=== PATIENT | female | born 1940 ===

== ENCOUNTER 2018-10-03 15:43 | Inpatient (IN) | payer MEDICARE, OTHER ==
[2018-10-03 15:43] VITALS: BMI 22.6
[2018-10-03] MEDS ORDERED: Albuterol 0.083% Inhal Sol (2.5 mg/3 mL) UD INH STA ×2 (16:27→17:16)
[2018-10-03 16:33] LABS: BASO # 0.1 K/uL (0.0-0.2); BASO % 0.7 % (0.0-2.0); EOS % 0.3 % (0.0-4.0); HEMOGLOBIN 11.6 g/dL (11.0-16.0); LYMPH # 0.9 K/uL (1.0-4.3); LYMPH % 8.5 % (20.0-40.0); MEAN CELL VOLUME 95.2 fL (81.0-99.0); MEAN CORPUSCULAR HEMOGLOBIN 31.9 pg (27.0-31.0); MEAN CORPUSCULAR HGB CONC 33.5 g/dL (33.0-37.0); MEAN PLATELET VOLUME 9.7 fL (7.2-11.7); MONO % 8.9 % (0.0-10.0); NEUT # 8.8 K/uL (1.8-7.0); NEUT % 81.6 % (50.0-75.0); PLATELET COUNT 231 K/uL (130-400); RBC 3.64 Mil/uL (3.80-5.20); RED CELL DISTRIBUTION WIDTH 14.8 % (11.5-14.5); WHITE BLOOD COUNT 10.8 K/uL (4.8-10.8)
[2018-10-03] MEDS ORDERED: Albuterol 0.083% Inhal Sol (2.5 mg/3 mL) UD ONE ×2 (16:34→17:29)
--- NOTE | 2018-10-03 16:34 | C.PDOC ---
History Of Present Illness 78 y/o female brought in by ambulance from home complaining of SOB since yesterday afternoon after dialysis, associated with nonproductive cough. Patient states she takes all her medications and took them today. Patient denies chest pain, fever, chills, palpitations, abdominal pain, nausea, vomiting, blood in stool, or dysuria. Patient is on dialysis on Monday, , and Monday. Patient is a poor historian. Time Seen by Provider: 10/03/18 15:52 Chief Complaint (Nursing): Shortness Of Breath History Per: Patient History/Exam Limitations: language barrier Onset/Duration Of Symptoms: Days Current Symptoms Are (Timing): Still Present Past Medical History Reviewed: Historical Data, Nursing Documentation, Vital Signs Vital Signs: Last Vital Signs Temp 98.7 F 10/03/18 16:06 Pulse 82 10/03/18 16:06 Resp 18 10/03/18 16:06 BP 132/55 L 10/03/18 16:06 Pulse Ox 95 10/03/18 16:06 - Medical History PMH: Anemia, Arthritis, Atrial Fibrillation, CAD, CHF, Diabetes, Gall Bladder Disease, HTN, Hypercholesterolemia, Hyperthyroidism, Hypothyroidism, Kidney Stones, Pneumonia, End Stage Renal Disease (TTF), Chronic Kidney Disease Denies: HIV Surgical History: CABG, Cholecystectomy, Coronary Stent, Pacemaker - [facility] Procedures CAUTERY TO STOP EPISTAX (11/29/13) CONTRAST PHLEBOGRAM NEC (02/14/15) DETACHMENT AT LEFT 1ST TOE, HIGH, OPEN APPROACH (11/22/16) DETACHMENT AT LEFT FOOT, PARTIAL 1ST RAY, OPEN APPROACH (12/22/16) DETACHMENT AT LEFT FOOT, PARTIAL 2ND RAY, OPEN APPROACH (12/22/16) DETACHMENT AT LEFT FOOT, PARTIAL 3RD RAY, OPEN APPROACH (12/22/16) DETACHMENT AT LEFT FOOT, PARTIAL 4TH RAY, OPEN APPROACH (12/22/16) DETACHMENT AT LEFT FOOT, PARTIAL 5TH RAY, OPEN APPROACH (12/22/16) ENDOSC POLYPECTOMY OF LG INTEST (05/08/13) EXCISION OF CHEST SKIN, EXTERNAL APPROACH, DIAGNOSTIC (03/11/17) EXCISION OF L FOOT SUBCU/FASCIA, OPEN APPROACH (03/11/17) FLUOROSCOPY OF LEFT SUBCLAVIAN VEIN, GUIDANCE (06/24/17) FLUOROSCOPY OF SUPERIOR VENA CAVA, GUIDANCE (03/11/17) HEMODIALYSIS (03/05/15) INSERTION OF INFUSION DEV INTO L SUBCLAV VEIN, PERC APPROACH (06/24/17) INSERTION OF INFUSION DEV INTO R SUBCLAV VEIN, PERC APPROACH (03/11/17) INSERTION OF INFUSION DEV INTO SUP VENA CAVA, PERC APPROACH (03/11/17) INTRODUCE OTH ANTI-INFECT IN CENTRAL VEIN, PERC (03/11/17) INTRODUCTION OF SERUM/TOX/VACCINE INTO MUSCLE, PERC APPROACH (06/24/17) NEBULIZER THERAPY (03/31/13) NON-INVASIVE MECHANICAL VENTILATION (05/08/13) OTHER ENDOSCOPY OF SM INTEST (05/08/13) PACEMAKER RATE CHECK (09/03/13) PERFORMANCE OF URINARY FILTRATION, MULTIPLE (03/11/17) REMOV THERAPEUT DEV NEC (02/14/15) [facility] (03/05/15) SERUM TRANSFUSION NEC (05/08/13) ULTRASONOGRAPHY OF LEFT SUBCLAVIAN VEIN, GUIDANCE (06/24/17) VENOUS CATHETERIZATION FOR RENAL DIALYSIS (02/14/15) Family History: States: No Known Family Hx - Social History Hx Tobacco Use: No Hx Alcohol Use: No Hx Substance Use: No - Immunization History Hx Tetanus Toxoid Vaccination: Yes Hx Influenza Vaccination: Yes Hx Pneumococcal Vaccination: Yes Review Of Systems Except As Marked, All Systems Reviewed And Found Negative. Respiratory: Positive for: Cough, Shortness of Breath Physical Exam - Physical Exam Appears: Non-toxic, No Acute Distress, Other (laying on stretcher with nasal cannula; obese) Skin: Warm, Dry Head: Atraumatic, Normacephalic Eye(s): bilateral: Normal Inspection Oral Mucosa: Moist Neck: Supple Chest: Other (small dressing to mid upper chest) Cardiovascular: Rhythm Regular, No Murmur Respiratory: Wheezing (throughout), Other (inspiratory crackles at bases) Gastrointestinal/Abdominal: Soft, No Tenderness Extremity: Other (3+ pitting edema to lower extremity; AV fistula thrill to right arm) Extremity: Left: Other (amputation of left metatarsal), Bilateral: Normal Color And Temperature, Normal ROM Pulses: Left Dorsalis Pedis: Normal, Right Dorsalis Pedis: Normal Neurological/Psych: Oriented x3 ED Course And Treatment - Laboratory Results Result Diagrams: 10/03/18 16:30 10/03/18 16:30 ECG: Interpreted By Me, Viewed By Me ECG Rhythm: Sinus Rhythm (Normal) Interpretation Of ECG: Poor R wave progression. Q wave limited in lead 2, 3, avF. Normal axis. Normal intervals. Nonspecific T wave changes. Rate From EC O2 Sat by Pulse Oximetry: 95 (RA) Pulse Ox Interpretation: Normal - Other Rad CXR X-Ray: Read By Radiologist Interpretation: FINDINGS: LUNGS: Bibasilar infiltrates. Right hilar prominence. PLEURA: No significant pleural effusion identified. No definite pneumothorax . CARDIOVASCULAR: Dual lead left-sided pacemaker. Borderline cardiomegaly. Atherosclerotic calcifications of the aorta. OSSEOUS STRUCTURES: Osseous demineralization. Degenerative changes. VISUALIZED UPPER ABDOMEN: Unremarkable. OTHER FINDINGS: Right-sided subclavian vascular stent. IMPRESSION: Bibasilar infiltrates. Right hilar prominence. Left-sided pacemaker. Borderline cardiomegaly. Right-sided subclavian vascular stent. Medical Decision Making Medical Decision Making: Impression: SOB Plan: --EKG --Labs --Chest XR --Albuterol Disposition Discussed With Dr.: Octavio Ferris Doctor Will See Patient In The: Hospital Counseled Patient/Family Regarding: Studies Performed, Diagnosis - Disposition Disposition: HOSPITALIZED Disposition Time: 17:30 Condition: FAIR - Clinical Impression Clinical Impression: NSTEMI (non-ST elevated myocardial infarction) - Scribe Statement The provider has reviewed the documentation as recorded by the Brii Cortez Provider Attestation: All medical record entries made by the Brii were at my direction and personally dictated by me. I have reviewed the chart and agree that the record accurately reflects my personal performance of the history, physical exam, medical decision making, and the department course for this patient. I have also personally directed, reviewed, and agree with the discharge instructions and disposition.
[2018-10-03 16:43] LABS: INR 1.5; PROTHROMBIN TIME 16.2 SECONDS (9.7-12.2)
[2018-10-03 16:48] LABS: CALCIUM 8.8 mg/dl (8.6-10.4)
[2018-10-03 16:54] LABS: ALB/GLOB RATIO 1.1 (1.0-2.1); ALBUMIN 4.3 g/dL (3.5-5.0)
[2018-10-03 17:03] LABS: EOSINOPHIL 1 % (0-4); LYMPHOCYTE 4 % (20-40); MONOCYTE 8 % (0-10); NEUTROPHIL 87 % (50-75); PLATELET ESTIMATE NORMAL (NORMAL); TOTAL CELLS COUNTED 100
[2018-10-03 17:18] LABS: TROPONIN I 0.953 ng/mL (0.00-0.120)
[2018-10-03] MEDS ORDERED: Aspirin 325 mg EC Tablets PO STA (17:19)
--- NOTE | 2018-10-03 18:23 | RAD ---
HISTORY: chest pain COMPARISON: Chest x-ray performed 03/25/16 TECHNIQUE: Chest, one view. FINDINGS: LUNGS: Bibasilar infiltrates. Right hilar prominence. PLEURA: No significant pleural effusion identified. No definite pneumothorax . CARDIOVASCULAR: Dual lead left-sided pacemaker. Borderline cardiomegaly. Atherosclerotic calcifications of the aorta. OSSEOUS STRUCTURES: Osseous demineralization. Degenerative changes. VISUALIZED UPPER ABDOMEN: Unremarkable. OTHER FINDINGS: Right-sided subclavian vascular stent. IMPRESSION: Bibasilar infiltrates. Right hilar prominence. Left-sided pacemaker. Borderline cardiomegaly. Right-sided subclavian vascular stent.
--- NOTE | 2018-10-03 19:37 | CP.PCM.HP ---
<Brooke Ayoub - Last Filed: 10/04/18 05:01> History of Present Illness - History of Present Illness History of Present Illness: CC: chest pain and SOB with cough for 1 day Patient is a 78 year old female with pmhx of ESRD, HTN, DM2, hypothyroidism, CAD who presented to ED with complaints of SOB w/ non-productive cough, and chest pain x1 day. Patient reports chest pain is intermittent and pressure-like. Patient reports this occurred while sitting in her home following HD earlier in the day. Patient reports she is compliant with HD as instructed with TTS schedule. Denies recent illness, fever like symptoms, headache, nausea, vomiting. Full ROS limited 2/2 to patient's mental status pmhx: CAD, ESRD, HTN, HLD, DM2, hypothyroidism pshx: CABG, coronary stents, pacemaker, left toe amputations meds: crestor, ASA, isosorbide mononitrate, renvela, eliquis, metoprolol, lasix, levothyroxine, lyrica, protonix, amlodipine, levemir allergies: Denies SocHx: denies Present on Admission - Present on Admission Any Indicators Present on Admission: No Review of Systems - Constitutional Constitutional: Fatigue - EENT Eyes: Change in Vision (chronic) - Cardiovascular Cardiovascular: Chest Pain, Dyspnea. absent: Leg Edema - Respiratory Respiratory: Cough, Dyspnea - Gastrointestinal Gastrointestinal: absent: Abdominal Pain, Diarrhea, Nausea - Genitourinary Genitourinary: absent: Dysuria - Neurological Neurological: absent: Dizziness, Headaches Past Patient History - Infectious Disease Hx of Infectious Diseases: None - Past Medical History & Family History Past Medical History?: Yes - Past Social History Smoking Status: Never Smoked - CARDIAC Hx Atrial Fibrillation: Yes Hx Congestive Heart Failure: Yes Hx Hypercholesterolemia: Yes Hx Hypertension: Yes Hx Pacemaker: Yes - PULMONARY Hx Pneumonia: Yes - NEUROLOGICAL Hx Neurological Disorder: Yes - HEENT Hx HEENT Problems: No - RENAL Hx Chronic Kidney Disease: Yes Hx Kidney Stones: Yes - ENDOCRINE/METABOLIC Hx Hyperthyroidism: Yes Hx Hypothyroidism: Yes - HEMATOLOGICAL/ONCOLOGICAL Hx Anemia: Yes Hx Human Immunodeficiency Virus (HIV): No - INTEGUMENTARY Hx Dermatological Problems: No - MUSCULOSKELETAL/RHEUMATOLOGICAL Hx Arthritis: Yes - GASTROINTESTINAL Hx Gall Bladder Disease: Yes - GENITOURINARY/GYNECOLOGICAL Hx Genitourinary Disorders: No - PSYCHIATRIC Hx Substance Use: No - SURGICAL HISTORY Hx Cholecystectomy: Yes Hx Coronary Artery Bypass Graft: Yes Hx Coronary Stent: Yes - ANESTHESIA Hx Anesthesia: Yes Hx Anesthesia Reactions: No Hx Malignant Hyperthermia: No Meds Allergies/Adverse Reactions: Allergies Allergy/AdvReac Type Severity Reaction Status Date / Time No Known Allergies Allergy Verified 10/03/18 16:11 Physical Exam - Constitutional Appears: Non-toxic, No Acute Distress - Head Exam Head Exam: ATRAUMATIC, NORMAL INSPECTION, NORMOCEPHALIC - Eye Exam Eye Exam: EOMI Additional comments: opacification of the lens - ENT Exam ENT Exam: Mucous Membranes Dry - Neck Exam Neck exam: Positive for: Normal Inspection Additional comments: sternal bandage, clean/dry/intact - Respiratory Exam Respiratory Exam: Rhonchi, Wheezes, NORMAL BREATHING PATTERN. absent: Accessory Muscle Use Additional comments: Patient actively coughing during exam, unable to clear phlegm - Cardiovascular Exam Cardiovascular Exam: Systolic Murmur. absent: Tachycardia Additional comments: pacemaker - GI/Abdominal Exam GI & Abdominal Exam: Distended, Normal Bowel Sounds, Soft. absent: Tenderness - Extremities Exam Extremities exam: Positive for: pedal pulses present. Negative for: calf tenderness, normal inspection (left foot digit amputated), pedal edema - Neurological Exam Neurological exam: Alert - Psychiatric Exam Psychiatric exam: Flat Affect - Skin Skin Exam: Dry, Intact, Normal Color, Warm Results - Vital Signs Recent Vital Signs: Last Vital Signs Temp 98.7 F 10/03/18 16:06 Pulse 74 10/03/18 17:30 Resp 20 10/03/18 17:30 BP 136/58 L 10/03/18 17:30 Pulse Ox 95 10/03/18 18:47 - Labs Result Diagrams: 10/03/18 16:30 10/03/18 16:30 Labs: Laboratory Results - last 24 hr 10/03/18 10/03/18 10/03/18 16:30 16:30 16:30 WBC 10.8 RBC 3.64 L Hgb 11.6 Hct 34.7 MCV 95.2 MCH 31.9 H MCHC 33.5 RDW 14.8 H Plt Count 231 MPV 9.7 Neut % (Auto) 81.6 H Lymph % (Auto) 8.5 L [place] % (Auto) 8.9 Eos % (Auto) 0.3 Baso % (Auto) 0.7 Neut # (Auto) 8.8 H Lymph # (Auto) 0.9 L [place] # (Auto) 1.0 H Eos # (Auto) 0.0 Baso # (Auto) 0.1 Neutrophils % (Manual) 87 H Lymphocytes % (Manual) 4 L Monocytes % (Manual) 8 Eosinophils % (Manual) 1 Platelet Estimate Normal RBC Morphology Normal PT 16.2 H INR 1.5 APTT 50 H Sodium 133 Potassium 5.5 H Chloride 90 L Carbon Dioxide 31 H Anion Gap 18 BUN 46 H Creatinine 4.1 H Est GFR ( Amer) 13 Est GFR (Non-Af Amer) 10 Random Glucose 188 H Calcium 8.8 Magnesium 2.1 Total Bilirubin 1.1 AST 38 H D ALT 16 Alkaline Phosphatase 83 Troponin I 0.9530 H* NT-Pro-B Natriuret Pep 37137 H Total Protein 8.3 Albumin 4.3 Globulin 4.0 H Albumin/Globulin Ratio 1.1 Assessment & Plan - Assessment and Plan (Free Text) Assessment: 78 year old female with pmhx of ESRD, HTN, DM2, hypothyroidism, CAD admitted for evaluation of elevated cardiac enzymes Plan: Elevated cardiac enzymes R/O CAD -patient presenting with chest pain -troponin on admission .953, trending down to .836, f/u with third -EKG shows inferior infarct, age undetermined, possible anterolateral infarct, age undetermined. No ST changes -f/u echo -f/u lipid panel, hgb a1c -continue home meds -cardiology consult, Sukhjinder Mccartney R/O fluid overload 2/2 CHF/ESRD -CXR: bibasilar infiltrates, right hilar prominence. Borderline cardiomegaly. Pacemaker -pBNP: 29016 -echo(06/11): LVEF-50%, moderate LVH, borderline left ventricle systolic function, mild/mod mitral regurg, mild/mod pulm HTN -HD TTS -lasix 40mg ivp -continue home meds -Nephro consult Dr. Duarte -cardio, Dr. Valdez DM2 -accuchecks achs -f/u a1c -ISS HTN -continue home meds Ppx -renal, HHD -GI ppx, protonix -ISS achs -hypoglycemia protocol cased discussed with Dr. Geiger -Brooke Ayoub, PGY-1 <David Geiger - Last Filed: 10/04/18 06:33> Results - Vital Signs Recent Vital Signs: Last Vital Signs Temp 98.2 F 10/04/18 06:07 Pulse 72 10/04/18 06:07 Resp 14 10/04/18 06:07 BP 146/61 10/04/18 06:07 Pulse Ox 96 10/04/18 06:07 - Labs Result Diagrams: 10/04/18 05:43 10/03/18 16:30 Labs: Laboratory Results - last 24 hr 10/03/18 10/03/18 10/03/18 16:30 16:30 16:30 WBC 10.8 RBC 3.64 L Hgb 11.6 Hct 34.7 MCV 95.2 MCH 31.9 H MCHC 33.5 RDW 14.8 H Plt Count 231 MPV 9.7 Neut % (Auto) 81.6 H Lymph % (Auto) 8.5 L [place] % (Auto) 8.9 Eos % (Auto) 0.3 Baso % (Auto) 0.7 Neut # (Auto) 8.8 H Lymph # (Auto) 0.9 L [place] # (Auto) 1.0 H Eos # (Auto) 0.0 Baso # (Auto) 0.1 Neutrophils % (Manual) 87 H Lymphocytes % (Manual) 4 L Monocytes % (Manual) 8 Eosinophils % (Manual) 1 Platelet Estimate Normal RBC Morphology Normal PT 16.2 H INR 1.5 APTT 50 H Sodium 133 Potassium 5.5 H Chloride 90 L Carbon Dioxide 31 H Anion Gap 18 BUN 46 H Creatinine 4.1 H Est GFR ( Amer) 13 Est GFR (Non-Af Amer) 10 Random Glucose 188 H Calcium 8.8 Magnesium 2.1 Total Bilirubin 1.1 AST 38 H D ALT 16 Alkaline Phosphatase 83 Total Creatine Kinase CK-MB (Mass) Troponin I 0.9530 H* NT-Pro-B Natriuret Pep 94538 H Total Protein 8.3 Albumin 4.3 Globulin 4.0 H Albumin/Globulin Ratio 1.1 10/04/18 10/04/18 10/04/18 00:10 05:43 06:02 WBC 11.3 H RBC 3.46 L Hgb 11.1 Hct 33.3 L MCV 96.1 MCH 31.9 H MCHC 33.2 RDW 14.6 H Plt Count 202 MPV 9.4 Neut % (Auto) 82.5 H Lymph % (Auto) 8.6 L [place] % (Auto) 8.0 Eos % (Auto) 0.3 Baso % (Auto) 0.6 Neut # (Auto) 9.3 H Lymph # (Auto) 1.0 [place] # (Auto) 0.9 H Eos # (Auto) 0.0 Baso # (Auto) 0.1 Neutrophils % (Manual) Lymphocytes % (Manual) Monocytes % (Manual) Eosinophils % (Manual) Platelet Estimate RBC Morphology PT INR APTT Sodium Potassium Chloride Carbon Dioxide Anion Gap BUN Creatinine Est GFR ( Amer) Est GFR (Non-Af Amer) Random Glucose Calcium Magnesium Total Bilirubin AST ALT Alkaline Phosphatase Total Creatine Kinase 74 121 CK-MB (Mass) 1.13 Troponin I 0.8360 H* NT-Pro-B Natriuret Pep Total Protein Albumin Globulin Albumin/Globulin Ratio Attending/Attestation - Attestation I have personally seen and examined this patient.: Yes I have fully participated in the care of the patient.: Yes I have reviewed all pertinent clinical information: Yes Notes (Text): 10/04/18 06:27 I saw, examined and discussed this patient with Dr Ayoub. I agree with the asse ssment and plan outlined. This is a 78 years olf female with hx of CAD s/p CABG, ESRD oh Hemodialysis,comes with SOB and chest pain. Chest X Ray showed Pulmonay congestion, Pro BNP elevated and Troponin Elevated. EKG is the same as 06/24/17. We will treat for Acute CHF and the patient will receive dialysis on 10/04/18. The elevated troponin could be due to the CHF and renal failure. We would r/o ne w ACS with serial troponin and ECHO for wall motion and LVEF. Treat Diabetes Mellitus and Hypothyroidism. David Geiger MD
[2018-10-03] MEDS ORDERED: Aritificial Tears (15ml) OU PRN (22:09)
[2018-10-03] MEDS ORDERED: Albuterol 0.083% Inhal Sol (2.5 mg/3 mL) UD INH PRN (22:16)
[2018-10-03] MEDS ORDERED: Glucagon Recombinant 1 mg Inj IM PRN (22:25)
[2018-10-03] MEDS ORDERED: Dextrose 50% SYRINGE Inj (50 ml) IV PRN (22:25)
[2018-10-04 00:59] LABS: CK-MB 1.13 ng/mL (0.0-3.38); TROPONIN I 0.836 ng/mL (0.00-0.120)
[2018-10-04 05:46] LABS: BASO # 0.1 K/uL (0.0-0.2); BASO % 0.6 % (0.0-2.0); EOS % 0.3 % (0.0-4.0); HEMOGLOBIN 11.1 g/dL (11.0-16.0); LYMPH % 8.6 % (20.0-40.0); MEAN CELL VOLUME 96.1 fL (81.0-99.0); MEAN CORPUSCULAR HEMOGLOBIN 31.9 pg (27.0-31.0); MEAN CORPUSCULAR HGB CONC 33.2 g/dL (33.0-37.0); MEAN PLATELET VOLUME 9.4 fL (7.2-11.7); MONO # 0.9 K/uL (0.0-0.8); NEUT # 9.3 K/uL (1.8-7.0); NEUT % 82.5 % (50.0-75.0); PLATELET COUNT 202 K/uL (130-400); RBC 3.46 Mil/uL (3.80-5.20); RED CELL DISTRIBUTION WIDTH 14.6 % (11.5-14.5); WHITE BLOOD COUNT 11.3 K/uL (4.8-10.8)
[2018-10-04 06:37] LABS: ALB/GLOB RATIO 1.2 (1.0-2.1); ALBUMIN 4.1 g/dL (3.5-5.0); CALCIUM 8.9 mg/dl (8.6-10.4)
[2018-10-04 06:46] LABS: CK-MB 0.89 ng/mL (0.0-3.38); TROPONIN I 1.33 ng/mL (0.00-0.120)
[2018-10-04] MEDS ORDERED: Heparin25000 units/250ml 1/2NS 25,000 UNITS/250 ML BAG IV PRN (07:30)
--- NOTE | 2018-10-04 07:36 | CP.PCM.PN ---
Subjective - Date & Time of Evaluation Date of Evaluation: 10/04/18 Time of Evaluation: 07:35 - Subjective Subjective: PGY-1 Medicine Progress Note for Dr. Andrew Patient seen and examined using pediatric immunologist ([id number]). No acute overnight events reported. Patient endorsed R sided chest pain after last HD session on Monday; however, chest pain is resolved at this time. She does have some difficulty breathing on exam but is in no acute distress. Does have an active cough, unable to clear out phlegm. She denies any palpitations, acute shortness of breath, cough, abdominal pain, n/v/d/c. Spoke with patient's cash register balancer Dr. Sukhjinder Valdez. Per recs, patient is high risk for cardiac cath procedure, recommends conservative management with home eliquis restarted. Objective - Vital Signs/Intake and Output Vital Signs (last 24 hours): Temp Pulse Resp BP Pulse Ox 98.2 F 72 14 146/61 96 10/04/18 06:07 10/04/18 06:07 10/04/18 06:07 10/04/18 06:07 10/04/18 06:07 - Medications Medications: Current Medications Albuterol Sulfate (Albuterol 0.083% Inhal Rosaura (2.5 Mg/3 Ml) Ud) 2.5 mg INH RQ6 PRN PRN Reason: Shortness of Breath Amlodipine Besylate (Norvasc) 5 mg PO DAILY HERNAN Apixaban (Eliquis) 2.5 mg PO BID [facility] Artificial Tears (Artificial Tears) 0 ml OU Q4 PRN PRN Reason: Dry eyes Aspirin (Ecotrin) 81 mg PO DAILY HERNAN Dextrose (Dextrose 50% Inj) 0 ml IV STAT PRN; Protocol PRN Reason: Hypoglycemia Protocol Dextrose (Glutose 15) 0 gm PO ONCE PRN; Protocol PRN Reason: Hypoglycemia Protocol Furosemide (Lasix) 20 mg PO DAILY HERNAN Furosemide (Lasix) 40 mg IVP DAILY HERNAN Last Admin: 10/04/18 00:48 Dose: 40 mg Glucagon (Glucagen Diagnostic Kit) 0 mg IM STAT PRN; Protocol PRN Reason: Hypoglycemia Protocol Home Med (Sevelamer [Renagel]) 800 mg PO MWF HER[facility] Dextrose (Dextrose 5% In Water 1000 Ml) 1,000 mls @ 0 mls/hr IV .Q0M PRN; Protocol PRN Reason: Hypoglycemia Protocol Heparin Sodium/Sodium Chloride (Heparin 72534 Units/250ml 1/2 Normal Saline) 25,000 units in 250 mls @ 8.165 mls/hr IV .Q24H PRN; Protocol PRN Reason: ADJUST RATE PER PROTOCOL Insulin Human Regular (Novolin R) 0 unit SC ACHS HERNAN; Protocol Isosorbide Mononitrate (Imdur Er) 30 mg PO DAILY [facility] Levothyroxine Sodium (Synthroid) 75 mcg PO DAILY [facility] Metoprolol Succinate (Toprol Xl) 50 mg PO DAILY [facility] Pantoprazole Sodium (Protonix Ec Tab) 40 mg PO DAILY [facility] Rosuvastatin Calcium (Crestor) 40 mg PO HS [facility] Last Admin: 10/03/18 22:44 Dose: 40 mg Sevelamer Carbonate (Renvela) 800 mg PO TID [facility] Tobramycin/Dexamethasone (Tobradex 0.3%-0.1% Opht Oint) 1 appl OU TID [facility] Vitamin B Complex/Vit C/Folic Acid (Nephro-Etelvina) 1 tab PO DAILY [facility] - Labs Labs: 10/04/18 05:43 10/04/18 05:43 PT 16.2 SECONDS (9.7-12.2) H 10/03/18 16:30 INR 1.5 10/03/18 16:30 APTT 50 SECONDS (21-34) H 10/03/18 16:30 - Constitutional Appears: No Acute Distress - Head Exam Head Exam: ATRAUMATIC, NORMAL INSPECTION, NORMOCEPHALIC - Eye Exam Eye Exam: EOMI, Normal appearance - ENT Exam ENT Exam: Mucous Membranes Moist, Normal Exam - Neck Exam Neck Exam: Full ROM, Normal Inspection. absent: Tenderness Additional comments: sternal bandage, clean/dry/intact - Respiratory Exam Respiratory Exam: Rales, Wheezes, NORMAL BREATHING PATTERN. absent: Accessory Muscle Use, Respiratory Distress - Cardiovascular Exam Cardiovascular Exam: +S1, +S2 Additional comments: pacemaker - GI/Abdominal Exam GI & Abdominal Exam: Distended, Soft. absent: Firm, Guarding, Rigid, Tenderness, Normal Bowel Sounds, Organomegaly, Rebound - Extremities Exam Extremities Exam: Normal Capillary Refill, Normal Inspection, Pedal Edema. absent: Calf Tenderness - Back Exam Back Exam: NORMAL INSPECTION - Neurological Exam Neurological Exam: Alert, Awake, Oriented x3 - Skin Skin Exam: Dry, Intact, Normal Color, Warm Assessment and Plan - Assessment and Plan (Free Text) Assessment: 78 year old female with pmhx of ESRD on HD TTS, HTN, DM2, hypothyroidism, CAD presenting with worsening shortness of breath, elevated trops/BNP 2/2 acute systolic CHF exacerbation vs NSTEMI. Plan: Acute Dyspnea 2/2 Systolic CHF exacerbation vs NSTEMI -elevated trop series: 0.9530, 0.8360, 1.33 -f/u repeat JOSEY panel -trop #1: 1.07 -proBNP 14250 on admission -A1C 7.7 -lipid panel -EKG: NSR @ 75 bpm -CXR: Bibasilar infiltrates. R hilar prominence. L sided pacemaker, borderline cardiomegaly. R sided subclavian vascular stent. -f/u ECHO -Spoke with patient's cash register balancer (Dr. Sukhjinder Valdez) -per recs, patient high risk for cath procedure -conservative mgmt recommended -d/c heparin drip, resume home eliquis 2.5 mg PO BID -ASA 81 mg PO daily -Eliquis 2.5 mg PO BID -Metoprolol 50 mg PO daily -Imdur 30 mg PO daily -Crestor 20 mg PO HS ESRD on HD TTS -pBNP: 95782 -CXR: bibasilar infiltrates, right hilar prominence. Borderline cardiomegaly. Pacemaker -ECHO (06/11): LVEF-50%, moderate LVH, borderline left ventricle systolic function, mild/mod mitral regurg, mild/mod pulm HTN -f/u repeat ECHO -Nephrology recs (Dr. Warren) appreciated -Will plan for HD today as ordered. Continue with Nephrovite 1 tab/day. -PRBC as needed for anemia. on MISA with dialysis as last Hb 11.1 -Continue with phos binders, last phos level 4.4 -Pt not on RAAS katie, will add Losartan 25 mg PO QPM -Glycemic control, Dialysis consistent diet DM -ISS -accuchecks ACHS -hypoglycemic protocol HTN -Norvasc 5 mg PO daily -Losartain 25 mg PO QPM -Metoprolol 50 mg PO daily Hypothyroidism -resume home synthroid 75 mcg PO daily PPx, Diet, Disposition -DVT ppx: eliquis -Diet: HHD, renal dialysis Case discussed with Dr. Kamran Child DO, PGY-1
[2018-10-04 08:31] LABS: ANISOCYTOSIS SLIGHT; BASOPHIL 1 % (0-2); HYPOCHROMIC SLIGHT; LYMPHOCYTE 10 % (20-40); MONOCYTE 7 % (0-10); NEUTROPHIL 81 % (50-75); PLATELET ESTIMATE NORMAL (NORMAL); POIKILOCYTOSIS SLIGHT; REACTIVE LYMPHOCYTES 1 % (0-0); TOTAL CELLS COUNTED 100
[2018-10-04 08:32] LABS: GIANT PLATELETS PRESENT; LARGE PLATELETS PRESENT; TARGET CELLS SLIGHT
[2018-10-04] MEDS: (Novolin R) Insulin Human Regular 100 units/ml vial SC SCH ×4 (10:50→22:07)
[2018-10-04] MEDS: Multivitamin Vitamin B Complex (Nephro-Vite) Tab PO SCH (13:37)
[2018-10-04] MEDS: Levothyroxine 75 MCG TAB PO SCH (13:37)
[2018-10-04] MEDS: Metoprolol Succinate 50 mg XL Tab PO SCH (13:37)
[2018-10-04] MEDS: Tobramycin/Dexamethasone OPHT OINT OU SCH ×3 (13:37→21:49)
[2018-10-04] MEDS: Pantoprazole 40 mg EC Tab PO SCH (13:37)
[2018-10-04 14:24] LABS: CK-MB 0.58 ng/mL (0.0-3.38); TROPONIN I 1.07 ng/mL (0.00-0.120)
--- NOTE | 2018-10-04 15:04 | CP.PCM.CON ---
History of Present Illness - History of Present Illness History of Present Illness: Nephrology Consultation Note: Assessment: Stable NSTEMI, hyponatremia hyperkalemia HTN urgency and pulm vasc congestion Diabetic chronic Kidney Disease (E11.22) Hypertensive Chronic Kidney Disease (I12.0) End stage renal disease (N18.6) dependence on hemodialysis (Z99.2) (TTS) via AVF Anemia (D64.9), Hyperphosphatemia (E83.39), Secondary Hyperparathyroidism (E21.1), HTN (I12.0) hx of CVA Plan: Will plan for HD today as ordered. Continue with Nephrovite 1 tab/day. PRBC as needed for anemia. on MISA with dialysis as last Hb 11.1 Continue with phos binders, last phos level 4.4 BP control with meds as ordered. Patient not on RAAS katie hence will add Glycemic control, Dialysis consistent diet Further work up/management as per primary team Dose meds/antibiotics (if needed) for ESRD status. Avoid fleets enema/magnesium based laxatives. Thanks for allowing me to participate in care of your patient. Will follow patient with you. Please call if any Qs. had d/w team Dr Franki Warren Office: [phone] Chief Complaint;chest pain HPI: Pt is a 78 F with hx of ESRD on hemodialysis (TTS) via AVF , last dialysis tue, chronic anemia, hyperphosphatemia, secondary hyperparathyroidism, Diabetes Mellitus, hypertension, hx of CVA presented with complaints of chest pain which is being managed for NSTEMI. also with HTN urgency and pulm vasc congestion Renal consult requested for ESRD management. pt not able to communicate much due to her hx of CVA. she is bed bound ROS: Cardiovascular: No chest pain. Pulmonary: No shortness of breath pt not able to communicate much due to her hx of CVA Physical Examination: General Appearance: Comfortable, in no acute respiratory distress, co-operative . Vitals reviewed and noted as below Head; Atraumatic, normocephalic ENT: no ulcers no thrush. Tongue is midline. Oropharynx: no rash or ulcers. EYES: Pupils are equal, round and reactive to light accommodation. Eye muscles and extraocular movement intact. Sclera is anicteric. Neck; supple no lymphadenopathy, no thyromegaly or bruit Lungs: Normal respiratory rate/effort. Breath sounds bilateral reduced at bases with few crackle Heart: Normal rate. s1s2 normal. No rub or gallop. Extremities: no edema. No varicose veins Neurological: Patient is alert, awake and has chronic residual weakness due to stroke in past. has some aphasia as well Skin: Warm and dry. Normal turgor. No rash. Palpitation: Normal elasticity for age Abdomen: Abdomen is soft. Bowel sounds +. There is no abdominal tenderness, no guarding/rigidity or organomegaly Psych: normal insight and normal affect/mood MSK: no joint tenderness or swelling. Digits and nails normal, no deformity : kidney or bladder not palpable Access: AVF Labs/imaging reviewed. Past medical history, past surgical history, family history, social history, allergy reviewed and noted as below Family Hx: no hx of CKD. Non contributory Past Patient History - Infectious Disease Hx of Infectious Diseases: None - Past Medical History & Family History Past Medical History?: Yes - Past Social History Smoking Status: Never Smoked - CARDIAC Hx Atrial Fibrillation: Yes Hx Congestive Heart Failure: Yes Hx Hypercholesterolemia: Yes Hx Hypertension: Yes Hx Pacemaker: Yes - PULMONARY Hx Pneumonia: Yes - NEUROLOGICAL Hx Neurological Disorder: Yes - HEENT Hx HEENT Problems: No - RENAL Hx Chronic Kidney Disease: Yes Hx Kidney Stones: Yes - ENDOCRINE/METABOLIC Hx Hyperthyroidism: Yes Hx Hypothyroidism: Yes - HEMATOLOGICAL/ONCOLOGICAL Hx Anemia: Yes Hx Human Immunodeficiency Virus (HIV): No - INTEGUMENTARY Hx Dermatological Problems: No - MUSCULOSKELETAL/RHEUMATOLOGICAL Hx Arthritis: Yes - GASTROINTESTINAL Hx Gall Bladder Disease: Yes - GENITOURINARY/GYNECOLOGICAL Hx Genitourinary Disorders: No - PSYCHIATRIC Hx Substance Use: No - SURGICAL HISTORY Hx Cholecystectomy: Yes Hx Coronary Artery Bypass Graft: Yes Hx Coronary Stent: Yes - ANESTHESIA Hx Anesthesia: Yes Hx Anesthesia Reactions: No Hx Malignant Hyperthermia: No Meds Allergies/Adverse Reactions: Allergies Allergy/AdvReac Type Severity Reaction Status Date / Time No Known Allergies Allergy Verified 10/03/18 16:11 - Medications Medications: Current Medications Albuterol Sulfate (Albuterol 0.083% Inhal Rosaura (2.5 Mg/3 Ml) Ud) 2.5 mg INH RQ6 PRN PRN Reason: Shortness of Breath Amlodipine Besylate (Norvasc) 5 mg PO DAILY [facility] Last Admin: 10/04/18 13:37 Dose: Not Given Apixaban (Eliquis) 2.5 mg PO BID [facility] Artificial Tears (Artificial Tears) 0 ml OU Q4 PRN PRN Reason: Dry eyes Aspirin (Ecotrin) 81 mg PO DAILY [facility] Last Admin: 10/04/18 13:36 Dose: Not Given Dextrose (Dextrose 50% Inj) 0 ml IV STAT PRN; Protocol PRN Reason: Hypoglycemia Protocol Dextrose (Glutose 15) 0 gm PO ONCE PRN; Protocol PRN Reason: Hypoglycemia Protocol Furosemide (Lasix) 20 mg PO DAILY [facility] Last Admin: 10/04/18 13:36 Dose: Not Given Glucagon (Glucagen Diagnostic Kit) 0 mg IM STAT PRN; Protocol PRN Reason: Hypoglycemia Protocol Dextrose (Dextrose 5% In Water 1000 Ml) 1,000 mls @ 0 mls/hr IV .Q0M PRN; Protocol PRN Reason: Hypoglycemia Protocol Insulin Human Regular (Novolin R) 0 unit SC ACHS [facility]; Protocol Last Admin: 10/04/18 12:00 Dose: Not Given Isosorbide Mononitrate (Imdur Er) 30 mg PO DAILY [facility] Last Admin: 10/04/18 13:36 Dose: Not Given Levothyroxine Sodium (Synthroid) 75 mcg PO DAILY [facility] Last Admin: 10/04/18 13:37 Dose: Not Given Losartan Potassium (Cozaar) 50 mg PO QPM [facility] Metoprolol Succinate (Toprol Xl) 50 mg PO DAILY [facility] Last Admin: 10/04/18 13:37 Dose: Not Given Pantoprazole Sodium (Protonix Ec Tab) 40 mg PO DAILY [facility] Last Admin: 10/04/18 13:37 Dose: Not Given Rosuvastatin Calcium (Crestor) 20 mg PO HS [facility] Sevelamer Carbonate (Renvela) 800 mg PO TID [facility] Last Admin: 10/04/18 14:31 Dose: Not Given Tobramycin/Dexamethasone (Tobradex 0.3%-0.1% Opht Oint) 1 appl OU TID [facility] Last Admin: 10/04/18 14:31 Dose: Not Given Vitamin B Complex/Vit C/Folic Acid (Nephro-Etelvina) 1 tab PO DAILY [facility] Last Admin: 10/04/18 13:37 Dose: Not Given Results - Vital Signs Recent Vital Signs: Last Vital Signs Temp 97.5 F L 10/04/18 13:50 Pulse 74 10/04/18 13:50 Resp 18 10/04/18 13:50 BP 131/59 L 10/04/18 13:50 Pulse Ox 97 10/04/18 13:50 - Labs Result Diagrams: 10/04/18 05:43 10/04/18 05:43 Labs: Laboratory Results - last 24 hr 10/03/18 10/03/18 10/03/18 16:30 16:30 16:30 WBC 10.8 RBC 3.64 L Hgb 11.6 Hct 34.7 MCV 95.2 MCH 31.9 H MCHC 33.5 RDW 14.8 H Plt Count 231 MPV 9.7 Neut % (Auto) 81.6 H Lymph % (Auto) 8.5 L [place] % (Auto) 8.9 Eos % (Auto) 0.3 Baso % (Auto) 0.7 Neut # (Auto) 8.8 H Lymph # (Auto) 0.9 L [place] # (Auto) 1.0 H Eos # (Auto) 0.0 Baso # (Auto) 0.1 Neutrophils % (Manual) 87 H Lymphocytes % (Manual) 4 L Reactive Lymphs % Monocytes % (Manual) 8 Eosinophils % (Manual) 1 Basophils % (Manual) Platelet Estimate Normal Large Platelets Giant Platelets RBC Morphology Normal Hypochromasia (manual) Poikilocytosis (manual Anisocytosis (manual) Target Cells PT 16.2 H INR 1.5 APTT 50 H Sodium 133 Potassium 5.5 H Chloride 90 L Carbon Dioxide 31 H Anion Gap 18 BUN 46 H Creatinine 4.1 H Est GFR ( Amer) 13 Est GFR (Non-Af Amer) 10 POC Glucose (mg/dL) Random Glucose 188 H Hemoglobin A1c Calcium 8.8 Phosphorus Magnesium 2.1 Total Bilirubin 1.1 AST 38 H D ALT 16 Alkaline Phosphatase 83 Total Creatine Kinase CK-MB (Mass) Troponin I 0.9530 H* NT-Pro-B Natriuret Pep 38351 H Total Protein 8.3 Albumin 4.3 Globulin 4.0 H Albumin/Globulin Ratio 1.1 Triglycerides Cholesterol LDL Cholesterol Direct HDL Cholesterol Hep Bs Antigen 10/04/18 10/04/18 10/04/18 00:10 05:43 05:43 WBC 11.3 H RBC 3.46 L Hgb 11.1 Hct 33.3 L MCV 96.1 MCH 31.9 H MCHC 33.2 RDW 14.6 H Plt Count 202 MPV 9.4 Neut % (Auto) 82.5 H Lymph % (Auto) 8.6 L [place] % (Auto) 8.0 Eos % (Auto) 0.3 Baso % (Auto) 0.6 Neut # (Auto) 9.3 H Lymph # (Auto) 1.0 [place] # (Auto) 0.9 H Eos # (Auto) 0.0 Baso # (Auto) 0.1 Neutrophils % (Manual) 81 H Lymphocytes % (Manual) 10 L Reactive Lymphs % 1 H Monocytes % (Manual) 7 Eosinophils % (Manual) Basophils % (Manual) 1 Platelet Estimate Normal Large Platelets Present Giant Platelets Present RBC Morphology Hypochromasia (manual) Slight Poikilocytosis (manual Slight Anisocytosis (manual) Slight Target Cells Slight PT INR APTT Sodium 129 L Potassium 5.3 H Chloride 90 L Carbon Dioxide 29 Anion Gap 15 BUN 52 H Creatinine 4.7 H Est GFR ( Amer) 11 Est GFR (Non-Af Amer) 9 POC Glucose (mg/dL) Random Glucose 164 H Hemoglobin A1c Calcium 8.9 Phosphorus 4.4 Magnesium 2.0 Total Bilirubin 0.6 AST 29 ALT 19 Alkaline Phosphatase 86 Total Creatine Kinase 74 CK-MB (Mass) 1.13 Troponin I 0.8360 H* NT-Pro-B Natriuret Pep Total Protein 7.7 Albumin 4.1 Globulin 3.5 Albumin/Globulin Ratio 1.2 Triglycerides 155 H D Cholesterol 95 LDL Cholesterol Direct 32 HDL Cholesterol 36 Hep Bs Antigen 10/04/18 10/04/18 10/04/18 05:43 06:02 07:23 WBC RBC Hgb Hct MCV MCH MCHC RDW Plt Count MPV Neut % (Auto) Lymph % (Auto) [place] % (Auto) Eos % (Auto) Baso % (Auto) Neut # (Auto) Lymph # (Auto) [place] # (Auto) Eos # (Auto) Baso # (Auto) Neutrophils % (Manual) Lymphocytes % (Manual) Reactive Lymphs % Monocytes % (Manual) Eosinophils % (Manual) Basophils % (Manual) Platelet Estimate Large Platelets Giant Platelets RBC Morphology Hypochromasia (manual) Poikilocytosis (manual Anisocytosis (manual) Target Cells PT INR APTT Sodium Potassium Chloride Carbon Dioxide Anion Gap BUN Creatinine Est GFR ( Amer) Est GFR (Non-Af Amer) POC Glucose (mg/dL) 181 H Random Glucose Hemoglobin A1c 7.7 H D Calcium Phosphorus Magnesium Total Bilirubin AST ALT Alkaline Phosphatase Total Creatine Kinase 121 CK-MB (Mass) 0.89 Troponin I 1.3300 H* NT-Pro-B Natriuret Pep Total Protein Albumin Globulin Albumin/Globulin Ratio Triglycerides Cholesterol LDL Cholesterol Direct HDL Cholesterol Hep Bs Antigen 10/04/18 10/04/18 10/04/18 11:56 13:49 13:49 WBC RBC Hgb Hct MCV MCH MCHC RDW Plt Count MPV Neut % (Auto) Lymph % (Auto) [place] % (Auto) Eos % (Auto) Baso % (Auto) Neut # (Auto) Lymph # (Auto) [place] # (Auto) Eos # (Auto) Baso # (Auto) Neutrophils % (Manual) Lymphocytes % (Manual) Reactive Lymphs % Monocytes % (Manual) Eosinophils % (Manual) Basophils % (Manual) Platelet Estimate Large Platelets Giant Platelets RBC Morphology Hypochromasia (manual) Poikilocytosis (manual Anisocytosis (manual) Target Cells PT INR APTT Sodium Potassium Chloride Carbon Dioxide Anion Gap BUN Creatinine Est GFR ([facility] Amer) Est GFR (Non- Amer) POC Glucose (mg/dL) 184 H Random Glucose Hemoglobin A1c Calcium Phosphorus Magnesium Total Bilirubin AST ALT Alkaline Phosphatase Total Creatine Kinase 222 H CK-MB (Mass) 0.58 Troponin I 1.0700 H* NT-Pro-B Natriuret Pep Total Protein Albumin Globulin Albumin/Globulin Ratio Triglycerides Cholesterol LDL Cholesterol Direct HDL Cholesterol Hep Bs Antigen Negative 10/04/18 13:54 WBC RBC Hgb Hct MCV MCH MCHC RDW Plt Count MPV Neut % (Auto) Lymph % (Auto) [place] % (Auto) Eos % (Auto) Baso % (Auto) Neut # (Auto) Lymph # (Auto) [place] # (Auto) Eos # (Auto) Baso # (Auto) Neutrophils % (Manual) Lymphocytes % (Manual) Reactive Lymphs % Monocytes % (Manual) Eosinophils % (Manual) Basophils % (Manual) Platelet Estimate Large Platelets Giant Platelets RBC Morphology Hypochromasia (manual) Poikilocytosis (manual Anisocytosis (manual) Target Cells PT INR APTT 60 H D Sodium Potassium Chloride Carbon Dioxide Anion Gap BUN Creatinine Est GFR ( Amer) Est GFR (Non-Af Amer) POC Glucose (mg/dL) Random Glucose Hemoglobin A1c Calcium Phosphorus Magnesium Total Bilirubin AST ALT Alkaline Phosphatase Total Creatine Kinase CK-MB (Mass) Troponin I NT-Pro-B Natriuret Pep Total Protein Albumin Globulin Albumin/Globulin Ratio Triglycerides Cholesterol LDL Cholesterol Direct HDL Cholesterol Hep Bs Antigen
[2018-10-04 18:20] LABS: CK-MB 1.23 ng/mL (0.0-3.38); TROPONIN I 0.856 ng/mL (0.00-0.120)
--- NOTE | 2018-10-05 07:20 | CP.PCM.PN ---
Subjective - Date & Time of Evaluation Date of Evaluation: 10/05/18 Time of Evaluation: 07:19 - Subjective Subjective: PGY-1 Medicine Progress Note for Dr. Andrew Patient seen and examined at bedside this AM, eating breakfast. No acute overnight events reported. Patient had HD session yesterday with no complications, feels improved today s/p session. She continues to have cough and some sob, though mildly improved. Denies any chest pain, palpitations, abdominal pain, n/v/d/c. No other acute somatic complaints at this time. Spoke with her Internet Manager, Dr Valdez, yesterday who states patient is high risk for cardiac cath--prefers conservative mgmt with home eliquis. Objective - Vital Signs/Intake and Output Vital Signs (last 24 hours): Temp Pulse Resp BP Pulse Ox 99.8 F H 81 20 165/78 H 95 10/05/18 02:30 10/04/18 23:10 10/04/18 23:10 10/04/18 23:10 10/04/18 23:10 Intake and Output: 10/05/18 10/05/18 06:59 18:59 Intake Total 1 Balance 1 - Medications Medications: Current Medications Albuterol Sulfate (Albuterol 0.083% Inhal Rosaura (2.5 Mg/3 Ml) Ud) 2.5 mg INH RQ6 PRN PRN Reason: Shortness of Breath Amlodipine Besylate (Norvasc) 5 mg PO DAILY [facility] Last Admin: 10/04/18 13:37 Dose: Not Given Apixaban (Eliquis) 2.5 mg PO BID [facility] Last Admin: 10/04/18 17:13 Dose: 2.5 mg Artificial Tears (Artificial Tears) 0 ml OU Q4 PRN PRN Reason: Dry eyes Aspirin (Ecotrin) 81 mg PO DAILY [facility] Last Admin: 10/04/18 13:36 Dose: Not Given Dextrose (Dextrose 50% Inj) 0 ml IV STAT PRN; Protocol PRN Reason: Hypoglycemia Protocol Dextrose (Glutose 15) 0 gm PO ONCE PRN; Protocol PRN Reason: Hypoglycemia Protocol Furosemide (Lasix) 20 mg PO DAILY [facility] Last Admin: 10/04/18 13:36 Dose: Not Given Glucagon (Glucagen Diagnostic Kit) 0 mg IM STAT PRN; Protocol PRN Reason: Hypoglycemia Protocol Dextrose (Dextrose 5% In Water 1000 Ml) 1,000 mls @ 0 mls/hr IV .Q0M PRN; Protocol PRN Reason: Hypoglycemia Protocol Insulin Human Regular (Novolin R) 0 unit SC ACHS [facility]; Protocol Last Admin: 10/04/18 22:07 Dose: Not Given Isosorbide Mononitrate (Imdur Er) 30 mg PO DAILY [facility] Last Admin: 10/04/18 13:36 Dose: Not Given Levothyroxine Sodium (Synthroid) 75 mcg PO DAILY [facility] Last Admin: 10/04/18 13:37 Dose: Not Given Losartan Potassium (Cozaar) 25 mg PO QPM [facility] Last Admin: 10/04/18 17:08 Dose: Not Given Metoprolol Succinate (Toprol Xl) 50 mg PO DAILY [facility] Last Admin: 10/04/18 13:37 Dose: Not Given Pantoprazole Sodium (Protonix Ec Tab) 40 mg PO DAILY [facility] Last Admin: 10/04/18 13:37 Dose: Not Given Rosuvastatin Calcium (Crestor) 20 mg PO HS [facility] Last Admin: 10/04/18 21:11 Dose: 20 mg Sevelamer Carbonate (Renvela) 800 mg PO TID [facility] Last Admin: 10/04/18 17:13 Dose: 800 mg Tobramycin/Dexamethasone (Tobradex 0.3%-0.1% Opht Oint) 1 appl OU TID [facility] Last Admin: 10/04/18 21:49 Dose: Not Given Vitamin B Complex/Vit C/Folic Acid (Nephro-Etelvina) 1 tab PO DAILY [facility] Last Admin: 10/04/18 13:37 Dose: Not Given - Labs Labs: 10/04/18 05:43 10/04/18 05:43 PT 16.2 SECONDS (9.7-12.2) H 10/03/18 16:30 INR 1.5 10/03/18 16:30 APTT 60 SECONDS (21-34) H D 10/04/18 13:54 - Constitutional Appears: Non-toxic, No Acute Distress - Head Exam Head Exam: ATRAUMATIC, NORMAL INSPECTION, NORMOCEPHALIC - Eye Exam Eye Exam: EOMI, Normal appearance Pupil Exam: NORMAL ACCOMODATION - ENT Exam ENT Exam: Mucous Membranes Moist, Normal Exam - Neck Exam Neck Exam: Full ROM, Normal Inspection. absent: Tenderness - Respiratory Exam Respiratory Exam: Clear to Ausculation Bilateral, NORMAL BREATHING PATTERN. absent: Accessory Muscle Use, Rales, Rhonchi, Wheezes, Respiratory Distress, Stridor - Cardiovascular Exam Cardiovascular Exam: REGULAR RHYTHM, +S1, +S2 - GI/Abdominal Exam GI & Abdominal Exam: Distended, Soft, Normal Bowel Sounds. absent: Firm, Guarding, Rigid, Tenderness - Extremities Exam Extremities Exam: Full ROM, Normal Capillary Refill, Normal Inspection, Pedal Edema. absent: Calf Tenderness - Back Exam Back Exam: NORMAL INSPECTION - Neurological Exam Neurological Exam: Alert, Awake, Oriented x3 - Skin Skin Exam: Dry, Intact, Normal Color, Warm Assessment and Plan - Assessment and Plan (Free Text) Assessment: 78 year old female with pmhx of ESRD on HD TTS, HTN, DM2, hypothyroidism, CAD presenting with worsening shortness of breath, elevated trops/BNP 2/2 acute systolic CHF exacerbation vs NSTEMI. Plan: Acute Dyspnea 2/2 Systolic CHF exacerbation vs NSTEMI -elevated trop series on admission: 0.9530, 0.8360, 1.33 -repeat JOSEY panel downtrending -trop #1: 1.0700 -trop #2: 0.8560 -proBNP 36060 on admission -A1C 7.7 -lipid panel wnl -EKG: NSR @ 75 bpm -CXR: Bibasilar infiltrates. R hilar prominence. L sided pacemaker, borderline cardiomegaly. R sided subclavian vascular stent. -f/u ECHO report -Spoke with patient's atmospheric sciences professor (Dr. Sukhjinder Valdez) -per recs, patient high risk for cath procedure -conservative mgmt recommended -home eliquis 2.5 mg PO BID -ASA 81 mg PO daily -Eliquis 2.5 mg PO BID -Metoprolol 50 mg PO daily -Imdur 30 mg PO daily -Crestor 20 mg PO HS ESRD on HD TTS -pBNP: [id number] -CXR: bibasilar infiltrates, right hilar prominence. Borderline cardiomegaly. Pacemaker -ECHO (06/11): LVEF-50%, moderate LVH, borderline left ventricle systolic function, mild/mod mitral regurg, mild/mod pulm HTN -f/u repeat ECHO report -Nephrology recs (Dr. Warren) appreciated -Will plan for HD today as ordered. Continue with Nephrovite 1 tab/day. -PRBC as needed for anemia. on MISA with dialysis as last Hb 11.1 -Continue with phos binders, last phos level 4.4 -Pt not on RAAS katie, will add Losartan 25 mg PO QPM -Glycemic control, Dialysis consistent diet DM -ISS -accuchecks ACHS -hypoglycemic protocol HTN -Norvasc 5 mg PO daily -Losartain 25 mg PO QPM -Metoprolol 50 mg PO daily Hypothyroidism -resume home synthroid 75 mcg PO daily PPx, Diet, Disposition -DVT ppx: eliquis -Diet: HHD, renal dialysis -Disposition: needs PT evaluation prior to d/c. Case discussed with Dr. Kamran Child DO, PGY-1
[2018-10-05] MEDS: (Novolin R) Insulin Human Regular 100 units/ml vial SC SCH ×4 (08:30→21:53)
[2018-10-05 08:41] LABS: ALB/GLOB RATIO 1.1 (1.0-2.1); ALBUMIN 4.1 g/dL (3.5-5.0); CALCIUM 9.1 mg/dl (8.6-10.4)
[2018-10-05] MEDS: Metoprolol Succinate 50 mg XL Tab PO SCH (10:57)
[2018-10-05] MEDS: Tobramycin/Dexamethasone OPHT OINT OU SCH ×3 (10:57→19:14)
[2018-10-05] MEDS: Levothyroxine 75 MCG TAB PO SCH (10:57)
[2018-10-05] MEDS: Multivitamin Vitamin B Complex (Nephro-Vite) Tab PO SCH (10:57)
[2018-10-05] MEDS: Pantoprazole 40 mg EC Tab PO SCH (10:57)
--- NOTE | 2018-10-05 14:06 | CP.PCM.PN ---
Subjective - Date & Time of Evaluation Date of Evaluation: 10/05/18 Time of Evaluation: 14:05 - Subjective Subjective: Nephrology Consultation Note: Assessment: Stable NSTEMI, hyponatremia hyperkalemia HTN urgency and pulm vasc congestion Diabetic chronic Kidney Disease (E11.22) Hypertensive Chronic Kidney Disease (I12.0) End stage renal disease (N18.6) dependence on hemodialysis (Z99.2) (TTS) via AVF Anemia (D64.9), Hyperphosphatemia (E83.39), Secondary Hyperparathyroidism (E21.1), HTN (I12.0) hx of CVA Plan: Will plan for HD TTS schedule as ordered. Continue with Nephrovite 1 tab/day. PRBC as needed for anemia. on MISA with dialysis as last Hb 11.1 Continue with phos binders, last phos level 3.7 BP control with meds as ordered. Patient not on RAAS katie hence added low dose losartan Glycemic control, Dialysis consistent diet Further work up/management as per primary team Dose meds/antibiotics (if needed) for ESRD status. Avoid fleets enema/magnesium based laxatives. Thanks for allowing me to participate in care of your patient. Will follow patient with you. Please call if any Qs. had d/w team Dr Franki Warren Office: [phone] Chief Complaint;chest pain HPI: Pt is a 78 F with hx of ESRD on hemodialysis (TTS) via AVF , last dialysis tue, chronic anemia, hyperphosphatemia, secondary hyperparathyroidism, Diabetes Mellitus, hypertension, hx of CVA presented with complaints of chest pain which is being managed for NSTEMI. also with HTN urgency and pulm vasc congestion Renal consult requested for ESRD management. pt not able to communicate much due to her hx of CVA. she is bed bound ROS: Cardiovascular: No chest pain. Pulmonary: No shortness of breath pt not able to communicate much due to her hx of CVA Physical Examination: General Appearance: Comfortable, in no acute respiratory distress, co-operative . Vitals reviewed and noted as below Head; Atraumatic, normocephalic ENT: no ulcers no thrush. Tongue is midline. Oropharynx: no rash or ulcers. EYES: Pupils are equal, round and reactive to light accommodation. Eye muscles and extraocular movement intact. Sclera is anicteric. Neck; supple no lymphadenopathy, no thyromegaly or bruit Lungs: Normal respiratory rate/effort. Breath sounds bilateral reduced at bases with few wheeze Heart: Normal rate. s1s2 normal. No rub or gallop. Extremities: no edema. No varicose veins Neurological: Patient is alert, awake and has chronic residual weakness due to stroke in past. has some aphasia as well Skin: Warm and dry. Normal turgor. No rash. Palpitation: Normal elasticity for age Abdomen: Abdomen is soft. Bowel sounds +. There is no abdominal tenderness, no guarding/rigidity or organomegaly Psych: normal insight and normal affect/mood MSK: no joint tenderness or swelling. Digits and nails normal, no deformity : kidney or bladder not palpable Access: AVF Labs/imaging reviewed. Past medical history, past surgical history, family history, social history, allergy reviewed and noted as below Family Hx: no hx of CKD. Non contributory Objective - Vital Signs/Intake and Output Vital Signs (last 24 hours): Temp Pulse Resp BP Pulse Ox 97.4 F L 81 20 146/75 98 10/05/18 08:00 10/05/18 11:00 10/05/18 08:00 10/05/18 11:00 10/05/18 08:00 Intake and Output: 10/05/18 10/05/18 06:59 18:59 Intake Total 1 Balance 1 - Medications Medications: Current Medications Albuterol Sulfate (Albuterol 0.083% Inhal Rosaura (2.5 Mg/3 Ml) Ud) 2.5 mg INH RQ6 PRN PRN Reason: Shortness of Breath Amlodipine Besylate (Norvasc) 5 mg PO DAILY [facility] Last Admin: 10/05/18 10:57 Dose: 5 mg Apixaban (Eliquis) 2.5 mg PO BID [facility] Last Admin: 10/05/18 10:58 Dose: 2.5 mg Artificial Tears (Artificial Tears) 0 ml OU Q4 PRN PRN Reason: Dry eyes Aspirin (Ecotrin) 81 mg PO DAILY [facility] Last Admin: 10/05/18 10:57 Dose: 81 mg Dextrose (Dextrose 50% Inj) 0 ml IV STAT PRN; Protocol PRN Reason: Hypoglycemia Protocol Dextrose (Glutose 15) 0 gm PO ONCE PRN; Protocol PRN Reason: Hypoglycemia Protocol Furosemide (Lasix) 20 mg PO DAILY [facility] Last Admin: 10/04/18 13:36 Dose: Not Given Glucagon (Glucagen Diagnostic Kit) 0 mg IM STAT PRN; Protocol PRN Reason: Hypoglycemia Protocol Dextrose (Dextrose 5% In Water 1000 Ml) 1,000 mls @ 0 mls/hr IV .Q0M PRN; Prot ocol PRN Reason: Hypoglycemia Protocol Insulin Human Regular (Novolin R) 0 unit SC ACHS [facility]; Protocol Last Admin: 10/05/18 08:30 Dose: Not Given Isosorbide Mononitrate (Imdur Er) 30 mg PO DAILY [facility] Last Admin: 10/05/18 10:57 Dose: 30 mg Levothyroxine Sodium (Synthroid) 75 mcg PO DAILY [facility] Last Admin: 10/05/18 10:57 Dose: 75 mcg Losartan Potassium (Cozaar) 25 mg PO QPM [facility] Last Admin: 10/04/18 17:08 Dose: Not Given Metoprolol Succinate (Toprol Xl) 50 mg PO DAILY [facility] Last Admin: 10/05/18 10:57 Dose: 50 mg Pantoprazole Sodium (Protonix Ec Tab) 40 mg PO DAILY [facility] Last Admin: 10/05/18 10:57 Dose: 40 mg Rosuvastatin Calcium (Crestor) 20 mg PO HS [facility] Last Admin: 10/04/18 21:11 Dose: 20 mg Sevelamer Carbonate (Renvela) 800 mg PO TID [facility] Last Admin: 10/05/18 10:57 Dose: 800 mg Tobramycin/Dexamethasone (Tobradex 0.3%-0.1% Opht Oint) 1 appl OU TID [facility] Last Admin: 10/04/18 21:49 Dose: Not Given Vitamin B Complex/Vit C/Folic Acid (Nephro-Etelvina) 1 tab PO DAILY [facility] Last Admin: 10/05/18 10:57 Dose: 1 tab - Labs Labs: 10/04/18 05:43 10/05/18 08:12 PT 16.2 SECONDS (9.7-12.2) H 10/03/18 16:30 INR 1.5 10/03/18 16:30 APTT 60 SECONDS (21-34) H D 10/04/18 13:54
--- NOTE | 2018-10-05 18:41 | CARD ---
APPROVED REPORT Date of service: 10/05/2018 EXAM: Two-dimensional and M-mode echocardiogram with Doppler and color Doppler. INDICATION Dyspnea Atrial Fibrillation CAD Congestive Heart Failure Non STEMI RISK FACTORS Hypertension Hyperlipidemia Diabetes 2D DIMENSIONS IVSd1.1 (0.7-1.1cm)Aortic Root (2D)2.5 (2.0-3.7cm) LVDd4.1 (3.9-5.9cm)PWd1.3 (0.7-1.1cm) LA Azrajq32 (18-58mL)LVDs2.5 (2.5-4.0cm) FS (%) 38.4 %LVEF (%)69.2 (>50%) LVEF (Hughes's)65 %IVC0.00 cm M-Mode DIMENSIONS Left Atrium (MM)4.35 (2.5-4.0cm)IVSd1.18 (0.7-1.1cm) Aortic Root2.66 (2.2-3.7cm)LVDd4.54 (4.0-5.6cm) Aortic Cusp Exc.1.66 (1.5-2.0cm)PWd1.14 (0.7-1.1cm) FS (%) 32 %LVDs3.10 (2.0-3.8cm) TAPSE16.23 cmLVEF (%)60 (>50%) Aortic Valve AI P 1/2 Scfr129rc Mitral Valve MV E Hefxfpdm350.5cm/sMV A Asscgdxv525.8cm/sE/A ratio1.0 TDI Lateral E' Peak V8.93cm/sMedial E' Peak V4.22cm/sE/Lateral E'12.6 E/Medial E'26.7 Tricuspid Valve TR Peak Tlqorylu780aa/sTR Peak Gr.42ndFySQHP13cpFt LEFT VENTRICLE The left ventricle is normal size. Left ventricularr thickness is markedly increased. Septal thickness is 2.0 cm (incorrectly measured by technologist) The left ventricular function is normal. The left ventricular ejection fraction is within the normal range. Visually 60% (simpsons rule EF incorrect due to foreshortened view). No regional wall motion abnormalities noted. The left ventricular diastolic function is normal. No left ventricle thrombus noted on this study. There is no ventricular septal defect visualized. There is no left ventricular aneurysm. There is no mass noted in the left ventricle. RIGHT VENTRICLE The right ventricle is normal size. There is normal right ventricular wall thickness. The right ventricular systolic function is normal. ATRIA The left atrium size is normal. The right atrium size is normal. PPm wire noted The interatrial septum is intact with no evidence for an atrial septal defect. AORTIC VALVE The aortic valve is normal in structure and function. Mild aortic regurgitation is present. There is no aortic valvular stenosis. There is no aortic valvular vegetation. MITRAL VALVE The mitral valve is normal in structure and function. There is no evidence of mitral valve prolapse. There is no mitral valve stenosis. There is mild mitral valve regurgitation noted. TRICUSPID VALVE The tricuspid valve is normal in structure and function. There is mild tricuspid valve regurgitation noted. There is no tricuspid valve prolapse or vegetation. There is no tricuspid valve stenosis. PULMONIC VALVE The pulmonary valve is normal in structure and function. There is no pulmonic valvular regurgitation. There is no pulmonic valvular stenosis. GREAT VESSELS The aortic root is normal in size. The ascending aorta is normal in size. The pulmonary artery is normal. The IVC is normal in size and collapses >50% with inspiration. PERICARDIAL EFFUSION The pericardium appears normal. There is no pleural effusion. <Conclusion> The left ventricular function is normal. The left ventricular ejection fraction is within the normal range. Visually 60% Left ventricular thickness is markedly increased. Septal thickness is 2.0 cm (incorrectly measured by technologist) Mild aortic regurgitation is present. There is mild mitral valve regurgitation noted.
[2018-10-06 08:06] LABS: BASO # 0.1 K/uL (0.0-0.2); BASO % 0.5 % (0.0-2.0); EOS % 0.1 % (0.0-4.0); HEMOGLOBIN 10.9 g/dL (11.0-16.0); LYMPH # 1.1 K/uL (1.0-4.3); LYMPH % 6.6 % (20.0-40.0); MEAN CELL VOLUME 95.4 fL (81.0-99.0); MEAN CORPUSCULAR HEMOGLOBIN 31.5 pg (27.0-31.0); MEAN CORPUSCULAR HGB CONC 33.1 g/dL (33.0-37.0); MEAN PLATELET VOLUME 9.8 fL (7.2-11.7); MONO # 1.2 K/uL (0.0-0.8); MONO % 7.4 % (0.0-10.0); NEUT # 14.2 K/uL (1.8-7.0); NEUT % 85.4 % (50.0-75.0); PLATELET COUNT 212 K/uL (130-400); RBC 3.46 Mil/uL (3.80-5.20); RED CELL DISTRIBUTION WIDTH 14.7 % (11.5-14.5); WHITE BLOOD COUNT 16.7 K/uL (4.8-10.8)
[2018-10-06 08:30] LABS: ALB/GLOB RATIO 1.1 (1.0-2.1); CALCIUM 8.8 mg/dl (8.6-10.4)
[2018-10-06] MEDS: (Novolin R) Insulin Human Regular 100 units/ml vial SC SCH ×4 (08:48→21:37)
[2018-10-06] MEDS: Pantoprazole 40 mg EC Tab PO SCH (09:33)
[2018-10-06] MEDS: Levothyroxine 75 MCG TAB PO SCH (09:33)
[2018-10-06] MEDS: Multivitamin Vitamin B Complex (Nephro-Vite) Tab PO SCH (09:33)
[2018-10-06] MEDS: Tobramycin/Dexamethasone OPHT OINT OU SCH ×3 (09:39→18:06)
[2018-10-06] MEDS: Metoprolol Succinate 50 mg XL Tab PO SCH (09:45)
[2018-10-06 11:44] LABS: LYMPHOCYTE 6 % (20-40); MONOCYTE 3 % (0-10); NEUTROPHIL 91 % (50-75); PLATELET ESTIMATE NORMAL (NORMAL); TOTAL CELLS COUNTED 100
--- NOTE | 2018-10-06 12:08 | CP.PCM.PN ---
<Ximena Jean - Last Filed: 10/06/18 20:28> Subjective - Date & Time of Evaluation Date of Evaluation: 10/06/18 Time of Evaluation: 12:06 - Subjective Subjective: Medicine Progress Note - Dr Rebekah Paredes's Service Patient seen and examined at bedside. Per nursing no acute events overnight. Patient resting in bed, states that she gets occasionally short of breath. Reports having a cough with yellow phelgm. States that she last had a bowel movement yesterday and it was hard. Offers no other complaints at this time. For Hemodialysis this afternoon. Objective - Vital Signs/Intake and Output Vital Signs (last 24 hours): Temp Pulse Resp BP Pulse Ox 98.1 F 88 20 166/73 H 96 10/06/18 08:01 10/06/18 08:01 10/06/18 08:01 10/06/18 08:01 10/06/18 08:01 - Medications Medications: Current Medications Albuterol Sulfate (Albuterol 0.083% Inhal Rosaura (2.5 Mg/3 Ml) Ud) 2.5 mg INH RQ6 PRN PRN Reason: Shortness of Breath Amlodipine Besylate (Norvasc) 5 mg PO ONCE ONE Stop: 10/06/18 22:01 Amlodipine Besylate (Norvasc) 10 mg PO Q24H [facility] Apixaban (Eliquis) 2.5 mg PO BID [facility] Last Admin: 10/06/18 09:33 Dose: 2.5 mg Artificial Tears (Artificial Tears) 0 ml OU Q4 PRN PRN Reason: Dry eyes Aspirin (Ecotrin) 81 mg PO DAILY [facility] Last Admin: 10/06/18 09:33 Dose: 81 mg Dextrose (Dextrose 50% Inj) 0 ml IV STAT PRN; Protocol PRN Reason: Hypoglycemia Protocol Dextrose (Glutose 15) 0 gm PO ONCE PRN; Protocol PRN Reason: Hypoglycemia Protocol Furosemide (Lasix) 20 mg PO DAILY [facility] Last Admin: 10/04/18 13:36 Dose: Not Given Glucagon (Glucagen Diagnostic Kit) 0 mg IM STAT PRN; Protocol PRN Reason: Hypoglycemia Protocol Dextrose (Dextrose 5% In Water 1000 Ml) 1,000 mls @ 0 mls/hr IV .Q0M PRN; Protocol PRN Reason: Hypoglycemia Protocol Azithromycin 500 mg/ Sodium (Chloride) 250 mls @ 250 mls/hr IVPB DAILY [facility]; Protocol Ceftriaxone Sodium 1 gm/ (Sodium Chloride) 100 mls @ 100 mls/hr IVPB DAILY [facility]; Protocol Insulin Human Regular (Novolin R) 0 unit SC ACHS [facility]; Protocol Last Admin: 10/06/18 08:48 Dose: 2 units Isosorbide Mononitrate (Imdur Er) 30 mg PO DAILY [facility] Last Admin: 10/06/18 09:45 Dose: Not Given Lactobacillus Acidophilus (Bacid Acidophilus) 1 cap PO BID [facility] Levothyroxine Sodium (Synthroid) 75 mcg PO DAILY [facility] Last Admin: 10/06/18 09:33 Dose: 75 mcg Losartan Potassium (Cozaar) 25 mg PO QPM [facility] Last Admin: 10/05/18 19:15 Dose: 25 mg Metoprolol Succinate (Toprol Xl) 50 mg PO DAILY [facility] Last Admin: 10/06/18 09:45 Dose: Not Given Pantoprazole Sodium (Protonix Ec Tab) 40 mg PO DAILY [facility] Last Admin: 10/06/18 09:33 Dose: 40 mg Promethazine HCl (Phenergan Syrup) 6.25 mg PO Q6H PRN PRN Reason: Cough Rosuvastatin Calcium (Crestor) 20 mg PO HS [facility] Last Admin: 10/05/18 21:58 Dose: 20 mg Sevelamer Carbonate (Renvela) 800 mg PO TID [facility] Last Admin: 10/06/18 09:33 Dose: 800 mg Tobramycin/Dexamethasone (Tobradex 0.3%-0.1% Opht Oint) 1 appl OU TID [facility] Last Admin: 10/06/18 09:39 Dose: 1 applic Vitamin B Complex/Vit C/Folic Acid (Nephro-Mary Ann) 1 tab PO DAILY [facility] Last Admin: 10/06/18 09:33 Dose: 1 tab - Labs Labs: 10/06/18 07:56 10/06/18 07:56 PT 16.2 SECONDS (9.7-12.2) H 10/03/18 16:30 INR 1.5 10/03/18 16:30 APTT 60 SECONDS (21-34) H D 10/04/18 13:54 - Constitutional Appears: Non-toxic, No Acute Distress - Head Exam Head Exam: ATRAUMATIC, NORMAL INSPECTION, NORMOCEPHALIC - Eye Exam Eye Exam: EOMI Additional comments: Right eye: pupil equal and reactive to light, normal accommodation Left eye: clouded over, blind - ENT Exam ENT Exam: Mucous Membranes Moist - Neck Exam Neck Exam: Full ROM - Respiratory Exam Respiratory Exam: Rhonchi (Coarse breath sounds) - Cardiovascular Exam Cardiovascular Exam: REGULAR RHYTHM, +S1, +S2 Additional comments: Chest wall: irregularly shaped wound above sternal notch that measures 4cm in longest diameter, oozing blood, no surrounding erythema or tenderness to palpation - GI/Abdominal Exam GI & Abdominal Exam: Soft. absent: Distended, Guarding, Rigid, Tenderness - Extremities Exam Extremities Exam: absent: Calf Tenderness, Pedal Edema Additional comments: Right arm AVF: +thrill, radial pulses intact Left transmetatarsal amputation - Neurological Exam Neurological Exam: Alert, Awake, Oriented x3 - Psychiatric Exam Psychiatric exam: Normal Affect, Normal Mood - Skin Skin Exam: Dry, Normal Color, Warm Assessment and Plan - Assessment and Plan (Free Text) Assessment: Respiratory distress likely secondary to Healthcare Associated pneumonia, fluid overload 2/2 ESRD -Afebrile (Tmax 101.6 on 10/05/18 2:06am) -Leukocytosis 16.7, worsening -CXR on admission showed bibasilar infiltrates, borderline cardiomegaly, right sided subclavian vascular stent, L pacemaker (see full report) -Antibiotics: Rocephin 1 gm IVPB daily (started 10/06/18) and Azithromycin 500mg IVPB daily (started 10/06/18) -Added Bacid 1 tablet PO BID, Promethazine prn cough -Urine legionella, urine strep pneumonia ag, procalcitonin ordered -Rapid influenza negative -Duonebs Q6H [facility] x 24 hours -Supplemental O2 with humidifier as needed -Blood cultures negative x 48 hours Bibasilar infiltrates -as per CXR on 10/03/18 -Added Rocephin and Azithromycin Non-healing Chest wall wound, 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 -As per review of echocardiogram, no evidence of heart failure -Echo showed EF 65%, LV function normal, LV thickness is markedly increased, mild aortic regurgitation, mild mitral valve regurgitation (see full report) Right sided subclavian vascular stent -Unclear why patient has a stent -Will need to discuss further with the daughter Hypertension -SBPs in the 160s -We will give an extra dose of Norvasc 5mg PO -Increased to Norvasc 10mg PO at 10pm -Continue Cozaar 25mg PO at 6pm -Continue Toprol XL 50mg PO daily at 10am Diabetes Mellitus, Type 2 -Continue insulin sliding scale -Accuchecks ACHS -CBGs 194-283 over the last 24 hours -We will restart home Levemir 10 units SC HS NSTEMI? -EKG on admission showed q waves in leads II, III, AVF, No new q waves or ST depressions noted -Troponin elevation could be due to ESRD -Patient is not a candidate for cardiac cath, will continue medical management -Continue ASA 81mg PO daily, Eliquis 2.5mg PO daily, Crestor 20mg PO HS Chronic afib/CAD -On Toprol XL 50mg PO daily, Imdur ER 30mg PO daily -Continue Eliquis 2.5mg PO BID -Patient follows with Dr Sukhjinder Valdez History of L sided pacemaker -Patient follows with Dr Sukhjinder Valdez Left transmetatarsal amputation -Stable, no ulcerations or wounds History of cerebellar infarct -as per records from [facility] Left eye blindness -Per the daughter, patient has glaucoma -Continue tobradex 1 appl OU TID -Artificial tears OU Q4H prn ESRD on HD -Patient to continue dialysis as scheduled TThS -Continue Renvela 800mg PO TID, Nephro-mary ann 1 tab daily -Nephrology on consult, Dr Duarte, help appreciated History of Hypothyroidism -We will check TSH and Free T4 -Continue home dose of Synthroid 75mcg PO daily Constipation -Patient complaining of hard stools -Ordered Colace 100mg PO BID -Monitor bowel movements GI/DVT ppx: Protonix 40mg PO daily SCDs, Eliquis 2.5mg PO BID DISPO: Patient started on IV antibiotics for healthcare associated pneumonia, patient to continue HD as scheduled. PT evaluation ordered. Per the daughter, Anahy ([phone]), the patient does not have a PMD and only sees Dr Valdez and Dr Duarte outpatient. Plan discussed with Dr Rebekah Jean DO PGY-2 <Modesto Paredes - Last Filed: 10/13/18 15:40> Objective - Vital Signs/Intake and Output Vital Signs (last 24 hours): Temp Pulse Resp BP Pulse Ox 98.1 F 80 20 146/78 94 L 10/12/18 15:00 10/12/18 15:00 10/12/18 15:00 10/12/18 15:00 10/12/18 15:00 - Labs Labs: 10/12/18 07:54 10/12/18 07:54 PT 16.2 SECONDS (9.7-12.2) H 10/03/18 16:30 INR 1.5 10/03/18 16:30 APTT 60 SECONDS (21-34) H D 10/04/18 13:54 Attending/Attestation - Attestation I have personally seen and examined this patient.: Yes I have fully participated in the care of the patient.: Yes I have reviewed all pertinent clinical information, including history, physical exam and plan: Yes Notes (Text): 10/13/18 15:40 This is a late entry. Care of this patient was gone over with resident Dr. Jean. Modesto Paredes D.O.
--- NOTE | 2018-10-06 17:24 | CARD ---
APPROVED REPORT Date of service: 10/03/2018 EKG Measurement Heart [id number] <Conclusion> Normal sinus rhythm Inferior infarct, age undetermined Possible Anterolateral infarct, age undetermined Abnormal ECG
[2018-10-06] MEDS: Lactobacillus Acidophilus 500 MU Cap PO SCH (18:06)
--- NOTE | 2018-10-06 18:08 | CP.PCM.PN ---
Subjective - Date & Time of Evaluation Date of Evaluation: 10/06/18 Time of Evaluation: 18:08 - Subjective Subjective: Nephrology Consultation Note: Assessment: Stable NSTEMI, hyponatremia hyperkalemia HTN urgency and pulm vasc congestion Diabetic chronic Kidney Disease (E11.22) Hypertensive Chronic Kidney Disease (I12.0) End stage renal disease (N18.6) dependence on hemodialysis (Z99.2) (TTS) via AVF Anemia (D64.9), Hyperphosphatemia (E83.39), Secondary Hyperparathyroidism (E21.1), HTN (I12.0) hx of CVA Plan: Will plan for HD TTS schedule as ordered. Continue with Nephrovite 1 tab/day. PRBC as needed for anemia. on MISA with dialysis as last Hb 10.9 Continue with phos binders, last phos level 3.7 BP control with meds as ordered. Patient not on RAAS katie hence added low dose losartan Glycemic control, Dialysis consistent diet Further work up/management as per primary team Dose meds/antibiotics (if needed) for ESRD status. Avoid fleets enema/magnesium based laxatives. Thanks for allowing me to participate in care of your patient. Will follow patient with you. Please call if any Qs. had d/w team Dr Franki Warren Office: [phone] Chief Complaint;chest pain HPI: Pt is a 78 F with hx of ESRD on hemodialysis (TTS) via AVF , last dialysis tue, chronic anemia, hyperphosphatemia, secondary hyperparathyroidism, Diabetes Mellitus, hypertension, hx of CVA presented with complaints of chest pain which is being managed for NSTEMI. also with HTN urgency and pulm vasc congestion Renal consult requested for ESRD management. pt not able to communicate much due to her hx of CVA. she is bed bound ROS: Cardiovascular: No chest pain. Pulmonary: No shortness of breath pt not able to communicate much due to her hx of CVA Physical Examination: General Appearance: Comfortable, in no acute respiratory distress, co-operative . Vitals reviewed and noted as below Head; Atraumatic, normocephalic ENT: no ulcers no thrush. Tongue is midline. Oropharynx: no rash or ulcers. EYES: Pupils are equal, round and reactive to light accommodation. Eye muscles and extraocular movement intact. Sclera is anicteric. Neck; supple no lymphadenopathy, no thyromegaly or bruit Lungs: Normal respiratory rate/effort. Breath sounds bilateral reduced at bases with few wheeze Heart: Normal rate. s1s2 normal. No rub or gallop. Extremities: no edema. No varicose veins Neurological: Patient is alert, awake and has chronic residual weakness due to stroke in past. has some aphasia as well Skin: Warm and dry. Normal turgor. No rash. Palpitation: Normal elasticity for age Abdomen: Abdomen is soft. Bowel sounds +. There is no abdominal tenderness, no guarding/rigidity or organomegaly Psych: normal insight and normal affect/mood MSK: no joint tenderness or swelling. Digits and nails normal, no deformity : kidney or bladder not palpable Access: AVF Labs/imaging reviewed. Past medical history, past surgical history, family history, social history, allergy reviewed and noted as below Family Hx: no hx of CKD. Non contributory Objective - Vital Signs/Intake and Output Vital Signs (last 24 hours): Temp Pulse Resp BP Pulse Ox 98 F 93 H 20 127/71 97 10/06/18 17:56 10/06/18 17:56 10/06/18 17:56 10/06/18 17:56 10/06/18 17:56 Intake and Output: 10/06/18 10/06/18 06:59 18:59 Intake Total 700 Balance 700 - Medications Medications: Current Medications Albuterol/Ipratropium (Duoneb 3 Mg/0.5 Mg (3 Ml) Ud) 3 ml INH RQ6 HERNAN Stop: 10/07/18 08:01 Amlodipine Besylate (Norvasc) 5 mg PO ONCE ONE Stop: 10/06/18 22:01 Amlodipine Besylate (Norvasc) 10 mg PO Q24H [facility] Apixaban (Eliquis) 2.5 mg PO BID [facility] Last Admin: 10/06/18 18:06 Dose: 2.5 mg Artificial Tears (Artificial Tears) 0 ml OU Q4 PRN PRN Reason: Dry eyes Aspirin (Ecotrin) 81 mg PO DAILY [facility] Last Admin: 10/06/18 09:33 Dose: 81 mg Dextrose (Dextrose 50% Inj) 0 ml IV STAT PRN; Protocol PRN Reason: Hypoglycemia Protocol Dextrose (Glutose 15) 0 gm PO ONCE PRN; Protocol PRN Reason: Hypoglycemia Protocol Docusate Sodium (Colace) 100 mg PO BID [facility] Last Admin: 10/06/18 18:06 Dose: 100 mg Furosemide (Lasix) 20 mg PO DAILY [facility] Last Admin: 10/04/18 13:36 Dose: Not Given Glucagon (Glucagen Diagnostic Kit) 0 mg IM STAT PRN; Protocol PRN Reason: Hypoglycemia Protocol Dextrose (Dextrose 5% In Water 1000 Ml) 1,000 mls @ 0 mls/hr IV .Q0M PRN; Protocol PRN Reason: Hypoglycemia Protocol Azithromycin 500 mg/ Sodium (Chloride) 250 mls @ 250 mls/hr IVPB DAILY [facility]; Protocol Ceftriaxone Sodium 1 gm/ (Sodium Chloride) 100 mls @ 100 mls/hr IVPB DAILY [facility]; Protocol Last Admin: 10/06/18 17:58 Dose: 100 mls/hr Insulin Detemir (Levemir) 10 unit SC HS [facility] Insulin Human Regular (Novolin R) 0 unit SC [facility]; Protocol Last Admin: 10/06/18 16:43 Dose: Not Given Isosorbide Mononitrate (Imdur Er) 30 mg PO DAILY [facility] Last Admin: 10/06/18 09:45 Dose: Not Given Lactobacillus Acidophilus (Bacid Acidophilus) 1 cap PO BID [facility] Last Admin: 10/06/18 18:06 Dose: 1 cap Levothyroxine Sodium (Synthroid) 75 mcg PO DAILY [facility] Last Admin: 10/06/18 09:33 Dose: 75 mcg Losartan Potassium (Cozaar) 25 mg PO QPM [facility] Last Admin: 10/06/18 18:06 Dose: 25 mg Metoprolol Succinate (Toprol Xl) 50 mg PO DAILY [facility] Last Admin: 10/06/18 09:45 Dose: Not Given Pantoprazole Sodium (Protonix Ec Tab) 40 mg PO DAILY [facility] Last Admin: 10/06/18 09:33 Dose: 40 mg Promethazine HCl (Phenergan Syrup) 6.25 mg PO Q6H PRN PRN Reason: Cough Rosuvastatin Calcium (Crestor) 20 mg PO HS [facility] Last Admin: 10/05/18 21:58 Dose: 20 mg Sevelamer Carbonate (Renvela) 800 mg PO TID [facility] Last Admin: 10/06/18 18:06 Dose: 800 mg Tobramycin/Dexamethasone (Tobradex 0.3%-0.1% Opht Oint) 1 appl OU TID [facility] Last Admin: 10/06/18 18:06 Dose: 1 applic Vitamin B Complex/Vit C/Folic Acid (Nephro-Etelvina) 1 tab PO DAILY [facility] Last Admin: 10/06/18 09:33 Dose: 1 tab - Labs Labs: 10/06/18 07:56 10/06/18 07:56 PT 16.2 SECONDS (9.7-12.2) H 10/03/18 16:30 INR 1.5 10/03/18 16:30 APTT 60 SECONDS (21-34) H D 10/04/18 13:54
[2018-10-06] MEDS: Azithromycin 500 MG in Sodium Chloride 0.9% 250 ML IVPB SCH (18:13)
[2018-10-06] MEDS: Albuterol-Ipratrop 3 mg / 0.5 (3 ml) UD INH SCH (20:23)
[2018-10-06] MEDS: Insulin Detemir 100 units/ml Vial (Levemir) SC SCH (22:00)
[2018-10-07] MEDS: Albuterol-Ipratrop 3 mg / 0.5 (3 ml) UD INH SCH ×2 (01:53→08:39)
[2018-10-07 08:24] LABS: BASO % 0.3 % (0.0-2.0); EOS % 0.1 % (0.0-4.0); HEMOGLOBIN 11.2 g/dL (11.0-16.0); LYMPH # 1.1 K/uL (1.0-4.3); LYMPH % 7.8 % (20.0-40.0); MEAN CELL VOLUME 95.4 fL (81.0-99.0); MEAN CORPUSCULAR HEMOGLOBIN 32.4 pg (27.0-31.0); MEAN PLATELET VOLUME 9.6 fL (7.2-11.7); MONO # 1.1 K/uL (0.0-0.8); NEUT # 11.3 K/uL (1.8-7.0); NEUT % 83.8 % (50.0-75.0); PLATELET COUNT 259 K/uL (130-400); RBC 3.46 Mil/uL (3.80-5.20); RED CELL DISTRIBUTION WIDTH 14.4 % (11.5-14.5); WHITE BLOOD COUNT 13.5 K/uL (4.8-10.8)
[2018-10-07] MEDS: (Novolin R) Insulin Human Regular 100 units/ml vial SC SCH ×4 (08:29→21:26)
[2018-10-07 08:46] LABS: ALBUMIN 4.2 g/dL (3.5-5.0)
[2018-10-07] MEDS: Lactobacillus Acidophilus 500 MU Cap PO SCH ×2 (09:20→17:18)
[2018-10-07] MEDS: Levothyroxine 75 MCG TAB PO SCH (09:20)
[2018-10-07] MEDS: Azithromycin 500 MG in Sodium Chloride 0.9% 250 ML IVPB SCH (09:21)
[2018-10-07] MEDS: Multivitamin Vitamin B Complex (Nephro-Vite) Tab PO SCH (09:21)
[2018-10-07] MEDS: Tobramycin/Dexamethasone OPHT OINT OU SCH ×3 (09:21→17:18)
[2018-10-07] MEDS: Pantoprazole 40 mg EC Tab PO SCH (09:21)
[2018-10-07] MEDS: Metoprolol Succinate 50 mg XL Tab PO SCH (09:21)
[2018-10-07 09:26] LABS: LYMPHOCYTE 7 % (20-40); MONOCYTE 2 % (0-10); NEUTROPHIL 91 % (50-75); PLATELET ESTIMATE NORMAL (NORMAL); TOTAL CELLS COUNTED 100
--- NOTE | 2018-10-07 12:47 | CP.PCM.CON ---
History of Present Illness - History of Present Illness History of Present Illness: dictated Past Patient History - Infectious Disease Hx of Infectious Diseases: None - Past Medical History & Family History Past Medical History?: Yes - Past Social History Smoking Status: Never Smoked - CARDIAC Hx Cardiac Disorders: Yes (CAD, CABG) Hx Congestive Heart Failure: Yes Hx Hypercholesterolemia: Yes Hx Hypertension: Yes - PULMONARY Hx Pneumonia: Yes - NEUROLOGICAL Hx Neurological Disorder: Yes - HEENT Hx HEENT Problems: No - RENAL Hx Renal Failure: Yes (ESRD) - ENDOCRINE/METABOLIC Hx Hypothyroidism: Yes - HEMATOLOGICAL/ONCOLOGICAL Hx Anemia: Yes Hx Human Immunodeficiency Virus (HIV): No - INTEGUMENTARY Hx Dermatological Problems: No - MUSCULOSKELETAL/RHEUMATOLOGICAL Hx Arthritis: Yes - GASTROINTESTINAL Hx Gall Bladder Disease: Yes - GENITOURINARY/GYNECOLOGICAL Hx Genitourinary Disorders: No - PSYCHIATRIC Hx Substance Use: No - SURGICAL HISTORY Hx Cholecystectomy: Yes Hx Coronary Artery Bypass Graft: Yes Hx Coronary Stent: Yes - ANESTHESIA Hx Anesthesia: Yes Hx Anesthesia Reactions: No Hx Malignant Hyperthermia: No Meds Allergies/Adverse Reactions: Allergies Allergy/AdvReac Type Severity Reaction Status Date / Time No Known Allergies Allergy Verified 10/03/18 16:11 - Medications Medications: Current Medications Albuterol/Ipratropium (Duoneb 3 Mg/0.5 Mg (3 Ml) Ud) 3 ml INH RQ6 PRN PRN Reason: Shortness of Breath Amlodipine Besylate (Norvasc) 10 mg PO Q24H [facility] Apixaban (Eliquis) 2.5 mg PO BID [facility] Last Admin: 10/07/18 09:21 Dose: 2.5 mg Artificial Tears (Artificial Tears) 0 ml OU Q4 PRN PRN Reason: Dry eyes Aspirin (Ecotrin) 81 mg PO DAILY [facility] Last Admin: 10/07/18 09:21 Dose: 81 mg Dextrose (Dextrose 50% Inj) 0 ml IV STAT PRN; Protocol PRN Reason: Hypoglycemia Protocol Dextrose (Glutose 15) 0 gm PO ONCE PRN; Protocol PRN Reason: Hypoglycemia Protocol Docusate Sodium (Colace) 100 mg PO BID [facility] Last Admin: 10/07/18 09:21 Dose: 100 mg Furosemide (Lasix) 20 mg PO DAILY [facility] Last Admin: 10/04/18 13:36 Dose: Not Given Glucagon (Glucagen Diagnostic Kit) 0 mg IM STAT PRN; Protocol PRN Reason: Hypoglycemia Protocol Dextrose (Dextrose 5% In Water 1000 Ml) 1,000 mls @ 0 mls/hr IV .Q0M PRN; Protocol PRN Reason: Hypoglycemia Protocol Azithromycin 500 mg/ Sodium (Chloride) 250 mls @ 250 mls/hr IVPB DAILY [facility]; Protocol Last Admin: 10/07/18 09:21 Dose: 250 mls/hr Ceftriaxone Sodium 1 gm/ (Sodium Chloride) 100 mls @ 100 mls/hr IVPB DAILY [facility]; Protocol Last Admin: 10/07/18 09:21 Dose: 100 mls/hr Insulin Detemir (Levemir) 10 unit SC [facility] Last Admin: 10/06/18 22:00 Dose: 10 unit Insulin Human Regular (Novolin R) 0 unit SC [facility]; Protocol Last Admin: 10/07/18 12:45 Dose: 4 units Isosorbide Mononitrate (Imdur Er) 30 mg PO DAILY [facility] Last Admin: 10/07/18 09:21 Dose: 30 mg Lactobacillus Acidophilus (Bacid Acidophilus) 1 cap PO BID [facility] Last Admin: 10/07/18 09:20 Dose: 1 cap Levothyroxine Sodium (Synthroid) 75 mcg PO DAILY@0630 [facility] Losartan Potassium (Cozaar) 25 mg PO QPM [facility] Last Admin: 10/06/18 18:06 Dose: 25 mg Metoprolol Succinate (Toprol Xl) 50 mg PO DAILY [facility] Last Admin: 10/07/18 09:21 Dose: 50 mg Pantoprazole Sodium (Protonix Ec Tab) 40 mg PO DAILY [facility] Last Admin: 10/07/18 09:21 Dose: 40 mg Promethazine HCl (Phenergan Syrup) 6.25 mg PO Q6H PRN PRN Reason: Cough Rosuvastatin Calcium (Crestor) 20 mg PO HS [facility] Last Admin: 10/06/18 21:52 Dose: 20 mg Sevelamer Carbonate (Renvela) 800 mg PO TID [facility] Last Admin: 10/07/18 09:21 Dose: 800 mg Tobramycin/Dexamethasone (Tobradex 0.3%-0.1% Opht Oint) 1 appl OU TID [facility] Last Admin: 10/07/18 09:21 Dose: 1 applic Vitamin B Complex/Vit C/Folic Acid (Nephro-Etelvina) 1 tab PO DAILY [facility] Last Admin: 10/07/18 09:21 Dose: 1 tab Results - Vital Signs Recent Vital Signs: Last Vital Signs Temp 98.9 F 10/07/18 08:00 Pulse 70 10/07/18 11:58 Resp 18 10/07/18 08:00 BP 151/76 H 10/07/18 08:00 Pulse Ox 96 10/07/18 08:00 - Labs Result Diagrams: 10/07/18 08:19 10/07/18 08:19 Labs: Laboratory Results - last 24 hr 10/06/18 10/06/18 10/06/18 14:21 16:04 20:54 WBC RBC Hgb Hct MCV MCH MCHC RDW Plt Count MPV Neut % (Auto) Lymph % (Auto) [place] % (Auto) Eos % (Auto) Baso % (Auto) Neut # (Auto) Lymph # (Auto) [place] # (Auto) Eos # (Auto) Baso # (Auto) Neutrophils % (Manual) Lymphocytes % (Manual) Monocytes % (Manual) Platelet Estimate RBC Morphology Sodium Potassium Chloride Carbon Dioxide Anion Gap BUN Creatinine Est GFR ( Amer) Est GFR (Non-Af Amer) POC Glucose (mg/dL) 124 H 233 H Random Glucose Calcium Phosphorus Magnesium Total Bilirubin AST ALT Alkaline Phosphatase Total Protein Albumin Globulin Albumin/Globulin Ratio Procalcitonin 0.78 H Free T4 TSH 3rd Generation 10/07/18 10/07/18 10/07/18 06:29 08:19 08:19 WBC 13.5 H RBC 3.46 L Hgb 11.2 Hct 33.0 L MCV 95.4 MCH 32.4 H MCHC 34.0 RDW 14.4 Plt Count 259 MPV 9.6 Neut % (Auto) 83.8 H Lymph % (Auto) 7.8 L [place] % (Auto) 8.0 Eos % (Auto) 0.1 Baso % (Auto) 0.3 Neut # (Auto) 11.3 H Lymph # (Auto) 1.1 [place]undy # (Auto) 1.1 H Eos # (Auto) 0.0 Baso # (Auto) 0.0 Neutrophils % (Manual) 91 H Lymphocytes % (Manual) 7 L Monocytes % (Manual) 2 Platelet Estimate Normal RBC Morphology Normal Sodium 137 Potassium 3.7 Chloride 94 L Carbon Dioxide 31 H Anion Gap 16 BUN 33 H Creatinine 4.5 H Est GFR ( Amer) 11 Est GFR (Non-Af Amer) 9 POC Glucose (mg/dL) 211 H Random Glucose 188 H Calcium 9.0 Phosphorus 3.8 Magnesium 2.1 Total Bilirubin 0.5 AST 66 H D ALT 43 Alkaline Phosphatase 133 H D Total Protein 8.2 Albumin 4.2 Globulin 4.0 H Albumin/Globulin Ratio 1.0 Procalcitonin Free T4 TSH 3rd Generation 3.16 10/07/18 10/07/18 08:19 11:01 WBC RBC Hgb Hct MCV MCH MCHC RDW Plt Count MPV Neut % (Auto) Lymph % (Auto) [place] % (Auto) Eos % (Auto) Baso % (Auto) Neut # (Auto) Lymph # (Auto) [place] # (Auto) Eos # (Auto) Baso # (Auto) Neutrophils % (Manual) Lymphocytes % (Manual) Monocytes % (Manual) Platelet Estimate RBC Morphology Sodium Potassium Chloride Carbon Dioxide Anion Gap BUN Creatinine Est GFR ( Amer) Est GFR (Non-Af Amer) POC Glucose (mg/dL) 264 H Random Glucose Calcium Phosphorus Magnesium Total Bilirubin AST ALT Alkaline Phosphatase Total Protein Albumin Globulin Albumin/Globulin Ratio Procalcitonin Free T4 1.17 TSH 3rd Generation
[2018-10-07] MEDS ORDERED: Bisacodyl 5mg EC Tab PO ONE (13:03)
--- NOTE | 2018-10-07 13:04 | CP.PCM.PN ---
Subjective - Date & Time of Evaluation Date of Evaluation: 10/07/18 Time of Evaluation: 13:04 - Subjective Subjective: Nephrology Consultation Note: Assessment: Stable NSTEMI, hyponatremia hyperkalemia HTN urgency and pulm vasc congestion, pneumonia Diabetic chronic Kidney Disease (E11.22) Hypertensive Chronic Kidney Disease (I12.0) End stage renal disease (N18.6) dependence on hemodialysis (Z99.2) (TTS) via AVF Anemia (D64.9), Hyperphosphatemia (E83.39), Secondary Hyperparathyroidism (E21.1), HTN (I12.0) hx of CVA Plan: Will plan for HD TTS schedule as ordered. Continue with Nephrovite 1 tab/day. PRBC as needed for anemia. on MISA with dialysis as last Hb 10.9 Continue with phos binders, last phos level 3.7 BP control with meds as ordered. Patient not on RAAS katie hence added low dose losartan Glycemic control, Dialysis consistent diet Further work up/management as per primary team Dose meds/antibiotics (if needed) for ESRD status. Avoid fleets enema/magnesium based laxatives. dose of dulcolax ordered Thanks for allowing me to participate in care of your patient. Will follow patient with you. Please call if any Qs. had d/w team Dr Franki Warren Office: [phone] Chief Complaint;chest pain HPI: Pt is a 78 F with hx of ESRD on hemodialysis (TTS) via AVF , last dialysis tue, chronic anemia, hyperphosphatemia, secondary hyperparathyroidism, Diabetes Mellitus, hypertension, hx of CVA presented with complaints of chest pain which is being managed for NSTEMI. also with HTN urgency and pulm vasc congestion Renal consult requested for ESRD management. pt not able to communicate much due to her hx of CVA. she is bed bound ROS: reports constipation Cardiovascular: No chest pain. Pulmonary: No shortness of breath pt not able to communicate much due to her hx of CVA Physical Examination: General Appearance: Comfortable, in no acute respiratory distress, co-operative . Vitals reviewed and noted as below Head; Atraumatic, normocephalic ENT: no ulcers no thrush. Tongue is midline. Oropharynx: no rash or ulcers. EYES: Pupils are equal, round and reactive to light accommodation. Eye muscles and extraocular movement intact. Sclera is anicteric. Neck; supple no lymphadenopathy, no thyromegaly or bruit Lungs: Normal respiratory rate/effort. Breath sounds bilateral reduced at bases with few wheeze Heart: Normal rate. s1s2 normal. No rub or gallop. Extremities: no edema. No varicose veins Neurological: Patient is alert, awake and has chronic residual weakness due to stroke in past. has some aphasia as well Skin: Warm and dry. Normal turgor. No rash. Palpitation: Normal elasticity for age Abdomen: Abdomen is soft. Bowel sounds +. There is no abdominal tenderness, no guarding/rigidity or organomegaly Psych: normal insight and normal affect/mood MSK: no joint tenderness or swelling. Digits and nails normal, no deformity : kidney or bladder not palpable Access: AVF Labs/imaging reviewed. Past medical history, past surgical history, family history, social history, allergy reviewed and noted as below Family Hx: no hx of CKD. Non contributory Objective - Vital Signs/Intake and Output Vital Signs (last 24 hours): Temp Pulse Resp BP Pulse Ox 98.9 F 70 18 151/76 H 96 10/07/18 08:00 10/07/18 11:58 10/07/18 08:00 10/07/18 08:00 10/07/18 08:00 Intake and Output: 10/07/18 10/07/18 06:59 18:59 Intake Total 410 Balance 410 - Medications Medications: Current Medications Albuterol/Ipratropium (Duoneb 3 Mg/0.5 Mg (3 Ml) Ud) 3 ml INH RQ6 PRN PRN Reason: Shortness of Breath Amlodipine Besylate (Norvasc) 10 mg PO Q24H [facility] Apixaban (Eliquis) 2.5 mg PO BID [facility] Last Admin: 10/07/18 09:21 Dose: 2.5 mg Artificial Tears (Artificial Tears) 0 ml OU Q4 PRN PRN Reason: Dry eyes Aspirin (Ecotrin) 81 mg PO DAILY [facility] Last Admin: 10/07/18 09:21 Dose: 81 mg Bisacodyl (Dulcolax) 5 mg PO ONCE ONE Stop: 10/07/18 13:04 Dextrose (Dextrose 50% Inj) 0 ml IV STAT PRN; Protocol PRN Reason: Hypoglycemia Protocol Dextrose (Glutose 15) 0 gm PO ONCE PRN; Protocol PRN Reason: Hypoglycemia Protocol Docusate Sodium (Colace) 100 mg PO BID [facility] Last Admin: 10/07/18 09:21 Dose: 100 mg Furosemide (Lasix) 20 mg PO DAILY [facility] Last Admin: 10/04/18 13:36 Dose: Not Given Glucagon (Glucagen Diagnostic Kit) 0 mg IM STAT PRN; Protocol PRN Reason: Hypoglycemia Protocol Dextrose (Dextrose 5% In Water 1000 Ml) 1,000 mls @ 0 mls/hr IV .Q0M PRN; Protocol PRN Reason: Hypoglycemia Protocol Azithromycin 500 mg/ Sodium (Chloride) 250 mls @ 250 mls/hr IVPB DAILY [facility]; Protocol Last Admin: 10/07/18 09:21 Dose: 250 mls/hr Ceftriaxone Sodium 1 gm/ (Sodium Chloride) 100 mls @ 100 mls/hr IVPB DAILY [facility]; Protocol Last Admin: 10/07/18 09:21 Dose: 100 mls/hr Insulin Detemir (Levemir) 10 unit SC [facility] Last Admin: 10/06/18 22:00 Dose: 10 unit Insulin Human Regular (Novolin R) 0 unit SC [facility]; Protocol Last Admin: 10/07/18 12:45 Dose: 4 units Isosorbide Mononitrate (Imdur Er) 30 mg PO DAILY [facility] Last Admin: 10/07/18 09:21 Dose: 30 mg Lactobacillus Acidophilus (Bacid Acidophilus) 1 cap PO BID [facility] Last Admin: 10/07/18 09:20 Dose: 1 cap Levothyroxine Sodium (Synthroid) 75 mcg PO DAILY@0630 [facility] Losartan Potassium (Cozaar) 25 mg PO QPM [facility] Last Admin: 10/06/18 18:06 Dose: 25 mg Metoprolol Succinate (Toprol Xl) 50 mg PO DAILY [facility] Last Admin: 10/07/18 09:21 Dose: 50 mg Pantoprazole Sodium (Protonix Ec Tab) 40 mg PO DAILY [facility] Last Admin: 10/07/18 09:21 Dose: 40 mg Promethazine HCl (Phenergan Syrup) 6.25 mg PO Q6H PRN PRN Reason: Cough Rosuvastatin Calcium (Crestor) 20 mg PO HS [facility] Last Admin: 10/06/18 21:52 Dose: 20 mg Sevelamer Carbonate (Renvela) 800 mg PO TID [facility] Last Admin: 10/07/18 09:21 Dose: 800 mg Tobramycin/Dexamethasone (Tobradex 0.3%-0.1% Opht Oint) 1 appl OU TID [facility] Last Admin: 10/07/18 09:21 Dose: 1 applic Vitamin B Complex/Vit C/Folic Acid (Nephro-Etelvina) 1 tab PO DAILY [facility] Last Admin: 10/07/18 09:21 Dose: 1 tab - Labs Labs: 10/07/18 08:19 10/07/18 08:19 PT 16.2 SECONDS (9.7-12.2) H 10/03/18 16:30 INR 1.5 10/03/18 16:30 APTT 60 SECONDS (21-34) H D 10/04/18 13:54
--- NOTE | 2018-10-07 13:08 | CP.PCM.PN ---
<Ximena Jean - Last Filed: 10/07/18 22:50> Subjective - Date & Time of Evaluation Date of Evaluation: 10/07/18 Time of Evaluation: 13:07 - Subjective Subjective: Medicine Progress Note - Dr Rebekah Paredes's Service Patient seen and examined at bedside. Per nursing no acute events overnight. Patient reports shortness of breath is improving. Still having productive cough. Has not had a bowel movement in two days. Denies any other acute complaints at this time. Objective - Vital Signs/Intake and Output Vital Signs (last 24 hours): Temp Pulse Resp BP Pulse Ox 98.9 F 70 18 151/76 H 96 10/07/18 08:00 10/07/18 11:58 10/07/18 08:00 10/07/18 08:00 10/07/18 08:00 Intake and Output: 10/07/18 10/07/18 06:59 18:59 Intake Total 410 Balance 410 - Medications Medications: Current Medications Albuterol/Ipratropium (Duoneb 3 Mg/0.5 Mg (3 Ml) Ud) 3 ml INH RQ6 PRN PRN Reason: Shortness of Breath Amlodipine Besylate (Norvasc) 10 mg PO Q24H [facility] Apixaban (Eliquis) 2.5 mg PO BID [facility] Last Admin: 10/07/18 09:21 Dose: 2.5 mg Artificial Tears (Artificial Tears) 0 ml OU Q4 PRN PRN Reason: Dry eyes Aspirin (Ecotrin) 81 mg PO DAILY [facility] Last Admin: 10/07/18 09:21 Dose: 81 mg Dextrose (Dextrose 50% Inj) 0 ml IV STAT PRN; Protocol PRN Reason: Hypoglycemia Protocol Dextrose (Glutose 15) 0 gm PO ONCE PRN; Protocol PRN Reason: Hypoglycemia Protocol Docusate Sodium (Colace) 100 mg PO BID [facility] Last Admin: 10/07/18 09:21 Dose: 100 mg Furosemide (Lasix) 20 mg PO DAILY [facility] Last Admin: 10/04/18 13:36 Dose: Not Given Glucagon (Glucagen Diagnostic Kit) 0 mg IM STAT PRN; Protocol PRN Reason: Hypoglycemia Protocol Dextrose (Dextrose 5% In Water 1000 Ml) 1,000 mls @ 0 mls/hr IV .Q0M PRN; Protocol PRN Reason: Hypoglycemia Protocol Azithromycin 500 mg/ Sodium (Chloride) 250 mls @ 250 mls/hr IVPB DAILY [facility]; Protocol Last Admin: 10/07/18 09:21 Dose: 250 mls/hr Ceftriaxone Sodium 1 gm/ (Sodium Chloride) 100 mls @ 100 mls/hr IVPB DAILY [facility]; Protocol Last Admin: 10/07/18 09:21 Dose: 100 mls/hr Insulin Detemir (Levemir) 10 unit [address] [facility] Last Admin: 10/06/18 22:00 Dose: 10 unit Insulin Human Regular (Novolin R) 0 unit SC [facility]; Protocol Last Admin: 10/07/18 12:45 Dose: 4 units Isosorbide Mononitrate (Imdur Er) 30 mg PO DAILY [facility] Last Admin: 10/07/18 09:21 Dose: 30 mg Lactobacillus Acidophilus (Bacid Acidophilus) 1 cap PO BID [facility] Last Admin: 10/07/18 09:20 Dose: 1 cap Levothyroxine Sodium (Synthroid) 75 mcg PO DAILY@0630 [facility] Losartan Potassium (Cozaar) 25 mg PO QPM [facility] Last Admin: 10/06/18 18:06 Dose: 25 mg Metoprolol Succinate (Toprol Xl) 50 mg PO DAILY [facility] Last Admin: 10/07/18 09:21 Dose: 50 mg Pantoprazole Sodium (Protonix Ec Tab) 40 mg PO DAILY [facility] Last Admin: 10/07/18 09:21 Dose: 40 mg Promethazine HCl (Phenergan Syrup) 6.25 mg PO Q6H PRN PRN Reason: Cough Rosuvastatin Calcium (Crestor) 20 mg PO [facility] Last Admin: 10/06/18 21:52 Dose: 20 mg Sevelamer Carbonate (Renvela) 800 mg PO TID [facility] Last Admin: 10/07/18 09:21 Dose: 800 mg Tobramycin/Dexamethasone (Tobradex 0.3%-0.1% Opht Oint) 1 appl OU TID [facility] Last Admin: 10/07/18 09:21 Dose: 1 applic Vitamin B Complex/Vit C/Folic Acid (Nephro-Mary Ann) 1 tab PO DAILY [facility] Last Admin: 10/07/18 09:21 Dose: 1 tab - Labs Labs: 10/07/18 08:19 10/07/18 08:19 PT 16.2 SECONDS (9.7-12.2) H 10/03/18 16:30 INR 1.5 10/03/18 16:30 APTT 60 SECONDS (21-34) H D 10/04/18 13:54 - Additional Findings Additional findings: - Constitutional Appears: Non-toxic, No Acute Distress - Head Exam Head Exam: ATRAUMATIC, NORMAL INSPECTION, NORMOCEPHALIC - Eye Exam Eye Exam: EOMI Additional comments: Right eye: pupil equal and reactive to light, normal accommodation Left eye: clouded over, blind - ENT Exam ENT Exam: Mucous Membranes Moist, no lymphadenopathy, no tonsillar erythema or exudates - Neck Exam Neck Exam: Full ROM - Respiratory Exam Respiratory Exam: Rhonchi (Coarse breath sounds) - Cardiovascular Exam Cardiovascular Exam: REGULAR RHYTHM, +S1, +S2 Additional comments: Chest wall: irregularly shaped wound above sternal notch that measures 4.5cm in longest diameter, oozing blood, no surrounding erythema or tenderness to palpation; covered with optifoam dressing - GI/Abdominal Exam GI & Abdominal Exam: Soft. absent: Distended, Guarding, Rigid, Tenderness - Extremities Exam Extremities Exam: absent: Calf Tenderness, Pedal Edema Additional comments: Right arm AVF: +thrill, radial pulses intact Left transmetatarsal amputation (no ulcerations) - Neurological Exam Neurological Exam: Alert, Awake, Oriented x3 - Psychiatric Exam Psychiatric exam: Normal Affect, Normal Mood - Skin Skin Exam: Dry, Normal Color, Warm Assessment and Plan - Assessment and Plan (Free Text) Assessment: Respiratory distress likely secondary to Healthcare Associated pneumonia, fluid overload 2/2 ESRD -Afebrile (Tmax 101.6 on 10/05/18 2:06am) -Leukocytosis 13.5, trending down -CXR on admission showed bibasilar infiltrates, borderline cardiomegaly, right sided subclavian vascular stent, L pacemaker (see full report) -Antibiotics: Rocephin 1 gm IVPB daily (started 10/06/18) and Azithromycin 500mg IVPB daily (started 10/06/18) -Bacid 1 tablet PO BID, Promethazine prn cough -Urine legionella, urine strep pneumonia ag, ordered however patient does not make urine -Rapid influenza negative, procacitonin high, mycoplasma ordered -Duonebs Q6H prn shortness of breath -Supplemental O2 with humidifier as needed -Blood cultures negative x 3 days -Repeat CXR ordered for 10/08/18 Bibasilar infiltrates -as per CXR on 10/03/18 -Added Rocephin and Azithromycin Non-healing Chest wall wound, 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 -As per review of echocardiogram, no evidence of heart failure -Echo showed EF 65%, LV function normal, LV thickness is markedly increased, mild aortic regurgitation, mild mitral valve regurgitation (see full report) Right sided subclavian vascular stent -Unclear why patient has a stent -Will need to discuss further with the daughter Hypertension -SBPs improving -Continue Norvasc 10mg PO at 10pm -Continue Cozaar 25mg PO at 6pm -Continue Toprol XL 50mg PO daily at 10am Diabetes Mellitus, Type 2 -Continue high dose insulin sliding scale ACHS -Accuchecks ACHS -Continue Levemir 10 units SC HS NSTEMI? -EKG on admission showed q waves in leads II, III, AVF, No new q waves or ST d epressions noted -Troponin elevation could be due to ESRD -Patient is not a candidate for cardiac cath, will continue medical management -Continue ASA 81mg PO daily, Eliquis 2.5mg PO daily, Crestor 20mg PO HS Chronic afib/CAD -On Toprol XL 50mg PO daily, Imdur ER 30mg PO daily -Continue Eliquis 2.5mg PO BID -Patient follows with Dr Sukhjinder Valdez History of L sided pacemaker -Patient follows with Dr Sukhjinder Valdez Left transmetatarsal amputation -Stable, no ulcerations or wounds History of cerebellar infarct -as per records from [facility] Left eye blindness -Per the daughter, patient has glaucoma -Continue tobradex 1 appl OU TID -Artificial tears OU Q4H prn ESRD on HD -Patient to continue dialysis as scheduled TThS -Continue Renvela 800mg PO TID, Nephro-mary ann 1 tab daily -Nephrology on consult, Dr Duarte, help appreciated History of Hypothyroidism -TSH and Free T4 within normal range -Continue home dose of Synthroid 75mcg PO daily Hepatitis C reactive -AST mildly elevated at 66 -Will discuss with the daughter if the patient was ever treated for this Constipation -Patient complaining of hard stools -Colace 100mg PO BID, added ducolax x 1 dose -Monitor bowel movements GI/DVT ppx: Protonix 40mg PO daily SCDs, Eliquis 2.5mg PO BID DISPO: Patient to continue IV antibiotics for healthcare associated pneumonia, patient to continue HD as scheduled. PT evaluation is recommending [facility]. Per the daughter, Anahy ([phone]), the patient does not have a PMD and only sees Dr Valdez and Dr Duarte outpatient. Plan discussed with Dr Rebekah Jean DO PGY-2 <[place] Paredes - Last Filed: 10/13/18 15:40> Objective - Vital Signs/Intake and Output Vital Signs (last 24 hours): Temp Pulse Resp BP Pulse Ox 98.1 F 80 20 146/78 94 L 10/12/18 15:00 10/12/18 15:00 10/12/18 15:00 10/12/18 15:00 10/12/18 15:00 - Labs Labs: 10/12/18 07:54 10/12/18 07:54 PT 16.2 SECONDS (9.7-12.2) H 10/03/18 16:30 INR 1.5 10/03/18 16:30 APTT 60 SECONDS (21-34) H D 10/04/18 13:54 Attending/Attestation - Attestation I have personally seen and examined this patient.: Yes I have fully participated in the care of the patient.: Yes I have reviewed all pertinent clinical information, including history, physical exam and plan: Yes Notes (Text): 10/13/18 15:40 This is a late entry. Care of this patient was gone over with resident Dr. Jean. Modesto Paredes D.O.
[2018-10-07] MEDS: Promethazine 6.25 MG/5 ML CUP PO PRN (13:15)
--- NOTE | 2018-10-07 13:34 | CP.PCM.CON ---
History of Present Illness - History of Present Illness History of Present Illness: dictated Past Patient History - Infectious Disease Hx of Infectious Diseases: None - Past Medical History & Family History Past Medical History?: Yes - Past Social History Smoking Status: Never Smoked - CARDIAC Hx Cardiac Disorders: Yes (CAD, CABG) Hx Congestive Heart Failure: Yes Hx Hypercholesterolemia: Yes Hx Hypertension: Yes - PULMONARY Hx Pneumonia: Yes - NEUROLOGICAL Hx Neurological Disorder: Yes - HEENT Hx HEENT Problems: No - RENAL Hx Renal Failure: Yes (ESRD) - ENDOCRINE/METABOLIC Hx Hypothyroidism: Yes - HEMATOLOGICAL/ONCOLOGICAL Hx Anemia: Yes Hx Human Immunodeficiency Virus (HIV): No - INTEGUMENTARY Hx Dermatological Problems: No - MUSCULOSKELETAL/RHEUMATOLOGICAL Hx Arthritis: Yes - GASTROINTESTINAL Hx Gall Bladder Disease: Yes - GENITOURINARY/GYNECOLOGICAL Hx Genitourinary Disorders: No - PSYCHIATRIC Hx Substance Use: No - SURGICAL HISTORY Hx Cholecystectomy: Yes Hx Coronary Artery Bypass Graft: Yes Hx Coronary Stent: Yes - ANESTHESIA Hx Anesthesia: Yes Hx Anesthesia Reactions: No Hx Malignant Hyperthermia: No Meds Allergies/Adverse Reactions: Allergies Allergy/AdvReac Type Severity Reaction Status Date / Time No Known Allergies Allergy Verified 10/03/18 16:11 - Medications Medications: Current Medications Albuterol/Ipratropium (Duoneb 3 Mg/0.5 Mg (3 Ml) Ud) 3 ml INH RQ6 PRN PRN Reason: Shortness of Breath Amlodipine Besylate (Norvasc) 10 mg PO Q24H [facility] Apixaban (Eliquis) 2.5 mg PO BID [facility] Last Admin: 10/07/18 09:21 Dose: 2.5 mg Artificial Tears (Artificial Tears) 0 ml OU Q4 PRN PRN Reason: Dry eyes Aspirin (Ecotrin) 81 mg PO DAILY [facility] Last Admin: 10/07/18 09:21 Dose: 81 mg Dextrose (Dextrose 50% Inj) 0 ml IV STAT PRN; Protocol PRN Reason: Hypoglycemia Protocol Dextrose (Glutose 15) 0 gm PO ONCE PRN; Protocol PRN Reason: Hypoglycemia Protocol Docusate Sodium (Colace) 100 mg PO BID [facility] Last Admin: 10/07/18 09:21 Dose: 100 mg Furosemide (Lasix) 20 mg PO DAILY [facility] Last Admin: 10/04/18 13:36 Dose: Not Given Glucagon (Glucagen Diagnostic Kit) 0 mg IM STAT PRN; Protocol PRN Reason: Hypoglycemia Protocol Dextrose (Dextrose 5% In Water 1000 Ml) 1,000 mls @ 0 mls/hr IV .Q0M PRN; Protocol PRN Reason: Hypoglycemia Protocol Azithromycin 500 mg/ Sodium (Chloride) 250 mls @ 250 mls/hr IVPB DAILY [facility]; Protocol Last Admin: 10/07/18 09:21 Dose: 250 mls/hr Ceftriaxone Sodium 1 gm/ (Sodium Chloride) 100 mls @ 100 mls/hr IVPB DAILY [facility]; Protocol Last Admin: 10/07/18 09:21 Dose: 100 mls/hr Insulin Detemir (Levemir) 10 unit SC [facility] Last Admin: 10/06/18 22:00 Dose: 10 unit Insulin Human Regular (Novolin R) 0 unit SC [facility]; Protocol Isosorbide Mononitrate (Imdur Er) 30 mg PO DAILY [facility] Last Admin: 10/07/18 09:21 Dose: 30 mg Lactobacillus Acidophilus (Bacid Acidophilus) 1 cap PO BID [facility] Last Admin: 10/07/18 09:20 Dose: 1 cap Levothyroxine Sodium (Synthroid) 75 mcg PO DAILY@0630 [facility] Losartan Potassium (Cozaar) 25 mg PO QPM [facility] Last Admin: 10/06/18 18:06 Dose: 25 mg Metoprolol Succinate (Toprol Xl) 50 mg PO DAILY [facility] Last Admin: 10/07/18 09:21 Dose: 50 mg Pantoprazole Sodium (Protonix Ec Tab) 40 mg PO DAILY [facility] Last Admin: 10/07/18 09:21 Dose: 40 mg Promethazine HCl (Phenergan Syrup) 6.25 mg PO Q6H PRN PRN Reason: Cough Last Admin: 10/07/18 13:15 Dose: 6.25 mg Rosuvastatin Calcium (Crestor) 20 mg PO [facility] Last Admin: 10/06/18 21:52 Dose: 20 mg Sevelamer Carbonate (Renvela) 800 mg PO TID [facility] Last Admin: 10/07/18 13:14 Dose: 800 mg Tobramycin/Dexamethasone (Tobradex 0.3%-0.1% Opht Oint) 1 appl OU TID [facility] Last Admin: 10/07/18 13:14 Dose: 1 applic Vitamin B Complex/Vit C/Folic Acid (Nephro-Etelvina) 1 tab PO DAILY [facility] Last Admin: 10/07/18 09:21 Dose: 1 tab Results - Vital Signs Recent Vital Signs: Last Vital Signs Temp 98.9 F 10/07/18 08:00 Pulse 70 10/07/18 11:58 Resp 18 10/07/18 08:00 BP 151/76 H 10/07/18 08:00 Pulse Ox 96 10/07/18 08:00 - Labs Result Diagrams: 10/07/18 08:19 10/07/18 08:19 Labs: Laboratory Results - last 24 hr 10/06/18 10/06/18 10/06/18 14:21 16:04 20:54 WBC RBC Hgb Hct MCV MCH MCHC RDW Plt Count MPV Neut % (Auto) Lymph % (Auto) [place] % (Auto) Eos % (Auto) Baso % (Auto) Neut # (Auto) Lymph # (Auto) [place] # (Auto) Eos # (Auto) Baso # (Auto) Neutrophils % (Manual) Lymphocytes % (Manual) Monocytes % (Manual) Platelet Estimate RBC Morphology Sodium Potassium Chloride Carbon Dioxide Anion Gap BUN Creatinine Est GFR ( Amer) Est GFR (Non-Af Amer) POC Glucose (mg/dL) 124 H 233 H Random Glucose Calcium Phosphorus Magnesium Total Bilirubin AST ALT Alkaline Phosphatase Total Protein Albumin Globulin Albumin/Globulin Ratio Procalcitonin 0.78 H Free T4 TSH 3rd Generation 10/07/18 10/07/18 10/07/18 06:29 08:19 08:19 WBC 13.5 H RBC 3.46 L Hgb 11.2 Hct 33.0 L MCV 95.4 MCH 32.4 H MCHC 34.0 RDW 14.4 Plt Count 259 MPV 9.6 Neut % (Auto) 83.8 H Lymph % (Auto) 7.8 L [place] % (Auto) 8.0 Eos % (Auto) 0.1 Baso % (Auto) 0.3 Neut # (Auto) 11.3 H Lymph # (Auto) 1.1 [place] # (Auto) 1.1 H Eos # (Auto) 0.0 Baso # (Auto) 0.0 Neutrophils % (Manual) 91 H Lymphocytes % (Manual) 7 L Monocytes % (Manual) 2 Platelet Estimate Normal RBC Morphology Normal Sodium 137 Potassium 3.7 Chloride 94 L Carbon Dioxide 31 H Anion Gap 16 BUN 33 H Creatinine 4.5 H Est GFR ( Amer) 11 Est GFR (Non-Af Amer) 9 POC Glucose (mg/dL) 211 H Random Glucose 188 H Calcium 9.0 Phosphorus 3.8 Magnesium 2.1 Total Bilirubin 0.5 AST 66 H D ALT 43 Alkaline Phosphatase 133 H D Total Protein 8.2 Albumin 4.2 Globulin 4.0 H Albumin/Globulin Ratio 1.0 Procalcitonin Free T4 TSH 3rd Generation 3.16 10/07/18 10/07/18 08:19 11:01 WBC RBC Hgb Hct MCV MCH MCHC RDW Plt Count MPV Neut % (Auto) Lymph % (Auto) [place] % (Auto) Eos % (Auto) Baso % (Auto) Neut # (Auto) Lymph # (Auto) [place] # (Auto) Eos # (Auto) Baso # (Auto) Neutrophils % (Manual) Lymphocytes % (Manual) Monocytes % (Manual) Platelet Estimate RBC Morphology Sodium Potassium Chloride Carbon Dioxide Anion Gap BUN Creatinine Est GFR ( Amer) Est GFR (Non-Af Amer) POC Glucose (mg/dL) 264 H Random Glucose Calcium Phosphorus Magnesium Total Bilirubin AST ALT Alkaline Phosphatase Total Protein Albumin Globulin Albumin/Globulin Ratio Procalcitonin Free T4 1.17 TSH 3rd Generation
[2018-10-07] MEDS: Albuterol-Ipratrop 3 mg / 0.5 (3 ml) UD INH PRN (13:37)
[2018-10-07] MEDS ORDERED: guaiFENesin 100 mg/5 ml Syrup UD PO PRN (19:25)
[2018-10-07] MEDS: Benzocaine/Menthol (Cepacol) Lozenge MT SCH (20:54)
[2018-10-07] MEDS: Insulin Detemir 100 units/ml Vial (Levemir) SC SCH (22:09)
--- NOTE | 2018-10-07 22:22 | CON ---
DATE: 10/07/2018 REQUESTING PHYSICIAN: Octavio Ferris MD HISTORY OF PRESENT ILLNESS: This patient is a 78-year-old female. She has a history of anxiety and renal disease. She is a dialysis patient. She gets dialysis on Tuesdays, , and Saturdays. She has history of hypertension, diabetes mellitus, hyperthyroidism, and coronary artery disease. She was admitted with chest pain and shortness of breath and cough for one day. She does have sputum production. She states she is bringing whitish sputum. She said that when sitting at home that she started to have shortness of breath, chest pain, and nonproductive cough. She sounds also nasal at this time. She denies any fever, but she did come in with chest pain, shortness of breath, and cough and she sounds sick and is being treated for pneumonia. I am asked to evaluate for IV antibiotics. She denies any joint pain. She does complain of left shoulder pain. PAST MEDICAL HISTORY: Significant for coronary artery disease, end-stage renal disease, hypertension, hyperlipidemia, diabetes type 2, and hyperthyroidism. PAST SURGICAL HISTORY: CABG, coronary stent, pacemaker. She also had left TMA. MEDICATIONS: Her medications at home were aspirin, Crestor, isosorbide, Renvela, Eliquis, metoprolol, Lasix, levothyroxine, Protonix, Lyrica, amlodipine, and Levemir. Her medications at the present time; she is getting albuterol, Norvasc, Eliquis, artificial tears, and Ecotrin. She is on Zithromax and she is also on Rocephin at this time and she was getting some fluids before which is not there now and they held the Lasix. She is on Colace. She is on Levemir 10 units, Novolin R coverage, isosorbide, lactobacillus, levothyroxine, losartan, metoprolol, Protonix, Phenergan she is getting and she is on Crestor and Renvela. She is getting TobraDex eye solutions, vitamin B complex, Nephro-Etelvina. ALLERGIES: SHE IS NOT ALLERGIC TO ANY MEDICINES. SOCIAL HISTORY: Negative for smoking or drinking or any drug abuse. Smoking history is none. REVIEW OF SYSTEMS: CONSTITUTIONAL: She was admitted on 10/03/2018 and came in with chest pain and dyspnea. She had no leg edema. RESPIRATORY: She had cough and dyspnea. GASTROINTESTINAL: She had no GI symptoms, diarrhea, vomiting, or abdominal pain. GENITOURINARY: She has no symptoms. NEUROLOGIC: She denied any dizziness or headaches, denied any fever and she was sick for a day. She does have past medical history as above. Smoking history is none. Cardiac history is significant for atrial fibrillation, CHF, hypercholesterolemia and hypertension. She also has a pacemaker. Pulmonarywise, she had pneumonia in the past and has neuropathies neurologically, chronic renal failure, kidney stones, hypothyroidism, hyperthyroidism endocrinewise and history of anemia. She has no HIV disease. She has no skin disease. She did complain of arthritis in the left shoulder. Otherwise, not in all the joints. She denies any urinary symptoms. No substance abuse. She has had surgery for cholecystectomy, bypass surgery, and she has stent. She has history of anesthesia in the past. PHYSICAL EXAMINATION: VITAL SIGNS: She had temperature of 101.6 when she came in on 10/04/2018 and since then, she is afebrile, T-max, however, is 99.4, blood pressure 151/76, respirations are 18, and heart rate is 81. She sounds nasal and she sounds little congested at this time. HEENT: Head is atraumatic and normocephalic. Eye movements are unremarkable. NECK: Supple, JVP is flat at this time. LUNGS: Bilateral rhonchi, occasional wheeze. HEART: S1 and S2 regular. No murmur or gallop. She has a pacemaker. ABDOMEN: Soft and nontender. No guarding and no rigidity present. EXTREMITIES: Left foot has a TMA, looks like she has soft corn and the right foot is unremarkable. She has a fistula on the right arm. LABORATORY DATA: Labs are noted. Blood cultures x2 are negative. She is a dialysis patient. Her chest x-ray is noted and chest x-ray from 10/03/2018 shows bibasilar infiltrates, right hilar prominence, left-sided pacemaker, borderline cardiomegaly, right-sided subclavian vascular stent. She also has a dressing on her chest wall at this time. I am unable to find out why she has that and I want to take it off. So, we will find out from the nurse. ASSESSMENT AND PLAN: She is getting treatment for pneumonia, for bibasilar infiltrates. She is on Rocephin and Zithromax. We will continue those and we will do some serology. Influenza is negative and her white count is 13.5, yesterday was 15.7. I think I will continue the same at this time and we will get labs done tomorrow and a chest x-ray done tomorrow and we will follow. She does have end-stage renal disease and is probably with pneumonia bibasilar at this time with fever and high white count and some nasal congestion. Flu was ruled out.She is also with ESRD and on dialysis and history of HTN and Diabetes Mellitus Ashanti Hodge MD MTDD
[2018-10-08] MEDS: Benzocaine/Menthol (Cepacol) Lozenge MT SCH ×3 (07:38→18:39)
[2018-10-08] MEDS: (Novolin R) Insulin Human Regular 100 units/ml vial SC SCH ×4 (08:28→22:05)
[2018-10-08] MEDS: Metoprolol Succinate 50 mg XL Tab PO SCH (09:36)
[2018-10-08] MEDS: Multivitamin Vitamin B Complex (Nephro-Vite) Tab PO SCH (09:36)
[2018-10-08] MEDS: Levothyroxine 75 MCG TAB PO SCH (09:37)
[2018-10-08] MEDS: Pantoprazole 40 mg EC Tab PO SCH (09:37)
[2018-10-08] MEDS: Lactobacillus Acidophilus 500 MU Cap PO SCH ×2 (09:37→18:38)
[2018-10-08] MEDS: Promethazine 6.25 MG/5 ML CUP PO PRN ×2 (09:38→18:40)
[2018-10-08] MEDS: Tobramycin/Dexamethasone OPHT OINT OU SCH ×3 (09:39→18:37)
--- NOTE | 2018-10-08 10:09 | CP.PCM.PN ---
<Alejandro Solis - Last Filed: 10/09/18 10:04> Subjective - Date & Time of Evaluation Date of Evaluation: 10/08/18 Time of Evaluation: 10:04 - Subjective Subjective: PGY-[address] Paredes's service Patient seen and examined at bedside. Garbled speech unable to communicate effectively even with inspector government property. Patient admits to ongoing cough with sputum production. Patient denies fevers, chills, chest pain, sob, n/v, constipation or diarrhea, and dysuria. Objective - Vital Signs/Intake and Output Vital Signs (last 24 hours): Temp Pulse Resp BP Pulse Ox 99.1 F 93 H 20 163/81 H 93 L 10/08/18 08:00 10/08/18 09:47 10/08/18 08:00 10/08/18 09:47 10/08/18 08:00 - Medications Medications: Current Medications Albuterol/Ipratropium (Duoneb 3 Mg/0.5 Mg (3 Ml) Ud) 3 ml INH RQ6 PRN PRN Reason: Shortness of Breath Last Admin: 10/07/18 13:37 Dose: 3 ml Amlodipine Besylate (Norvasc) 10 mg PO Q24H [facility] Last Admin: 10/07/18 22:09 Dose: 10 mg Apixaban (Eliquis) 2.5 mg PO BID [facility] Last Admin: 10/08/18 09:38 Dose: 2.5 mg Artificial Tears (Artificial Tears) 0 ml OU Q4 PRN PRN Reason: Dry eyes Aspirin (Ecotrin) 81 mg PO DAILY [facility] Last Admin: 10/08/18 09:36 Dose: 81 mg Benzocaine/Menthol (Cepacol Sore Throat) 1 fiordaliza MT Q6H [facility] Stop: 10/08/18 19:30 Last Admin: 10/08/18 07:38 Dose: 1 fiordaliza Dextrose (Dextrose 50% Inj) 0 ml IV STAT PRN; Protocol PRN Reason: Hypoglycemia Protocol Dextrose (Glutose 15) 0 gm PO ONCE PRN; Protocol PRN Reason: Hypoglycemia Protocol Docusate Sodium (Colace) 100 mg PO BID [facility] Last Admin: 10/08/18 09:36 Dose: 100 mg Furosemide (Lasix) 20 mg PO DAILY [facility] Last Admin: 10/04/18 13:36 Dose: Not Given Glucagon (Glucagen Diagnostic Kit) 0 mg IM STAT PRN; Protocol PRN Reason: Hypoglycemia Protocol Dextrose (Dextrose 5% In Water 1000 Ml) 1,000 mls @ 0 mls/hr IV .Q0M PRN; Protocol PRN Reason: Hypoglycemia Protocol Azithromycin 500 mg/ Sodium (Chloride) 250 mls @ 250 mls/hr IVPB DAILY [facility]; Protocol Last Admin: 10/07/18 09:21 Dose: 250 mls/hr Ceftriaxone Sodium 1 gm/ (Sodium Chloride) 100 mls @ 100 mls/hr IVPB DAILY [facility]; Protocol Last Admin: 10/08/18 09:54 Dose: 100 mls/hr Insulin Detemir (Levemir) 10 unit SC [facility] Last Admin: 10/07/18 22:09 Dose: 10 unit Insulin Human Regular (Novolin R) 0 unit SC [facility]; Protocol Last Admin: 10/08/18 08:28 Dose: 2 units Isosorbide Mononitrate (Imdur Er) 30 mg PO DAILY [facility] Last Admin: 10/08/18 09:36 Dose: 30 mg Lactobacillus Acidophilus (Bacid Acidophilus) 1 cap PO BID [facility] Last Admin: 10/08/18 09:37 Dose: 1 cap Levothyroxine Sodium (Synthroid) 75 mcg PO DAILY@0630 [facility] Last Admin: 10/08/18 09:37 Dose: 75 mcg Losartan Potassium (Cozaar) 25 mg PO QPM [facility] Last Admin: 10/07/18 17:18 Dose: 25 mg Metoprolol Succinate (Toprol Xl) 50 mg PO DAILY [facility] Last Admin: 10/08/18 09:36 Dose: 50 mg Pantoprazole Sodium (Protonix Ec Tab) 40 mg PO DAILY [facility] Last Admin: 10/08/18 09:37 Dose: 40 mg Promethazine HCl (Phenergan Syrup) 6.25 mg PO Q6H PRN PRN Reason: Cough Last Admin: 10/08/18 09:38 Dose: 6.25 mg Rosuvastatin Calcium (Crestor) 20 mg PO HS [facility] Last Admin: 10/07/18 22:09 Dose: 20 mg Sevelamer Carbonate (Renvela) 800 mg PO TID [facility] Last Admin: 10/08/18 09:37 Dose: 800 mg Tobramycin/Dexamethasone (Tobradex 0.3%-0.1% Opht Oint) 1 appl OU TID [facility] Last Admin: 10/08/18 09:39 Dose: 1 applic Vitamin B Complex/Vit C/Folic Acid (Nephro-Etelvina) 1 tab PO DAILY [facility] Last Admin: 10/08/18 09:36 Dose: 1 tab - Labs Labs: 10/07/18 08:19 10/07/18 08:19 PT 16.2 SECONDS (9.7-12.2) H 10/03/18 16:30 INR 1.5 10/03/18 16:30 APTT 60 SECONDS (21-34) H D 10/04/18 13:54 - Constitutional Appears: Non-toxic, No Acute Distress - Head Exam Head Exam: NORMAL INSPECTION, NORMOCEPHALIC - Eye Exam Eye Exam: EOMI, Normal appearance. absent: Nystagmus, Scleral icterus - ENT Exam ENT Exam: Mucous Membranes Dry - Respiratory Exam Respiratory Exam: Clear to Ausculation Bilateral, NORMAL BREATHING PATTERN. ab sent: Rales, Rhonchi, Wheezes - Cardiovascular Exam Cardiovascular Exam: REGULAR RHYTHM, +S1, +S2. absent: Tachycardia - GI/Abdominal Exam GI & Abdominal Exam: Soft, Normal Bowel Sounds. absent: Distended, Firm, Guarding, Rigid, Tenderness - Extremities Exam Extremities Exam: Normal Inspection. absent: Calf Tenderness, Pedal Edema - Neurological Exam Neurological Exam: Awake, Oriented x3 - Psychiatric Exam Psychiatric exam: Normal Affect, Normal Mood - Skin Skin Exam: Intact, Normal Color Additional comments: dressing on mid chest for seeping s/p skin biopsy Assessment and Plan - Assessment and Plan (Free Text) Assessment: Patient is a 78 yo female w/ PMH of ESRD on HD TTS, HTN, DM2, Hypothyroidism, CAD admitted to hospital for shortness of breath w/ nonproductive cough. Found on chest xray to have bibasilar infiltrates. Treated for bacterial pneumonia and fluid overload via diuretics and dialysis Pneumonia with bibasilar infiltrates CXR 1-9 shows bibasilar infiltrates Duoneb RQ6 PRN Azithromycin 500mg IVPB (1-12) and Ceftriaxone 1gm IVPB daily (1-12) Cepacol lozenge Promethazine Chest wound s/p skin biospy- pathology was normal Wound care following- medihoney and optifoam dressing pending update from wound care ESRD on HD TThS Sevelamer Carbonate 800mg po tid Nephrovite HTN Amlodipine 10mg po q24h Imdur 30mg po daily Lopressor 50mg po daily DM2 Detemir 10 unit sc HS Insulin regular sc ACHS A1C 7.7 sugars under control CAD Crestor 20mg po hs Aspirin 81mg Eliquis 2.5mg po daily Hypothyroidism Synthroid 75mcg po daily Constipation Colace 100mg po bid Miralax daily Left Eye blindness Tobradex x 1 appli ou tid GI ppx: Lactobacillus, Protonix 40mg po daily DVT ppx: Eliquis 2.5mg po daily PGY-1 Alejandro Solis Medical Management discussed with Dr. Paredes <[place] Paredes - Last Filed: 10/13/18 15:39> Objective - Vital Signs/Intake and Output Vital Signs (last 24 hours): Temp Pulse Resp BP Pulse Ox 98.1 F 80 20 146/78 94 L 10/12/18 15:00 10/12/18 15:00 10/12/18 15:00 10/12/18 15:00 10/12/18 15:00 - Labs Labs: 10/12/18 07:54 10/12/18 07:54 PT 16.2 SECONDS (9.7-12.2) H 10/03/18 16:30 INR 1.5 10/03/18 16:30 APTT 60 SECONDS (21-34) H D 10/04/18 13:54 Attending/Attestation - Attestation I have personally seen and examined this patient.: Yes I have fully participated in the care of the patient.: Yes I have reviewed all pertinent clinical information, including history, physical exam and plan: Yes Notes (Text): 10/13/18 15:39 This is a late entry. Care of this patient was gone over with resident Dr. Solis. [place] Paredes D.O.
[2018-10-08] MEDS: Azithromycin 500 MG in Sodium Chloride 0.9% 250 ML IVPB SCH ×2 (10:52→10:54)
[2018-10-08 11:36] LABS: BASO # 0.1 K/uL (0.0-0.2); BASO % 0.5 % (0.0-2.0); EOS % 0.4 % (0.0-4.0); HEMOGLOBIN 10.8 g/dL (11.0-16.0); LYMPH # 0.9 K/uL (1.0-4.3); LYMPH % 6.5 % (20.0-40.0); MEAN CELL VOLUME 94.7 fL (81.0-99.0); MEAN CORPUSCULAR HEMOGLOBIN 31.8 pg (27.0-31.0); MEAN CORPUSCULAR HGB CONC 33.6 g/dL (33.0-37.0); MEAN PLATELET VOLUME 9.8 fL (7.2-11.7); MONO # 0.7 K/uL (0.0-0.8); MONO % 5.6 % (0.0-10.0); NEUT # 11.5 K/uL (1.8-7.0); PLATELET COUNT 245 K/uL (130-400); RBC 3.39 Mil/uL (3.80-5.20); RED CELL DISTRIBUTION WIDTH 14.6 % (11.5-14.5); WHITE BLOOD COUNT 13.2 K/uL (4.8-10.8)
[2018-10-08 11:54] LABS: ALB/GLOB RATIO 1.1 (1.0-2.1); ALBUMIN 3.8 g/dL (3.5-5.0); CALCIUM 8.7 mg/dl (8.6-10.4)
[2018-10-08 12:26] LABS: ANISOCYTOSIS SLIGHT; HYPOCHROMIC SLIGHT; LYMPHOCYTE 6 % (20-40); MONOCYTE 3 % (0-10); NEUTROPHIL 91 % (50-75); PLATELET ESTIMATE NORMAL (NORMAL); POIKILOCYTOSIS SLIGHT; TOTAL CELLS COUNTED 100
[2018-10-08 12:27] LABS: LARGE PLATELETS PRESENT
--- NOTE | 2018-10-08 15:14 | RAD ---
Date of service: 10/08/2018 PROCEDURE: CHEST RADIOGRAPH, 1 VIEW HISTORY: follow up pneumonia COMPARISON: 10/03/2018 FINDINGS: LUNGS: Opacity at right lung base. Possible developing pneumonia. This represents interval change from the prior examination. Please note that the examination is limited due to oblique positioning. Follow-up is advised. PLEURA: No pneumothorax or pleural fluid seen. CARDIOVASCULAR: There is atherosclerotic calcification of the thoracic aorta. Normal heart size. Permanent pacemaker. No congestive change. OSSEOUS STRUCTURES: No significant abnormalities. VISUALIZED UPPER ABDOMEN: Normal. OTHER FINDINGS: None. IMPRESSION: Possible developing pneumonia at right base. Follow-up advised
--- NOTE | 2018-10-08 15:25 | CP.PCM.PN ---
Subjective - Date & Time of Evaluation Date of Evaluation: 10/08/18 Time of Evaluation: 15:24 - Subjective Subjective: Nephrology Consultation Note: Assessment: Stable NSTEMI, hyponatremia hyperkalemia HTN urgency and pulm vasc congestion, pneumonia Diabetic chronic Kidney Disease (E11.22) Hypertensive Chronic Kidney Disease (I12.0) End stage renal disease (N18.6) dependence on hemodialysis (Z99.2) (TTS) via AVF Anemia (D64.9), Hyperphosphatemia (E83.39), Secondary Hyperparathyroidism (E21.1), HTN (I12.0) hx of CVA basal cell ca Plan: extra HD today.d/w daughter Will plan for HD TTS schedule as ordered. Continue with Nephrovite 1 tab/day. PRBC as needed for anemia. not on MISA with dialysis as last Hb 10.9 Continue with phos binders, last phos level 3.7 BP control with meds as ordered. Patient not on RAAS katie hence added low dose losartan Glycemic control, Dialysis consistent diet Further work up/management as per primary team Dose meds/antibiotics (if needed) for ESRD status. Avoid fleets enema/magnesium based laxatives. Thanks for allowing me to participate in care of your patient. Will follow patient with you. Please call if any Qs. had d/w team Dr Franki Warren Office: [phone] Chief Complaint;chest pain HPI: Pt is a 78 F with hx of ESRD on hemodialysis (TTS) via AVF , last dialysis tue, chronic anemia, hyperphosphatemia, secondary hyperparathyroidism, Diabetes Mellitus, hypertension, hx of CVA presented with complaints of chest pain which is being managed for NSTEMI. also with HTN urgency and pulm vasc congestion Renal consult requested for ESRD management. pt not able to communicate much due to her hx of CVA. she is bed bound ROS: reports constipation Cardiovascular: No chest pain. Pulmonary: No shortness of breath pt not able to communicate much due to her hx of CVA Physical Examination: General Appearance: Comfortable, in no acute respiratory distress, co-operative . Vitals reviewed and noted as below Head; Atraumatic, normocephalic ENT: no ulcers no thrush. Tongue is midline. Oropharynx: no rash or ulcers. EYES: Pupils are equal, round and reactive to light accommodation. Eye muscles and extraocular movement intact. Sclera is anicteric. Neck; supple no lymphadenopathy, no thyromegaly or bruit Lungs: Normal respiratory rate/effort. Breath sounds bilateral reduced at bases with few wheeze Heart: Normal rate. s1s2 normal. No rub or gallop. dressing over recent basal cell CA excision over chest Extremities: no edema. No varicose veins Neurological: Patient is alert, awake and has chronic residual weakness due to stroke in past. has some aphasia as well Skin: Warm and dry. Normal turgor. No rash. Palpitation: Normal elasticity for age Abdomen: Abdomen is soft. Bowel sounds +. There is no abdominal tenderness, no guarding/rigidity or organomegaly Psych: normal insight and normal affect/mood MSK: no joint tenderness or swelling. Digits and nails normal, no deformity : kidney or bladder not palpable Access: AVF Labs/imaging reviewed. Past medical history, past surgical history, family history, social history, allergy reviewed and noted as below Family Hx: no hx of CKD. Non contributory Objective - Vital Signs/Intake and Output Vital Signs (last 24 hours): Temp Pulse Resp BP Pulse Ox 99.1 F 93 H 20 163/81 H 93 L 10/08/18 08:00 10/08/18 09:47 10/08/18 08:00 10/08/18 09:47 10/08/18 08:00 - Medications Medications: Current Medications Albuterol/Ipratropium (Duoneb 3 Mg/0.5 Mg (3 Ml) Ud) 3 ml INH RQ6 PRN PRN Reason: Shortness of Breath Last Admin: 10/07/18 13:37 Dose: 3 ml Amlodipine Besylate (Norvasc) 10 mg PO Q24H [facility] Last Admin: 10/07/18 22:09 Dose: 10 mg Apixaban (Eliquis) 2.5 mg PO BID [facility] Last Admin: 10/08/18 09:38 Dose: 2.5 mg Artificial Tears (Artificial Tears) 0 ml OU Q4 PRN PRN Reason: Dry eyes Aspirin (Ecotrin) 81 mg PO DAILY [facility] Last Admin: 10/08/18 09:36 Dose: 81 mg Benzocaine/Menthol (Cepacol Sore Throat) 1 fiordaliza MT Q6H [facility] Stop: 10/08/18 19:30 Last Admin: 10/08/18 13:25 Dose: 1 fiordaliza Dextrose (Dextrose 50% Inj) 0 ml IV STAT PRN; Protocol PRN Reason: Hypoglycemia Protocol Dextrose (Glutose 15) 0 gm PO ONCE PRN; Protocol PRN Reason: Hypoglycemia Protocol Docusate Sodium (Colace) 100 mg PO BID [facility] Last Admin: 10/08/18 09:36 Dose: 100 mg Furosemide (Lasix) 20 mg PO DAILY [facility] Last Admin: 10/04/18 13:36 Dose: Not Given Glucagon (Glucagen Diagnostic Kit) 0 mg IM STAT PRN; Protocol PRN Reason: Hypoglycemia Protocol Dextrose (Dextrose 5% In Water 1000 Ml) 1,000 mls @ 0 mls/hr IV .Q0M PRN; Protocol PRN Reason: Hypoglycemia Protocol Azithromycin 500 mg/ Sodium (Chloride) 250 mls @ 250 mls/hr IVPB DAILY [facility]; Protocol Last Admin: 10/08/18 10:54 Dose: Not Given Ceftriaxone Sodium 1 gm/ (Sodium Chloride) 100 mls @ 100 mls/hr IVPB DAILY [facility]; Protocol Last Admin: 10/08/18 09:54 Dose: 100 mls/hr Insulin Detemir (Levemir) 10 unit SC HS [facility] Last Admin: 10/07/18 22:09 Dose: 10 unit Insulin Human Regular (Novolin R) 0 unit SC [facility]; Protocol Last Admin: 10/08/18 12:23 Dose: 10 units Isosorbide Mononitrate (Imdur Er) 30 mg PO DAILY [facility] Last Admin: 10/08/18 09:36 Dose: 30 mg Lactobacillus Acidophilus (Bacid Acidophilus) 1 cap PO BID [facility] Last Admin: 10/08/18 09:37 Dose: 1 cap Levothyroxine Sodium (Synthroid) 75 mcg PO DAILY@0630 [facility] Last Admin: 10/08/18 09:37 Dose: 75 mcg Losartan Potassium (Cozaar) 25 mg PO QPM [facility] Last Admin: 10/07/18 17:18 Dose: 25 mg Metoprolol Succinate (Toprol Xl) 50 mg PO DAILY [facility] Last Admin: 10/08/18 09:36 Dose: 50 mg Pantoprazole Sodium (Protonix Ec Tab) 40 mg PO DAILY [facility] Last Admin: 10/08/18 09:37 Dose: 40 mg Promethazine HCl (Phenergan Syrup) 6.25 mg PO Q6H PRN PRN Reason: Cough Last Admin: 10/08/18 09:38 Dose: 6.25 mg Rosuvastatin Calcium (Crestor) 20 mg PO HS [facility] Last Admin: 10/07/18 22:09 Dose: 20 mg Sevelamer Carbonate (Renvela) 800 mg PO TID [facility] Last Admin: 10/08/18 13:24 Dose: 800 mg Tobramycin/Dexamethasone (Tobradex 0.3%-0.1% Opht Oint) 1 appl OU TID [facility] Last Admin: 10/08/18 13:23 Dose: 1 applic Vitamin B Complex/Vit C/Folic Acid (Nephro-Etelvina) 1 tab PO DAILY [facility] Last Admin: 10/08/18 09:36 Dose: 1 tab - Labs Labs: 10/08/18 11:33 10/08/18 11:33 PT 16.2 SECONDS (9.7-12.2) H 10/03/18 16:30 INR 1.5 10/03/18 16:30 APTT 60 SECONDS (21-34) H D 10/04/18 13:54
[2018-10-08] MEDS ORDERED: Piperacillin/Tazobact 2.25 gm Inj IVPB SCH (15:45)
--- NOTE | 2018-10-08 18:40 | CP.PCM.PN ---
Subjective - Date & Time of Evaluation Date of Evaluation: 10/08/18 Time of Evaluation: 16:00 - Subjective Subjective: dictated Objective - Vital Signs/Intake and Output Vital Signs (last 24 hours): Temp Pulse Resp BP Pulse Ox 97.7 F 78 17 104/55 L 99 10/08/18 17:51 10/08/18 17:51 10/08/18 17:51 10/08/18 17:51 10/08/18 17:51 - Medications Medications: Current Medications Albuterol/Ipratropium (Duoneb 3 Mg/0.5 Mg (3 Ml) Ud) 3 ml INH RQ6 PRN PRN Reason: Shortness of Breath Last Admin: 10/07/18 13:37 Dose: 3 ml Amlodipine Besylate (Norvasc) 10 mg PO Q24H [facility] Last Admin: 10/07/18 22:09 Dose: 10 mg Apixaban (Eliquis) 2.5 mg PO BID [facility] Last Admin: 10/08/18 18:37 Dose: 2.5 mg Artificial Tears (Artificial Tears) 0 ml OU Q4 PRN PRN Reason: Dry eyes Aspirin (Ecotrin) 81 mg PO DAILY [facility] Last Admin: 10/08/18 09:36 Dose: 81 mg Benzocaine/Menthol (Cepacol Sore Throat) 1 fiordaliza MT Q6H [facility] Stop: 10/08/18 19:30 Last Admin: 10/08/18 13:25 Dose: 1 fiordaliza Dextrose (Dextrose 50% Inj) 0 ml IV STAT PRN; Protocol PRN Reason: Hypoglycemia Protocol Dextrose (Glutose 15) 0 gm PO ONCE PRN; Protocol PRN Reason: Hypoglycemia Protocol Docusate Sodium (Colace) 100 mg PO BID [facility] Last Admin: 10/08/18 09:36 Dose: 100 mg Furosemide (Lasix) 20 mg PO DAILY [facility] Last Admin: 10/04/18 13:36 Dose: Not Given Glucagon (Glucagen Diagnostic Kit) 0 mg IM STAT PRN; Protocol PRN Reason: Hypoglycemia Protocol Dextrose (Dextrose 5% In Water 1000 Ml) 1,000 mls @ 0 mls/hr IV .Q0M PRN; Protocol PRN Reason: Hypoglycemia Protocol Vancomycin HCl 500 mg/ Sodium (Chloride) 100 mls @ 100 mls/hr IVPB [facility] [place]; Protocol Piperacillin Sod/Tazobactam (Sod 2.25 gm/ Sodium Chloride) 100 mls @ 200 mls/hr IVPB Q8H [facility] Last Admin: 10/08/18 18:36 Dose: 200 mls/hr Insulin Detemir (Levemir) 10 unit SC [facility] Last Admin: 10/07/18 22:09 Dose: 10 unit Insulin Human Regular (Novolin R) 0 unit SC [facility]; Protocol Last Admin: 10/08/18 12:23 Dose: 10 units Isosorbide Mononitrate (Imdur Er) 30 mg PO DAILY [facility] Last Admin: 10/08/18 09:36 Dose: 30 mg Lactobacillus Acidophilus (Bacid Acidophilus) 1 cap PO BID [facility] Last Admin: 10/08/18 09:37 Dose: 1 cap Levothyroxine Sodium (Synthroid) 75 mcg PO DAILY@0630 [facility] Last Admin: 10/08/18 09:37 Dose: 75 mcg Losartan Potassium (Cozaar) 25 mg PO QPM [facility] Last Admin: 10/07/18 17:18 Dose: 25 mg Metoprolol Succinate (Toprol Xl) 50 mg PO DAILY [facility] Last Admin: 10/08/18 09:36 Dose: 50 mg Pantoprazole Sodium (Protonix Ec Tab) 40 mg PO DAILY [facility] Last Admin: 10/08/18 09:37 Dose: 40 mg Promethazine HCl (Phenergan Syrup) 6.25 mg PO Q6H PRN PRN Reason: Cough Last Admin: 10/08/18 09:38 Dose: 6.25 mg Rosuvastatin Calcium (Crestor) 20 mg PO [facility] Last Admin: 10/07/18 22:09 Dose: 20 mg Sevelamer Carbonate (Renvela) 800 mg PO TID [facility] Last Admin: 10/08/18 18:37 Dose: 800 mg Tobramycin/Dexamethasone (Tobradex 0.3%-0.1% Opht Oint) 1 appl OU TID [facility] Last Admin: 10/08/18 18:37 Dose: 1 applic Vitamin B Complex/Vit C/Folic Acid (Nephro-Etelvina) 1 tab PO DAILY [facility] Last Admin: 10/08/18 09:36 Dose: 1 tab - Labs Labs: 10/08/18 11:33 10/08/18 11:33 PT 16.2 SECONDS (9.7-12.2) H 10/03/18 16:30 INR 1.5 10/03/18 16:30 APTT 60 SECONDS (21-34) H D 10/04/18 13:54
[2018-10-08] MEDS: Insulin Detemir 100 units/ml Vial (Levemir) SC SCH (22:16)
--- NOTE | 2018-10-08 23:04 | PN ---
DATE: 10/08/2018 SUBJECTIVE: The patient is not able to communicate much, but she still looks congested , mild sob, with the nasal congestion, having hemodialysis today. PHYSICAL EXAMINATION: VITAL SIGNS: T-max is 97.7, pulse 78, blood pressure 104/55. resp 20 She is going to get extra fluid removed today. HEAD: Atraumatic, normocephalic. NECK: Supple. LUNGS: Have occasional wheeze bilaterally. HEART: S1, S2 is regular and she has a dressing on the chest wall where she had the basal cell cancer excised. ABDOMEN: Soft, nontender. EXTREMITIES: Have no swelling at this time in the joints and she has a right AV fistula. Her x-ray was done today which shows increasing infiltrate on the right base and she was getting Rocephin and Zithromax. We will change the antibiotics at this time to better cover her. Her white count still remains elevated at 13.2, hemoglobin is 10.8, hematocrit 32.1, platelet count is 245 and neutrophils are 87. Sodium is 130, potassium 4.2, chlorides are 89, BUN is 47, creatinine is 5.4, AST is 77 and mycoplasma IgM came out negative and since the white count still remains high and the x-ray shows new developing infiltrate, at this time I have changed the antibiotics to vancomycin as well as Zosyn and we will follow and the patient does need respiratory treatments as he is wheezing a little bit and will be followed. Imp : Pneumonia with bilateral infilterates and congestion in patient with ESRD and Hypertension plan: to continue present antibiotics and will follow Ashanti Hodge MD MTDMorales
--- NOTE | 2018-10-08 23:52 | CP.PCM.PCO ---
Physician Communication Note - Physician Communication Note Physician Communication Note: Please see above
[2018-10-09] MEDS: Levothyroxine 75 MCG TAB PO SCH (05:37)
[2018-10-09] MEDS: (Novolin R) Insulin Human Regular 100 units/ml vial SC SCH ×4 (07:40→21:39)
[2018-10-09] MEDS: Lactobacillus Acidophilus 500 MU Cap PO SCH ×2 (09:49→18:04)
[2018-10-09] MEDS: Pantoprazole 40 mg EC Tab PO SCH (09:49)
[2018-10-09] MEDS: Multivitamin Vitamin B Complex (Nephro-Vite) Tab PO SCH (09:49)
[2018-10-09] MEDS: Promethazine 6.25 MG/5 ML CUP PO PRN (09:49)
[2018-10-09] MEDS: Tobramycin/Dexamethasone OPHT OINT OU SCH ×3 (09:49→18:06)
[2018-10-09] MEDS: Metoprolol Succinate 50 mg XL Tab PO SCH (09:50)
--- NOTE | 2018-10-09 11:18 | CP.PCM.PN ---
Subjective - Date & Time of Evaluation Date of Evaluation: 10/09/18 Time of Evaluation: 11:17 - Subjective Subjective: Nephrology Consultation Note: Assessment: Stable NSTEMI, hyponatremia hyperkalemia HTN urgency and pulm vasc congestion, pneumonia Diabetic chronic Kidney Disease (E11.22) Hypertensive Chronic Kidney Disease (I12.0) End stage renal disease (N18.6) dependence on hemodialysis (Z99.2) (TTS) via AVF Anemia (D64.9), Hyperphosphatemia (E83.39), Secondary Hyperparathyroidism (E21.1), HTN (I12.0) hx of CVA basal cell ca Plan: Will plan for HD TTS schedule as ordered. Continue with Nephrovite 1 tab/day. PRBC as needed for anemia. not on MISA with dialysis as last Hb 10.9 Continue with phos binders, last phos level 3.7 BP control with meds as ordered. Patient not on RAAS katie hence added low dose losartan Glycemic control, Dialysis consistent diet Further work up/management as per primary team Dose meds/antibiotics (if needed) for ESRD status. Avoid fleets enema/magnesium based laxatives. ID following Thanks for allowing me to participate in care of your patient. Will follow patient with you. Please call if any Qs. had d/w team Dr Franki Warren Office: [phone] Chief Complaint;chest pain HPI: Pt is a 78 F with hx of ESRD on hemodialysis (TTS) via AVF , last dialysis tue, chronic anemia, hyperphosphatemia, secondary hyperparathyroidism, Diabetes Mellitus, hypertension, hx of CVA presented with complaints of chest pain which is being managed for NSTEMI. also with HTN urgency and pulm vasc congestion Renal consult requested for ESRD management. pt not able to communicate much due to her hx of CVA. she is bed bound ROS: Cardiovascular: No chest pain. Pulmonary: No shortness of breath but has cough pt not able to communicate much due to her hx of CVA Physical Examination: General Appearance: Comfortable, in no acute respiratory distress, co-operative . Vitals reviewed and noted as below Head; Atraumatic, normocephalic ENT: no ulcers no thrush. Tongue is midline. Oropharynx: no rash or ulcers. EYES: Pupils are equal, round and reactive to light accommodation. Eye muscles and extraocular movement intact. Sclera is anicteric. Neck; supple no lymphadenopathy, no thyromegaly or bruit Lungs: Increased respiratory rate/effort. Breath sounds bilateral reduced at bases with few wheeze Heart: Normal rate. s1s2 normal. No rub or gallop. dressing over recent basal cell CA excision over chest Extremities: no edema. No varicose veins Neurological: Patient is alert, awake and has chronic residual weakness due to stroke in past. has some aphasia as well Skin: Warm and dry. Normal turgor. No rash. Palpitation: Normal elasticity for age Abdomen: Abdomen is soft. Bowel sounds +. There is no abdominal tenderness, no guarding/rigidity or organomegaly Psych: limited insight and normal affect/mood MSK: no joint tenderness or swelling. Digits and nails normal, no deformity : kidney or bladder not palpable Access: AVF Labs/imaging reviewed. Past medical history, past surgical history, family history, social history, allergy reviewed and noted as below Family Hx: no hx of CKD. Non contributory Objective - Vital Signs/Intake and Output Vital Signs (last 24 hours): Temp Pulse Resp BP Pulse Ox 98 F 73 20 162/83 H 97 10/09/18 08:00 10/09/18 08:00 10/09/18 08:00 10/09/18 08:00 10/09/18 08:00 - Medications Medications: Current Medications Albuterol/Ipratropium (Duoneb 3 Mg/0.5 Mg (3 Ml) Ud) 3 ml INH RQ6 PRN PRN Reason: Shortness of Breath Last Admin: 10/07/18 13:37 Dose: 3 ml Amlodipine Besylate (Norvasc) 10 mg PO Q24H [facility] Last Admin: 10/08/18 22:13 Dose: 10 mg Apixaban (Eliquis) 2.5 mg PO BID [facility] Last Admin: 10/09/18 09:49 Dose: 2.5 mg Artificial Tears (Artificial Tears) 0 ml OU Q4 PRN PRN Reason: Dry eyes Aspirin (Ecotrin) 81 mg PO DAILY [facility] Last Admin: 10/09/18 09:55 Dose: 81 mg Dextrose (Dextrose 50% Inj) 0 ml IV STAT PRN; Protocol PRN Reason: Hypoglycemia Protocol Dextrose (Glutose 15) 0 gm PO ONCE PRN; Protocol PRN Reason: Hypoglycemia Protocol Docusate Sodium (Colace) 100 mg PO BID [facility] Last Admin: 10/09/18 09:50 Dose: Not Given Furosemide (Lasix) 20 mg PO DAILY [facility] Last Admin: 10/04/18 13:36 Dose: Not Given Glucagon (Glucagen Diagnostic Kit) 0 mg IM STAT PRN; Protocol PRN Reason: Hypoglycemia Protocol Dextrose (Dextrose 5% In Water 1000 Ml) 1,000 mls @ 0 mls/hr IV .Q0M PRN; Protocol PRN Reason: Hypoglycemia Protocol Vancomycin HCl 500 mg/ Sodium (Chloride) 100 mls @ 100 mls/hr IVPB MWF [facility]; Protocol Piperacillin Sod/Tazobactam (Sod 2.25 gm/ Sodium Chloride) 100 mls @ 200 mls/hr IVPB Q8H [facility] Last Admin: 10/09/18 08:44 Dose: 200 mls/hr Insulin Detemir (Levemir) 10 unit SC [facility] Last Admin: 10/08/18 22:16 Dose: 10 unit Insulin Human Regular (Novolin R) 0 unit SC [facility]; Protocol Last Admin: 10/09/18 07:40 Dose: Not Given Isosorbide Mononitrate (Imdur Er) 30 mg PO DAILY [facility] Last Admin: 10/09/18 09:50 Dose: Not Given Lactobacillus Acidophilus (Bacid Acidophilus) 1 cap PO BID [facility] Last Admin: 10/09/18 09:49 Dose: 1 cap Levothyroxine Sodium (Synthroid) 75 mcg PO DAILY@0630 [facility] Last Admin: 10/09/18 05:37 Dose: 75 mcg Losartan Potassium (Cozaar) 25 mg PO QPM [facility] Last Admin: 10/08/18 18:49 Dose: 25 mg Metoprolol Succinate (Toprol Xl) 50 mg PO DAILY [facility] Last Admin: 10/09/18 09:50 Dose: Not Given Pantoprazole Sodium (Protonix Ec Tab) 40 mg PO DAILY [facility] Last Admin: 10/09/18 09:49 Dose: 40 mg Promethazine HCl (Phenergan Syrup) 6.25 mg PO Q6H PRN PRN Reason: Cough Last Admin: 10/09/18 09:49 Dose: 6.25 mg Rosuvastatin Calcium (Crestor) 20 mg PO [facility] Last Admin: 10/08/18 22:12 Dose: 20 mg Sevelamer Carbonate (Renvela) 800 mg PO TID [facility] Last Admin: 10/09/18 09:49 Dose: 800 mg Tobramycin/Dexamethasone (Tobradex 0.3%-0.1% Opht Oint) 1 appl OU TID [facility] Last Admin: 10/09/18 09:49 Dose: 1 applic Vitamin B Complex/Vit C/Folic Acid (Nephro-Etelvina) 1 tab PO DAILY [facility] Last Admin: 10/09/18 09:49 Dose: 1 tab - Labs Labs: 10/08/18 11:33 10/08/18 11:33 PT 16.2 SECONDS (9.7-12.2) H 10/03/18 16:30 INR 1.5 10/03/18 16:30 APTT 60 SECONDS (21-34) H D 10/04/18 13:54
--- NOTE | 2018-10-09 14:26 | CP.PCM.PN ---
Subjective - Date & Time of Evaluation Date of Evaluation: 10/09/18 Time of Evaluation: 14:22 - Subjective Subjective: PGY-[address] Cummings's service Patient seen and examined at bedside. Patient reports ongoing cough with sputum production. Patient denies fevers, chills, chest pain, sob, n/v, constipation or diarrhea, and dysuria. Objective - Vital Signs/Intake and Output Vital Signs (last 24 hours): Temp Pulse Resp BP Pulse Ox 98 F 73 20 162/83 H 97 10/09/18 08:00 10/09/18 08:00 10/09/18 08:00 10/09/18 08:00 10/09/18 08:00 - Medications Medications: Current Medications Albuterol/Ipratropium (Duoneb 3 Mg/0.5 Mg (3 Ml) Ud) 3 ml INH RQ6 PRN PRN Reason: Shortness of Breath Last Admin: 10/07/18 13:37 Dose: 3 ml Amlodipine Besylate (Norvasc) 10 mg PO Q24H [facility] Last Admin: 10/08/18 22:13 Dose: 10 mg Apixaban (Eliquis) 2.5 mg PO BID [facility] Last Admin: 10/09/18 09:49 Dose: 2.5 mg Artificial Tears (Artificial Tears) 0 ml OU Q4 PRN PRN Reason: Dry eyes Aspirin (Ecotrin) 81 mg PO DAILY [facility] Last Admin: 10/09/18 09:55 Dose: 81 mg Dextrose (Dextrose 50% Inj) 0 ml IV STAT PRN; Protocol PRN Reason: Hypoglycemia Protocol Dextrose (Glutose 15) 0 gm PO ONCE PRN; Protocol PRN Reason: Hypoglycemia Protocol Docusate Sodium (Colace) 100 mg PO BID [facility] Last Admin: 10/09/18 09:50 Dose: Not Given Furosemide (Lasix) 20 mg PO DAILY [facility] Last Admin: 10/04/18 13:36 Dose: Not Given Glucagon (Glucagen Diagnostic Kit) 0 mg IM STAT PRN; Protocol PRN Reason: Hypoglycemia Protocol Vancomycin HCl 500 mg/ Sodium (Chloride) 100 mls @ 100 mls/hr IVPB MWF [facility]; Protocol Piperacillin Sod/Tazobactam (Sod 2.25 gm/ Sodium Chloride) 100 mls @ 200 mls/hr IVPB Q8H [facility] Last Admin: 10/09/18 08:44 Dose: 200 mls/hr Insulin Detemir (Levemir) 10 unit SC [facility] Last Admin: 10/08/18 22:16 Dose: 10 unit Insulin Human Regular (Novolin R) 0 unit SC [facility]; Protocol Last Admin: 10/09/18 12:25 Dose: 3 units Isosorbide Mononitrate (Imdur Er) 30 mg PO DAILY [facility] Last Admin: 10/09/18 09:50 Dose: Not Given Lactobacillus Acidophilus (Bacid Acidophilus) 1 cap PO BID [facility] Last Admin: 10/09/18 09:49 Dose: 1 cap Levothyroxine Sodium (Synthroid) 75 mcg PO DAILY@0630 [facility] Last Admin: 10/09/18 05:37 Dose: 75 mcg Losartan Potassium (Cozaar) 25 mg PO QPM [facility] Last Admin: 10/08/18 18:49 Dose: 25 mg Metoprolol Succinate (Toprol Xl) 50 mg PO DAILY [facility] Last Admin: 10/09/18 09:50 Dose: Not Given Nystatin (Nystop Topical Powder) 1 applic TOP BID PRN PRN Reason: redness in groin area Pantoprazole Sodium (Protonix Ec Tab) 40 mg PO DAILY [facility] Last Admin: 10/09/18 09:49 Dose: 40 mg Promethazine HCl (Phenergan Syrup) 6.25 mg PO Q6H PRN PRN Reason: Cough Last Admin: 10/09/18 09:49 Dose: 6.25 mg Rosuvastatin Calcium (Crestor) 20 mg PO [facility] Last Admin: 10/08/18 22:12 Dose: 20 mg Sevelamer Carbonate (Renvela) 800 mg PO TID [facility] Last Admin: 10/09/18 09:49 Dose: 800 mg Tobramycin/Dexamethasone (Tobradex 0.3%-0.1% Opht Oint) 1 appl OU TID [facility] Last Admin: 10/09/18 09:49 Dose: 1 applic Vitamin B Complex/Vit C/Folic Acid (Nephro-Etelvina) 1 tab PO DAILY [facility] Last Admin: 10/09/18 09:49 Dose: 1 tab - Labs Labs: 10/08/18 11:33 10/08/18 11:33 PT 16.2 SECONDS (9.7-12.2) H 10/03/18 16:30 INR 1.5 10/03/18 16:30 APTT 60 SECONDS (21-34) H D 10/04/18 13:54 - Constitutional Appears: Non-toxic, No Acute Distress - Head Exam Head Exam: NORMAL INSPECTION, NORMOCEPHALIC - Eye Exam Eye Exam: EOMI, Normal appearance. absent: Nystagmus, Scleral icterus - ENT Exam ENT Exam: Mucous Membranes Dry - Respiratory Exam Respiratory Exam: Clear to Ausculation Bilateral, NORMAL BREATHING PATTERN. absent: Rales, Rhonchi, Wheezes - Cardiovascular Exam Cardiovascular Exam: REGULAR RHYTHM, +S1, +S2 - GI/Abdominal Exam GI & Abdominal Exam: Soft, Normal Bowel Sounds. absent: Distended, Firm, Guarding, Rigid, Tenderness - Extremities Exam Additional comments: left transmetarsal amputation no edema noted no erythema or cellulitic changes appreciated - Neurological Exam Neurological Exam: Awake, Oriented x3 - Psychiatric Exam Psychiatric exam: Normal Affect, Normal Mood - Skin Skin Exam: Dry, Normal Color Additional comments: chest wound dressed with optifoam and medihoney Assessment and Plan - Assessment and Plan (Free Text) Assessment: Patient is a 78 yo female w/ PMH of ESRD on HD TTS, HTN, DM2, Hypothyroidism, CAD admitted to hospital for shortness of breath w/ nonproductive cough. Found on chest xray to have bibasilar infiltrates. Treated for bacterial pneumonia and fluid overload via diuretics and dialysis Pneumonia with bibasilar infiltrates CXR 1-9 shows bibasilar infiltrates Duoneb RQ6 PRN Azithromycin 500mg IVPB (1-12) and Vancomycin 1gm IVPB daily (1-16) Cepacol lozenge Promethazine PNA studies negative Procal mildly elevated; repeat pending CPT and Robitussin 5ml q6 epifanio Patient has difficulty getting phlegm out- guanifisen + CPT (consider acapella with RT) Chest wound s/p skin biospy- pathology was normal Wound care following- medihoney and optifoam dressing pending update from wound care ESRD on HD TThS Sevelamer Carbonate 800mg po tid Nephrovite HTN Amlodipine 10mg po q24h Imdur 30mg po daily Lopressor 50mg po daily IDDM2 Detemir 10 unit sc HS Insulin regular sc ACHS A1C 7.7 sugars under control CAD Crestor 20mg po hs Aspirin 81mg Eliquis 2.5mg po daily Hypothyroidism Synthroid 75mcg po daily Constipation Colace 100mg po bid Miralax daily Hx of Cerbellar Infarct Aspirin 81mg daily Hx of chronic Afib Lopressor 50mg po daily Eliquis 2.5mg po daily Aspirin 81 daily Left Eye blindness Tobradex x 1 appli ou tid GI ppx: Lactobacillus, Protonix 40mg po daily DVT ppx: Eliquis 2.5mg po daily Disposition: Pending [facility] placement and acceptance; Aggressive PT with assistance, although patient is bedbound; continue constipation meds; likely PNA has resolved PGY-1 [facility] Management discussed with Dr. Paredes
--- NOTE | 2018-10-09 14:30 | CP.PCM.PN ---
Subjective - Date & Time of Evaluation Date of Evaluation: 10/09/18 Time of Evaluation: 14:15 - Subjective Subjective: dictated Objective - Vital Signs/Intake and Output Vital Signs (last 24 hours): Temp Pulse Resp BP Pulse Ox 98 F 73 20 162/83 H 97 10/09/18 08:00 10/09/18 08:00 10/09/18 08:00 10/09/18 08:00 10/09/18 08:00 - Medications Medications: Current Medications Albuterol/Ipratropium (Duoneb 3 Mg/0.5 Mg (3 Ml) Ud) 3 ml INH RQ6 PRN PRN Reason: Shortness of Breath Last Admin: 10/07/18 13:37 Dose: 3 ml Amlodipine Besylate (Norvasc) 10 mg PO Q24H [facility] Last Admin: 10/08/18 22:13 Dose: 10 mg Apixaban (Eliquis) 2.5 mg PO BID [facility] Last Admin: 10/09/18 09:49 Dose: 2.5 mg Artificial Tears (Artificial Tears) 0 ml OU Q4 PRN PRN Reason: Dry eyes Aspirin (Ecotrin) 81 mg PO DAILY [facility] Last Admin: 10/09/18 09:55 Dose: 81 mg Dextrose (Dextrose 50% Inj) 0 ml IV STAT PRN; Protocol PRN Reason: Hypoglycemia Protocol Dextrose (Glutose 15) 0 gm PO ONCE PRN; Protocol PRN Reason: Hypoglycemia Protocol Docusate Sodium (Colace) 100 mg PO BID [facility] Last Admin: 10/09/18 09:50 Dose: Not Given Furosemide (Lasix) 20 mg PO DAILY [facility] Last Admin: 10/04/18 13:36 Dose: Not Given Glucagon (Glucagen Diagnostic Kit) 0 mg IM STAT PRN; Protocol PRN Reason: Hypoglycemia Protocol Vancomycin HCl 500 mg/ Sodium (Chloride) 100 mls @ 100 mls/hr IVPB MWF [facility]; Protocol Piperacillin Sod/Tazobactam (Sod 2.25 gm/ Sodium Chloride) 100 mls @ 200 mls/hr IVPB Q8H [facility] Last Admin: 10/09/18 08:44 Dose: 200 mls/hr Insulin Detemir (Levemir) 10 unit SC HS [facility] Last Admin: 10/08/18 22:16 Dose: 10 unit Insulin Human Regular (Novolin R) 0 unit SC [facility]; Protocol Last Admin: 10/09/18 12:25 Dose: 3 units Isosorbide Mononitrate (Imdur Er) 30 mg PO DAILY [facility] Last Admin: 10/09/18 09:50 Dose: Not Given Lactobacillus Acidophilus (Bacid Acidophilus) 1 cap PO BID [facility] Last Admin: 10/09/18 09:49 Dose: 1 cap Levothyroxine Sodium (Synthroid) 75 mcg PO DAILY@0630 [facility] Last Admin: 10/09/18 05:37 Dose: 75 mcg Losartan Potassium (Cozaar) 25 mg PO QPM [facility] Last Admin: 10/08/18 18:49 Dose: 25 mg Metoprolol Succinate (Toprol Xl) 50 mg PO DAILY [facility] Last Admin: 10/09/18 09:50 Dose: Not Given Nystatin (Nystop Topical Powder) 1 applic TOP BID PRN PRN Reason: redness in groin area Pantoprazole Sodium (Protonix Ec Tab) 40 mg PO DAILY [facility] Last Admin: 10/09/18 09:49 Dose: 40 mg Promethazine HCl (Phenergan Syrup) 6.25 mg PO Q6H PRN PRN Reason: Cough Last Admin: 10/09/18 09:49 Dose: 6.25 mg Rosuvastatin Calcium (Crestor) 20 mg PO HS [facility] Last Admin: 10/08/18 22:12 Dose: 20 mg Sevelamer Carbonate (Renvela) 800 mg PO TID [facility] Last Admin: 10/09/18 09:49 Dose: 800 mg Tobramycin/Dexamethasone (Tobradex 0.3%-0.1% Opht Oint) 1 appl OU TID [facility] Last Admin: 10/09/18 09:49 Dose: 1 applic Vitamin B Complex/Vit C/Folic Acid (Nephro-Etelvina) 1 tab PO DAILY [facility] Last Admin: 10/09/18 09:49 Dose: 1 tab - Labs Labs: 10/08/18 11:33 10/08/18 11:33 PT 16.2 SECONDS (9.7-12.2) H 10/03/18 16:30 INR 1.5 10/03/18 16:30 APTT 60 SECONDS (21-34) H D 10/04/18 13:54
[2018-10-09 16:03] LABS: BASO # 0.1 K/uL (0.0-0.2); BASO % 0.6 % (0.0-2.0); EOS # 0.1 K/uL (0.0-0.7); EOS % 1.2 % (0.0-4.0); HEMOGLOBIN 10.2 g/dL (11.0-16.0); LYMPH % 8.3 % (20.0-40.0); MEAN CELL VOLUME 95.1 fL (81.0-99.0); MEAN CORPUSCULAR HEMOGLOBIN 31.3 pg (27.0-31.0); MEAN CORPUSCULAR HGB CONC 32.9 g/dL (33.0-37.0); MEAN PLATELET VOLUME 9.1 fL (7.2-11.7); MONO # 0.8 K/uL (0.0-0.8); MONO % 6.6 % (0.0-10.0); NEUT # 9.7 K/uL (1.8-7.0); NEUT % 83.3 % (50.0-75.0); NRBC % 0.1 % (0.0-2.0); PLATELET COUNT 270 K/uL (130-400); RBC 3.25 Mil/uL (3.80-5.20); RED CELL DISTRIBUTION WIDTH 14.6 % (11.5-14.5); WHITE BLOOD COUNT 11.6 K/uL (4.8-10.8)
[2018-10-09 16:34] LABS: ALBUMIN 3.6 g/dL (3.5-5.0); CALCIUM 8.5 mg/dl (8.6-10.4)
[2018-10-09 17:36] LABS: BASOPHIL 1 % (0-2); EOSINOPHIL 1 % (0-4); LYMPHOCYTE 10 % (20-40); MONOCYTE 6 % (0-10); NEUTROPHIL 82 % (50-75); TOTAL CELLS COUNTED 100
[2018-10-09 17:37] LABS: PLATELET ESTIMATE NORMAL (NORMAL)
--- NOTE | 2018-10-09 18:30 | PN ---
DATE: 10/09/2018 SUBJECTIVE: The patient is awake and alert. She looks a little better. She still has a nasal tone to her voice. PHYSICAL EXAMINATION VITAL SIGNS: T-max is 98, pulse 73, blood pressure 162/83, respirations are 20. HEAD: Atraumatic, normocephalic. CHEST: She has a dressing on the chest wall and there is some serous drainage from below it. LUNGS: Bilateral rhonchi. HEART: S1 and S2 regular. ABDOMEN: Soft, nontender. No guarding, no rigidity present. EXTREMITIES: No edema. She has a right upper arm dialysis catheter. LABORATORY DATA: White count is 13.2 from yesterday. There are no new labs done. ASSESSMENT AND PLAN: She is a dialysis patient. X-ray was done yesterday and that showed possible developing pneumonia at right base, hence I have changed the antibiotics and she will be getting vancomycin post dialysis as well as she will be on Zosyn on dialysis dose. Labs are noted from yesterday. We will follow this patient. She has developing pneumonia. She has end-stage renal disease, has nasal congestion and is a diabetic. We will follow. Ashanti Hodge MD
[2018-10-09] MEDS: Insulin Detemir 100 units/ml Vial (Levemir) SC SCH (21:38)
[2018-10-10] MEDS: Levothyroxine 75 MCG TAB PO SCH (06:28)
--- NOTE | 2018-10-10 07:16 | CP.PCM.PN ---
Subjective - Date & Time of Evaluation Date of Evaluation: 10/10/18 Time of Evaluation: 07:05 - Subjective Subjective: PGY-[address] Cummings's service Patient seen and examined at bedside. Patient states she still has cough and phlegm production. Patient denies fevers, chills, chest pain, sob, n/v, constipation or diarrhea, and dysuria. Objective - Vital Signs/Intake and Output Vital Signs (last 24 hours): Temp Pulse Resp BP Pulse Ox 98.1 F 84 20 121/70 100 10/09/18 23:10 10/09/18 23:10 10/09/18 23:10 10/09/18 23:10 10/09/18 23:10 - Medications Medications: Current Medications Albuterol/Ipratropium (Duoneb 3 Mg/0.5 Mg (3 Ml) Ud) 3 ml INH RQ6 PRN PRN Reason: Shortness of Breath Last Admin: 10/07/18 13:37 Dose: 3 ml Amlodipine Besylate (Norvasc) 10 mg PO Q24H [facility] Last Admin: 10/09/18 21:38 Dose: 10 mg Apixaban (Eliquis) 2.5 mg PO BID [facility] Last Admin: 10/09/18 18:05 Dose: Not Given Artificial Tears (Artificial Tears) 0 ml OU Q4 PRN PRN Reason: Dry eyes Aspirin (Ecotrin) 81 mg PO DAILY [facility] Last Admin: 10/09/18 09:55 Dose: 81 mg Dextrose (Dextrose 50% Inj) 0 ml IV STAT PRN; Protocol PRN Reason: Hypoglycemia Protocol Dextrose (Glutose 15) 0 gm PO ONCE PRN; Protocol PRN Reason: Hypoglycemia Protocol Docusate Sodium (Colace) 100 mg PO BID [facility] Last Admin: 10/09/18 18:04 Dose: Not Given Furosemide (Lasix) 20 mg PO DAILY [facility] Last Admin: 10/04/18 13:36 Dose: Not Given Glucagon (Glucagen Diagnostic Kit) 0 mg IM STAT PRN; Protocol PRN Reason: Hypoglycemia Protocol Guaifenesin (Robitussin) 100 mg PO Q6H PRN PRN Reason: Cough Vancomycin HCl 500 mg/ Sodium (Chloride) 100 mls @ 100 mls/hr IVPB [facility]; Protocol Piperacillin Sod/Tazobactam (Sod 2.25 gm/ Sodium Chloride) 100 mls @ 200 mls/hr IVPB Q8H [facility] Last Admin: 10/10/18 01:27 Dose: 200 mls/hr Insulin Detemir (Levemir) 10 unit SC [facility] Last Admin: 10/09/18 21:38 Dose: 10 unit Insulin Human Regular (Novolin R) 0 unit SC [facility]; Protocol Last Admin: 10/09/18 21:39 Dose: Not Given Isosorbide Mononitrate (Imdur Er) 30 mg PO DAILY [facility] Last Admin: 10/09/18 09:50 Dose: Not Given Lactobacillus Acidophilus (Bacid Acidophilus) 1 cap PO BID [facility] Last Admin: 10/09/18 18:04 Dose: Not Given Levothyroxine Sodium (Synthroid) 75 mcg PO DAILY@0630 [facility] Last Admin: 10/10/18 06:28 Dose: 75 mcg Losartan Potassium (Cozaar) 25 mg PO QPM [facility] Last Admin: 10/09/18 18:05 Dose: Not Given Metoprolol Succinate (Toprol Xl) 50 mg PO DAILY [facility] Last Admin: 10/09/18 09:50 Dose: Not Given Nystatin (Nystop Topical Powder) 1 applic TOP BID PRN PRN Reason: redness in groin area Pantoprazole Sodium (Protonix Ec Tab) 40 mg PO DAILY [facility] Last Admin: 10/09/18 09:49 Dose: 40 mg Promethazine HCl (Phenergan Syrup) 6.25 mg PO Q6H PRN PRN Reason: Cough Last Admin: 10/09/18 09:49 Dose: 6.25 mg Rosuvastatin Calcium (Crestor) 20 mg PO [facility] Last Admin: 10/09/18 21:38 Dose: 20 mg Sevelamer Carbonate (Renvela) 800 mg PO TID [facility] Last Admin: 10/09/18 18:06 Dose: Not Given Tobramycin/Dexamethasone (Tobradex 0.3%-0.1% Opht Oint) 1 appl OU TID [facility] Last Admin: 10/09/18 18:06 Dose: Not Given Vitamin B Complex/Vit C/Folic Acid (Nephro-Etelvina) 1 tab PO DAILY [facility] Last Admin: 10/09/18 09:49 Dose: 1 tab - Labs Labs: 10/09/18 15:59 10/09/18 15:59 PT 16.2 SECONDS (9.7-12.2) H 10/03/18 16:30 INR 1.5 10/03/18 16:30 APTT 60 SECONDS (21-34) H D 10/04/18 13:54 - Additional Findings Additional findings: Constitutional Appears: Non-toxic, No Acute Distress - Head Exam Head Exam: NORMAL INSPECTION, NORMOCEPHALIC - Eye Exam Eye Exam: EOMI, Normal appearance. absent: Nystagmus, Scleral icterus - ENT Exam ENT Exam: Mucous Membranes Dry - Respiratory Exam Respiratory Exam: Clear to Ausculation Bilateral, NORMAL BREATHING PATTERN, Wheezing, Rhonchi. absent: Rales - Cardiovascular Exam Cardiovascular Exam: REGULAR RHYTHM, +S1, +S2 - GI/Abdominal Exam GI & Abdominal Exam: Soft, Normal Bowel Sounds. absent: Distended, Firm, G uarding, Rigid, Tenderness - Extremities Exam Additional comments: left transmetarsal amputation no edema noted no erythema or cellulitic changes appreciated - Neurological Exam Neurological Exam: Awake, Oriented x3 - Psychiatric Exam Psychiatric exam: Normal Affect, Normal Mood - Skin Skin Exam: Dry, Normal Color Additional comments: chest wound dressed with optifoam and medihoney Assessment and Plan - Assessment and Plan (Free Text) Assessment: Patient is a 78 yo female w/ PMH of ESRD on HD TTS, HTN, DM2, Hypothyroidism, CAD admitted to hospital for shortness of breath w/ nonproductive cough. Found on chest xray to have bibasilar infiltrates. Treated for bacterial pneumonia and fluid overload via diuretics and dialysis Pneumonia with bibasilar infiltrates CXR 1-9 shows bibasilar infiltrates Duoneb RQ6 PRN Zosyn 2.25mg IVPB (-) and Vancomycin 1gm IVPB daily (-) (was intially started on azithromycin and rocephin on 10/06) Cepacol lozenge Promethazine PNA studies negative Procal mildly elevated; Procal trended down CPT and Robitussin 5ml q6 epifanio Patient has difficulty getting phlegm out- guanifisen + CPT (consider acapella with RT) Afebrile, WBC trending down Chest wound s/p skin biospy- pathology was normal Wound care following- medihoney and optifoam dressing pending update from wound care ESRD on HD TThS Sevelamer Carbonate 800mg po tid Nephrovite HTN Amlodipine 10mg po q24h Imdur 30mg po daily Lopressor 50mg po daily IDDM2 Detemir 10 unit sc HS Insulin regular sc ACHS A1C 7.7 sugars under control CAD Crestor 20mg po hs Aspirin 81mg Eliquis 2.5mg po bid Hypothyroidism Synthroid 75mcg po daily Constipation Colace 100mg po bid Miralax daily Avoid fleet based enemas Hx of Cerbellar Infarct Aspirin 81mg daily Hx of chronic Afib Lopressor 50mg po daily Eliquis 2.5mg po daily Aspirin 81 daily Left Eye blindness Tobradex x 1 appli ou tid Artificial Tears GI ppx: Lactobacillus, Protonix 40mg po daily DVT ppx: Eliquis 2.5mg po daily Nystatin PRN Disposition: Discussion was had with daughter for [facility] placement, SW will arrange placement, continue IV abx and CPT PGY-1 [facility] discussed with Dr. Cummings
[2018-10-10] MEDS: (Novolin R) Insulin Human Regular 100 units/ml vial SC SCH ×4 (07:33→21:51)
[2018-10-10 07:49] LABS: BASO # 0.1 K/uL (0.0-0.2); BASO % 0.6 % (0.0-2.0); EOS # 0.2 K/uL (0.0-0.7); EOS % 1.5 % (0.0-4.0); HEMOGLOBIN 11.3 g/dL (11.0-16.0); LYMPH % 9.1 % (20.0-40.0); MEAN CELL VOLUME 95.5 fL (81.0-99.0); MEAN CORPUSCULAR HEMOGLOBIN 31.9 pg (27.0-31.0); MEAN CORPUSCULAR HGB CONC 33.5 g/dL (33.0-37.0); MEAN PLATELET VOLUME 9.1 fL (7.2-11.7); MONO # 0.9 K/uL (0.0-0.8); MONO % 7.5 % (0.0-10.0); NEUT # 9.3 K/uL (1.8-7.0); NEUT % 81.3 % (50.0-75.0); NRBC % 0.1 % (0.0-2.0); PLATELET COUNT 291 K/uL (130-400); RBC 3.54 Mil/uL (3.80-5.20); RED CELL DISTRIBUTION WIDTH 14.3 % (11.5-14.5); WHITE BLOOD COUNT 11.4 K/uL (4.8-10.8)
[2018-10-10 08:26] LABS: ALBUMIN 3.9 g/dL (3.5-5.0); CALCIUM 8.9 mg/dl (8.6-10.4)
[2018-10-10] MEDS: Pantoprazole 40 mg EC Tab PO SCH (09:27)
[2018-10-10] MEDS: Multivitamin Vitamin B Complex (Nephro-Vite) Tab PO SCH (09:27)
[2018-10-10] MEDS: Lactobacillus Acidophilus 500 MU Cap PO SCH ×2 (09:27→17:38)
[2018-10-10] MEDS: guaiFENesin 100 mg/5 ml Syrup UD PO PRN ×2 (09:28→20:00)
[2018-10-10] MEDS: Tobramycin/Dexamethasone OPHT OINT OU SCH ×3 (09:28→17:44)
[2018-10-10 09:35] LABS: EOSINOPHIL 2 % (0-4); LYMPHOCYTE 10 % (20-40); MONOCYTE 7 % (0-10); NEUTROPHIL 81 % (50-75); PLATELET ESTIMATE NORMAL (NORMAL); TOTAL CELLS COUNTED 100
[2018-10-10 09:36] LABS: ANISOCYTOSIS SLIGHT; HYPOCHROMIC SLIGHT; POIKILOCYTOSIS SLIGHT
[2018-10-10] MEDS: Metoprolol Succinate 50 mg XL Tab PO SCH (09:49)
--- NOTE | 2018-10-10 11:30 | CP.PCM.PN ---
Subjective - Date & Time of Evaluation Date of Evaluation: 10/10/18 Time of Evaluation: 11:29 - Subjective Subjective: Nephrology Consultation Note: Assessment: Stable NSTEMI, hyponatremia hyperkalemia HTN urgency and pulm vasc congestion, pneumonia Diabetic chronic Kidney Disease (E11.22) Hypertensive Chronic Kidney Disease (I12.0) End stage renal disease (N18.6) dependence on hemodialysis (Z99.2) (TTS) via AVF Anemia (D64.9), Hyperphosphatemia (E83.39), Secondary Hyperparathyroidism (E21.1), HTN (I12.0) hx of CVA basal cell ca Plan: Will plan for HD TTS schedule as ordered. Continue with Nephrovite 1 tab/day. PRBC as needed for anemia. not on MISA with dialysis as last Hb 11.3 Continue with phos binders, last phos level 3.5 BP control with meds as ordered. Patient on RAAS katie as low dose losartan Glycemic control, Dialysis consistent diet Further work up/management as per primary team Dose meds/antibiotics (if needed) for ESRD status. Avoid fleets enema/magnesium based laxatives. ID following Thanks for allowing me to participate in care of your patient. Will follow patient with you. Please call if any Qs. had d/w team Dr Franki Warren Office: [phone] Chief Complaint;chest pain HPI: Pt is a 78 F with hx of ESRD on hemodialysis (TTS) via AVF , last dialysis tue, chronic anemia, hyperphosphatemia, secondary hyperparathyroidism, Diabetes Mellitus, hypertension, hx of CVA presented with complaints of chest pain which is being managed for NSTEMI. also with HTN urgency and pulm vasc congestion Renal consult requested for ESRD management. pt not able to communicate much due to her hx of CVA. she is bed bound ROS: Cardiovascular: No chest pain. Pulmonary: No shortness of breath but has cough pt not able to communicate much due to her hx of CVA Physical Examination: General Appearance: Comfortable, in no acute respiratory distress, co-operative . Vitals reviewed and noted as below Head; Atraumatic, normocephalic ENT: no ulcers no thrush. Tongue is midline. Oropharynx: no rash or ulcers. EYES: Pupils are equal, round and reactive to light accommodation. Eye muscles and extraocular movement intact. Sclera is anicteric. Neck; supple no lymphadenopathy, no thyromegaly or bruit Lungs: improved respiratory rate/effort. Breath sounds bilateral reduced at bases and clearer Heart: Normal rate. s1s2 normal. No rub or gallop. dressing over recent basal cell CA excision over chest Extremities: no edema. No varicose veins Neurological: Patient is alert, awake and has chronic residual weakness due to stroke in past. has some aphasia as well Skin: Warm and dry. Normal turgor. No rash. Palpitation: Normal elasticity for age Abdomen: Abdomen is soft. Bowel sounds +. There is no abdominal tenderness, no guarding/rigidity or organomegaly Psych: limited insight and normal affect/mood MSK: no joint tenderness or swelling. Digits and nails normal, no deformity : kidney or bladder not palpable Access: AVF. some redness in Rt a/c fossa below AVF noted. no local warmth or tenderness or swelling Labs/imaging reviewed. Past medical history, past surgical history, family history, social history, allergy reviewed and noted as below Family Hx: no hx of CKD. Non contributory Objective - Vital Signs/Intake and Output Vital Signs (last 24 hours): Temp Pulse Resp BP Pulse Ox 98.4 F 78 20 123/74 98 10/10/18 08:00 10/10/18 09:50 10/10/18 08:00 10/10/18 09:50 10/10/18 08:00 - Medications Medications: Current Medications Albuterol/Ipratropium (Duoneb 3 Mg/0.5 Mg (3 Ml) Ud) 3 ml INH RQ6 PRN PRN Reason: Shortness of Breath Last Admin: 10/07/18 13:37 Dose: 3 ml Amlodipine Besylate (Norvasc) 10 mg PO Q24H [facility] Last Admin: 10/09/18 21:38 Dose: 10 mg Apixaban (Eliquis) 2.5 mg PO BID [facility] Last Admin: 10/10/18 09:27 Dose: 2.5 mg Artificial Tears (Artificial Tears) 0 ml OU Q4 PRN PRN Reason: Dry eyes Aspirin (Ecotrin) 81 mg PO DAILY [facility] Last Admin: 10/10/18 09:27 Dose: 81 mg Dextrose (Dextrose 50% Inj) 0 ml IV STAT PRN; Protocol PRN Reason: Hypoglycemia Protocol Dextrose (Glutose 15) 0 gm PO ONCE PRN; Protocol PRN Reason: Hypoglycemia Protocol Docusate Sodium (Colace) 100 mg PO BID [facility] Last Admin: 10/10/18 09:27 Dose: 100 mg Furosemide (Lasix) 20 mg PO DAILY [facility] Last Admin: 10/04/18 13:36 Dose: Not Given Glucagon (Glucagen Diagnostic Kit) 0 mg IM STAT PRN; Protocol PRN Reason: Hypoglycemia Protocol Guaifenesin (Robitussin) 100 mg PO Q6H PRN PRN Reason: Cough Last Admin: 10/10/18 09:28 Dose: 100 mg Vancomycin HCl 500 mg/ Sodium (Chloride) 100 mls @ 100 mls/hr IVPB MWF [facility]; Protocol Last Admin: 10/10/18 08:48 Dose: 100 mls/hr Piperacillin Sod/Tazobactam (Sod 2.25 gm/ Sodium Chloride) 100 mls @ 200 mls/hr IVPB Q8H [facility] Last Admin: 10/10/18 09:32 Dose: 200 mls/hr Insulin Detemir (Levemir) 10 unit SC [facility] Last Admin: 10/09/18 21:38 Dose: 10 unit Insulin Human Regular (Novolin R) 0 unit SC [facility]; Protocol Last Admin: 10/10/18 07:33 Dose: Not Given Isosorbide Mononitrate (Imdur Er) 30 mg PO DAILY [facility] Last Admin: 10/10/18 09:27 Dose: 30 mg Lactobacillus Acidophilus (Bacid Acidophilus) 1 cap PO BID [facility] Last Admin: 10/10/18 09:27 Dose: 1 cap Levothyroxine Sodium (Synthroid) 75 mcg PO DAILY@0630 [facility] Last Admin: 10/10/18 06:28 Dose: 75 mcg Losartan Potassium (Cozaar) 25 mg PO QPM [facility] Last Admin: 10/09/18 18:05 Dose: Not Given Metoprolol Succinate (Toprol Xl) 50 mg PO DAILY [facility] Last Admin: 10/10/18 09:49 Dose: 50 mg Nystatin (Nystop Topical Powder) 1 applic TOP BID PRN PRN Reason: redness in groin area Pantoprazole Sodium (Protonix Ec Tab) 40 mg PO DAILY [facility] Last Admin: 10/10/18 09:27 Dose: 40 mg Promethazine HCl (Phenergan Syrup) 6.25 mg PO Q6H PRN PRN Reason: Cough Last Admin: 10/09/18 09:49 Dose: 6.25 mg Rosuvastatin Calcium (Crestor) 20 mg PO HS [facility] Last Admin: 10/09/18 21:38 Dose: 20 mg Sevelamer Carbonate (Renvela) 800 mg PO TID [facility] Last Admin: 10/10/18 09:27 Dose: 800 mg Tobramycin/Dexamethasone (Tobradex 0.3%-0.1% Opht Oint) 1 appl OU TID [facility] Last Admin: 10/10/18 09:28 Dose: 1 applic Vitamin B Complex/Vit C/Folic Acid (Nephro-Etelvina) 1 tab PO DAILY [facility] Last Admin: 10/10/18 09:27 Dose: 1 tab - Labs Labs: 10/10/18 07:38 10/10/18 07:38 PT 16.2 SECONDS (9.7-12.2) H 10/03/18 16:30 INR 1.5 10/03/18 16:30 APTT 60 SECONDS (21-34) H D 10/04/18 13:54
[2018-10-10] MEDS: Promethazine 6.25 MG/5 ML CUP PO PRN (13:05)
--- NOTE | 2018-10-10 14:12 | CP.PCM.PN ---
Subjective - Date & Time of Evaluation Date of Evaluation: 10/10/18 Time of Evaluation: 14:00 - Subjective Subjective: dictated Objective - Vital Signs/Intake and Output Vital Signs (last 24 hours): Temp Pulse Resp BP Pulse Ox 98.4 F 78 20 123/74 98 10/10/18 08:00 10/10/18 09:50 10/10/18 08:00 10/10/18 09:50 10/10/18 08:00 - Medications Medications: Current Medications Albuterol/Ipratropium (Duoneb 3 Mg/0.5 Mg (3 Ml) Ud) 3 ml INH RQ6 PRN PRN Reason: Shortness of Breath Last Admin: 10/07/18 13:37 Dose: 3 ml Amlodipine Besylate (Norvasc) 10 mg PO Q24H [facility] Last Admin: 10/09/18 21:38 Dose: 10 mg Apixaban (Eliquis) 2.5 mg PO BID [facility] Last Admin: 10/10/18 09:27 Dose: 2.5 mg Artificial Tears (Artificial Tears) 0 ml OU Q4 PRN PRN Reason: Dry eyes Aspirin (Ecotrin) 81 mg PO DAILY [facility] Last Admin: 10/10/18 09:27 Dose: 81 mg Dextrose (Dextrose 50% Inj) 0 ml IV STAT PRN; Protocol PRN Reason: Hypoglycemia Protocol Dextrose (Glutose 15) 0 gm PO ONCE PRN; Protocol PRN Reason: Hypoglycemia Protocol Docusate Sodium (Colace) 100 mg PO BID [facility] Last Admin: 10/10/18 09:27 Dose: 100 mg Furosemide (Lasix) 20 mg PO DAILY [facility] Last Admin: 10/04/18 13:36 Dose: Not Given Glucagon (Glucagen Diagnostic Kit) 0 mg IM STAT PRN; Protocol PRN Reason: Hypoglycemia Protocol Guaifenesin (Robitussin) 100 mg PO Q6H PRN PRN Reason: Cough Last Admin: 10/10/18 09:28 Dose: 100 mg Vancomycin HCl 500 mg/ Sodium (Chloride) 100 mls @ 100 mls/hr IVPB MWF [facility]; Protocol Last Admin: 10/10/18 08:48 Dose: 100 mls/hr Piperacillin Sod/Tazobactam (Sod 2.25 gm/ Sodium Chloride) 100 mls @ 200 mls/hr IVPB Q8H [facility] Last Admin: 10/10/18 09:32 Dose: 200 mls/hr Insulin Detemir (Levemir) 10 unit SC [facility] Last Admin: 10/09/18 21:38 Dose: 10 unit Insulin Human Regular (Novolin R) 0 unit SC [facility]; Protocol Last Admin: 10/10/18 12:24 Dose: 6 units Isosorbide Mononitrate (Imdur Er) 30 mg PO DAILY [facility] Last Admin: 10/10/18 09:27 Dose: 30 mg Lactobacillus Acidophilus (Bacid Acidophilus) 1 cap PO BID [facility] Last Admin: 10/10/18 09:27 Dose: 1 cap Levothyroxine Sodium (Synthroid) 75 mcg PO DAILY@0630 [facility] Last Admin: 10/10/18 06:28 Dose: 75 mcg Losartan Potassium (Cozaar) 25 mg PO QPM [facility] Last Admin: 10/09/18 18:05 Dose: Not Given Metoprolol Succinate (Toprol Xl) 50 mg PO DAILY [facility] Last Admin: 10/10/18 09:49 Dose: 50 mg Nystatin (Nystop Topical Powder) 1 applic TOP BID PRN PRN Reason: redness in groin area Pantoprazole Sodium (Protonix Ec Tab) 40 mg PO DAILY [facility] Last Admin: 10/10/18 09:27 Dose: 40 mg Promethazine HCl (Phenergan Syrup) 6.25 mg PO Q6H PRN PRN Reason: Cough Last Admin: 10/10/18 13:05 Dose: 6.25 mg Rosuvastatin Calcium (Crestor) 20 mg PO [facility] Last Admin: 10/09/18 21:38 Dose: 20 mg Sevelamer Carbonate (Renvela) 800 mg PO TID [facility] Last Admin: 10/10/18 13:03 Dose: 800 mg Tobramycin/Dexamethasone (Tobradex 0.3%-0.1% Opht Oint) 1 appl OU TID [facility] Last Admin: 10/10/18 13:03 Dose: 1 applic Vitamin B Complex/Vit C/Folic Acid (Nephro-Etelvina) 1 tab PO DAILY [facility] Last Admin: 10/10/18 09:27 Dose: 1 tab - Labs Labs: 10/10/18 07:38 10/10/18 07:38 PT 16.2 SECONDS (9.7-12.2) H 01/09/19 16:30 INR 1.5 10/03/18 16:30 APTT 60 SECONDS (21-34) H D 10/04/18 13:54
--- NOTE | 2018-10-10 18:43 | PN ---
DATE: 10/10/2018 SUBJECTIVE: The patient is awake and alert. She is less dyspneic, being able to communicate. She says she is constipated and she wants her position to be changed. PHYSICAL EXAMINATION VITAL SIGNS: T-max is 98.4, pulse is 78, blood pressure 123/74, respirations are 20. HEENT: Head is atraumatic and normocephalic. NECK: Supple. LUNGS: Occasional wheeze at this time. HEART: S1 and S2 present. ABDOMEN: Soft, nontender. EXTREMITIES: No edema . Upper extremities appear slightly edematous. LABORATORY DATA: Labs are noted. Labs show white count is 11.4, hemoglobin 11.3, hematocrit 33.8, platelet count is 291. Creatinine is 3, BUN is 14. ASSESSMENT AND PLAN: She is a dialysis patient. She has pneumonia with acute exacerbation. She is wheezing. Blood cultures are all negative. We will continue with vancomycin and Zosyn at this time. We will repeat the chest x-ray in two days. The patient is getting 500 on MWF and Zosyn. The patient is also with hypernatremia and hyperkalemia and is a diabetic and hypertensive. Ashanti Hodge MD
[2018-10-10] MEDS: Insulin Detemir 100 units/ml Vial (Levemir) SC SCH (22:00)
[2018-10-11] MEDS: Levothyroxine 75 MCG TAB PO SCH (06:11)
--- NOTE | 2018-10-11 06:54 | CP.PCM.PN ---
Subjective - Date & Time of Evaluation Date of Evaluation: 10/11/18 Time of Evaluation: 06:50 - Subjective Subjective: PGY-[address] Cummings's service Patient seen and examined at bedside s/p HD. Patient states she still has cough with sputum production. Admits to bowel movement yesterday. Denies fevers, chills, chest pain, headaches, sob, n/v, constipation or diarrhea, and dysuria. Objective - Vital Signs/Intake and Output Vital Signs (last 24 hours): Temp Pulse Resp BP Pulse Ox 98 F 75 20 144/74 95 10/10/18 23:05 10/10/18 23:05 10/10/18 23:05 10/10/18 23:05 10/10/18 23:05 - Medications Medications: Current Medications Albuterol/Ipratropium (Duoneb 3 Mg/0.5 Mg (3 Ml) Ud) 3 ml INH RQ6 PRN PRN Reason: Shortness of Breath Last Admin: 10/07/18 13:37 Dose: 3 ml Amlodipine Besylate (Norvasc) 10 mg PO Q24H [facility] Last Admin: 10/10/18 21:59 Dose: 10 mg Apixaban (Eliquis) 2.5 mg PO BID [facility] Last Admin: 10/10/18 17:38 Dose: 2.5 mg Artificial Tears (Artificial Tears) 0 ml OU Q4 PRN PRN Reason: Dry eyes Aspirin (Ecotrin) 81 mg PO DAILY [facility] Last Admin: 10/10/18 09:27 Dose: 81 mg Dextrose (Dextrose 50% Inj) 0 ml IV STAT PRN; Protocol PRN Reason: Hypoglycemia Protocol Dextrose (Glutose 15) 0 gm PO ONCE PRN; Protocol PRN Reason: Hypoglycemia Protocol Docusate Sodium (Colace) 100 mg PO BID [facility] Last Admin: 10/10/18 17:38 Dose: 100 mg Furosemide (Lasix) 20 mg PO DAILY [facility] Last Admin: 10/04/18 13:36 Dose: Not Given Glucagon (Glucagen Diagnostic Kit) 0 mg IM STAT PRN; Protocol PRN Reason: Hypoglycemia Protocol Guaifenesin (Robitussin) 100 mg PO Q6H PRN PRN Reason: Cough Last Admin: 10/10/18 20:00 Dose: 100 mg Vancomycin HCl 500 mg/ Sodium (Chloride) 100 mls @ 100 mls/hr IVPB MWF [facility]; Protocol Last Admin: 10/10/18 08:48 Dose: 100 mls/hr Piperacillin Sod/Tazobactam (Sod 2.25 gm/ Sodium Chloride) 100 mls @ 200 mls/hr IVPB Q8H [facility] Last Admin: 10/11/18 00:33 Dose: 200 mls/hr Insulin Detemir (Levemir) 10 unit SC [facility] Last Admin: 10/10/18 22:00 Dose: 10 unit Insulin Human Regular (Novolin R) 0 unit SC [facility]; Protocol Last Admin: 10/10/18 21:51 Dose: Not Given Isosorbide Mononitrate (Imdur Er) 30 mg PO DAILY [facility] Last Admin: 10/10/18 09:27 Dose: 30 mg Lactobacillus Acidophilus (Bacid Acidophilus) 1 cap PO BID [facility] Last Admin: 10/10/18 17:38 Dose: 1 cap Levothyroxine Sodium (Synthroid) 75 mcg PO DAILY@0630 [facility] Last Admin: 10/11/18 06:11 Dose: 75 mcg Losartan Potassium (Cozaar) 25 mg PO QPM [facility] Last Admin: 10/10/18 17:38 Dose: 25 mg Metoprolol Succinate (Toprol Xl) 50 mg PO DAILY [facility] Last Admin: 10/10/18 09:49 Dose: 50 mg Nystatin (Nystop Topical Powder) 1 applic TOP BID PRN PRN Reason: redness in groin area Last Admin: 10/10/18 19:56 Dose: 1 applic Pantoprazole Sodium (Protonix Ec Tab) 40 mg PO DAILY [facility] Last Admin: 10/10/18 09:27 Dose: 40 mg Promethazine HCl (Phenergan Syrup) 6.25 mg PO Q6H PRN PRN Reason: Cough Last Admin: 10/10/18 13:05 Dose: 6.25 mg Rosuvastatin Calcium (Crestor) 20 mg PO [facility] Last Admin: 10/10/18 22:00 Dose: 20 mg Sevelamer Carbonate (Renvela) 800 mg PO TID [facility] Last Admin: 10/10/18 17:38 Dose: 800 mg Tobramycin/Dexamethasone (Tobradex 0.3%-0.1% Opht Oint) 1 appl OU TID [facility] Last Admin: 10/10/18 17:44 Dose: 1 applic Vitamin B Complex/Vit C/Folic Acid (Nephro-Etelvina) 1 tab PO DAILY [facility] Last Admin: 10/10/18 09:27 Dose: 1 tab - Labs Labs: 10/10/18 07:38 10/10/18 07:38 PT 16.2 SECONDS (9.7-12.2) H 10/03/18 16:30 INR 1.5 10/03/18 16:30 APTT 60 SECONDS (21-34) H D 10/04/18 13:54 - Additional Findings Additional findings: Constitutional Appears: Non-toxic, No Acute Distress - Head Exam Head Exam: NORMAL INSPECTION, NORMOCEPHALIC - Eye Exam Eye Exam: EOMI, Normal appearance. absent: Nystagmus, Scleral icterus - ENT Exam ENT Exam: Mucous Membranes Dry - Respiratory Exam Respiratory Exam: Clear to Ausculation Bilateral, NORMAL BREATHING PATTERN, Wheezing, Rhonchi. absent: Rales - Cardiovascular Exam Cardiovascular Exam: REGULAR RHYTHM, +S1, +S2 - GI/Abdominal Exam GI & Abdominal Exam: Soft, Normal Bowel Sounds. absent: Distended, Firm, Guarding, Rigid, Tenderness - Extremities Exam Additional comments: left transmetarsal amputation no edema noted no erythema or cellulitic changes appreciated - Neurological Exam Neurological Exam: Awake, Oriented x3 - Psychiatric Exam Psychiatric exam: Normal Affect, Normal Mood - Skin Skin Exam: Dry, Normal Color Additional comments: chest wound dressed with optifoam and medihoney Assessment and Plan - Assessment and Plan (Free Text) Assessment: Patient is a 78 yo female w/ PMH of ESRD on HD TTS, HTN, DM2, Hypothyroidism, CAD admitted to hospital for shortness of breath w/ nonproductive cough. Found on chest xray to have bibasilar infiltrates. Treated for bacterial pneumonia and fluid overload via diuretics and dialysis Pneumonia with bibasilar infiltrates CXR 1-9 shows bibasilar infiltrates Duoneb RQ6 PRN Zosyn 2.25mg IVPB (-) and Vancomycin 1gm IVPB daily (-) (was intially started on azithromycin and rocephin on 10/06) Cepacol lozenge Promethazine PNA studies negative Procal mildly elevated; Procal trended down CPT and Robitussin 5ml q6 epifanio Patient has difficulty getting phlegm out- guanifisen + CPT Afebrile, WBC trending down pending repeat cxr Chest wound s/p skin biospy- pathology was normal Wound care following- medihoney and optifoam dressing pending update from wound care ESRD on HD TThS Sevelamer Carbonate 800mg po tid Nephrovite HTN Amlodipine 10mg po q24h Imdur 30mg po daily Lopressor 50mg po daily IDDM2 Detemir 10 unit sc HS Insulin regular sc ACHS A1C 7.7 sugars under control CAD Crestor 20mg po hs Aspirin 81mg Eliquis 2.5mg po bid Hypothyroidism Synthroid 75mcg po daily Constipation Colace 100mg po bid Avoid fleet based enemas Hx of Cerbellar Infarct Aspirin 81mg daily Hx of chronic Afib Lopressor 50mg po daily Eliquis 2.5mg po daily Aspirin 81 daily Left Eye blindness Tobradex x 1 appli ou tid Artificial Tears GI ppx: Lactobacillus, Protonix 40mg po daily DVT ppx: Eliquis 2.5mg po daily Nystatin PRN Disposition: pending [facility]E placement; transition to oral abx, symptomatic control for mucus and cough PGY-1 [facility] discussed with Dr. Cummings
[2018-10-11 07:53] LABS: BASO # 0.1 K/uL (0.0-0.2); BASO % 0.7 % (0.0-2.0); EOS # 0.2 K/uL (0.0-0.7); EOS % 1.9 % (0.0-4.0); HEMOGLOBIN 10.7 g/dL (11.0-16.0); LYMPH % 7.5 % (20.0-40.0); MEAN CELL VOLUME 95.1 fL (81.0-99.0); MEAN CORPUSCULAR HEMOGLOBIN 32.1 pg (27.0-31.0); MEAN CORPUSCULAR HGB CONC 33.8 g/dL (33.0-37.0); MEAN PLATELET VOLUME 8.8 fL (7.2-11.7); MONO # 0.9 K/uL (0.0-0.8); MONO % 6.7 % (0.0-10.0); NEUT # 10.5 K/uL (1.8-7.0); NEUT % 83.2 % (50.0-75.0); NRBC % 0.1 % (0.0-2.0); PLATELET COUNT 329 K/uL (130-400); RBC 3.33 Mil/uL (3.80-5.20); WHITE BLOOD COUNT 12.7 K/uL (4.8-10.8)
[2018-10-11 08:07] LABS: ALBUMIN 3.9 g/dL (3.5-5.0); CALCIUM 9.1 mg/dl (8.6-10.4)
[2018-10-11] MEDS: (Novolin R) Insulin Human Regular 100 units/ml vial SC SCH ×4 (08:48→21:28)
[2018-10-11 08:58] LABS: ANISOCYTOSIS SLIGHT; BANDS 2 % (0-2); EOSINOPHIL 1 % (0-4); LYMPHOCYTE 9 % (20-40); MONOCYTE 8 % (0-10); NEUTROPHIL 80 % (50-75); PLATELET ESTIMATE NORMAL (NORMAL); POIKILOCYTOSIS SLIGHT; TOTAL CELLS COUNTED 100
[2018-10-11 08:59] LABS: HYPOCHROMIC SLIGHT
[2018-10-11] MEDS: Metoprolol Succinate 50 mg XL Tab PO SCH (10:00)
[2018-10-11] MEDS: Multivitamin Vitamin B Complex (Nephro-Vite) Tab PO SCH (10:00)
[2018-10-11] MEDS: Pantoprazole 40 mg EC Tab PO SCH (10:00)
[2018-10-11] MEDS: Lactobacillus Acidophilus 500 MU Cap PO SCH ×2 (10:00→18:09)
[2018-10-11] MEDS: Tobramycin/Dexamethasone OPHT OINT OU SCH ×3 (10:00→18:10)
--- NOTE | 2018-10-11 15:11 | CP.PCM.PN ---
Subjective - Date & Time of Evaluation Date of Evaluation: 10/11/18 Time of Evaluation: 15:10 - Subjective Subjective: Nephrology Consultation Note: Assessment: Stable NSTEMI, hyponatremia hyperkalemia HTN urgency and pulm vasc congestion, pneumonia Diabetic chronic Kidney Disease (E11.22) Hypertensive Chronic Kidney Disease (I12.0) End stage renal disease (N18.6) dependence on hemodialysis (Z99.2) (TTS) via AVF Anemia (D64.9), Hyperphosphatemia (E83.39), Secondary Hyperparathyroidism (E21.1), HTN (I12.0) hx of CVA basal cell ca Plan: Will plan for HD TTS schedule as ordered. Continue with Nephrovite 1 tab/day. PRBC as needed for anemia. not on MISA with dialysis as last Hb 10.73 Continue with phos binders, last phos level 3.2 BP control with meds as ordered. Patient on RAAS katie as low dose losartan Glycemic control, Dialysis consistent diet Further work up/management as per primary team Dose meds/antibiotics (if needed) for ESRD status. Avoid fleets enema/magnesium based laxatives. ID following Thanks for allowing me to participate in care of your patient. Will follow patient with you. Please call if any Qs. had d/w team Dr Franki Warren Office: [phone] Chief Complaint;chest pain HPI: Pt is a 78 F with hx of ESRD on hemodialysis (TTS) via AVF , last dialysis tue, chronic anemia, hyperphosphatemia, secondary hyperparathyroidism, Diabetes Mellitus, hypertension, hx of CVA presented with complaints of chest pain which is being managed for NSTEMI. also with HTN urgency and pulm vasc congestion Renal consult requested for ESRD management. pt not able to communicate much due to her hx of CVA. she is bed bound ROS: Cardiovascular: No chest pain. Pulmonary: No shortness of breath but has cough pt not able to communicate much due to her hx of CVA Physical Examination: seen on HD General Appearance: Comfortable, in no acute respiratory distress, co-operative . Vitals reviewed and noted as below Head; Atraumatic, normocephalic ENT: no ulcers no thrush. Tongue is midline. Oropharynx: no rash or ulcers. EYES: Pupils are equal, round and reactive to light accommodation. Eye muscles and extraocular movement intact. Sclera is anicteric. Neck; supple no lymphadenopathy, no thyromegaly or bruit Lungs: improved respiratory rate/effort. Breath sounds bilateral reduced at bases and clearer Heart: Normal rate. s1s2 normal. No rub or gallop. dressing over recent basal cell CA excision over chest Extremities: no edema. No varicose veins Neurological: Patient is alert, awake and has chronic residual weakness due to stroke in past. has some aphasia as well Skin: Warm and dry. Normal turgor. No rash. Palpitation: Normal elasticity for age Abdomen: Abdomen is soft. Bowel sounds +. There is no abdominal tenderness, no guarding/rigidity or organomegaly Psych: limited insight and normal affect/mood MSK: no joint tenderness or swelling. Digits and nails normal, no deformity : kidney or bladder not palpable Access: AVF. some redness in Rt a/c fossa below AVF noted. no local warmth or tenderness or swelling Labs/imaging reviewed. Past medical history, past surgical history, family history, social history, allergy reviewed and noted as below Family Hx: no hx of CKD. Non contributory Objective - Vital Signs/Intake and Output Vital Signs (last 24 hours): Temp Pulse Resp BP Pulse Ox 97.5 F L 80 18 152/80 H 95 10/11/18 11:48 10/11/18 11:48 10/11/18 11:48 10/11/18 11:48 10/10/18 23:05 - Medications Medications: Current Medications Albuterol/Ipratropium (Duoneb 3 Mg/0.5 Mg (3 Ml) Ud) 3 ml INH RQ6 PRN PRN Reason: Shortness of Breath Last Admin: 10/07/18 13:37 Dose: 3 ml Amlodipine Besylate (Norvasc) 10 mg PO Q24H [facility] Last Admin: 10/10/18 21:59 Dose: 10 mg Apixaban (Eliquis) 2.5 mg PO BID [facility] Last Admin: 10/11/18 10:00 Dose: Not Given Artificial Tears (Artificial Tears) 0 ml OU Q4 PRN PRN Reason: Dry eyes Aspirin (Ecotrin) 81 mg PO DAILY [facility] Last Admin: 10/11/18 10:00 Dose: Not Given Dextrose (Dextrose 50% Inj) 0 ml IV STAT PRN; Protocol PRN Reason: Hypoglycemia Protocol Dextrose (Glutose 15) 0 gm PO ONCE PRN; Protocol PRN Reason: Hypoglycemia Protocol Docusate Sodium (Colace) 100 mg PO BID [facility] Last Admin: 10/11/18 10:00 Dose: Not Given Furosemide (Lasix) 20 mg PO DAILY [facility] Last Admin: 10/04/18 13:36 Dose: Not Given Glucagon (Glucagen Diagnostic Kit) 0 mg IM STAT PRN; Protocol PRN Reason: Hypoglycemia Protocol Guaifenesin (Robitussin) 100 mg PO Q6H PRN PRN Reason: Cough Last Admin: 10/10/18 20:00 Dose: 100 mg Vancomycin HCl 500 mg/ Sodium (Chloride) 100 mls @ 100 mls/hr IVPB MWF [facility]; Protocol Last Admin: 10/10/18 08:48 Dose: 100 mls/hr Piperacillin Sod/Tazobactam (Sod 2.25 gm/ Sodium Chloride) 100 mls @ 200 mls/hr IVPB Q8H [facility] Last Admin: 10/11/18 10:00 Dose: Not Given Insulin Detemir (Levemir) 10 unit SC [facility] Last Admin: 10/10/18 22:00 Dose: 10 unit Insulin Human Regular (Novolin R) 0 unit SC [facility]; Protocol Last Admin: 10/11/18 10:00 Dose: Not Given Isosorbide Mononitrate (Imdur Er) 30 mg PO DAILY [facility] Last Admin: 10/11/18 10:00 Dose: Not Given Lactobacillus Acidophilus (Bacid Acidophilus) 1 cap PO BID [facility] Last Admin: 10/11/18 10:00 Dose: Not Given Levothyroxine Sodium (Synthroid) 75 mcg PO DAILY@0630 [facility] Last Admin: 10/11/18 06:11 Dose: 75 mcg Losartan Potassium (Cozaar) 25 mg PO QPM [facility] Last Admin: 10/10/18 17:38 Dose: 25 mg Metoprolol Succinate (Toprol Xl) 50 mg PO DAILY [facility] Last Admin: 10/11/18 10:00 Dose: Not Given Nystatin (Nystop Topical Powder) 1 applic TOP BID PRN PRN Reason: redness in groin area Last Admin: 10/10/18 19:56 Dose: 1 applic Pantoprazole Sodium (Protonix Ec Tab) 40 mg PO DAILY [facility] Last Admin: 10/11/18 10:00 Dose: Not Given Promethazine HCl (Phenergan Syrup) 6.25 mg PO Q6H PRN PRN Reason: Cough Last Admin: 10/10/18 13:05 Dose: 6.25 mg Rosuvastatin Calcium (Crestor) 20 mg PO HS [facility] Last Admin: 10/10/18 22:00 Dose: 20 mg Sevelamer Carbonate (Renvela) 800 mg PO TID [facility] Last Admin: 10/11/18 14:34 Dose: 800 mg Tobramycin/Dexamethasone (Tobradex 0.3%-0.1% Opht Oint) 1 appl OU TID [facility] Last Admin: 10/11/18 14:34 Dose: 1 applic Vitamin B Complex/Vit C/Folic Acid (Nephro-Etelvina) 1 tab PO DAILY [facility] Last Admin: 10/11/18 10:00 Dose: Not Given - Labs Labs: 10/11/18 07:43 10/11/18 07:43 PT 16.2 SECONDS (9.7-12.2) H 10/03/18 16:30 INR 1.5 10/03/18 16:30 APTT 60 SECONDS (21-34) H D 10/04/18 13:54
--- NOTE | 2018-10-11 16:30 | RAD ---
Date of service: 10/11/2018 HISTORY: sob pna COMPARISON: 10/08/2018 FINDINGS: LUNGS: No active pulmonary disease. PLEURA: No significant pleural effusion identified, no pneumothorax apparent. CARDIOVASCULAR: There is atherosclerotic calcification of the thoracic aortic arch. Normal cardiac size. Permanent pacemaker. Vascular stent right brachiocephalic. OSSEOUS STRUCTURES: No significant abnormalities. VISUALIZED UPPER ABDOMEN: Normal. OTHER FINDINGS: None. IMPRESSION: No active disease.
[2018-10-11 17:23] VITALS: RESP 20
[2018-10-11] MEDS: Insulin Detemir 100 units/ml Vial (Levemir) SC SCH (21:24)
[2018-10-12] MEDS: Levothyroxine 75 MCG TAB PO SCH (05:55)
[2018-10-12] MEDS: Albuterol-Ipratrop 3 mg / 0.5 (3 ml) UD INH PRN (08:00)
[2018-10-12] MEDS: (Novolin R) Insulin Human Regular 100 units/ml vial SC SCH ×3 (08:07→17:25)
[2018-10-12 08:08] LABS: BASO # 0.1 K/uL (0.0-0.2); EOS # 0.2 K/uL (0.0-0.7); HEMOGLOBIN 11.5 g/dL (11.0-16.0); LYMPH # 1.3 K/uL (1.0-4.3); LYMPH % 12.1 % (20.0-40.0); MEAN CELL VOLUME 95.5 fL (81.0-99.0); MEAN CORPUSCULAR HEMOGLOBIN 31.7 pg (27.0-31.0); MEAN CORPUSCULAR HGB CONC 33.2 g/dL (33.0-37.0); MEAN PLATELET VOLUME 8.8 fL (7.2-11.7); MONO # 0.9 K/uL (0.0-0.8); MONO % 8.4 % (0.0-10.0); NEUT # 8.5 K/uL (1.8-7.0); NEUT % 76.5 % (50.0-75.0); NRBC % 0.1 % (0.0-2.0); RBC 3.61 Mil/uL (3.80-5.20); RED CELL DISTRIBUTION WIDTH 14.7 % (11.5-14.5); WHITE BLOOD COUNT 11.1 K/uL (4.8-10.8)
[2018-10-12 08:21] LABS: ALB/GLOB RATIO 1.1 (1.0-2.1); ALBUMIN 4.2 g/dL (3.5-5.0); CALCIUM 9.3 mg/dl (8.6-10.4)
--- NOTE | 2018-10-12 09:25 | CP.PCM.PN ---
Subjective - Date & Time of Evaluation Date of Evaluation: 10/12/18 Time of Evaluation: 09:23 - Subjective Subjective: PGY-[address] Cummings's service Patient seen and examined at bedside. States she has cough with phlegm but unable to get out. Denies headaches, fevers, chills, chest pain, sob, n/v, constipation or diarrhea, and dysuria. Objective - Vital Signs/Intake and Output Vital Signs (last 24 hours): Temp Pulse Resp BP Pulse Ox 97.8 F 75 20 153/82 H 100 10/12/18 07:06 10/12/18 07:06 10/12/18 07:06 10/12/18 07:06 10/12/18 07:06 - Medications Medications: Current Medications Amlodipine Besylate (Norvasc) 10 mg PO Q24H [facility] Last Admin: 10/11/18 21:27 Dose: 10 mg Apixaban (Eliquis) 2.5 mg PO BID [facility] Last Admin: 10/11/18 18:09 Dose: 2.5 mg Artificial Tears (Artificial Tears) 0 ml OU Q4 PRN PRN Reason: Dry eyes Aspirin (Ecotrin) 81 mg PO DAILY [facility] Last Admin: 10/11/18 10:00 Dose: Not Given Dextrose (Dextrose 50% Inj) 0 ml IV STAT PRN; Protocol PRN Reason: Hypoglycemia Protocol Dextrose (Glutose 15) 0 gm PO ONCE PRN; Protocol PRN Reason: Hypoglycemia Protocol Diphenhydramine HCl (Benadryl) 25 mg PO Q6 PRN PRN Reason: Itching / Pruritus Docusate Sodium (Colace) 100 mg PO BID [facility] Last Admin: 10/11/18 18:09 Dose: 100 mg Furosemide (Lasix) 20 mg PO DAILY [facility] Last Admin: 10/04/18 13:36 Dose: Not Given Glucagon (Glucagen Diagnostic Kit) 0 mg IM STAT PRN; Protocol PRN Reason: Hypoglycemia Protocol Guaifenesin (Robitussin) 100 mg PO Q6H PRN PRN Reason: Cough Last Admin: 10/10/18 20:00 Dose: 100 mg Vancomycin HCl 500 mg/ Sodium (Chloride) 100 mls @ 100 mls/hr IVPB MWF [facility]; Protocol Last Admin: 10/10/18 08:48 Dose: 100 mls/hr Piperacillin Sod/Tazobactam (Sod 2.25 gm/ Sodium Chloride) 100 mls @ 200 mls/hr IVPB Q8H [facility] Last Admin: 10/12/18 00:16 Dose: 200 mls/hr Insulin Detemir (Levemir) 10 unit SC [facility] Last Admin: 10/11/18 21:24 Dose: 10 unit Insulin Human Regular (Novolin R) 0 unit SC [facility]; Protocol Last Admin: 10/12/18 08:07 Dose: Not Given Isosorbide Mononitrate (Imdur Er) 30 mg PO DAILY [facility] Last Admin: 10/11/18 10:00 Dose: Not Given Lactobacillus Acidophilus (Bacid Acidophilus) 1 cap PO BID [facility] Last Admin: 10/11/18 18:09 Dose: 1 cap Levothyroxine Sodium (Synthroid) 75 mcg PO DAILY@0630 [facility] Last Admin: 10/12/18 05:55 Dose: 75 mcg Losartan Potassium (Cozaar) 25 mg PO QPM [facility] Last Admin: 10/11/18 18:09 Dose: 25 mg Metoprolol Succinate (Toprol Xl) 50 mg PO DAILY [facility] Last Admin: 10/11/18 10:00 Dose: Not Given Nystatin (Nystop Topical Powder) 1 applic TOP BID PRN PRN Reason: redness in groin area Last Admin: 10/11/18 18:09 Dose: 1 applic Pantoprazole Sodium (Protonix Ec Tab) 40 mg PO DAILY [facility] Last Admin: 10/11/18 10:00 Dose: Not Given Promethazine HCl (Phenergan Syrup) 6.25 mg PO Q6H PRN PRN Reason: Cough Last Admin: 10/10/18 13:05 Dose: 6.25 mg Rosuvastatin Calcium (Crestor) 20 mg PO [facility] Last Admin: 10/11/18 21:24 Dose: 20 mg Sevelamer Carbonate (Renvela) 800 mg PO TID [facility] Last Admin: 10/11/18 18:09 Dose: 800 mg Tobramycin/Dexamethasone (Tobradex 0.3%-0.1% Opht Oint) 1 appl OU TID [facility] Last Admin: 10/11/18 18:10 Dose: 1 applic Vitamin B Complex/Vit C/Folic Acid (Nephro-Etelvina) 1 tab PO DAILY [facility] Last Admin: 10/11/18 10:00 Dose: Not Given - Labs Labs: 10/12/18 07:54 10/12/18 07:54 PT 16.2 SECONDS (9.7-12.2) H 10/03/18 16:30 INR 1.5 10/03/18 16:30 APTT 60 SECONDS (21-34) H D 10/04/18 13:54 - Additional Findings Additional findings: Constitutional Appears: Non-toxic, No Acute Distress - Head Exam Head Exam: NORMAL INSPECTION, NORMOCEPHALIC - Eye Exam Eye Exam: EOMI, Normal appearance. absent: Nystagmus, Scleral icterus - ENT Exam ENT Exam: Mucous Membranes Dry - Respiratory Exam Respiratory Exam: Clear to Ausculation Bilateral, NORMAL BREATHING PATTERN, Wheezing, Rhonchi. absent: Rales - Cardiovascular Exam Cardiovascular Exam: REGULAR RHYTHM, +S1, +S2 - GI/Abdominal Exam GI & Abdominal Exam: Soft, Normal Bowel Sounds. absent: Distended, Firm, Guarding, Rigid, Tenderness - Extremities Exam Additional comments: left transmetarsal amputation no edema noted no erythema or cellulitic changes appreciated - Neurological Exam Neurological Exam: Awake, Oriented x3 - Psychiatric Exam Psychiatric exam: Normal Affect, Normal Mood - Skin Skin Exam: Dry, Normal Color Additional comments: chest wound dressed with optifoam and medihoney Assessment and Plan - Assessment and Plan (Free Text) Assessment: Patient is a 78 yo female w/ PMH of ESRD on HD TTS, HTN, DM2, Hypothyroidism, CAD admitted to hospital for shortness of breath w/ nonproductive cough. Found on chest xray to have bibasilar infiltrates. Treated for bacterial pneumonia and fluid overload via diuretics and dialysis Pneumonia with bibasilar infiltrates CXR 1-9 shows bibasilar infiltrates CXR 1-17 shows no active diseased Duoneb RQ6 PRN Zosyn 2.25mg IVPB (-) and Vancomycin 1gm IVPB daily (10-08) (was intially started on azithromycin and rocephin on 10/06) Cepacol lozenge Promethazine PNA studies negative Procal mildly elevated; Procal trended down CPT and Robitussin 5ml q6 epifanio Patient has difficulty getting phlegm out- guanifisen + CPT Afebrile, WBC trending down Consider oral abx pending ID update Chest wound s/p skin biospy- pathology was normal as per family Wound care following- medihoney and optifoam dressing pending update from wound care ESRD on HD TThS Sevelamer Carbonate 800mg po tid Nephrovite HTN Amlodipine 10mg po q24h Imdur 30mg po daily Lopressor 50mg po daily IDDM2 Detemir 10 unit sc HS Insulin regular sc ACHS A1C 7.7 sugars under control CAD Crestor 20mg po hs Aspirin 81mg Eliquis 2.5mg po bid Hypothyroidism Synthroid 75mcg po daily Constipation (resolved) Colace 100mg po bid - continue ppx as patient has limited mobility and this will benefit in alf care Avoid fleet based enemas Hx of Cerbellar Infarct Aspirin 81mg daily Hx of chronic Afib Lopressor 50mg po daily Eliquis 2.5mg po daily Aspirin 81 daily Left Eye blindness Tobradex x 1 appli ou tid Artificial Tears GI ppx: Lactobacillus, Protonix 40mg po daily DVT ppx: Eliquis 2.5mg po daily Nystatin PRN Disposition: pending [facility]SIE placement; transition to oral abx, symptomatic control for mucus and cough with meds and CPT PGY-1 [facility] discussed with Dr. Cummings
[2018-10-12] MEDS: Multivitamin Vitamin B Complex (Nephro-Vite) Tab PO SCH (09:56)
[2018-10-12] MEDS: Pantoprazole 40 mg EC Tab PO SCH (09:56)
[2018-10-12] MEDS: Metoprolol Succinate 50 mg XL Tab PO SCH (09:57)
[2018-10-12] MEDS: Tobramycin/Dexamethasone OPHT OINT OU SCH ×3 (09:57→18:09)
[2018-10-12] MEDS: guaiFENesin 100 mg/5 ml Syrup UD PO PRN (09:57)
[2018-10-12] MEDS: Lactobacillus Acidophilus 500 MU Cap PO SCH ×2 (09:57→18:09)
--- NOTE | 2018-10-12 13:15 | CP.PCM.PN ---
Subjective - Date & Time of Evaluation Date of Evaluation: 10/12/18 Time of Evaluation: 13:14 - Subjective Subjective: Nephrology Consultation Note: Assessment: Stable NSTEMI, hyponatremia hyperkalemia HTN urgency and pulm vasc congestion, pneumonia Diabetic chronic Kidney Disease (E11.22) Hypertensive Chronic Kidney Disease (I12.0) End stage renal disease (N18.6) dependence on hemodialysis (Z99.2) (TTS) via AVF Anemia (D64.9), Hyperphosphatemia (E83.39), Secondary Hyperparathyroidism (E21.1), HTN (I12.0) hx of CVA basal cell ca Plan: Will plan for HD TTS schedule as ordered. Continue with Nephrovite 1 tab/day. PRBC as needed for anemia. not on MISA with dialysis as last Hb 11.5 Continue with phos binders, last phos level 3.3 BP control with meds as ordered. Patient on RAAS katie as low dose losartan Glycemic control, Dialysis consistent diet Further work up/management as per primary team Dose meds/antibiotics (if needed) for ESRD status. Avoid fleets enema/magnesium based laxatives. ID following Thanks for allowing me to participate in care of your patient. Will follow patient with you. Please call if any Qs. had d/w team Dr Franki Warren Office: [phone] Chief Complaint;chest pain HPI: Pt is a 78 F with hx of ESRD on hemodialysis (TTS) via AVF , last dialysis tue, chronic anemia, hyperphosphatemia, secondary hyperparathyroidism, Diabetes Mellitus, hypertension, hx of CVA presented with complaints of chest pain which is being managed for NSTEMI. also with HTN urgency and pulm vasc congestion Renal consult requested for ESRD management. pt not able to communicate much due to her hx of CVA. she is bed bound ROS: Cardiovascular: No chest pain. Pulmonary: No shortness of breath but has cough pt not able to communicate much due to her hx of CVA Physical Examination: General Appearance: Comfortable, in no acute respiratory distress, co-operative . Vitals reviewed and noted as below Head; Atraumatic, normocephalic ENT: no ulcers no thrush. Tongue is midline. Oropharynx: no rash or ulcers. EYES: Pupils are equal, round and reactive to light accommodation. Eye muscles and extraocular movement intact. Sclera is anicteric. Neck; supple no lymphadenopathy, no thyromegaly or bruit Lungs: improved respiratory rate/effort. Breath sounds bilateral reduced at bases and few wheeze/crackle Heart: Normal rate. s1s2 normal. No rub or gallop. dressing over recent basal cell CA excision over chest Extremities: no edema. No varicose veins Neurological: Patient is alert, awake and has chronic residual weakness due to stroke in past. has some aphasia as well Skin: Warm and dry. Normal turgor. No rash. Palpitation: Normal elasticity for age Abdomen: Abdomen is soft. Bowel sounds +. There is no abdominal tenderness, no guarding/rigidity or organomegaly Psych: limited insight and normal affect/mood MSK: no joint tenderness or swelling. Digits and nails normal, no deformity : kidney or bladder not palpable Access: AVF. some redness in Rt a/c fossa below AVF noted. no local warmth or tenderness or swelling Labs/imaging reviewed. Past medical history, past surgical history, family history, social history, allergy reviewed and noted as below Family Hx: no hx of CKD. Non contributory Objective - Vital Signs/Intake and Output Vital Signs (last 24 hours): Temp Pulse Resp BP Pulse Ox 97.8 F 89 20 116/70 100 10/12/18 07:06 10/12/18 10:01 10/12/18 07:06 10/12/18 10:01 10/12/18 07:06 - Medications Medications: Current Medications Amlodipine Besylate (Norvasc) 10 mg PO Q24H [facility] Last Admin: 10/11/18 21:27 Dose: 10 mg Apixaban (Eliquis) 2.5 mg PO BID [facility] Last Admin: 10/12/18 09:57 Dose: 2.5 mg Artificial Tears (Artificial Tears) 0 ml OU Q4 PRN PRN Reason: Dry eyes Aspirin (Ecotrin) 81 mg PO DAILY [facility] Last Admin: 10/12/18 09:57 Dose: 81 mg Dextrose (Dextrose 50% Inj) 0 ml IV STAT PRN; Protocol PRN Reason: Hypoglycemia Protocol Dextrose (Glutose 15) 0 gm PO ONCE PRN; Protocol PRN Reason: Hypoglycemia Protocol Diphenhydramine HCl (Benadryl) 25 mg PO Q6 PRN PRN Reason: Itching / Pruritus Last Admin: 10/12/18 09:56 Dose: 25 mg Docusate Sodium (Colace) 100 mg PO BID [facility] Last Admin: 10/12/18 09:57 Dose: 100 mg Furosemide (Lasix) 20 mg PO DAILY [facility] Last Admin: 10/04/18 13:36 Dose: Not Given Glucagon (Glucagen Diagnostic Kit) 0 mg IM STAT PRN; Protocol PRN Reason: Hypoglycemia Protocol Guaifenesin (Robitussin) 100 mg PO Q6H PRN PRN Reason: Cough Last Admin: 10/12/18 09:57 Dose: 100 mg Vancomycin HCl 500 mg/ Sodium (Chloride) 100 mls @ 100 mls/hr IVPB MWF [facility]; Protocol Last Admin: 10/12/18 10:00 Dose: 100 mls/hr Piperacillin Sod/Tazobactam (Sod 2.25 gm/ Sodium Chloride) 100 mls @ 200 mls/hr IVPB Q8H [facility] Last Admin: 10/12/18 09:00 Dose: 200 mls/hr Insulin Detemir (Levemir) 10 unit SC [facility] Last Admin: 10/11/18 21:24 Dose: 10 unit Insulin Human Regular (Novolin R) 0 unit SC [facility]; Protocol Last Admin: 10/12/18 12:23 Dose: 8 units Isosorbide Mononitrate (Imdur Er) 30 mg PO DAILY [facility] Last Admin: 10/12/18 10:00 Dose: 30 mg Lactobacillus Acidophilus (Bacid Acidophilus) 1 cap PO BID [facility] Last Admin: 10/12/18 09:57 Dose: 1 cap Levothyroxine Sodium (Synthroid) 75 mcg PO DAILY@0630 [facility] Last Admin: 10/12/18 05:55 Dose: 75 mcg Losartan Potassium (Cozaar) 25 mg PO QPM [facility] Last Admin: 10/11/18 18:09 Dose: 25 mg Metoprolol Succinate (Toprol Xl) 50 mg PO DAILY [facility] Last Admin: 10/12/18 09:57 Dose: 50 mg Nystatin (Nystop Topical Powder) 1 applic TOP BID PRN PRN Reason: redness in groin area Last Admin: 10/12/18 09:57 Dose: 1 applic Pantoprazole Sodium (Protonix Ec Tab) 40 mg PO DAILY [facility] Last Admin: 10/12/18 09:56 Dose: 40 mg Promethazine HCl (Phenergan Syrup) 6.25 mg PO Q6H PRN PRN Reason: Cough Last Admin: 10/10/18 13:05 Dose: 6.25 mg Rosuvastatin Calcium (Crestor) 20 mg PO HS [facility] Last Admin: 10/11/18 21:24 Dose: 20 mg Sevelamer Carbonate (Renvela) 800 mg PO TID [facility] Last Admin: 10/12/18 13:00 Dose: 800 mg Tobramycin/Dexamethasone (Tobradex 0.3%-0.1% Opht Oint) 1 appl OU TID [facility] Last Admin: 10/12/18 13:00 Dose: 1 applic Vitamin B Complex/Vit C/Folic Acid (Nephro-Etelvina) 1 tab PO DAILY [facility] Last Admin: 10/12/18 09:56 Dose: 1 tab - Labs Labs: 10/12/18 07:54 10/12/18 07:54 PT 16.2 SECONDS (9.7-12.2) H 10/03/18 16:30 INR 1.5 10/03/18 16:30 APTT 60 SECONDS (21-34) H D 10/04/18 13:54
--- NOTE | 2018-10-12 13:34 | CP.PCM.PN ---
Subjective - Date & Time of Evaluation Date of Evaluation: 10/12/18 Time of Evaluation: 13:00 - Subjective Subjective: dictated Objective - Vital Signs/Intake and Output Vital Signs (last 24 hours): Temp Pulse Resp BP Pulse Ox 97.8 F 89 20 116/70 100 10/12/18 07:06 10/12/18 10:01 10/12/18 07:06 10/12/18 10:01 10/12/18 07:06 - Medications Medications: Current Medications Amlodipine Besylate (Norvasc) 10 mg PO Q24H [facility] Last Admin: 10/11/18 21:27 Dose: 10 mg Apixaban (Eliquis) 2.5 mg PO BID [facility] Last Admin: 10/12/18 09:57 Dose: 2.5 mg Artificial Tears (Artificial Tears) 0 ml OU Q4 PRN PRN Reason: Dry eyes Aspirin (Ecotrin) 81 mg PO DAILY [facility] Last Admin: 10/12/18 09:57 Dose: 81 mg Dextrose (Dextrose 50% Inj) 0 ml IV STAT PRN; Protocol PRN Reason: Hypoglycemia Protocol Dextrose (Glutose 15) 0 gm PO ONCE PRN; Protocol PRN Reason: Hypoglycemia Protocol Diphenhydramine HCl (Benadryl) 25 mg PO Q6 PRN PRN Reason: Itching / Pruritus Last Admin: 10/12/18 09:56 Dose: 25 mg Docusate Sodium (Colace) 100 mg PO BID [facility] Last Admin: 10/12/18 09:57 Dose: 100 mg Furosemide (Lasix) 20 mg PO DAILY [facility] Last Admin: 10/04/18 13:36 Dose: Not Given Glucagon (Glucagen Diagnostic Kit) 0 mg IM STAT PRN; Protocol PRN Reason: Hypoglycemia Protocol Guaifenesin (Robitussin) 100 mg PO Q6H PRN PRN Reason: Cough Last Admin: 10/12/18 09:57 Dose: 100 mg Vancomycin HCl 500 mg/ Sodium (Chloride) 100 mls @ 100 mls/hr IVPB MWF [facility]; Protocol Last Admin: 10/12/18 10:00 Dose: 100 mls/hr Piperacillin Sod/Tazobactam (Sod 2.25 gm/ Sodium Chloride) 100 mls @ 200 mls/hr IVPB Q8H [facility] Last Admin: 10/12/18 09:00 Dose: 200 mls/hr Insulin Detemir (Levemir) 10 unit SC [facility] Last Admin: 10/11/18 21:24 Dose: 10 unit Insulin Human Regular (Novolin R) 0 unit SC [facility]; Protocol Last Admin: 10/12/18 12:23 Dose: 8 units Isosorbide Mononitrate (Imdur Er) 30 mg PO DAILY [facility] Last Admin: 10/12/18 10:00 Dose: 30 mg Lactobacillus Acidophilus (Bacid Acidophilus) 1 cap PO BID [facility] Last Admin: 10/12/18 09:57 Dose: 1 cap Levothyroxine Sodium (Synthroid) 75 mcg PO DAILY@0630 [facility] Last Admin: 10/12/18 05:55 Dose: 75 mcg Losartan Potassium (Cozaar) 25 mg PO QPM [facility] Last Admin: 10/11/18 18:09 Dose: 25 mg Metoprolol Succinate (Toprol Xl) 50 mg PO DAILY [facility] Last Admin: 10/12/18 09:57 Dose: 50 mg Nystatin (Nystop Topical Powder) 1 applic TOP BID PRN PRN Reason: redness in groin area Last Admin: 10/12/18 09:57 Dose: 1 applic Pantoprazole Sodium (Protonix Ec Tab) 40 mg PO DAILY [facility] Last Admin: 10/12/18 09:56 Dose: 40 mg Promethazine HCl (Phenergan Syrup) 6.25 mg PO Q6H PRN PRN Reason: Cough Last Admin: 10/10/18 13:05 Dose: 6.25 mg Rosuvastatin Calcium (Crestor) 20 mg PO [facility] Last Admin: 10/11/18 21:24 Dose: 20 mg Sevelamer Carbonate (Renvela) 800 mg PO TID [facility] Last Admin: 10/12/18 13:00 Dose: 800 mg Tobramycin/Dexamethasone (Tobradex 0.3%-0.1% Opht Oint) 1 appl OU TID [facility] Last Admin: 10/12/18 13:00 Dose: 1 applic Vitamin B Complex/Vit C/Folic Acid (Nephro-Etelvina) 1 tab PO DAILY [facility] Last Admin: 10/12/18 09:56 Dose: 1 tab - Labs Labs: 10/12/18 07:54 10/12/18 07:54 PT 16.2 SECONDS (9.7-12.2) H 10/03/18 16:30 INR 1.5 10/03/18 16:30 APTT 60 SECONDS (21-34) H D 10/04/18 13:54
--- NOTE | 2018-10-12 13:40 | CP.PCM.DIS ---
Provider - Provider Date of Admission: 10/03/18 17:29 Attending physician: Margaret Cummings DO Consults: 10/03/18 22:18 Cardiology Consult Routine Comment: Consulting Provider: Sukhjinder Valdez Consulting Physician: Sukhjinder Valdez Reason for Consult: NSTEMI 10/03/18 22:20 Nephrology Consult Routine Comment: Consulting Provider: Cain Duarte Consulting Physician: Cain Duarte Reason for Consult: ESRD on HD 10/06/18 12:04 Nursing Referral for Wound Care Routine Comment: Physician Instructions: hx of basal cell carcinoma removal Reason For Exam: wound on anterior chest wall 10/06/18 17:47 Infectious Disease Consult Routine Comment: Consulting Provider: Ashanti Hodge Consulting Physician: Ashanti Hodge Reason for Consult: Bibasilar infiltrates, on Rocephin and Azithromycin 10/09/18 07:37 Case Management Referral Routine Comment: Physician Instructions: Reason For Exam: rosie eval Reason for Referral: Discharge Planning 10/10/18 12:01 Case Management Referral Routine Comment: Physician Instructions: Reason For Exam: rosie eval Reason for Referral: Discharge Planning Time Spent in preparation of Discharge (in minutes): 35 Hospital Course - Lab Results Lab Results: Micro Results 10/03/18 17:35 Blood Blood Culture - Final NO GROWTH AFTER 5 DAYS 10/03/18 17:35 Blood Gram Stain - Final TEST NOT PERFORMED 10/03/18 17:20 Blood Blood Culture - Final NO GROWTH AFTER 5 DAYS 10/03/18 17:20 Blood Gram Stain - Final TEST NOT PERFORMED Most Recent Lab Values WBC 11.1 K/uL (4.8-10.8) H 10/12/18 07:54 RBC 3.61 Mil/uL (3.80-5.20) L 10/12/18 07:54 Hgb 11.5 g/dL (11.0-16.0) 10/12/18 07:54 Hct 34.5 % (34.0-47.0) 10/12/18 07:54 MCV 95.5 fL (81.0-99.0) 10/12/18 07:54 MCH 31.7 pg (27.0-31.0) H 10/12/18 07:54 MCHC 33.2 g/dL (33.0-37.0) 10/12/18 07:54 RDW 14.7 % (11.5-14.5) H 10/12/18 07:54 Plt Count 357 K/uL (130-400) 10/12/18 07:54 MPV 8.8 fL (7.2-11.7) 10/12/18 07:54 Neut % (Auto) 76.5 % (50.0-75.0) H 10/12/18 07:54 Lymph % (Auto) 12.1 % (20.0-40.0) L 10/12/18 07:54 [place] % (Auto) 8.4 % (0.0-10.0) 10/12/18 07:54 Eos % (Auto) 2.0 % (0.0-4.0) 10/12/18 07:54 Baso % (Auto) 1.0 % (0.0-2.0) 10/12/18 07:54 Neut # (Auto) 8.5 K/uL (1.8-7.0) H 10/12/18 07:54 Lymph # (Auto) 1.3 K/uL (1.0-4.3) 10/12/18 07:54 [place] # (Auto) 0.9 K/uL (0.0-0.8) H 10/12/18 07:54 Eos # (Auto) 0.2 K/uL (0.0-0.7) 10/12/18 07:54 Baso # (Auto) 0.1 K/uL (0.0-0.2) 10/12/18 07:54 Neutrophils % (Manual) 80 % (50-75) H 10/11/18 07:43 Band Neutrophils % 2 % (0-2) 10/11/18 07:43 Lymphocytes % (Manual) 9 % (20-40) L 10/11/18 07:43 Reactive Lymphs % TEST NOT PERFORMED 10/09/18 15:59 Monocytes % (Manual) 8 % (0-10) 10/11/18 07:43 Eosinophils % (Manual) 1 % (0-4) 10/11/18 07:43 Basophils % (Manual) 1 % (0-2) 10/09/18 15:59 Platelet Estimate Normal (NORMAL) 10/11/18 07:43 Large Platelets Present 10/08/18 11:33 Giant Platelets Present 10/04/18 05:43 RBC Morphology Normal 10/07/18 08:19 Hypochromasia (manual) Slight 10/11/18 07:43 Poikilocytosis (manual Slight 10/11/18 07:43 Anisocytosis (manual) Slight 10/11/18 07:43 Target Cells Slight 10/04/18 05:43 PT 16.2 SECONDS (9.7-12.2) H 10/03/18 16:30 INR 1.5 10/03/18 16:30 APTT 60 SECONDS (21-34) H D 10/04/18 13:54 Sodium 135 mmol/L (132-148) 10/12/18 07:54 Potassium 3.9 mmol/L (3.6-5.2) 10/12/18 07:54 Chloride 93 mmol/L (98-107) L 10/12/18 07:54 Carbon Dioxide 31 mmol/L (22-30) H 10/12/18 07:54 Anion Gap 14 (10-20) 10/12/18 07:54 BUN 16 mg/dL (7-17) 10/12/18 07:54 Creatinine 3.5 mg/dL (0.7-1.2) H 10/12/18 07:54 Est GFR ( Amer) 15 10/12/18 07:54 Est GFR (Non-Af Amer) 13 10/12/18 07:54 POC Glucose (mg/dL) 316 mg/dL (65-110) H 10/12/18 11:05 Random Glucose 114 mg/dL (65-105) H 10/12/18 07:54 Hemoglobin A1c 7.7 % (4.2-6.5) H D 10/04/18 05:43 Calcium 9.3 mg/dl (8.6-10.4) 10/12/18 07:54 Phosphorus 3.3 mg/dL (2.5-4.5) 10/12/18 07:54 Magnesium 1.9 mg/dL (1.6-2.3) 10/12/18 07:54 Total Bilirubin 0.5 mg/dL (0.2-1.3) 10/12/18 07:54 AST 33 U/L (14-36) 10/12/18 07:54 ALT 39 U/L (9-52) 10/12/18 07:54 Alkaline Phosphatase 99 U/L (38-126) 10/12/18 07:54 Total Creatine Kinase 315 U/L (30-135) H 10/04/18 17:41 CK-MB (Mass) 1.23 ng/mL (0.0-3.38) 10/04/18 17:41 Troponin I 0.8560 ng/mL (0.00-0.120) H* 10/04/18 17:41 NT-Pro-B Natriuret Pep 42411 pg/mL (0-900) H 10/03/18 16:30 Total Protein 8.2 g/dL (6.3-8.3) 10/12/18 07:54 Albumin 4.2 g/dL (3.5-5.0) 10/12/18 07:54 Globulin 4.0 gm/dL (2.2-3.9) H 10/12/18 07:54 Albumin/Globulin Ratio 1.1 (1.0-2.1) 10/12/18 07:54 Triglycerides 155 mg/dL (0-149) H D 10/04/18 05:43 Cholesterol 95 mg/dL (0-199) 10/04/18 05:43 LDL Cholesterol Direct 32 mg/dL (0-129) 10/04/18 05:43 HDL Cholesterol 36 mg/dL (30-70) 10/04/18 05:43 Procalcitonin 0.41 NG/ML (0.19-0.49) 10/09/18 16:07 Free T4 1.17 ng/dL (0.78-2.19) 10/07/18 08:19 TSH 3rd Generation 3.16 mIU/L (0.46-4.68) 10/07/18 08:19 Hep Bs Antigen Negative (NEGATIVE) 10/04/18 13:49 Hepatitis C Antibody Reactive (Non Reactive) H 10/08/18 17:45 Hep C Ab Signal/Cutoff 4.98 (<1.0) H 10/08/18 17:45 Hepatitis C RNA <15 not detected IU/mL (Not Detected) 10/08/18 17:45 HCV RNA (PCR) <1.18 not detected Log IU/mL (Not Detected) 10/08/18 17:45 HCV RNA Qual (TMA) Not detected 10/08/18 17:45 Influenza Typ A,B (EIA) Negative for flu a/b (NEGATIVE) 10/06/18 11:54 Mycoplasma pneumon IgM Negative (NEGATIVE) 10/08/18 11:33 - Hospital Course Hospital Course: Upon Admission Patient is a 78 year old female with pmhx of ESRD, HTN, DM2, hypothyroidism, CAD who presented to ED with complaints of SOB w/ non-productive cough, and chest pain x1 day. Patient reports chest pain is intermittent and pressure-like. Patient reports this occurred while sitting in her home following HD earlier in the day. Patient reports she is compliant with HD as instructed with TTS schedule. Denies recent illness, fever like symptoms, headache, nausea, vomiting. Full ROS limited 2/2 to patient's mental status Hospital Course Patient is a 78 yo female w/ PMH of ESRD on HD TTS, HTN, DM2, Hypothyroidism, CAD admitted to hospital for shortness of breath w/ nonproductive cough. Found on chest xray to have bibasilar infiltrates. Treated for bacterial pneumonia and fluid overload via diuretics and dialysis. PNA studies were negative. Patient was treated for her PNA and fluid overload via abx and HD sessions. Patient had ongoing cough which was treated with robitussin, duoneb, and CPT. Patient symptoms are decreasing. Repeat CXR showed no active disease. White count trending down and procal is negative. Patient will need symptomatic treatment for cough with robitussing and avelox for 5 days upon discharge. Discharge Plan 1. Patient is stable for discharge to [facility] as per Dr. Cummings. 2. Patient will need to followup with her primary doctor Dr. Madison Roblero within 3-7 days of discharge from hospital. 3. Patient will continue her medications as reconciled at [facility]. Patient will take Avelox 400mg for 5 days upon discharge twice a day. 4. Patient will continue her regular scheduled dialysis sessions outpatient. 5. Patient should return to hospital if symptoms worsen or recur. 6. Patient understands the plan as above and agrees. Patient's daughter will be educated about this plan above as well. Discharge Exam - Head Exam Head Exam: NORMAL INSPECTION, NORMOCEPHALIC - Eye Exam Eye Exam: EOMI, Normal appearance. absent: Nystagmus, Scleral icterus - ENT Exam ENT Exam: Mucous Membranes Dry - Respiratory Exam Respiratory Exam: NORMAL BREATHING PATTERN. absent: Rales, Rhonchi, Wheezes, Respiratory Distress - Cardiovascular Exam Cardiovascular Exam: REGULAR RHYTHM, +S1, +S2. absent: Tachycardia - GI/Abdominal Exam GI & Abdominal Exam: Normal Bowel Sounds, Soft. absent: Diminished Bowel Sounds, Distended, Firm, Guarding - Extremities Exam Extremities exam: normal inspection - Neurological Exam Neurological exam: Alert, Oriented x3 - Psychiatric Exam Psychiatric exam: Normal Affect, Normal Mood - Skin Skin Exam: Intact, Normal Color Additional comments: chest wall wound dressed in medihoney and optifoam Discharge Plan - Discharge Medications Prescriptions: Moxifloxacin [Avelox] 400 mg PO BID #10 tab - Follow Up Plan Condition: FAIR Disposition: REHAB FACILITY/REHAB UNIT Instructions: Heart Healthy Diet, Heart Failure, Adult (DC), Heart Attack (DC), Heart Disease in Women (DC) Additional Instructions: 1. Patient is stable for discharge to [facility] as per Dr. Cummings. 2. Patient will need to followup with her primary doctor Dr. Madison Roblero within 3-7 days of discharge from hospital. 3. Patient will continue her medications as reconciled at [facility]. Patient will take Avelox 400mg for 5 days upon discharge twice a day. 4. Patient will continue her regular scheduled dialysis sessions outpatient. 5. Patient should return to hospital if symptoms worsen or recur. 6. Patient understands the plan as above and agrees. Patient's daughter will be educated about this plan above as well. Referrals: Cain Duarte MD [Staff Provider] - Sukhjinder Valdez MD [Staff Provider] -
[2018-10-12 17:00] VITALS: BP 146/78; PULSE 80; TEMP 98.1; O2SAT 94
--- NOTE | 2018-10-12 19:13 | PN ---
DATE: 10/12/2018 INFECTIOUS DISEASE FOLLOWUP SUBJECTIVE: The patient is afebrile. PHYSICAL EXAMINATION: VITAL SIGNS: T-max is 97.8, pulse 89, blood pressure 116/70, respirations are 20. She is feeling better. HEAD: Head is atraumatic and normocephalic. NECK: Supple and has a dressing on the chest wall. LUNGS: Remain with some crackles on right base, otherwise clear. HEART: S1 and S2 is regular. ABDOMEN: Soft, nontender. No guarding, no rigidity present. EXTREMITIES: Have no edema. LABORATORY DATA: Her white count is 11.1 today, hemoglobin 11.5, hematocrit 34.5, platelet count is 357. CO2 is 31 and creatinine is 3.5. ASSESSMENT AND PLAN: She is a dialysis patient and she will be going back to the rehab. Her last chest x-ray was done today which shows no active disease. So at this time, she has received antibiotics for 9 days. I would let her go on Avelox p.o. for 5 days and plan was discussed with the attending at this time. IMPRESSION: She came in with pneumonia, end-stage renal disease, diabetes, and hypertension. Ashanti Hodge MD
--- NOTE | 2018-10-29 15:17 | PQF ---
PROVIDER RESPONSE TEXT: Patient has elevated troponin in context of her cardiac risk factors her outpatient retail department reset abril mmended that she is high risk for cardiac cath procedure recommended for medical therapy; it is uncle ar if the elevated troponin is related to her kidney status given her extensive cardiac history. Ther efore, it cannot be ruled out but it also cannot be confirmed since patient is risk to undergoing the confirmatory test is high. Patient has known history of chf, prior cabg and extensive medical history; her echocardiogram shows systolic and diastolic functions are normal. Patient is on medical therapy to optimize her known hist ory of congestive heart failure. REVIEWER QUERY TEXT: Conflicting Documentation Clarification A single mention or documentation of multiple diagnoses for the same clinical presentation appears in the record. Please clarify the diagnosis/diagnoses. Please also document if the condition is: -- Confirmed and current -- Confirmed, treated and resolved -- Ruled out -- Other, please specify The patient's Clinical Indicators include: ELEVATED TROPONIN, HX CHF,ESRD,HTN, DM. BACTERIAL PNEUMONIA PLEASE, CLARIFY IF NSTEMI WAS RULED IN OR RULED OUT CHF RULED IN OR RULED OUT Query created by: Tiny Aquino on 10/15/2018 11:28 PM Electronically signed by: Margaret Cummings MD 10/29/2018 3:14 PM
== END 2018-10-12 19:07 | disposition home or self-care (01) | DRG 193 ==
LOC: C.ER 15:43 → C.9E 17:29 → C.5S 10-04 09:01
PROVIDERS: ADMIT Hospitalist; ATTEND Hospitalist
PROC: 5A1D70Z Performance of Urinary Filtration, Intermittent, Less than 6 Hours Per Day (ICD-10-PCS; principal; 2018-10-04)
PROC: 5A1D70Z Performance of Urinary Filtration, Intermittent, Less than 6 Hours Per Day (ICD-10-PCS; 2018-10-06)
PROC: 5A1D70Z Performance of Urinary Filtration, Intermittent, Less than 6 Hours Per Day (ICD-10-PCS; 2018-10-08)
PROC: 5A1D70Z Performance of Urinary Filtration, Intermittent, Less than 6 Hours Per Day (ICD-10-PCS; 2018-10-09)
PROC: 5A1D70Z Performance of Urinary Filtration, Intermittent, Less than 6 Hours Per Day (ICD-10-PCS; 2018-10-11)
DX: J15.9 Unspecified bacterial pneumonia (principal); I50.23 Acute on chronic systolic (congestive) heart failure; I21.4 Non-ST elevation (NSTEMI) myocardial infarction; N18.6 End stage renal disease; I13.2 Hypertensive heart and chronic kidney disease with heart failure and with stage 5 chronic kidney disease, or end stage renal disease; N25.81 Secondary hyperparathyroidism of renal origin; E87.1 Hypo-osmolality and hyponatremia; E87.0 Hyperosmolality and hypernatremia; E83.39 Other disorders of phosphorus metabolism; D63.1 Anemia in chronic kidney disease; E03.9 Hypothyroidism, unspecified; I16.0 Hypertensive urgency; E11.22 Type 2 diabetes mellitus with diabetic chronic kidney disease; E87.5 Hyperkalemia; E87.70 Fluid overload, unspecified; I25.10 Atherosclerotic heart disease of native coronary artery without angina pectoris; I48.91 Unspecified atrial fibrillation; C44.91 Basal cell carcinoma of skin, unspecified; I48.2 Chronic atrial fibrillation; I50.9 Heart failure, unspecified; D64.9 Anemia, unspecified; B19.20 Unspecified viral hepatitis C without hepatic coma; E78.5 Hyperlipidemia, unspecified; E78.00 Pure hypercholesterolemia, unspecified; K59.00 Constipation, unspecified; H40.9 Unspecified glaucoma; H54.62 Unqualified visual loss, left eye, normal vision right eye; Z95.0 Presence of cardiac pacemaker; Z99.2 Dependence on renal dialysis; Z95.5 Presence of coronary angioplasty implant and graft; Z74.01 Bed confinement status; Z79.01 Long term (current) use of anticoagulants; Z79.4 Long term (current) use of insulin; Z79.82 Long term (current) use of aspirin; Z86.73 Personal history of transient ischemic attack (TIA), and cerebral infarction without residual deficits; Z87.01 Personal history of pneumonia (recurrent); Z95.1 Presence of aortocoronary bypass graft; Z89.422 Acquired absence of other left toe(s); Z87.442 Personal history of urinary calculi; Z90.49 Acquired absence of other specified parts of digestive tract

== ENCOUNTER 2019-01-17 04:39 | Inpatient (IN) | payer MEDICARE, OTHER ==
[2019-01-17 04:52] VITALS: BMI 29.0
--- NOTE | 2019-01-17 05:10 | C.PDOC ---
History Of Present Illness 79-year-old female presents to the ED with respiratory distress. Patient has history of ESRD and attends dialysis Tues/Th/Sat. Patient denies fever, chills, nausea, vomiting. Chief Complaint (Nursing): Respiratory Distress History Per: Patient History/Exam Limitations: no limitations Onset/Duration Of Symptoms: Hrs Current Symptoms Are (Timing): Still Present Past Medical History Reviewed: Historical Data, Nursing Documentation, Vital Signs - Medical History PMH: Anemia, Arthritis, Atrial Fibrillation, CAD, CHF, Diabetes, Gall Bladder Disease, HTN, Hypercholesterolemia, Hyperthyroidism, Hypothyroidism, Kidney Stones, Pneumonia, End Stage Renal Disease (TTF), Chronic Kidney Disease Denies: HIV Surgical History: CABG, Cholecystectomy, Coronary Stent, Pacemaker - [facility] Procedures (10/03/18) CAUTERY TO STOP EPISTAX (11/29/13) CONTRAST PHLEBOGRAM NEC (02/14/15) DETACHMENT AT LEFT 1ST TOE, HIGH, OPEN APPROACH (11/22/16) DETACHMENT AT LEFT FOOT, PARTIAL 1ST RAY, OPEN APPROACH (12/22/16) DETACHMENT AT LEFT FOOT, PARTIAL 2ND RAY, OPEN APPROACH (12/22/16) DETACHMENT AT LEFT FOOT, PARTIAL 3RD RAY, OPEN APPROACH (12/22/16) DETACHMENT AT LEFT FOOT, PARTIAL 4TH RAY, OPEN APPROACH (12/22/16) DETACHMENT AT LEFT FOOT, PARTIAL 5TH RAY, OPEN APPROACH (12/22/16) ENDOSC POLYPECTOMY OF LG INTEST (05/08/13) EXCISION OF CHEST SKIN, EXTERNAL APPROACH, DIAGNOSTIC (03/11/17) EXCISION OF L FOOT SUBCU/FASCIA, OPEN APPROACH (03/11/17) FLUOROSCOPY OF LEFT SUBCLAVIAN VEIN, GUIDANCE (06/24/17) FLUOROSCOPY OF SUPERIOR VENA CAVA, GUIDANCE (03/11/17) HEMODIALYSIS (03/05/15) INSERTION OF INFUSION DEV INTO L SUBCLAV VEIN, PERC APPROACH (06/24/17) INSERTION OF INFUSION DEV INTO R SUBCLAV VEIN, PERC APPROACH (03/11/17) INSERTION OF INFUSION DEV INTO SUP VENA CAVA, PERC APPROACH (03/11/17) INTRODUCE OTH ANTI-INFECT IN CENTRAL VEIN, PERC (03/11/17) INTRODUCTION OF SERUM/TOX/VACCINE INTO MUSCLE, PERC APPROACH (06/24/17) NEBULIZER THERAPY (03/31/13) NON-INVASIVE MECHANICAL VENTILATION (05/08/13) OTHER ENDOSCOPY OF SM INTEST (05/08/13) PACEMAKER RATE CHECK (09/03/13) PERFORMANCE OF URINARY FILTRATION, MULTIPLE (03/11/17) REMOV THERAPEUT DEV NEC (02/14/15) [facility] (03/05/15) SERUM TRANSFUSION NEC (05/08/13) ULTRASONOGRAPHY OF LEFT SUBCLAVIAN VEIN, GUIDANCE (06/24/17) VENOUS CATHETERIZATION FOR RENAL DIALYSIS (02/14/15) Family History: States: Unknown Family Hx - Social History Hx Tobacco Use: No Hx Alcohol Use: No Hx Substance Use: No - Immunization History Hx Tetanus Toxoid Vaccination: Yes Hx Influenza Vaccination: Yes Hx Pneumococcal Vaccination: Yes Review Of Systems Constitutional: Negative for: Fever, Chills Respiratory: Positive for: Other (respiratory distress ) Gastrointestinal: Negative for: Nausea, Vomiting Physical Exam - Physical Exam Appears: Non-toxic, Other (in respiratory distress ) Skin: Normal Color, Warm, Dry Head: Atraumatic, Normacephalic Eye(s): bilateral: Normal Inspection Oral Mucosa: Moist Neck: Supple Chest: Symmetrical, No Deformity, No Tenderness Cardiovascular: Rhythm Regular, No Murmur Respiratory: Rales, No Rhonchi, No Wheezing, Other (tachypenic) Extremity: Normal ROM, Capillary Refill (less than 2 seconds ), Other (bleeding at the right big toenail with near avulsion, right second toenail with bleeding ) Neurological/Psych: Oriented x3, Normal Speech, Normal Cognition ED Course And Treatment - Laboratory Results Result Diagrams: 01/17/19 05:06 01/17/19 05:06 ECG: Interpreted By Me, Viewed By Me ECG Rhythm: Sinus Rhythm, ST/T Changes ECG Interpretation: Abnormal Interpretation Of ECG: NSR, Q wave in inferior leads, non spc. st-t abnormality., abnrmal tracings. Rate From EC Progress Note: Bloodwork, EKG and CXR ordered. Case discussed with Dr. Lewis (ICU), who evaluated the patient at bedside. Dr. Lane accepted the patient under her service. Disposition Discussed With : Shantell Lane Doctor Will See Patient In The: Hospital Counseled Patient/Family Regarding: Diagnosis - Disposition Disposition: HOSPITALIZED Disposition Time: 06:06 Condition: STABLE - Clinical Impression Clinical Impression: ESRD (end stage renal disease) on dialysis, CHF (congestive heart failure) - Scribe Statement The provider has reviewed the documentation as recorded by the Scribe (Kati Paredes) Provider Attestation: All medical record entries made by the Scribe were at my direction and personally dictated by me. I have reviewed the chart and agree that the record accurately reflects my personal performance of the history, physical exam, medical decision making, and the department course for this patient. I have also personally directed, reviewed, and agree with the discharge instructions and disposition.
[2019-01-17 05:11] LABS: BASO # 0.1 K/uL (0.0-0.2); BASO % 0.9 % (0.0-2.0); EOS % 0.1 % (0.0-4.0); HEMOGLOBIN 12.1 g/dL (11.0-16.0); LYMPH % 7.5 % (20.0-40.0); MEAN CELL VOLUME 96.8 fL (81.0-99.0); MEAN CORPUSCULAR HEMOGLOBIN 31.8 pg (27.0-31.0); MEAN CORPUSCULAR HGB CONC 32.8 g/dL (33.0-37.0); MEAN PLATELET VOLUME 9.6 fL (7.2-11.7); MONO # 0.8 K/uL (0.0-0.8); MONO % 6.1 % (0.0-10.0); NEUT # 11.1 K/uL (1.8-7.0); NEUT % 85.4 % (50.0-75.0); PLATELET COUNT 234 K/uL (130-400)
[2019-01-17 05:21] LABS: INR 1.2; PROTHROMBIN TIME 13.1 SECONDS (9.7-12.2)
[2019-01-17 05:26] LABS: ALB/GLOB RATIO 1.3 (1.0-2.1); ALBUMIN 4.7 g/dL (3.5-5.0)
[2019-01-17 05:39] LABS: TROPONIN I 0.417 ng/mL (0.00-0.120)
[2019-01-17 05:43] LABS: BANDS 1 % (0-2); LYMPHOCYTE 8 % (20-40); MONOCYTE 8 % (0-10); NEUTROPHIL 83 % (50-75); PLATELET ESTIMATE NORMAL (NORMAL); TOTAL CELLS COUNTED 100
--- NOTE | 2019-01-17 07:19 | RAD ---
Date of service: 01/17/2019 HISTORY: SOB COMPARISON: 10/11/2018 TECHNIQUE: 1 view obtained. FINDINGS: LUNGS: Current inspiration less now than before. Interval bilateral diffuse coarsening of the bronchovascular markings. Concomitant low-density ground-glass opacities compatible patchy infiltrates and/or areas of greater coalescent pulmonary edema Probable concomitant left basal subsegmental compressive atelectasis with left pleural effusion PLEURA: No pneumothorax. Interval increase left pleural effusion. Probable trace right pleural effusion CARDIOVASCULAR: There is presence of aortic atherosclerotic calcification on x-ray. Cardiomegaly Interval increased pulmonary venous congestion. No pulmonary vascular congestion. Two lead pacemaker device-present leads appear intact positions appear similar. Right hilar prominence probably due to projection and right hilar venous engorgement. OSSEOUS STRUCTURES: Bilateral shoulder arthrosis. Probable concomitant right calcific rotator cuff tendinopathy. VISUALIZED UPPER ABDOMEN: Normal. OTHER FINDINGS: None. IMPRESSION: Interval increased pulmonary venous congestion. Interval increased pleural effusions left greater right. Interval bilateral patchy opacities left upper lobe and right mid to upper lung zone-compatible with areas of coalescent pulmonary edema and/or infiltrates. Other findings as above.
[2019-01-17] MEDS ORDERED: Aritificial Tears (15ml) OU PRN (08:47)
[2019-01-17] MEDS: Multivitamin Vitamin B Complex (Nephro-Vite) Tab PO SCH (10:45)
[2019-01-17] MEDS: Lactobacillus Acidophilus 500 MU Cap PO SCH ×2 (10:45→17:50)
[2019-01-17] MEDS: Tobramycin/Dexamethasone OPHT OINT OU SCH ×3 (10:46→17:50)
[2019-01-17] MEDS: Metoprolol Succinate 50 mg XL Tab PO SCH (10:46)
[2019-01-17] MEDS: Levothyroxine 75 MCG TAB PO SCH (10:46)
[2019-01-17] MEDS: (Novolin R) Insulin Human Regular 100 units/ml vial SC SCH ×3 (12:28→22:47)
[2019-01-17] MEDS: Insulin Detemir 100 units/ml Vial (Levemir) SC SCH (22:48)
[2019-01-18] MEDS: Levothyroxine 75 MCG TAB PO SCH (05:49)
[2019-01-18 07:33] LABS: BASO # 0.1 K/uL (0.0-0.2); BASO % 1.6 % (0.0-2.0); EOS # 0.2 K/uL (0.0-0.7); EOS % 2.6 % (0.0-4.0); HEMOGLOBIN 10.8 g/dL (11.0-16.0); LYMPH # 1.4 K/uL (1.0-4.3); LYMPH % 20.9 % (20.0-40.0); MEAN CELL VOLUME 96.8 fL (81.0-99.0); MEAN CORPUSCULAR HGB CONC 34.1 g/dL (33.0-37.0); MONO # 0.7 K/uL (0.0-0.8); MONO % 11.2 % (0.0-10.0); NEUT # 4.2 K/uL (1.8-7.0); NEUT % 63.7 % (50.0-75.0); RBC 3.28 Mil/uL (3.80-5.20); RED CELL DISTRIBUTION WIDTH 14.1 % (11.5-14.5); WHITE BLOOD COUNT 6.6 K/uL (4.8-10.8)
[2019-01-18 07:40] LABS: IRON 51 ug/dL (37-170)
[2019-01-18 08:00] LABS: % IRON SATURATION 22 (20-55); TOTAL IRON BINDING CAPACITY 235 ug/dL (250-450)
[2019-01-18 08:04] LABS: CK-MB 2.91 ng/mL (0.0-3.38)
--- NOTE | 2019-01-18 08:12 | HP ---
The patient is seen and examined at the bedside on 01/17/2019. CHIEF COMPLAINT: Shortness of breath. HISTORY OF PRESENT ILLNESS: Ms. Elisa Hernández is an 79-year-old female came to the emergency room with respiratory distress. The patient has history of end-stage renal disease and getting dialysis Monday, , and Monday. The patient denies fever, chills, nausea, vomiting, or diarrhea. No headache. No dizziness. I saw the patient in the dialysis center. She is getting dialysis, was comfortable. PAST MEDICAL HISTORY: Anemia, arthritis, atrial fibrillation, coronary artery disease, congestive heart failure, diabetes mellitus, gallbladder disease, hypertension, hypercholesterolemia, hyperthyroidism, kidney stones, pneumonia, end-stage renal disease. SURGICAL HISTORY: CABG, cholecystectomy, coronary artery disease, pacemaker. FAMILY HISTORY: Father and mother, noncontributory. SOCIAL HISTORY: Tobacco, no. Substance abuse, no. Alcohol, no. REVIEW OF SYSTEMS: The patient is seen and examined at the bedside in the dialysis center, looking comfortable. No fever, no chills. No hematuria, no hematochezia. No headache. No dizziness. No chest pain. No palpitation. PHYSICAL EXAMINATION: VITAL SIGNS: Temperature 98.9, pulse 69, respiratory rate 18, blood pressure 135/64. HEENT: Head normocephalic, atraumatic. Eyes, PERRLA. Extraocular muscles intact. Conjunctivae clear. Nose patent. Mucous membrane moist. NECK: Supple. No carotid bruits. No JVD or thyromegaly. CHEST: Bilaterally symmetrical. HEART: S1 and S2 positive. LUNGS: Clear to auscultation. ABDOMEN: Soft. Bowel sounds present. No organomegaly. EXTREMITIES: No edema, no cyanosis. NEUROLOGIC: The patient is awake and alert. Moving all four extremities. No focal deficits. LABORATORY DATA: White blood cell 13, hemoglobin 12.1, hematocrit 36.8, platelets 234. Sodium 137, potassium 5, BUN 39, creatinine 4.3, glucose 189. AST 38. Troponin 0.4170. ASSESSMENT AND PLAN: Ms. Elisa Hernández is an 79-year-old lady with leukocytosis; hyperchloremia; renal insufficiency; on hemodialysis three times a week; abnormal liver function test; troponin is high; congestive heart failure; has history of anemia, arthritis, atrial fibrillation, coronary artery disease, congestive heart failure, diabetes mellitus, gallbladder disease, hypertension, hypercholesterolemia, hyperthyroidism, kidney stones, pneumonia, end-stage renal disease getting dialysis three times a week, chronic kidney disease, coronary artery bypass surgery, cholecystectomy, coronary stent, pacemaker. We will continue dialysis. Continue present treatment. Repeat labs. Gastrointestinal and deep venous thrombosis prophylaxis. We will follow up. Shantell Lane MD
[2019-01-18] MEDS: (Novolin R) Insulin Human Regular 100 units/ml vial SC SCH ×4 (08:24→21:56)
[2019-01-18 08:34] LABS: ALB/GLOB RATIO 1.4 (1.0-2.1); ALBUMIN 4.2 g/dL (3.5-5.0); CALCIUM 9.8 mg/dl (8.6-10.4)
[2019-01-18 08:54] LABS: FOLATE 8.9 ng/mL
[2019-01-18 09:26] LABS: TROPONIN I 4.33 ng/mL (0.00-0.120)
[2019-01-18] MEDS: Multivitamin Vitamin B Complex (Nephro-Vite) Tab PO SCH (09:49)
[2019-01-18] MEDS: Lactobacillus Acidophilus 500 MU Cap PO SCH ×2 (09:49→18:24)
[2019-01-18] MEDS: Metoprolol Succinate 50 mg XL Tab PO SCH (09:49)
[2019-01-18] MEDS: Tobramycin/Dexamethasone OPHT OINT OU SCH ×3 (10:06→18:26)
--- NOTE | 2019-01-18 11:18 | RAD ---
Date of service: 01/18/2019 HISTORY: Shortness of breath COMPARISON: 01/17/2019 FINDINGS: LUNGS: The lungs are well inflated. There is improving pulmonary venous congestion. PLEURA: No pleural effusions or pneumothorax. CARDIOVASCULAR: There is mild cardiomegaly. There are aortic atherosclerotic calcifications present. There is stable position of left-sided permanent pacing device. OSSEOUS STRUCTURES: Within normal limits for the patient's age. VISUALIZED UPPER ABDOMEN: Normal. OTHER FINDINGS: Right subclavian endovascular stent graft remains in place. IMPRESSION: Interval improved aeration in the lungs with improving pulmonary venous congestion. No acute findings.
--- NOTE | 2019-01-18 13:02 | CP.PCM.CON ---
History of Present Illness - History of Present Illness History of Present Illness: Reason for pulmonary consult: respiratory distress 79 year old female with a PMH of CHF, CAD, ESRD on dialysis TTS presented to [facility] for respiratory distress. She was seen and examined at bedside. Patient was had no acute complaints. She was laying comfortably in bed. Per nursing, patient's labs returned with elevated troponin of 4.33. She denies fever, chills, nausea, vomiting, and cp. PMH: ESRD on dialysis TTS, anemia, arthritis, Afib, CAD, CHF, DM, gall bladder disease, HTN, HLD, hyperthyriodism, hypothyroidism renal calculi, Hep. C, and PNA PSH: CABG, Cholecystectomy, pacemaker Social: denies smoking, alcohol, and illicit drug use. Allergies: NKDA ROS: per HPI Physical Examination General: no acute distress, chronically ill, obese HEENT: normocephalic, atraumatic, PERRL, No JVD appreciated. Cardio: s1 and s2 present Chest: ulcer in mid upper chest Pulm: normal breathing pattern, no accessory muscle usage, decrease breath sounds, +crackles GI: + bowel sounds in all four quadrants Imaging: CXR 01/17: Interval increased pulm. venous congestion. Bilateral pleural effusions, greater on the Left. Bilateral patchy opacities in L. upper lobe and R. mid to upper lobe. CXR 01/18: interval improved aeration in the lungs with improving pulmonary venous congestion. Assessment: 79 year old female with a PMH of CHF, CAD, ESRD on dialysis TTS admitted for respiratory distress. Patient was found to have troponins of 0.4170 and 4.33. R/O acute on chronic CHF exacerbation. Pulmonary congestion likely secondary to CHF. R/O underlying PNA. Plan: Transfer to the ICU troponin trending up; continue monitoring repeat and f/u EKG continue ASA and anticoagulation continue diuretics continue Bipap MRSA pending Past Patient History - Infectious Disease Hx of Infectious Diseases: None - Past Medical History & Family History Past Medical History?: Yes - Past Social History Smoking Status: Never Smoked - CARDIAC Hx Atrial Fibrillation: Yes Hx Congestive Heart Failure: Yes Hx Hypercholesterolemia: Yes Hx Hypertension: Yes Hx Pacemaker: Yes - PULMONARY Hx Pneumonia: Yes - NEUROLOGICAL Hx Neurological Disorder: Yes - HEENT Hx HEENT Problems: No - RENAL Hx Chronic Kidney Disease: Yes Hx Kidney Stones: Yes - ENDOCRINE/METABOLIC Hx Hyperthyroidism: Yes Hx Hypothyroidism: Yes - HEMATOLOGICAL/ONCOLOGICAL Hx Anemia: Yes Hx Human Immunodeficiency Virus (HIV): No - INTEGUMENTARY Hx Dermatological Problems: No - MUSCULOSKELETAL/RHEUMATOLOGICAL Hx Arthritis: Yes - GASTROINTESTINAL Hx Gall Bladder Disease: Yes - GENITOURINARY/GYNECOLOGICAL Hx Genitourinary Disorders: No - PSYCHIATRIC Hx Substance Use: No - SURGICAL HISTORY Hx Cholecystectomy: Yes Hx Coronary Artery Bypass Graft: Yes Hx Coronary Stent: Yes - ANESTHESIA Hx Anesthesia: Yes Hx Anesthesia Reactions: No Hx Malignant Hyperthermia: No Meds Allergies/Adverse Reactions: Allergies Allergy/AdvReac Type Severity Reaction Status Date / Time No Known Allergies Allergy Verified 10/03/18 16:11 - Medications Medications: Current Medications Amlodipine Besylate (Norvasc) 10 mg PO DAILY [facility] Last Admin: 01/18/19 09:49 Dose: 10 mg Apixaban (Eliquis) 2.5 mg PO BID [facility] Last Admin: 01/18/19 09:49 Dose: 2.5 mg Artificial Tears (Artificial Tears) 0 ml OU Q4 PRN PRN Reason: Dry eyes Aspirin (Ecotrin) 81 mg PO DAILY [facility] Last Admin: 01/18/19 09:49 Dose: 81 mg Docusate Sodium (Colace) 100 mg PO BID [facility] Last Admin: 01/18/19 09:50 Dose: 100 mg Furosemide (Lasix) 20 mg PO DAILY [facility] Last Admin: 01/18/19 09:49 Dose: 20 mg Insulin Detemir (Levemir) [address] [facility] Last Admin: 01/17/19 22:48 Dose: 10 units Insulin Human Regular (Novolin R) 0 unit SC [facility]; Protocol Last Admin: 01/18/19 08:24 Dose: 1 unit Isosorbide Mononitrate (Imdur Er) 30 mg PO DAILY [facility] Last Admin: 01/18/19 09:49 Dose: 30 mg Lactobacillus Acidophilus (Lactobacillus) 1 cap PO BID [facility] Last Admin: 01/18/19 09:49 Dose: 1 cap Levothyroxine Sodium (Synthroid) 75 mcg PO 0630 [facility] Last Admin: 01/18/19 05:49 Dose: 75 mcg Losartan Potassium (Cozaar) 25 mg PO QPM [facility] Last Admin: 01/17/19 17:50 Dose: 25 mg Metoprolol Succinate (Toprol Xl) 50 mg PO DAILY [facility] Last Admin: 01/18/19 09:49 Dose: 50 mg Pregabalin (Lyrica) 50 mg PO HS [facility] Last Admin: 01/17/19 22:48 Dose: 50 mg Rosuvastatin Calcium (Crestor) 10 mg PO HS [facility] Last Admin: 01/17/19 22:48 Dose: 10 mg Sevelamer Carbonate (Renvela) 800 mg PO TID [facility] Last Admin: 01/18/19 09:49 Dose: 800 mg Tobramycin/Dexamethasone (Tobradex 0.3%-0.1% Opht Oint) 1 appl OU TID [facility] Last Admin: 01/18/19 10:06 Dose: 1 drop Vitamin B Complex/Vit C/Folic Acid (Nephro-Etelvina) 1 tab PO DAILY [facility] Last Admin: 01/18/19 09:49 Dose: 1 tab Results - Vital Signs Recent Vital Signs: Last Vital Signs Temp 98.8 F 01/18/19 10:40 Pulse 72 01/18/19 11:50 Resp 14 01/18/19 11:50 BP 164/65 H 01/18/19 11:32 Pulse Ox 96 01/18/19 11:50 - Labs Result Diagrams: 01/19/19 06:46 01/19/19 06:46 Labs: Laboratory Results - last 24 hr 01/17/19 01/17/19 01/18/19 16:20 21:22 06:53 WBC RBC Hgb Hct MCV MCH MCHC RDW Plt Count MPV Neut % (Auto) Lymph % (Auto) Fann[place] % (Auto) Eos % (Auto) Baso % (Auto) Neut # (Auto) Lymph # (Auto) Fannin # (Auto) Eos # (Auto) Baso # (Auto) Sodium Potassium Chloride Carbon Dioxide Anion Gap BUN Creatinine Est GFR ( Amer) Est GFR (Non-Af Amer) POC Glucose (mg/dL) 232 H 250 H 179 H Random Glucose Hemoglobin A1c Calcium Iron TIBC % Saturation Total Bilirubin AST ALT Alkaline Phosphatase Total Creatine Kinase CK-MB (Mass) Troponin I Total Protein Albumin Globulin Albumin/Globulin Ratio Triglycerides Cholesterol LDL Cholesterol Direct HDL Cholesterol Vitamin B12 Folate 01/18/19 01/18/19 01/18/19 07:17 07:17 07:17 WBC 6.6 RBC 3.28 L Hgb 10.8 L Hct 31.7 L MCV 96.8 MCH 33.0 H MCHC 34.1 RDW 14.1 Plt Count 197 MPV 10.0 Neut % (Auto) 63.7 Lymph % (Auto) 20.9 Fannin % (Auto) 11.2 H Eos % (Auto) 2.6 Baso % (Auto) 1.6 Neut # (Auto) 4.2 Lymph # (Auto) 1.4 Fannin # (Auto) 0.7 Eos # (Auto) 0.2 Baso # (Auto) 0.1 Sodium 139 Potassium 3.9 Chloride 95 L Carbon Dioxide 29 Anion Gap 18 BUN 24 H Creatinine 3.3 H Est GFR ( Amer) 16 Est GFR (Non-Af Amer) 13 POC Glucose (mg/dL) Random Glucose 158 H D Hemoglobin A1c Calcium 9.8 Iron TIBC % Saturation Total Bilirubin 0.5 AST 37 H ALT 27 Alkaline Phosphatase 93 Total Creatine Kinase 128 CK-MB (Mass) 2.91 Troponin I 4.3300 H* Total Protein 7.2 Albumin 4.2 Globulin 3.1 Albumin/Globulin Ratio 1.4 Triglycerides 235 H D Cholesterol 161 LDL Cholesterol Direct 54 HDL Cholesterol 50 Vitamin B12 632 Folate 8.9 01/18/19 01/18/19 07:17 07:17 WBC RBC Hgb Hct MCV MCH MCHC RDW Plt Count MPV Neut % (Auto) Lymph % (Auto) Fann[place] % (Auto) Eos % (Auto) Baso % (Auto) Neut # (Auto) Lymph # (Auto) Fannin # (Auto) Eos # (Auto) Baso # (Auto) Sodium Potassium Chloride Carbon Dioxide Anion Gap BUN Creatinine Est GFR ( Amer) Est GFR (Non-Af Amer) POC Glucose (mg/dL) Random Glucose Hemoglobin A1c 7.7 H Calcium Iron 51 TIBC 235 L % Saturation 22 Total Bilirubin AST ALT Alkaline Phosphatase Total Creatine Kinase CK-MB (Mass) Troponin I Total Protein Albumin Globulin Albumin/Globulin Ratio Triglycerides Cholesterol LDL Cholesterol Direct HDL Cholesterol Vitamin B12 Folate
--- NOTE | 2019-01-18 13:31 | CP.PCM.CON ---
History of Present Illness - History of Present Illness History of Present Illness: Nephrology Consultation Note: Assessment: critical HTN emergency and pulm edema, fluid overload Diabetic chronic Kidney Disease (E11.22) Hypertensive Chronic Kidney Disease (I12.0) End stage renal disease (N18.6) dependence on hemodialysis (Z99.2) (TTS) via AVF Anemia (D64.9), Hyperphosphatemia (E83.39), Secondary Hyperparathyroidism (E21.1), HTN (I12.0) hx of CVA basal cell ca Plan: Will plan for HD today TTS schedule as ordered. Continue with Nephrovite 1 tab/day. extra isolated UF tomorrow PRBC as needed for anemia. not on MISA with dialysis as last Hb >10 Continue with phos binders, last phos level --check BP control with meds as ordered. Patient on RAAS katie as low dose losartan Glycemic control, Dialysis consistent diet Further work up/management as per primary team Dose meds/antibiotics (if needed) for ESRD status. Avoid fleets enema/magnesium based laxatives. Thanks for allowing me to participate in care of your patient. Will follow patient with you. Please call if any Qs. Dr Franki Warren Office: [phone] Chief Complaint;SOB HPI: Pt is a 79 F with hx of ESRD on hemodialysis (TTS) via AVF, last dialysis tue, chronic anemia, hyperphosphatemia, secondary hyperparathyroidism, Diabetes Mellitus, hypertension, hx of CVA, NSTEMI basal cell ca presented with compl aints of SOB with HTN urgency and pulm edema. required BiPAP support in ER Renal consult requested for ESRD management. pt not able to communicate much due to her hx of CVA. ROS: Cardiovascular: No chest pain. Pulmonary:c/o shortness of breath c/o cough pt not able to communicate much due to her hx of CVA. but rest all other negative as obtained as much possible Physical Examination: General Appearance: better appearing co-operative . Vitals reviewed and noted as below Head; Atraumatic, normocephalic ENT: no ulcers no thrush. Tongue is midline. Oropharynx: no rash or ulcers. EYES: Pupils are equal, round and reactive to light accommodation. Eye muscles and extraocular movement intact. Sclera is anicteric. Neck; supple no lymphadenopathy, no thyromegaly or bruit Lungs: improved respiratory rate/effort. Breath sounds bilateral reduced at bases and with crackle Heart: Normal rate. s1s2 normal. No rub or gallop. dressing over basal cell CA excision over chest Extremities: no edema. No varicose veins Neurological: Patient is alert, awake and has chronic residual weakness due to stroke in past. has some aphasia as well Skin: Warm and dry. Normal turgor. No rash. Palpitation: Normal elasticity for age Abdomen: Abdomen is soft. Bowel sounds +. There is no abdominal tenderness, no guarding/rigidity or organomegaly Psych: limited insight and normal affect/mood MSK: no joint tenderness or swelling. Digits and nails normal, no deformity : kidney or bladder not palpable Access: AVF. Labs/imaging reviewed. Past medical history, past surgical history, family history, social history, allergy reviewed and noted as below Family Hx: no hx of CKD. Non contributory Past Patient History - Infectious Disease Hx of Infectious Diseases: None - Past Medical History & Family History Past Medical History?: Yes - Past Social History Smoking Status: Never Smoked - CARDIAC Hx Atrial Fibrillation: Yes Hx Congestive Heart Failure: Yes Hx Hypercholesterolemia: Yes Hx Hypertension: Yes Hx Pacemaker: Yes - PULMONARY Hx Pneumonia: Yes - NEUROLOGICAL Hx Neurological Disorder: Yes - HEENT Hx HEENT Problems: No - RENAL Hx Chronic Kidney Disease: Yes Hx Kidney Stones: Yes - ENDOCRINE/METABOLIC Hx Hyperthyroidism: Yes Hx Hypothyroidism: Yes - HEMATOLOGICAL/ONCOLOGICAL Hx Anemia: Yes Hx Human Immunodeficiency Virus (HIV): No - INTEGUMENTARY Hx Dermatological Problems: No - MUSCULOSKELETAL/RHEUMATOLOGICAL Hx Arthritis: Yes - GASTROINTESTINAL Hx Gall Bladder Disease: Yes - GENITOURINARY/GYNECOLOGICAL Hx Genitourinary Disorders: No - PSYCHIATRIC Hx Substance Use: No - SURGICAL HISTORY Hx Cholecystectomy: Yes Hx Coronary Artery Bypass Graft: Yes Hx Coronary Stent: Yes - ANESTHESIA Hx Anesthesia: Yes Hx Anesthesia Reactions: No Hx Malignant Hyperthermia: No Meds Allergies/Adverse Reactions: Allergies Allergy/AdvReac Type Severity Reaction Status Date / Time No Known Allergies Allergy Verified 10/03/18 16:11 - Medications Medications: Current Medications Amlodipine Besylate (Norvasc) 10 mg PO DAILY [facility] Last Admin: 01/17/19 10:46 Dose: Not Given Apixaban (Eliquis) 2.5 mg PO BID [facility] Last Admin: 01/17/19 10:45 Dose: Not Given Artificial Tears (Artificial Tears) 0 ml OU Q4 PRN PRN Reason: Dry eyes Aspirin (Ecotrin) 81 mg PO DAILY [facility] Last Admin: 01/17/19 10:45 Dose: Not Given Docusate Sodium (Colace) 100 mg PO BID [facility] Last Admin: 01/17/19 10:45 Dose: Not Given Furosemide (Lasix) 20 mg PO DAILY [facility] Last Admin: 01/17/19 10:45 Dose: Not Given Insulin Detemir (Levemir) 10 unit SC HS [facility] Insulin Human Regular (Novolin R) 0 unit SC ACHS [facility]; Protocol Last Admin: 01/17/19 12:28 Dose: 1 unit Isosorbide Mononitrate (Imdur Er) 30 mg PO DAILY [facility] Last Admin: 01/17/19 10:45 Dose: Not Given Lactobacillus Acidophilus (Lactobacillus) 1 cap PO BID [facility] Last Admin: 01/17/19 10:45 Dose: Not Given Levothyroxine Sodium (Synthroid) 75 mcg PO 0630 [facility] Last Admin: 01/17/19 10:46 Dose: Not Given Losartan Potassium (Cozaar) 25 mg PO QPM [facility] Metoprolol Succinate (Toprol Xl) 50 mg PO DAILY [facility] Last Admin: 01/17/19 10:46 Dose: Not Given Pregabalin (Lyrica) 50 mg PO HS [facility] Rosuvastatin Calcium (Crestor) 10 mg PO HS [facility] Sevelamer Carbonate (Renvela) 800 mg PO TID [facility] Last Admin: 01/17/19 13:35 Dose: 800 mg Tobramycin/Dexamethasone (Tobradex 0.3%-0.1% Opht Oint) 1 appl OU TID [facility] Last Admin: 01/17/19 13:36 Dose: Not Given Vitamin B Complex/Vit C/Folic Acid (Nephro-Etelvina) 1 tab PO DAILY [facility] Last Admin: 01/17/19 10:45 Dose: Not Given Results - Vital Signs Recent Vital Signs: Last Vital Signs Temp 98.2 F 01/17/19 13:46 Pulse 71 01/17/19 13:46 Resp 20 01/17/19 13:46 BP 150/81 01/17/19 13:46 Pulse Ox 97 01/17/19 13:46 - Labs Result Diagrams: 01/18/19 07:17 01/18/19 07:17 Labs: Laboratory Results - last 24 hr 01/17/19 01/17/19 01/17/19 05:06 05:06 05:06 WBC 13.0 H RBC 3.80 Hgb 12.1 Hct 36.8 MCV 96.8 MCH 31.8 H MCHC 32.8 L RDW 14.0 Plt Count 234 D MPV 9.6 Neut % (Auto) 85.4 H Lymph % (Auto) 7.5 L [place] % (Auto) 6.1 Eos % (Auto) 0.1 Baso % (Auto) 0.9 Neut # (Auto) 11.1 H Lymph # (Auto) 1.0 [place] # (Auto) 0.8 Eos # (Auto) 0.0 Baso # (Auto) 0.1 Neutrophils % (Manual) 83 H Band Neutrophils % 1 Lymphocytes % (Manual) 8 L Monocytes % (Manual) 8 Platelet Estimate Normal PT 13.1 H INR 1.2 APTT 35.0 H Sodium 137 Potassium 5.0 Chloride 97 L Carbon Dioxide 25 Anion Gap 20 BUN 39 H Creatinine 4.3 H Est GFR ( Amer) 12 Est GFR (Non-Af Amer) 10 POC Glucose (mg/dL) Random Glucose 286 H D Calcium 10.0 Total Bilirubin 0.7 AST 38 H ALT 31 Alkaline Phosphatase 109 Troponin I 0.4170 H* NT-Pro-B Natriuret Pep 25958 H Total Protein 8.3 Albumin 4.7 Globulin 3.7 Albumin/Globulin Ratio 1.3 01/17/19 11:17 WBC RBC Hgb Hct MCV MCH MCHC RDW Plt Count MPV Neut % (Auto) Lymph % (Auto) [place] % (Auto) Eos % (Auto) Baso % (Auto) Neut # (Auto) Lymph # (Auto) [place] # (Auto) Eos # (Auto) Baso # (Auto) Neutrophils % (Manual) Band Neutrophils % Lymphocytes % (Manual) Monocytes % (Manual) Platelet Estimate PT INR APTT Sodium Potassium Chloride Carbon Dioxide Anion Gap BUN Creatinine Est GFR ( Amer) Est GFR (Non-Af Amer) POC Glucose (mg/dL) 189 H Random Glucose Calcium Total Bilirubin AST ALT Alkaline Phosphatase Troponin I NT-Pro-B Natriuret Pep Total Protein Albumin Globulin Albumin/Globulin Ratio
--- NOTE | 2019-01-18 13:32 | CP.PCM.PN ---
Subjective - Date & Time of Evaluation Date of Evaluation: 01/17/19 Time of Evaluation: 11:30 - Subjective Subjective: pt seen and examined during HD tolerating it well HD today TTS as ordered, continue extra UF tomorrow HD order d/w dialysis nursing staff vitals stable pt feels better off bipap Objective - Vital Signs/Intake and Output Vital Signs (last 24 hours): Temp Pulse Resp BP Pulse Ox 98.2 F 71 20 150/81 97 01/17/19 13:46 01/17/19 13:46 01/17/19 13:46 01/17/19 13:46 01/17/19 13:46 - Medications Medications: Current Medications Amlodipine Besylate (Norvasc) 10 mg PO DAILY [facility] Last Admin: 01/17/19 10:46 Dose: Not Given Apixaban (Eliquis) 2.5 mg PO BID [facility] Last Admin: 01/17/19 10:45 Dose: Not Given Artificial Tears (Artificial Tears) 0 ml OU Q4 PRN PRN Reason: Dry eyes Aspirin (Ecotrin) 81 mg PO DAILY [facility] Last Admin: 01/17/19 10:45 Dose: Not Given Docusate Sodium (Colace) 100 mg PO BID [facility] Last Admin: 01/17/19 10:45 Dose: Not Given Furosemide (Lasix) 20 mg PO DAILY [facility] Last Admin: 01/17/19 10:45 Dose: Not Given Insulin Detemir (Levemir) 10 unit SC [facility] Insulin Human Regular (Novolin R) 0 unit SC [facility]; Protocol Last Admin: 01/17/19 12:28 Dose: 1 unit Isosorbide Mononitrate (Imdur Er) 30 mg PO DAILY [facility] Last Admin: 01/17/19 10:45 Dose: Not Given Lactobacillus Acidophilus (Lactobacillus) 1 cap PO BID [facility] Last Admin: 01/17/19 10:45 Dose: Not Given Levothyroxine Sodium (Synthroid) 75 mcg PO 0630 [facility] Last Admin: 01/17/19 10:46 Dose: Not Given Losartan Potassium (Cozaar) 25 mg PO QPM [facility] Metoprolol Succinate (Toprol Xl) 50 mg PO DAILY [facility] Last Admin: 01/17/19 10:46 Dose: Not Given Pregabalin (Lyrica) 50 mg PO HS [facility] Rosuvastatin Calcium (Crestor) 10 mg PO HS [facility] Sevelamer Carbonate (Renvela) 800 mg PO TID [facility] Last Admin: 01/17/19 13:35 Dose: 800 mg Tobramycin/Dexamethasone (Tobradex 0.3%-0.1% Opht Oint) 1 appl OU TID [facility] Last Admin: 01/17/19 13:36 Dose: Not Given Vitamin B Complex/Vit C/Folic Acid (Nephro-Etelvina) 1 tab PO DAILY [facility] Last Admin: 01/17/19 10:45 Dose: Not Given - Labs Labs: 01/17/19 05:06 01/17/19 05:06 PT 13.1 SECONDS (9.7-12.2) H 01/17/19 05:06 INR 1.2 01/17/19 05:06 APTT 35.0 SECONDS (21-34) H 01/17/19 05:06
--- NOTE | 2019-01-18 13:34 | CP.PCM.PN ---
Subjective - Date & Time of Evaluation Date of Evaluation: 01/18/19 Time of Evaluation: 10:30 - Subjective Subjective: Nephrology Consultation Note: Assessment: critical HTN emergency and pulm edema, fluid overload elevated troponin Diabetic chronic Kidney Disease (E11.22) Hypertensive Chronic Kidney Disease (I12.0) End stage renal disease (N18.6) dependence on hemodialysis (Z99.2) (TTS) via AVF Anemia (D64.9), Hyperphosphatemia (E83.39), Secondary Hyperparathyroidism (E21.1), HTN (I12.0) hx of CVA basal cell ca Plan: Will plan for HD TTS schedule as ordered. Continue with Nephrovite 1 tab/day. extra isolated UF today PRBC as needed for anemia. not on MISA with dialysis as last Hb >10 Continue with phos binders, last phos level --check BP control with meds as ordered. Patient on RAAS katie as low dose losartan Glycemic control, Dialysis consistent diet Further work up/management as per primary team Dose meds/antibiotics (if needed) for ESRD status. Avoid fleets enema/magnesium based laxatives. cardiology follow up pulmonary following Thanks for allowing me to participate in care of your patient. Will follow patient with you. Please call if any Qs. had d/w team Dr Franki Warren Office: [phone] Chief Complaint;SOB HPI: Pt is a 79 F with hx of ESRD on hemodialysis (TTS) via AVF, last dialysis tue, chronic anemia, hyperphosphatemia, secondary hyperparathyroidism, Diabetes Mellitus, hypertension, hx of CVA, NSTEMI basal cell ca presented with complaints of SOB with HTN urgency and pulm edema. required BiPAP support in ER Renal consult requested for ESRD management. pt not able to communicate much due to her hx of CVA. ROS: Cardiovascular: No chest pain. Pulmonary:improved shortness of breath c/o cough pt not able to communicate much due to her hx of CVA. but rest all other ne gative as obtained as much possible Physical Examination: General Appearance: better appearing co-operative . Vitals reviewed and noted as below Head; Atraumatic, normocephalic ENT: no ulcers no thrush. Tongue is midline. Oropharynx: no rash or ulcers. EYES: Pupils are equal, round and reactive to light accommodation. Eye muscles and extraocular movement intact. Sclera is anicteric. Neck; supple no lymphadenopathy, no thyromegaly or bruit Lungs: improved respiratory rate/effort. Breath sounds bilateral reduced at bases and with crackle Heart: Normal rate. s1s2 normal. No rub or gallop. dressing over basal cell CA excision over chest Extremities: no edema. No varicose veins Neurological: Patient is alert, awake and has chronic residual weakness due to stroke in past. has some aphasia as well Skin: Warm and dry. Normal turgor. No rash. Palpitation: Normal elasticity for age Abdomen: Abdomen is soft. Bowel sounds +. There is no abdominal tenderness, no guarding/rigidity or organomegaly Psych: limited insight and normal affect/mood MSK: no joint tenderness or swelling. Digits and nails normal, no deformity : kidney or bladder not palpable Access: AVF. Labs/imaging reviewed. Past medical history, past surgical history, family history, social history, allergy reviewed and noted as below Family Hx: no hx of CKD. Non contributory Objective - Vital Signs/Intake and Output Vital Signs (last 24 hours): Temp Pulse Resp BP Pulse Ox 98.8 F 72 14 164/65 H 96 01/18/19 10:40 01/18/19 11:50 01/18/19 11:50 01/18/19 11:32 01/18/19 11:50 - Medications Medications: Current Medications Amlodipine Besylate (Norvasc) 10 mg PO DAILY [facility] Last Admin: 01/18/19 09:49 Dose: 10 mg Apixaban (Eliquis) 2.5 mg PO BID [facility] Last Admin: 01/18/19 09:49 Dose: 2.5 mg Artificial Tears (Artificial Tears) 0 ml OU Q4 PRN PRN Reason: Dry eyes Aspirin (Ecotrin) 81 mg PO DAILY [facility] Last Admin: 01/18/19 09:49 Dose: 81 mg Docusate Sodium (Colace) 100 mg PO BID [facility] Last Admin: 01/18/19 09:50 Dose: 100 mg Furosemide (Lasix) 20 mg PO DAILY [facility] Last Admin: 01/18/19 09:49 Dose: 20 mg Insulin Detemir (Levemir) 10 unit SC HS [facility] Last Admin: 01/17/19 22:48 Dose: 10 units Insulin Human Regular (Novolin R) 0 unit SC ACHS [facility]; Protocol Last Admin: 01/18/19 08:24 Dose: 1 unit Isosorbide Mononitrate (Imdur Er) 30 mg PO DAILY [facility] Last Admin: 01/18/19 09:49 Dose: 30 mg Lactobacillus Acidophilus (Lactobacillus) 1 cap PO BID [facility] Last Admin: 01/18/19 09:49 Dose: 1 cap Levothyroxine Sodium (Synthroid) 75 mcg PO 0630 [facility] Last Admin: 01/18/19 05:49 Dose: 75 mcg Losartan Potassium (Cozaar) 25 mg PO QPM [facility] Last Admin: 01/17/19 17:50 Dose: 25 mg Metoprolol Succinate (Toprol Xl) 50 mg PO DAILY [facility] Last Admin: 01/18/19 09:49 Dose: 50 mg Pregabalin (Lyrica) 50 mg PO HS [facility] Last Admin: 01/17/19 22:48 Dose: 50 mg Rosuvastatin Calcium (Crestor) 10 mg PO HS [facility] Last Admin: 01/17/19 22:48 Dose: 10 mg Sevelamer Carbonate (Renvela) 800 mg PO TID [facility] Last Admin: 01/18/19 09:49 Dose: 800 mg Tobramycin/Dexamethasone (Tobradex 0.3%-0.1% Opht Oint) 1 appl OU TID [facility] Last Admin: 01/18/19 10:06 Dose: 1 drop Vitamin B Complex/Vit C/Folic Acid (Nephro-Etelvina) 1 tab PO DAILY [facility] Last Admin: 01/18/19 09:49 Dose: 1 tab - Labs Labs: 01/18/19 07:17 01/18/19 07:17 PT 13.1 SECONDS (9.7-12.2) H 01/17/19 05:06 INR 1.2 01/17/19 05:06 APTT 35.0 SECONDS (21-34) H 01/17/19 05:06
--- NOTE | 2019-01-18 13:59 | CP.PCM.CON ---
<Lois Holden - Last Filed: 01/18/19 13:58> History of Present Illness - History of Present Illness History of Present Illness: ICU Consultation note for Dr. Lopez Pt is an 79 y/o female with hx of ESRD on HD (//Mon), CAD (NSTEMI in Sep), HTN, DM, Atrial Fibrillation on Eliquis with pacemaker, Basal cell carcinoma brought to hospital on 01/17 for worsening dyspnea, noted to have significant pulmonary edema on chest xray 10/27 to poor renal function, had HD session yesterday with 3L removed, and this morning found to have an acute elevation in Troponin (4.33) with EKG notable for anterior/inferior wall infarct (age undetermined). Pt accepted for ICU transfer for closer monitoring. Pt denies any chest pain or dyspnea. Discussed plan with Nephrology, will start emergent Dialysis (Ultrafiltration). Dr. Talavera, washer off aware. Medical management for now. Pmhx: CAD, ESRD, HTN, HLD, DM2, hypothyroidism Pshx: CABG, coronary stents, pacemaker, left toe amputations Meds: crestor, ASA, isosorbide mononitrate, renvela, eliquis, metoprolol, lasix, levothyroxine, lyrica, protonix, amlodipine, levemir Allergies: Denies SocHx: denies Past Patient History - Infectious Disease Hx of Infectious Diseases: None - Past Medical History & Family History Past Medical History?: Yes - Past Social History Smoking Status: Never Smoked - CARDIAC Hx Atrial Fibrillation: Yes Hx Congestive Heart Failure: Yes Hx Hypercholesterolemia: Yes Hx Hypertension: Yes Hx Pacemaker: Yes - PULMONARY Hx Pneumonia: Yes - NEUROLOGICAL Hx Neurological Disorder: Yes - HEENT Hx HEENT Problems: No - RENAL Hx Chronic Kidney Disease: Yes Hx Kidney Stones: Yes - ENDOCRINE/METABOLIC Hx Hyperthyroidism: Yes Hx Hypothyroidism: Yes - HEMATOLOGICAL/ONCOLOGICAL Hx Anemia: Yes Hx Human Immunodeficiency Virus (HIV): No - INTEGUMENTARY Hx Dermatological Problems: No - MUSCULOSKELETAL/RHEUMATOLOGICAL Hx Arthritis: Yes - GASTROINTESTINAL Hx Gall Bladder Disease: Yes - GENITOURINARY/GYNECOLOGICAL Hx Genitourinary Disorders: No - PSYCHIATRIC Hx Substance Use: No - SURGICAL HISTORY Hx Cholecystectomy: Yes Hx Coronary Artery Bypass Graft: Yes Hx Coronary Stent: Yes - ANESTHESIA Hx Anesthesia: Yes Hx Anesthesia Reactions: No Hx Malignant Hyperthermia: No Meds Allergies/Adverse Reactions: Allergies Allergy/AdvReac Type Severity Reaction Status Date / Time No Known Allergies Allergy Verified 10/03/18 16:11 - Medications Medications: Current Medications Amlodipine Besylate (Norvasc) 10 mg PO DAILY [facility] Last Admin: 01/18/19 09:49 Dose: 10 mg Apixaban (Eliquis) 2.5 mg PO BID [facility] Last Admin: 01/18/19 09:49 Dose: 2.5 mg Artificial Tears (Artificial Tears) 0 ml OU Q4 PRN PRN Reason: Dry eyes Aspirin (Ecotrin) 81 mg PO DAILY [facility] Last Admin: 01/18/19 09:49 Dose: 81 mg Docusate Sodium (Colace) 100 mg PO BID [facility] Last Admin: 01/18/19 09:50 Dose: 100 mg Furosemide (Lasix) 20 mg PO DAILY [facility] Last Admin: 01/18/19 09:49 Dose: 20 mg Insulin Detemir (Levemir) 10 unit SC [facility] Last Admin: 01/17/19 22:48 Dose: 10 units Insulin Human Regular (Novolin R) [address] [facility]; Protocol Last Admin: 01/18/19 08:24 Dose: 1 unit Isosorbide Mononitrate (Imdur Er) 30 mg PO DAILY [facility] Last Admin: 01/18/19 09:49 Dose: 30 mg Lactobacillus Acidophilus (Lactobacillus) 1 cap PO BID [facility] Last Admin: 01/18/19 09:49 Dose: 1 cap Levothyroxine Sodium (Synthroid) 75 mcg PO 0630 [facility] Last Admin: 01/18/19 05:49 Dose: 75 mcg Losartan Potassium (Cozaar) 25 mg PO QPM [facility] Last Admin: 01/17/19 17:50 Dose: 25 mg Metoprolol Succinate (Toprol Xl) 50 mg PO DAILY [facility] Last Admin: 01/18/19 09:49 Dose: 50 mg Pregabalin (Lyrica) 50 mg PO [facility] Last Admin: 01/17/19 22:48 Dose: 50 mg Rosuvastatin Calcium (Crestor) 10 mg PO HS [facility] Last Admin: 01/17/19 22:48 Dose: 10 mg Sevelamer Carbonate (Renvela) 800 mg PO TID [facility] Last Admin: 01/18/19 09:49 Dose: 800 mg Tobramycin/Dexamethasone (Tobradex 0.3%-0.1% Opht Oint) 1 appl OU TID [facility] Last Admin: 01/18/19 10:06 Dose: 1 drop Vitamin B Complex/Vit C/Folic Acid (Nephro-Etelvina) 1 tab PO DAILY [facility] Last Admin: 01/18/19 09:49 Dose: 1 tab Physical Exam - Constitutional Appears: No Acute Distress - Head Exam Head Exam: NORMAL INSPECTION - Eye Exam Eye Exam: Normal appearance - ENT Exam ENT Exam: Mucous Membranes Moist - Neck Exam Neck exam: Positive for: Full Rom - Respiratory Exam Respiratory Exam: Clear to Auscultation Bilateral, Rales (BL lung bases). absent: Wheezes, Respiratory Distress - Cardiovascular Exam Cardiovascular Exam: REGULAR RHYTHM, +S1, +S2. absent: Systolic Murmur - GI/Abdominal Exam GI & Abdominal Exam: Normal Bowel Sounds, Soft. absent: Tenderness - Extremities Exam Extremities exam: Negative for: pedal edema Additional comments: left foot amputee - Neurological Exam Neurological exam: Alert, Oriented x3 - Psychiatric Exam Psychiatric exam: Normal Affect Results - Vital Signs Recent Vital Signs: Last Vital Signs Temp 98.8 F 01/18/19 10:40 Pulse 72 01/17/19 23:20 Resp 20 01/17/19 23:20 BP 164/76 H 01/18/19 09:49 Pulse Ox 98 01/17/19 23:20 - Labs Result Diagrams: 01/18/19 07:17 01/18/19 07:17 Labs: Laboratory Results - last 24 hr 01/17/19 01/17/19 01/17/19 11:17 16:20 21:22 WBC RBC Hgb Hct MCV MCH MCHC RDW Plt Count MPV Neut % (Auto) Lymph % (Auto) Turner % (Auto) Eos % (Auto) Baso % (Auto) Neut # (Auto) Lymph # (Auto) Turner # (Auto) Eos # (Auto) Baso # (Auto) Sodium Potassium Chloride Carbon Dioxide Anion Gap BUN Creatinine Est GFR ( Amer) Est GFR (Non-Af Amer) POC Glucose (mg/dL) 189 H 232 H 250 H Random Glucose Hemoglobin A1c Calcium Iron TIBC % Saturation Total Bilirubin AST ALT Alkaline Phosphatase Total Creatine Kinase CK-MB (Mass) Troponin I Total Protein Albumin Globulin Albumin/Globulin Ratio Triglycerides Cholesterol LDL Cholesterol Direct HDL Cholesterol Vitamin B12 Folate 01/18/19 01/18/19 01/18/19 06:53 07:17 07:17 WBC 6.6 RBC 3.28 L Hgb 10.8 L Hct 31.7 L MCV 96.8 MCH 33.0 H MCHC 34.1 RDW 14.1 Plt Count 197 MPV 10.0 Neut % (Auto) 63.7 Lymph % (Auto) 20.9 Turner % (Auto) 11.2 H Eos % (Auto) 2.6 Baso % (Auto) 1.6 Neut # (Auto) 4.2 Lymph # (Auto) 1.4 Turner # (Auto) 0.7 Eos # (Auto) 0.2 Baso # (Auto) 0.1 Sodium 139 Potassium 3.9 Chloride 95 L Carbon Dioxide 29 Anion Gap 18 BUN 24 H Creatinine 3.3 H Est GFR ( Amer) 16 Est GFR (Non-Af Amer) 13 POC Glucose (mg/dL) 179 H Random Glucose 158 H D Hemoglobin A1c Calcium 9.8 Iron TIBC % Saturation Total Bilirubin 0.5 AST 37 H ALT 27 Alkaline Phosphatase 93 Total Creatine Kinase CK-MB (Mass) Troponin I Total Protein 7.2 Albumin 4.2 Globulin 3.1 Albumin/Globulin Ratio 1.4 Triglycerides Cholesterol LDL Cholesterol Direct HDL Cholesterol Vitamin B12 Folate 01/18/19 01/18/19 01/18/19 07:17 07:17 07:17 WBC RBC Hgb Hct MCV MCH MCHC RDW Plt Count MPV Neut % (Auto) Lymph % (Auto) Turner % (Auto) Eos % (Auto) Baso % (Auto) Neut # (Auto) Lymph # (Auto) Turner # (Auto) Eos # (Auto) Baso # (Auto) Sodium Potassium Chloride Carbon Dioxide Anion Gap BUN Creatinine Est GFR ( Amer) Est GFR (Non-Af Amer) POC Glucose (mg/dL) Random Glucose Hemoglobin A1c 7.7 H Calcium Iron 51 TIBC 235 L % Saturation 22 Total Bilirubin AST ALT Alkaline Phosphatase Total Creatine Kinase 128 CK-MB (Mass) 2.91 Troponin I 4.3300 H* Total Protein Albumin Globulin Albumin/Globulin Ratio Triglycerides 235 H D Cholesterol 161 LDL Cholesterol Direct 54 HDL Cholesterol 50 Vitamin B12 632 Folate 8.9 Assessment & Plan - Assessment and Plan (Free Text) Assessment: Pt is an 79 y/o female with hx of ESRD on HD (//Mon), CAD (NSTEMI in Sep) , HTN, DM, Atrial Fibrillation on Eliquis with pacemaker, Basal cell carcinoma brought to hospital on 01/17 for worsening dyspnea, noted to have significant pulmonary edema on chest xray 2 to fluid overload from poor renal function, had HD session yesterday with 3L removed, and this morning found to have an acute elevation in Troponin (4.33) with EKG showing no significant ST elevation (possible anterior/inferior infarct age undetermined). Pt accepted for ICU transfer for closer monitoring. Pt denies any chest pain or dyspnea and overall appears comfortable. Discussed plan with Nephrology, will start emergent Dialysis (Ultrafiltration). Dr. Talavera, washer off aware. Neuro - AAOx3 Cardio - Troponemia 4.33 (baseline 0.8) - Type I (ACS) vs Type II (Supply-demand mismatch insetting of volume overload) - Cardiology, Dr. Talavera aware - Echo (09/2018): Systolic and Diastolic function normal; LVEF 60% - Will get repeat Echo - Will c/w Medical management for NSTEMI - NSTEMI protocol: ASA, statin, Heparin ggt - Trend troponins q6H - Received Eliquis this am predialysis (which is 60% dialyzable) - C/W Furosemide 20 po daily - C/W home antihypertensive medication - Afibb w/ pacemaker, C/W Metroprolol Resp - Moderate venous congestion on Cxray from this morning - BIPAP ordered; pt often refusing to use - Maintain O2 sat>90% GI - Tolerating diet Renal - ESRD on HD T//Mon - Emergent HD today as per nephrology; Ultrafiltration - Monitor I/O and electrolytes - Makes small urine as per RN - Nephrology on board Endocrine - DM, Hg 7.7, Detemir 10units HS, ISS, Hypoglycemic protocol, Ginette ACHS - Hypothyroid, C/W Home Levothyroxine, TSH pending Skin - Chronic ulcer on anterior chest wall, Pathology form 2017 "Basal Call Carcinoma" - Wound care consult PPX - DVT: Heparin ggt - GI ppx: not indicated Discussed case with Dr. Jessica Holden, PGY2 <Jc Lopez - Last Filed: 01/18/19 15:19> Meds - Medications Medications: Current Medications Amlodipine Besylate (Norvasc) 10 mg PO DAILY [facility] Last Admin: 01/18/19 09:49 Dose: 10 mg Apixaban (Eliquis) 2.5 mg PO BID [facility] Last Admin: 01/18/19 09:49 Dose: 2.5 mg Artificial Tears (Artificial Tears) 0 ml OU Q4 PRN PRN Reason: Dry eyes Aspirin (Ecotrin) 81 mg PO DAILY [facility] Last Admin: 01/18/19 09:49 Dose: 81 mg Docusate Sodium (Colace) 100 mg PO BID [facility] Last Admin: 01/18/19 09:50 Dose: 100 mg Furosemide (Lasix) 20 mg PO DAILY [facility] Last Admin: 01/18/19 09:49 Dose: 20 mg Heparin Sodium/Sodium Chloride (Heparin 44920 Units/250ml 1/2 Normal Saline) 25,000 units in 250 mls @ 8.556 mls/hr IV .Q24H [facility]; Protocol Insulin Detemir (Levemir) 10 unit SC HS [facility] Last Admin: 01/17/19 22:48 Dose: 10 units Insulin Human Regular (Novolin R) 0 unit SC ACHS [facility]; Protocol Last Admin: 01/18/19 08:24 Dose: 1 unit Isosorbide Mononitrate (Imdur Er) 30 mg PO DAILY [facility] Last Admin: 01/18/19 09:49 Dose: 30 mg Lactobacillus Acidophilus (Lactobacillus) 1 cap PO BID [facility] Last Admin: 01/18/19 09:49 Dose: 1 cap Levothyroxine Sodium (Synthroid) 75 mcg PO 0630 [facility] Last Admin: 01/18/19 05:49 Dose: 75 mcg Losartan Potassium (Cozaar) 25 mg PO QPM [facility] Last Admin: 01/17/19 17:50 Dose: 25 mg Metoprolol Succinate (Toprol Xl) 50 mg PO DAILY [facility] Last Admin: 01/18/19 09:49 Dose: 50 mg Pregabalin (Lyrica) 50 mg PO HS [facility] Last Admin: 01/17/19 22:48 Dose: 50 mg Rosuvastatin Calcium (Crestor) 10 mg PO HS [facility] Last Admin: 01/17/19 22:48 Dose: 10 mg Sevelamer Carbonate (Renvela) 800 mg PO TID [facility] Last Admin: 01/18/19 09:49 Dose: 800 mg Tobramycin/Dexamethasone (Tobradex 0.3%-0.1% Opht Oint) 1 appl OU TID [facility] Last Admin: 01/18/19 10:06 Dose: 1 drop Vitamin B Complex/Vit C/Folic Acid (Nephro-Etelvina) 1 tab PO DAILY [facility] Last Admin: 01/18/19 09:49 Dose: 1 tab Results - Vital Signs Recent Vital Signs: Last Vital Signs Temp 98.8 F 01/18/19 10:40 Pulse 72 01/18/19 11:50 Resp 14 01/18/19 11:50 BP 164/65 H 01/18/19 11:32 Pulse Ox 96 01/18/19 11:50 - Labs Result Diagrams: 01/18/19 07:17 01/18/19 07:17 Labs: Laboratory Results - last 24 hr 01/17/19 01/17/19 01/18/19 16:20 21:22 06:53 WBC RBC Hgb Hct MCV MCH MCHC RDW Plt Count MPV Neut % (Auto) Lymph % (Auto) Turner % (Auto) Eos % (Auto) Baso % (Auto) Neut # (Auto) Lymph # (Auto) Turner # (Auto) Eos # (Auto) Baso # (Auto) Sodium Potassium Chloride Carbon Dioxide Anion Gap BUN Creatinine Est GFR ( Amer) Est GFR (Non-Af Amer) POC Glucose (mg/dL) 232 H 250 H 179 H Random Glucose Hemoglobin A1c Calcium Iron TIBC % Saturation Total Bilirubin AST ALT Alkaline Phosphatase Total Creatine Kinase CK-MB (Mass) Troponin I Total Protein Albumin Globulin Albumin/Globulin Ratio Triglycerides Cholesterol LDL Cholesterol Direct HDL Cholesterol Vitamin B12 Folate 01/18/19 01/18/19 01/18/19 07:17 07:17 07:17 WBC 6.6 RBC 3.28 L Hgb 10.8 L Hct 31.7 L MCV 96.8 MCH 33.0 H MCHC 34.1 RDW 14.1 Plt Count 197 MPV 10.0 Neut % (Auto) 63.7 Lymph % (Auto) 20.9 Turner % (Auto) 11.2 H Eos % (Auto) 2.6 Baso % (Auto) 1.6 Neut # (Auto) 4.2 Lymph # (Auto) 1.4 Turner # (Auto) 0.7 Eos # (Auto) 0.2 Baso # (Auto) 0.1 Sodium 139 Potassium 3.9 Chloride 95 L Carbon Dioxide 29 Anion Gap 18 BUN 24 H Creatinine 3.3 H Est GFR ( Amer) 16 Est GFR (Non-Af Amer) 13 POC Glucose (mg/dL) Random Glucose 158 H D Hemoglobin A1c Calcium 9.8 Iron TIBC % Saturation Total Bilirubin 0.5 AST 37 H ALT 27 Alkaline Phosphatase 93 Total Creatine Kinase 128 CK-MB (Mass) 2.91 Troponin I 4.3300 H* Total Protein 7.2 Albumin 4.2 Globulin 3.1 Albumin/Globulin Ratio 1.4 Triglycerides 235 H D Cholesterol 161 LDL Cholesterol Direct 54 HDL Cholesterol 50 Vitamin B12 632 Folate 8.9 01/18/19 01/18/19 07:17 07:17 WBC RBC Hgb Hct MCV MCH MCHC RDW Plt Count MPV Neut % (Auto) Lymph % (Auto) Turner % (Auto) Eos % (Auto) Baso % (Auto) Neut # (Auto) Lymph # (Auto) Turner # (Auto) Eos # (Auto) Baso # (Auto) Sodium Potassium Chloride Carbon Dioxide Anion Gap BUN Creatinine Est GFR ( Amer) Est GFR (Non-Af Amer) POC Glucose (mg/dL) Random Glucose Hemoglobin A1c 7.7 H Calcium Iron 51 TIBC 235 L % Saturation 22 Total Bilirubin AST ALT Alkaline Phosphatase Total Creatine Kinase CK-MB (Mass) Troponin I Total Protein Albumin Globulin Albumin/Globulin Ratio Triglycerides Cholesterol LDL Cholesterol Direct HDL Cholesterol Vitamin B12 Folate Attending/Attestation - Attestation I have personally seen and examined this patient.: Yes I have fully participated in the care of the patient.: Yes I have reviewed all pertinent clinical information: Yes Notes (Text): 01/18/19 15:12 I have seen and examined the patient. Medical records, lab studies, and imaging were reviewed by me and a management plan was formulated on multidisciplinary rounds with resident Dr. Holden. I agree with their documented assessment and plan. Patient was mildly SOB this morning, but there was a marked elevation in Troponin's. Most likely Type 2 strain [place], from CHF exacerbation with pulmonary edema. Patient will get a repeat dialysis (normal T/TH/S), ultrafiltration fluid removal of 3L today. Critical Care Time 35 minutes. Multi-disciplinary rounds were performed with house staff, nursing, speech therapy, respiratory therapy, pharmacy and nutrition with integrated input from the primary team/attending and other consulting services. The documented time is cumulative and includes review of patient data/exams/labs/chart review and examination of the patient on rounds and throughout the day; time is exclusive of any procedures or teaching time.
[2019-01-18] MEDS: Heparin25000 units/250ml 1/2NS 25,000 UNITS/250 ML BAG IV SCH (18:24)
[2019-01-18] MEDS: Insulin Detemir 100 units/ml Vial (Levemir) SC SCH (21:56)
--- NOTE | 2019-01-19 05:14 | PN ---
DATE: 01/18/2019 SUBJECTIVE: The patient is an 79-year-old female. The patient was seen and examined on 01/18/2019. Looking comfortable. No fever, no chills. No hematuria or hematochezia. No headache. No dizziness. No chest pain. No palpitation. PHYSICAL EXAMINATION: VITAL SIGNS: Temperature 97.7, pulse 77, blood pressure 149/71, respiratory rate 20. HEENT: Head: Normocephalic and atraumatic. Eyes, PERRLA. Extraocular muscles are intact. Conjunctivae clear. Nose patent. Mucous membrane moist. NECK: Supple. No carotid bruits. No JVD or thyromegaly. CHEST: Bilateral symmetrical. HEART: S1 and S2 positive. LUNGS: Clear to auscultation. ABDOMEN: Soft. Bowel sounds present. No organomegaly. EXTREMITIES: No edema. No cyanosis. NEUROLOGIC: The patient is awake, alert. Moving all four extremities. No focal deficit. MEDICATIONS: Artificial Tears, Colace, Cozaar, Crestor, Ecotrin, Eliquis, Imdur, lactobacillus, Lasix, Levemir, Lyrica, Norvasc, Renvela, Synthroid, Toprol. LABORATORY DATA: White blood cells 6, hemoglobin 10.8, hematocrit 31.7, platelets 197. Sodium 139, potassium 3.9, BUN 24, creatinine 3.3, glucose 153. Hemoglobin A1c 7.7. Troponin is trending down. ASSESSMENT AND PLAN: Mrs. Elisa Hernández is an 79-year-old female with hypochloremia, renal insufficiency, hypoglycemia, abdominal liver function test, troponin positive, leukocytosis, anemia. Seen by measurer and has hypertensive emergency, pulmonary edema, fluid overload, diabetic chronic kidney disease, hypertensive chronic kidney disease, end-stage renal disease, dependency on hemodialysis three times a week, hyperphosphatemia, secondary hyperparathyroidism, hypertension, basal cell carcinoma. Needed glucose, glycemic control. Getting dialysis. Appreciated Dr. Franki Warren's input. Consult by Dr. Ricki Sotelo for pulmonary edema. The patient's has non-ST elevation myocardial infarction in 09/2018, atrial fibrillation, on Eliquis with pacemaker, basal cell carcinoma, repeat labs. Transfer the patient to the unit. We will follow up. Shantell Lane MD MTDMorales
[2019-01-19] MEDS: Levothyroxine 75 MCG TAB PO SCH (06:50)
[2019-01-19 06:52] LABS: HEMOGLOBIN 10.3 g/dL (11.0-16.0); MEAN CELL VOLUME 97.3 fL (81.0-99.0); MEAN CORPUSCULAR HEMOGLOBIN 32.3 pg (27.0-31.0); MEAN CORPUSCULAR HGB CONC 33.2 g/dL (33.0-37.0); RBC 3.18 Mil/uL (3.80-5.20); RED CELL DISTRIBUTION WIDTH 13.8 % (11.5-14.5); WHITE BLOOD COUNT 6.3 K/uL (4.8-10.8)
[2019-01-19 07:13] LABS: ALB/GLOB RATIO 1.1 (1.0-2.1); ALBUMIN 2.6 g/dL (3.5-5.0); CALCIUM 5.7 mg/dl (8.6-10.4)
[2019-01-19] MEDS: (Novolin R) Insulin Human Regular 100 units/ml vial SC SCH ×4 (08:20→21:56)
--- NOTE | 2019-01-19 09:04 | CP.PCM.PN ---
Subjective - Date & Time of Evaluation Date of Evaluation: 01/19/19 Time of Evaluation: 09:00 - Subjective Subjective: 79 year old female with a PMH of CHF, CAD, ESRD on dialysis TTS presented to [facility] for respiratory distress. She was seen and examined at bedside. Patient was had no acute complaints. She was laying comfortably in bed. Per nursing, patient's labs returned with elevated troponin of 4.33. She denies fever, chills, nausea, vomiting, and cp. CXR 01/18: interval improved aeration in the lungs with improving pulmonary venous congestion. Assessment: 79 year old female with a PMH of CHF, CAD, ESRD on dialysis TTS admitted for respiratory distress. Patient was found to have troponins of 0.4170 and 4.33. R/O acute on chronic CHF exacerbation. Pulmonary congestion likely secondary to CHF. Plan: continue ASA and anticoagulation Bipap as needed Objective - Vital Signs/Intake and Output Vital Signs (last 24 hours): Temp Pulse Resp BP Pulse Ox 97.8 F 61 12 146/59 L 98 01/19/19 04:00 01/19/19 06:00 01/19/19 01:00 01/19/19 06:00 01/19/19 06:00 Intake and Output: 01/19/19 01/19/19 06:59 18:59 Intake Total 250 Output Total 0 Balance 250 0 - Medications Medications: Current Medications Amlodipine Besylate (Norvasc) 10 mg PO DAILY [facility] Last Admin: 01/18/19 09:49 Dose: 10 mg Artificial Tears (Artificial Tears) 0 ml OU Q4 PRN PRN Reason: Dry eyes Aspirin (Ecotrin) 81 mg PO DAILY [facility] Last Admin: 01/18/19 09:49 Dose: 81 mg Docusate Sodium (Colace) 100 mg PO BID [facility] Last Admin: 01/18/19 18:24 Dose: 100 mg Heparin Sodium/Sodium Chloride (Heparin 47978 Units/250ml 1/2 Normal Saline) 25,000 units in 250 mls @ 8.556 mls/hr IV .Q24H [facility]; Protocol Last Titration: 01/19/19 01:40 Dose: 14 units/kg/hr, 9.982 mls/hr Insulin Detemir (Levemir) 10 unit SC HS [facility] Last Admin: 01/18/19 21:56 Dose: 10 units Insulin Human Regular (Novolin R) 0 unit SC ACHS [facility]; Protocol Last Admin: 01/19/19 08:20 Dose: 2 unit Isosorbide Mononitrate (Imdur Er) 30 mg PO DAILY [facility] Last Admin: 01/18/19 09:49 Dose: 30 mg Lactobacillus Acidophilus (Lactobacillus) 1 cap PO BID [facility] Last Admin: 01/18/19 18:24 Dose: 1 cap Levothyroxine Sodium (Synthroid) 75 mcg PO 0630 [facility] Last Admin: 01/19/19 06:50 Dose: 75 mcg Losartan Potassium (Cozaar) 25 mg PO QPM [facility] Last Admin: 01/18/19 18:24 Dose: 25 mg Metoprolol Succinate (Toprol Xl) 50 mg PO DAILY [facility] Last Admin: 01/18/19 09:49 Dose: 50 mg Pregabalin (Lyrica) 50 mg PO HS [facility] Last Admin: 01/18/19 21:56 Dose: 50 mg Rosuvastatin Calcium (Crestor) 10 mg PO HS [facility] Last Admin: 01/18/19 21:56 Dose: 10 mg Sevelamer Carbonate (Renvela) 800 mg PO TID [facility] Last Admin: 01/18/19 18:24 Dose: 800 mg Tobramycin/Dexamethasone (Tobradex 0.3%-0.1% Opht Oint) 1 appl OU TID [facility] Last Admin: 01/18/19 18:26 Dose: 1 drop Vitamin B Complex/Vit C/Folic Acid (Nephro-Etelvina) 1 tab PO DAILY [facility] Last Admin: 01/18/19 09:49 Dose: 1 tab - Labs Labs: 01/19/19 06:46 01/19/19 06:46 PT 13.1 SECONDS (9.7-12.2) H 01/17/19 05:06 INR 1.2 01/17/19 05:06 APTT 39.0 SECONDS (21-34) H 01/19/19 01:06
[2019-01-19] MEDS: Lactobacillus Acidophilus 500 MU Cap PO SCH ×2 (09:32→17:16)
[2019-01-19] MEDS: Multivitamin Vitamin B Complex (Nephro-Vite) Tab PO SCH (09:33)
--- NOTE | 2019-01-19 10:07 | CP.PCM.PN ---
Subjective - Date & Time of Evaluation Date of Evaluation: 01/19/19 Time of Evaluation: 10:03 - Subjective Subjective: Patient seen and examined at bedside. Patient with h/o ESRD on HD with dx of NSTEMI admitted to ICU for pulmonary edema Objective - Vital Signs/Intake and Output Vital Signs (last 24 hours): Temp Pulse Resp BP Pulse Ox 97.8 F 61 12 146/59 L 98 01/19/19 04:00 01/19/19 06:00 01/19/19 01:00 01/19/19 06:00 01/19/19 06:00 Intake and Output: 01/19/19 01/19/19 06:59 18:59 Intake Total 250 Output Total 0 Balance 250 0 - Medications Medications: Current Medications Amlodipine Besylate (Norvasc) 10 mg PO DAILY [facility] Last Admin: 01/18/19 09:49 Dose: 10 mg Artificial Tears (Artificial Tears) 0 ml OU Q4 PRN PRN Reason: Dry eyes Aspirin (Ecotrin) 81 mg PO DAILY [facility] Last Admin: 01/19/19 09:32 Dose: 81 mg Docusate Sodium (Colace) 100 mg PO BID [facility] Last Admin: 01/19/19 09:31 Dose: 100 mg Heparin Sodium/Sodium Chloride (Heparin 17904 Units/250ml 1/2 Normal Saline) 25,000 units in 250 mls @ 8.556 mls/hr IV .Q24H [facility]; Protocol Last Titration: 01/19/19 01:40 Dose: 14 units/kg/hr, 9.982 mls/hr Insulin Detemir (Levemir) 10 unit SC HS [facility] Last Admin: 01/18/19 21:56 Dose: 10 units Insulin Human Regular (Novolin R) 0 unit SC ACHS [facility]; Protocol Last Admin: 01/19/19 08:20 Dose: 2 unit Isosorbide Mononitrate (Imdur Er) 30 mg PO DAILY [facility] Last Admin: 01/18/19 09:49 Dose: 30 mg Lactobacillus Acidophilus (Lactobacillus) 1 cap PO BID [facility] Last Admin: 01/19/19 09:32 Dose: 1 cap Levothyroxine Sodium (Synthroid) 75 mcg PO 0630 [facility] Last Admin: 01/19/19 06:50 Dose: 75 mcg Losartan Potassium (Cozaar) 25 mg PO QPM [facility] Last Admin: 01/18/19 18:24 Dose: 25 mg Metoprolol Succinate (Toprol Xl) 50 mg PO DAILY [facility] Last Admin: 01/18/19 09:49 Dose: 50 mg Pregabalin (Lyrica) 50 mg PO [facility] Last Admin: 01/18/19 21:56 Dose: 50 mg Rosuvastatin Calcium (Crestor) 10 mg PO HS [facility] Last Admin: 01/18/19 21:56 Dose: 10 mg Sevelamer Carbonate (Renvela) 800 mg PO TID [facility] Last Admin: 01/19/19 09:31 Dose: 800 mg Tobramycin/Dexamethasone (Tobradex 0.3%-0.1% Opht Oint) 1 appl OU TID [facility] Last Admin: 01/18/19 18:26 Dose: 1 drop Vitamin B Complex/Vit C/Folic Acid (Nephro-Etelvina) 1 tab PO DAILY [facility] Last Admin: 01/19/19 09:33 Dose: 1 tab - Labs Labs: 01/19/19 06:46 01/19/19 06:46 PT 13.1 SECONDS (9.7-12.2) H 01/17/19 05:06 INR 1.2 01/17/19 05:06 APTT 39.0 SECONDS (21-34) H 01/19/19 01:06 - Constitutional Appears: Well, Non-toxic, No Acute Distress - Head Exam Head Exam: ATRAUMATIC, NORMAL INSPECTION - Eye Exam Eye Exam: EOMI - Respiratory Exam Respiratory Exam: Clear to Ausculation Bilateral, NORMAL BREATHING PATTERN. absent: Rales, Wheezes, Stridor - Cardiovascular Exam Cardiovascular Exam: +S1, +S2, Murmur - GI/Abdominal Exam GI & Abdominal Exam: Soft, Normal Bowel Sounds - Extremities Exam Extremities Exam: Pedal Edema (left foot transmetatarsal amputation, right 2nd toe nail avulsion) - Neurological Exam Neurological Exam: Alert, Awake, Oriented x3 Assessment and Plan - Assessment and Plan (Free Text) Assessment: 79 y/o female with hx of ESRD on HD (//Mon), CAD (NSTEMI in Sep), HTN, DM, Atrial Fibrillation on Eliquis with pacemaker, Basal cell carcinoma brought to hospital on 01/17 for worsening dyspnea, noted to have significant pulmonary edema on chest xray 2/2 to poor renal function, had HD session yesterday with 3L removed, and this morning found to have an acute elevation in Troponin (4.33) with EKG notable for anterior/inferior wall infarct (age undetermined). -NSTEMI/A-fib: rate controlles, continue IV heparin and dual antiplatelet threapy as per cardiolog -PUlmonary edema resolved: s/p HD currerntly on nasal canula -ESRD: continue HD as per renal -PVD: continue antiplatelets an statin -nail avulsion: podiatry eval wounds care -chest wound: no dermatology avialable in ICU, will requst derm eval as outpatient -continue dvt./pud ppx -Patient remains hemodynamically stable
[2019-01-19 10:19] LABS: BASO # 0.1 K/uL (0.0-0.2); BASO % 1.5 % (0.0-2.0); EOS # 0.2 K/uL (0.0-0.7); EOS % 3.1 % (0.0-4.0); HEMOGLOBIN 11.3 g/dL (11.0-16.0); LYMPH # 1.4 K/uL (1.0-4.3); MEAN CELL VOLUME 96.6 fL (81.0-99.0); MEAN CORPUSCULAR HEMOGLOBIN 32.6 pg (27.0-31.0); MEAN CORPUSCULAR HGB CONC 33.8 g/dL (33.0-37.0); MEAN PLATELET VOLUME 10.3 fL (7.2-11.7); MONO # 0.5 K/uL (0.0-0.8); MONO % 7.8 % (0.0-10.0); NEUT # 4.7 K/uL (1.8-7.0); NEUT % 67.6 % (50.0-75.0); NRBC % 0.1 % (0.0-2.0); RBC 3.46 Mil/uL (3.80-5.20); RED CELL DISTRIBUTION WIDTH 13.8 % (11.5-14.5); WHITE BLOOD COUNT 6.9 K/uL (4.8-10.8)
[2019-01-19 10:21] LABS: ALB/GLOB RATIO 1.2 (1.0-2.1); ALBUMIN 4.2 g/dL (3.5-5.0); CALCIUM 9.1 mg/dl (8.6-10.4)
--- NOTE | 2019-01-19 10:33 | CP.PCM.CON ---
<Asa Godfrey - Last Filed: 01/19/19 10:33> Past Patient History - Infectious Disease Hx of Infectious Diseases: None - Past Medical History & Family History Past Medical History?: Yes - Past Social History Smoking Status: Never Smoked - CARDIAC Hx Atrial Fibrillation: Yes Hx Congestive Heart Failure: Yes Hx Hypercholesterolemia: Yes Hx Hypertension: Yes Hx Pacemaker: Yes - PULMONARY Hx Pneumonia: Yes - NEUROLOGICAL Hx Neurological Disorder: Yes - HEENT Hx HEENT Problems: No - RENAL Hx Chronic Kidney Disease: Yes Hx Kidney Stones: Yes - ENDOCRINE/METABOLIC Hx Hyperthyroidism: Yes Hx Hypothyroidism: Yes - HEMATOLOGICAL/ONCOLOGICAL Hx Anemia: Yes Hx Human Immunodeficiency Virus (HIV): No - INTEGUMENTARY Hx Dermatological Problems: No - MUSCULOSKELETAL/RHEUMATOLOGICAL Hx Arthritis: Yes - GASTROINTESTINAL Hx Gall Bladder Disease: Yes - GENITOURINARY/GYNECOLOGICAL Hx Genitourinary Disorders: No - PSYCHIATRIC Hx Substance Use: No - SURGICAL HISTORY Hx Cholecystectomy: Yes Hx Coronary Artery Bypass Graft: Yes Hx Coronary Stent: Yes - ANESTHESIA Hx Anesthesia: Yes Hx Anesthesia Reactions: No Hx Malignant Hyperthermia: No Meds Allergies/Adverse Reactions: Allergies Allergy/AdvReac Type Severity Reaction Status Date / Time No Known Allergies Allergy Verified 10/03/18 16:11 - Medications Medications: Current Medications Amlodipine Besylate (Norvasc) 10 mg PO DAILY [facility] Last Admin: 01/18/19 09:49 Dose: 10 mg Artificial Tears (Artificial Tears) 0 ml OU Q4 PRN PRN Reason: Dry eyes Aspirin (Ecotrin) 81 mg PO DAILY [facility] Last Admin: 01/19/19 09:32 Dose: 81 mg Docusate Sodium (Colace) 100 mg PO BID [facility] Last Admin: 01/19/19 09:31 Dose: 100 mg Heparin Sodium/Sodium Chloride (Heparin 23771 Units/250ml 1/2 Normal Saline) 25,000 units in 250 mls @ 8.556 mls/hr IV .Q24H [facility]; Protocol Last Titration: 01/19/19 01:40 Dose: 14 units/kg/hr, 9.982 mls/hr Insulin Detemir (Levemir) 10 unit SC HS [facility] Last Admin: 01/18/19 21:56 Dose: 10 units Insulin Human Regular (Novolin R) 0 unit SC ACHS [facility]; Protocol Last Admin: 01/19/19 08:20 Dose: 2 unit Isosorbide Mononitrate (Imdur Er) 30 mg PO DAILY [facility] Last Admin: 01/18/19 09:49 Dose: 30 mg Lactobacillus Acidophilus (Lactobacillus) 1 cap PO BID [facility] Last Admin: 01/19/19 09:32 Dose: 1 cap Levothyroxine Sodium (Synthroid) 75 mcg PO 0630 [facility] Last Admin: 01/19/19 06:50 Dose: 75 mcg Losartan Potassium (Cozaar) 25 mg PO QPM [facility] Last Admin: 01/18/19 18:24 Dose: 25 mg Metoprolol Succinate (Toprol Xl) 50 mg PO DAILY [facility] Last Admin: 01/18/19 09:49 Dose: 50 mg Pregabalin (Lyrica) 50 mg PO HS [facility] Last Admin: 01/18/19 21:56 Dose: 50 mg Rosuvastatin Calcium (Crestor) 10 mg PO [facility] Last Admin: 01/18/19 21:56 Dose: 10 mg Sevelamer Carbonate (Renvela) 800 mg PO TID [facility] Last Admin: 01/19/19 09:31 Dose: 800 mg Tobramycin/Dexamethasone (Tobradex 0.3%-0.1% Opht Oint) 1 appl OU TID [facility] Last Admin: 01/18/19 18:26 Dose: 1 drop Vitamin B Complex/Vit C/Folic Acid (Nephro-Etelvina) 1 tab PO DAILY [facility] Last Admin: 01/19/19 09:33 Dose: 1 tab Results - Vital Signs Recent Vital Signs: Last Vital Signs Temp 97.6 F 01/19/19 09:30 Pulse 77 01/19/19 10:15 Resp 16 01/19/19 09:30 BP 122/66 01/19/19 10:15 Pulse Ox 98 01/19/19 09:30 - Labs Result Diagrams: 01/19/19 09:56 01/19/19 09:56 Labs: Laboratory Results - last 24 hr 01/18/19 01/18/19 01/18/19 12:11 15:54 16:23 WBC RBC Hgb Hct MCV MCH MCHC RDW Plt Count MPV Neut % (Auto) Lymph % (Auto) [place] % (Auto) Eos % (Auto) Baso % (Auto) Neut # (Auto) Lymph # (Auto) [place] # (Auto) Eos # (Auto) Baso # (Auto) APTT Sodium Potassium Chloride Carbon Dioxide Anion Gap BUN Creatinine Est GFR ( Amer) Est GFR (Non-Af Amer) POC Glucose (mg/dL) 266 H 212 H Random Glucose Calcium Phosphorus Magnesium Total Bilirubin AST ALT Alkaline Phosphatase Troponin I 2.2700 H* Total Protein Albumin Globulin Albumin/Globulin Ratio [facility] 3rd Generation 01/18/19 01/18/19 01/19/19 21:15 21:35 01:06 WBC RBC Hgb Hct MCV MCH MCHC RDW Plt Count MPV Neut % (Auto) Lymph % (Auto) [place] % (Auto) Eos % (Auto) Baso % (Auto) Neut # (Auto) Lymph # (Auto) [place] # (Auto) Eos # (Auto) Baso # (Auto) APTT 39.0 H Sodium Potassium Chloride Carbon Dioxide Anion Gap BUN Creatinine Est GFR ( Amer) Est GFR (Non-Af Amer) POC Glucose (mg/dL) 287 H Random Glucose Calcium Phosphorus Magnesium Total Bilirubin AST ALT Alkaline Phosphatase Troponin I 2.1000 H* Total Protein Albumin Globulin Albumin/Globulin Ratio [facility] 3rd Generation 01/19/19 01/19/19 01/19/19 06:46 06:46 06:46 WBC 6.3 RBC 3.18 L Hgb 10.3 L Hct 30.9 L MCV 97.3 MCH 32.3 H MCHC 33.2 RDW 13.8 Plt Count 170 MPV 10.0 Neut % (Auto) Lymph % (Auto) [place] % (Auto) Eos % (Auto) Baso % (Auto) Neut # (Auto) Lymph # (Auto) [place] # (Auto) Eos # (Auto) Baso # (Auto) APTT Sodium 115 L* Potassium 3.6 Chloride 88 L Carbon Dioxide 16 L Anion Gap 15 BUN 41 H Creatinine 3.0 H Est GFR ( Amer) 18 Est GFR (Non-Af Amer) 15 POC Glucose (mg/dL) Random Glucose 121 H D Calcium 5.7 L* D Phosphorus 2.7 Magnesium 1.6 Total Bilirubin 0.4 AST 27 ALT 17 Alkaline Phosphatase 43 Troponin I Total Protein 5.1 L Albumin 2.6 L D Globulin 2.5 Albumin/Globulin Ratio 1.1 [facility] 3rd Generation 2.98 01/19/19 01/19/19 01/19/19 09:56 09:56 09:56 WBC 6.9 RBC 3.46 L Hgb 11.3 Hct 33.5 L MCV 96.6 MCH 32.6 H MCHC 33.8 RDW 13.8 Plt Count 209 MPV 10.3 Neut % (Auto) 67.6 Lymph % (Auto) 20.0 [place] % (Auto) 7.8 Eos % (Auto) 3.1 Baso % (Auto) 1.5 Neut # (Auto) 4.7 Lymph # (Auto) 1.4 [place] # (Auto) 0.5 Eos # (Auto) 0.2 Baso # (Auto) 0.1 APTT 87.0 H D Sodium 132 Potassium 3.7 Chloride 93 L Carbon Dioxide 28 Anion Gap 15 BUN 40 H Creatinine 3.4 H Est GFR ( Amer) 16 Est GFR (Non-Af Amer) 13 POC Glucose (mg/dL) Random Glucose 227 H D Calcium 9.1 Phosphorus 2.9 Magnesium 2.0 Total Bilirubin 0.4 AST 27 ALT 20 Alkaline Phosphatase 98 Troponin I Total Protein 7.6 Albumin 4.2 Globulin 3.4 Albumin/Globulin Ratio 1.2 TSH 3rd Generation <Krzysztof Pabon - Last Filed: 01/19/19 11:31> History of Present Illness - History of Present Illness History of Present Illness: Podiatry consult - Dr. Godfrey 79F seen and evaluated at bedside with Dr. Godfrey in ICU. Resting comfortably. States she banged her right second toe at home however nurses state they think she may have also banged her toe during transit. Reports mild pain to the are but denies any color change to toe or pus draining from the nail borders. States the nail fell off and she noticed little bleeding. Denies n/v/f/c/sob and has no other acute complaints. PMHx: CAD, ESRD, HTN, HLD, DM2, hypothyroidism PSHx: CABG, coronary stents, pacemaker, left toe amputations All: NKDA Meds - Medications Medications: Current Medications Amlodipine Besylate (Norvasc) 10 mg PO DAILY [facility] Last Admin: 01/18/19 09:49 Dose: 10 mg Artificial Tears (Artificial Tears) 0 ml OU Q4 PRN PRN Reason: Dry eyes Aspirin (Ecotrin) 81 mg PO DAILY [facility] Last Admin: 01/19/19 09:32 Dose: 81 mg Docusate Sodium (Colace) 100 mg PO BID [facility] Last Admin: 01/19/19 09:31 Dose: 100 mg Heparin Sodium/Sodium Chloride (Heparin 63276 Units/250ml 1/2 Normal Saline) 25,000 units in 250 mls @ 8.556 mls/hr IV .Q24H [facility]; Protocol Last Titration: 01/19/19 01:40 Dose: 14 units/kg/hr, 9.982 mls/hr Insulin Detemir (Levemir) 10 unit SC HS [facility] Last Admin: 01/18/19 21:56 Dose: 10 units Insulin Human Regular (Novolin R) 0 unit SC ACHS [facility]; Protocol Last Admin: 01/19/19 08:20 Dose: 2 unit Isosorbide Mononitrate (Imdur Er) 30 mg PO DAILY [facility] Last Admin: 01/18/19 09:49 Dose: 30 mg Lactobacillus Acidophilus (Lactobacillus) 1 cap PO BID [facility] Last Admin: 01/19/19 09:32 Dose: 1 cap Levothyroxine Sodium (Synthroid) 75 mcg PO 0630 [facility] Last Admin: 01/19/19 06:50 Dose: 75 mcg Losartan Potassium (Cozaar) 25 mg PO QPM [facility] Last Admin: 01/18/19 18:24 Dose: 25 mg Metoprolol Succinate (Toprol Xl) 50 mg PO DAILY [facility] Last Admin: 01/18/19 09:49 Dose: 50 mg Mupirocin (Bactroban Ointment) 1 gm TOP BID [facility] Pregabalin (Lyrica) 50 mg PO HS [facility] Last Admin: 01/18/19 21:56 Dose: 50 mg Rosuvastatin Calcium (Crestor) 10 mg PO [facility] Last Admin: 01/18/19 21:56 Dose: 10 mg Sevelamer Carbonate (Renvela) 800 mg PO TID [facility] Last Admin: 01/19/19 09:31 Dose: 800 mg Tobramycin/Dexamethasone (Tobradex 0.3%-0.1% Opht Oint) 1 appl OU TID [facility] Last Admin: 01/19/19 10:36 Dose: 1 drop Vitamin B Complex/Vit C/Folic Acid (Nephro-Etelvina) 1 tab PO DAILY [facility] Last Admin: 01/19/19 09:33 Dose: 1 tab Physical Exam - Constitutional Appears: Non-toxic - Head Exam Head Exam: ATRAUMATIC - Extremities Exam Additional comments: RLE focused VASC: DP and PT pulses palpable; cap refill <3 seconds to digits; mild edema noted to second digit; temp gradient warm to warm DERM: right second digit nail avulsed, mild erythema to the digit, no darkening or necrosis appreciated, no evidence of gangrene to the digit; hallux toenail lysis appreciated, no drainage or pus noted ORTHO: no pain on palpation of digit NEURO: gross and protective sensation mildly diminished - Neurological Exam Neurological exam: Alert, Oriented x3 - Psychiatric Exam Psychiatric exam: Normal Affect Results - Vital Signs Recent Vital Signs: Last Vital Signs Temp 97.6 F 01/19/19 09:30 Pulse 77 01/19/19 10:15 Resp 16 01/19/19 09:30 BP 135/60 01/19/19 10:30 Pulse Ox 98 01/19/19 09:30 - Labs Result Diagrams: 01/19/19 09:56 01/19/19 09:56 Labs: Laboratory Results - last 24 hr 01/18/19 01/18/19 01/18/19 12:11 15:54 16:23 WBC RBC Hgb Hct MCV MCH MCHC RDW Plt Count MPV Neut % (Auto) Lymph % (Auto) [place] % (Auto) Eos % (Auto) Baso % (Auto) Neut # (Auto) Lymph # (Auto) [place] # (Auto) Eos # (Auto) Baso # (Auto) APTT Sodium Potassium Chloride Carbon Dioxide Anion Gap BUN Creatinine Est GFR ( Amer) Est GFR (Non-Af Amer) POC Glucose (mg/dL) 266 H 212 H Random Glucose Calcium Phosphorus Magnesium Total Bilirubin AST ALT Alkaline Phosphatase Troponin I 2.2700 H* Total Protein Albumin Globulin Albumin/Globulin Ratio TSH 3rd Generation 01/18/19 01/18/19 01/19/19 21:15 21:35 01:06 WBC RBC Hgb Hct MCV MCH MCHC RDW Plt Count MPV Neut % (Auto) Lymph % (Auto) [place] % (Auto) Eos % (Auto) Baso % (Auto) Neut # (Auto) Lymph # (Auto) [place] # (Auto) Eos # (Auto) Baso # (Auto) APTT 39.0 H Sodium Potassium Chloride Carbon Dioxide Anion Gap BUN Creatinine Est GFR ( Amer) Est GFR (Non-Af Amer) POC Glucose (mg/dL) 287 H Random Glucose Calcium Phosphorus Magnesium Total Bilirubin AST ALT Alkaline Phosphatase Troponin I 2.1000 H* Total Protein Albumin Globulin Albumin/Globulin Ratio TSH 3rd Generation 01/19/19 01/19/19 01/19/19 06:46 06:46 06:46 WBC 6.3 RBC 3.18 L Hgb 10.3 L Hct 30.9 L MCV 97.3 MCH 32.3 H MCHC 33.2 RDW 13.8 Plt Count 170 MPV 10.0 Neut % (Auto) Lymph % (Auto) [place] % (Auto) Eos % (Auto) Baso % (Auto) Neut # (Auto) Lymph # (Auto) [place] # (Auto) Eos # (Auto) Baso # (Auto) APTT Sodium 115 L* Potassium 3.6 Chloride 88 L Carbon Dioxide 16 L Anion Gap 15 BUN 41 H Creatinine 3.0 H Est GFR ( Amer) 18 Est GFR (Non-Af Amer) 15 POC Glucose (mg/dL) Random Glucose 121 H D Calcium 5.7 L* D Phosphorus 2.7 Magnesium 1.6 Total Bilirubin 0.4 AST 27 ALT 17 Alkaline Phosphatase 43 Troponin I Total Protein 5.1 L Albumin 2.6 L D Globulin 2.5 Albumin/Globulin Ratio 1.1 TSH 3rd Generation 2.98 01/19/19 01/19/19 01/19/19 09:56 09:56 09:56 WBC 6.9 RBC 3.46 L Hgb 11.3 Hct 33.5 L MCV 96.6 MCH 32.6 H MCHC 33.8 RDW 13.8 Plt Count 209 MPV 10.3 Neut % (Auto) 67.6 Lymph % (Auto) 20.0 [place] % (Auto) 7.8 Eos % (Auto) 3.1 Baso % (Auto) 1.5 Neut # (Auto) 4.7 Lymph # (Auto) 1.4 [place] # (Auto) 0.5 Eos # (Auto) 0.2 Baso # (Auto) 0.1 APTT 87.0 H D Sodium 132 Potassium 3.7 Chloride 93 L Carbon Dioxide 28 Anion Gap 15 BUN 40 H Creatinine 3.4 H Est GFR ( Amer) 16 Est GFR (Non-Af Amer) 13 POC Glucose (mg/dL) Random Glucose 227 H D Calcium 9.1 Phosphorus 2.9 Magnesium 2.0 Total Bilirubin 0.4 AST 27 ALT 20 Alkaline Phosphatase 98 Troponin I Total Protein 7.6 Albumin 4.2 Globulin 3.4 Albumin/Globulin Ratio 1.2 TSH 3rd Generation Assessment & Plan - Assessment and Plan (Free Text) Assessment: 79F with right second digit traumatic wound Plan: Patient seen and evaluated with Dr. Bekah LAZCANO, WBC 6.9 Bactroban ordered Wound cleansed with sterile saline and dressed with xeroform and dry sterile dressing Nursing communication for dressing application - bactroban and dry sterile d ressing BID to right second digit Podiatry to cut right hallux nail with nail nipper Will continue to follow Thank you for the consult - Date & Time Date: 01/19/19 Time: 11:31
[2019-01-19] MEDS: Tobramycin/Dexamethasone OPHT OINT OU SCH ×3 (10:36→17:24)
--- NOTE | 2019-01-19 10:45 | CARD ---
APPROVED REPORT Date of service: 01/17/2019 EKG Measurement Heart [id number] <Conclusion> Normal sinus rhythm Inferior infarct, age undetermined Cannot rule out Anterior infarct, age undetermined Abnormal ECG
--- NOTE | 2019-01-19 11:59 | CP.PCM.CON ---
History of Present Illness - History of Present Illness History of Present Illness: 79 year old female with a PMH of CHF, CAD, atrial fibrillation, ESRD on dialysis TTS presented to [facility] for respiratory distress. She was seen and examined at bedside. Patient was had no acute complaints. At the time of examination she is having dialysis and feeling weak. Review of Systems - Constitutional Constitutional: As Per HPI - EENT Eyes: As Per HPI - Cardiovascular Cardiovascular: As Per HPI - Respiratory Respiratory: As Per HPI - Neurological Neurological: As Per HPI Past Patient History - Infectious Disease Hx of Infectious Diseases: None - Past Medical History & Family History Past Medical History?: Yes - Past Social History Smoking Status: Never Smoked - CARDIAC Hx Atrial Fibrillation: Yes Hx Congestive Heart Failure: Yes Hx Hypercholesterolemia: Yes Hx Hypertension: Yes Hx Pacemaker: Yes - PULMONARY Hx Pneumonia: Yes - NEUROLOGICAL Hx Neurological Disorder: Yes - HEENT Hx HEENT Problems: No - RENAL Hx Chronic Kidney Disease: Yes Hx Kidney Stones: Yes - ENDOCRINE/METABOLIC Hx Hyperthyroidism: Yes Hx Hypothyroidism: Yes - HEMATOLOGICAL/ONCOLOGICAL Hx Anemia: Yes Hx Human Immunodeficiency Virus (HIV): No - INTEGUMENTARY Hx Dermatological Problems: No - MUSCULOSKELETAL/RHEUMATOLOGICAL Hx Arthritis: Yes - GASTROINTESTINAL Hx Gall Bladder Disease: Yes - GENITOURINARY/GYNECOLOGICAL Hx Genitourinary Disorders: No - PSYCHIATRIC Hx Substance Use: No - SURGICAL HISTORY Hx Cholecystectomy: Yes Hx Coronary Artery Bypass Graft: Yes Hx Coronary Stent: Yes - ANESTHESIA Hx Anesthesia: Yes Hx Anesthesia Reactions: No Hx Malignant Hyperthermia: No Meds Allergies/Adverse Reactions: Allergies Allergy/AdvReac Type Severity Reaction Status Date / Time No Known Allergies Allergy Verified 10/03/18 16:11 - Medications Medications: Current Medications Amlodipine Besylate (Norvasc) 10 mg PO DAILY [facility] Last Admin: 01/18/19 09:49 Dose: 10 mg Artificial Tears (Artificial Tears) 0 ml OU Q4 PRN PRN Reason: Dry eyes Aspirin (Ecotrin) 81 mg PO DAILY [facility] Last Admin: 01/19/19 09:32 Dose: 81 mg Docusate Sodium (Colace) 100 mg PO BID [facility] Last Admin: 01/19/19 09:31 Dose: 100 mg Heparin Sodium/Sodium Chloride (Heparin 75006 Units/250ml 1/2 Normal Saline) 25,000 units in 250 mls @ 8.556 mls/hr IV .Q24H [facility]; Protocol Last Titration: 01/19/19 01:40 Dose: 14 units/kg/hr, 9.982 mls/hr Insulin Detemir (Levemir) 10 unit SC [facility] Last Admin: 01/18/19 21:56 Dose: 10 units Insulin Human Regular (Novolin R) 0 unit SC [facility]; Protocol Last Admin: 01/19/19 08:20 Dose: 2 unit Isosorbide Mononitrate (Imdur Er) 30 mg PO DAILY [facility] Last Admin: 01/18/19 09:49 Dose: 30 mg Lactobacillus Acidophilus (Lactobacillus) 1 cap PO BID [facility] Last Admin: 01/19/19 09:32 Dose: 1 cap Levothyroxine Sodium (Synthroid) 75 mcg PO 0630 [facility] Last Admin: 01/19/19 06:50 Dose: 75 mcg Losartan Potassium (Cozaar) 25 mg PO QPM [facility] Last Admin: 01/18/19 18:24 Dose: 25 mg Metoprolol Succinate (Toprol Xl) 50 mg PO DAILY [facility] Last Admin: 01/18/19 09:49 Dose: 50 mg Mupirocin (Bactroban Ointment) 1 gm TOP BID [facility] Pregabalin (Lyrica) 50 mg PO [facility] Last Admin: 01/18/19 21:56 Dose: 50 mg Rosuvastatin Calcium (Crestor) 10 mg PO [facility] Last Admin: 01/18/19 21:56 Dose: 10 mg Sevelamer Carbonate (Renvela) 800 mg PO TID [facility] Last Admin: 01/19/19 09:31 Dose: 800 mg Tobramycin/Dexamethasone (Tobradex 0.3%-0.1% Opht Oint) 1 appl OU TID [facility] Last Admin: 01/19/19 10:36 Dose: 1 drop Vitamin B Complex/Vit C/Folic Acid (Nephro-Etelvina) 1 tab PO DAILY [facility] Last Admin: 01/19/19 09:33 Dose: 1 tab Physical Exam - Head Exam Head Exam: NORMOCEPHALIC - Neck Exam Neck exam: Positive for: Normal Inspection - Respiratory Exam Respiratory Exam: Decreased Breath Sounds - Cardiovascular Exam Cardiovascular Exam: REGULAR RHYTHM, Systolic Murmur - Extremities Exam Extremities exam: Positive for: pedal edema - Neurological Exam Neurological exam: Alert Results - Vital Signs Recent Vital Signs: Last Vital Signs Temp 97.6 F 01/19/19 09:30 Pulse 66 01/19/19 11:30 Resp 16 01/19/19 10:00 BP 117/69 01/19/19 11:30 Pulse Ox 99 01/19/19 10:00 - Labs Result Diagrams: 01/22/19 08:09 01/22/19 08:09 Labs: Laboratory Results - last 24 hr 01/18/19 01/18/19 01/18/19 12:11 15:54 16:23 WBC RBC Hgb Hct MCV MCH MCHC RDW Plt Count MPV Neut % (Auto) Lymph % (Auto) Bowman % (Auto) Eos % (Auto) Baso % (Auto) Neut # (Auto) Lymph # (Auto) Bowman # (Auto) Eos # (Auto) Baso # (Auto) APTT Sodium Potassium Chloride Carbon Dioxide Anion Gap BUN Creatinine Est GFR ( Amer) Est GFR (Non-Af Amer) POC Glucose (mg/dL) 266 H 212 H Random Glucose Calcium Phosphorus Magnesium Total Bilirubin AST ALT Alkaline Phosphatase Troponin I 2.2700 H* Total Protein Albumin Globulin Albumin/Globulin Ratio [facility] 3rd Generation 01/18/19 01/18/19 01/19/19 21:15 21:35 01:06 WBC RBC Hgb Hct MCV MCH MCHC RDW Plt Count MPV Neut % (Auto) Lymph % (Auto) Bowman % (Auto) Eos % (Auto) Baso % (Auto) Neut # (Auto) Lymph # (Auto) Bowman # (Auto) Eos # (Auto) Baso # (Auto) APTT 39.0 H Sodium Potassium Chloride Carbon Dioxide Anion Gap BUN Creatinine Est GFR ( Amer) Est GFR (Non-Af Amer) POC Glucose (mg/dL) 287 H Random Glucose Calcium Phosphorus Magnesium Total Bilirubin AST ALT Alkaline Phosphatase Troponin I 2.1000 H* Total Protein Albumin Globulin Albumin/Globulin Ratio TSH 3rd Generation 01/19/19 01/19/19 01/19/19 06:46 06:46 06:46 WBC 6.3 RBC 3.18 L Hgb 10.3 L Hct 30.9 L MCV 97.3 MCH 32.3 H MCHC 33.2 RDW 13.8 Plt Count 170 MPV 10.0 Neut % (Auto) Lymph % (Auto) Bowman % (Auto) Eos % (Auto) Baso % (Auto) Neut # (Auto) Lymph # (Auto) Bowman # (Auto) Eos # (Auto) Baso # (Auto) APTT Sodium 115 L* Potassium 3.6 Chloride 88 L Carbon Dioxide 16 L Anion Gap 15 BUN 41 H Creatinine 3.0 H Est GFR ( Amer) 18 Est GFR (Non-Af Amer) 15 POC Glucose (mg/dL) Random Glucose 121 H D Calcium 5.7 L* D Phosphorus 2.7 Magnesium 1.6 Total Bilirubin 0.4 AST 27 ALT 17 Alkaline Phosphatase 43 Troponin I Total Protein 5.1 L Albumin 2.6 L D Globulin 2.5 Albumin/Globulin Ratio 1.1 TSH 3rd Generation 2.98 01/19/19 01/19/19 01/19/19 09:56 09:56 09:56 WBC 6.9 RBC 3.46 L Hgb 11.3 Hct 33.5 L MCV 96.6 MCH 32.6 H MCHC 33.8 RDW 13.8 Plt Count 209 MPV 10.3 Neut % (Auto) 67.6 Lymph % (Auto) 20.0 Bowman % (Auto) 7.8 Eos % (Auto) 3.1 Baso % (Auto) 1.5 Neut # (Auto) 4.7 Lymph # (Auto) 1.4 Bowman # (Auto) 0.5 Eos # (Auto) 0.2 Baso # (Auto) 0.1 APTT 87.0 H D Sodium 132 Potassium 3.7 Chloride 93 L Carbon Dioxide 28 Anion Gap 15 BUN 40 H Creatinine 3.4 H Est GFR ( Amer) 16 Est GFR (Non-Af Amer) 13 POC Glucose (mg/dL) Random Glucose 227 H D Calcium 9.1 Phosphorus 2.9 Magnesium 2.0 Total Bilirubin 0.4 AST 27 ALT 20 Alkaline Phosphatase 98 Troponin I Total Protein 7.6 Albumin 4.2 Globulin 3.4 Albumin/Globulin Ratio 1.2 TSH 3rd Generation Assessment & Plan (1) CHF (congestive heart failure) Assessment and Plan: Patient with ESRD on dialysis. LV systolic function is normal. Most likely secondary to fluid overload. Extra dialysis. Fluid restriction. Status: Chronic Priority: Medium (2) Elevated troponin Assessment and Plan: Multiple risks for CAD, Treat as ACS. DAPT. heparin and possible cardiac cath on Monday. Status: Acute
[2019-01-19] MEDS: Metoprolol Succinate 50 mg XL Tab PO SCH (14:08)
[2019-01-19] MEDS: Heparin25000 units/250ml 1/2NS 25,000 UNITS/250 ML BAG IV SCH ×2 (19:48→22:14)
[2019-01-19] MEDS: Insulin Detemir 100 units/ml Vial (Levemir) SC SCH (21:54)
[2019-01-20 06:17] LABS: BASO # 0.1 K/uL (0.0-0.2); BASO % 1.1 % (0.0-2.0); EOS # 0.2 K/uL (0.0-0.7); EOS % 2.4 % (0.0-4.0); HEMOGLOBIN 11.1 g/dL (11.0-16.0); LYMPH # 1.9 K/uL (1.0-4.3); LYMPH % 21.2 % (20.0-40.0); MEAN CELL VOLUME 96.9 fL (81.0-99.0); MEAN CORPUSCULAR HEMOGLOBIN 32.2 pg (27.0-31.0); MEAN CORPUSCULAR HGB CONC 33.3 g/dL (33.0-37.0); MEAN PLATELET VOLUME 10.4 fL (7.2-11.7); MONO # 0.8 K/uL (0.0-0.8); MONO % 9.5 % (0.0-10.0); NEUT # 5.8 K/uL (1.8-7.0); NEUT % 65.8 % (50.0-75.0); NRBC % 0.1 % (0.0-2.0); RBC 3.43 Mil/uL (3.80-5.20); RED CELL DISTRIBUTION WIDTH 13.7 % (11.5-14.5); WHITE BLOOD COUNT 8.8 K/uL (4.8-10.8)
[2019-01-20 06:39] LABS: ALB/GLOB RATIO 1.3 (1.0-2.1); ALBUMIN 4.2 g/dL (3.5-5.0); CALCIUM 9.9 mg/dl (8.6-10.4)
[2019-01-20] MEDS: Levothyroxine 75 MCG TAB PO SCH (06:42)
[2019-01-20] MEDS: (Novolin R) Insulin Human Regular 100 units/ml vial SC SCH ×4 (07:37→21:13)
[2019-01-20] MEDS: Multivitamin Vitamin B Complex (Nephro-Vite) Tab PO SCH (09:45)
[2019-01-20] MEDS: Lactobacillus Acidophilus 500 MU Cap PO SCH ×2 (09:45→17:15)
[2019-01-20] MEDS: Metoprolol Succinate 50 mg XL Tab PO SCH (09:45)
[2019-01-20] MEDS: Tobramycin/Dexamethasone OPHT OINT OU SCH ×3 (09:47→17:14)
--- NOTE | 2019-01-20 10:05 | CP.PCM.PN ---
Subjective - Date & Time of Evaluation Date of Evaluation: 01/20/19 Time of Evaluation: 09:00 - Subjective Subjective: NO acute events overnight Objective - Vital Signs/Intake and Output Vital Signs (last 24 hours): Temp Pulse Resp BP Pulse Ox 98.3 F 75 15 120/53 L 98 01/20/19 07:30 01/20/19 09:40 01/20/19 09:40 01/20/19 08:45 01/20/19 09:20 Intake and Output: 01/20/19 01/20/19 06:59 18:59 Intake Total 398 385.5 Output Total 0 Balance 398 385.5 - Medications Medications: Current Medications Amlodipine Besylate (Norvasc) 10 mg PO DAILY [facility] Last Admin: 01/20/19 09:46 Dose: 10 mg Artificial Tears (Artificial Tears) 0 ml OU Q4 PRN PRN Reason: Dry eyes Aspirin (Ecotrin) 81 mg PO DAILY [facility] Last Admin: 01/19/19 09:32 Dose: 81 mg Clopidogrel Bisulfate (Plavix) 75 mg PO DAILY [facility] Last Admin: 01/20/19 09:45 Dose: 75 mg Docusate Sodium (Colace) 100 mg PO BID [facility] Last Admin: 01/20/19 09:45 Dose: 100 mg Heparin Sodium/Sodium Chloride (Heparin 31835 Units/250ml 1/2 Normal Saline) 25,000 units in 250 mls @ 8.556 mls/hr IV .Q24H [facility]; Protocol Last Admin: 01/19/19 22:14 Dose: 12 units/kg/hr, 8.556 mls/hr Insulin Detemir (Levemir) 10 unit SC HS [facility] Last Admin: 01/19/19 21:54 Dose: 10 units Insulin Human Regular (Novolin R) 0 unit SC ACHS [facility]; Protocol Last Admin: 01/20/19 07:37 Dose: 1 unit Isosorbide Mononitrate (Imdur Er) 30 mg PO DAILY [facility] Last Admin: 01/20/19 09:45 Dose: 30 mg Lactobacillus Acidophilus (Lactobacillus) 1 cap PO BID [facility] Last Admin: 01/20/19 09:45 Dose: 1 cap Levothyroxine Sodium (Synthroid) 75 mcg PO 0630 [facility] Last Admin: 01/20/19 06:42 Dose: 75 mcg Losartan Potassium (Cozaar) 25 mg PO QPM [facility] Last Admin: 01/19/19 17:17 Dose: 25 mg Metoprolol Succinate (Toprol Xl) 50 mg PO DAILY [facility] Last Admin: 01/20/19 09:45 Dose: 50 mg Mupirocin (Bactroban Ointment) 1 gm TOP BID [facility] Last Admin: 01/20/19 09:46 Dose: 1 applic Pregabalin (Lyrica) 50 mg PO [facility] Last Admin: 01/19/19 21:54 Dose: 50 mg Rosuvastatin Calcium (Crestor) 10 mg PO HS [facility] Last Admin: 01/19/19 21:55 Dose: 10 mg Sevelamer Carbonate (Renvela) 800 mg PO TID [facility] Last Admin: 01/20/19 09:45 Dose: 800 mg Tobramycin/Dexamethasone (Tobradex 0.3%-0.1% Opht Oint) 1 appl OU TID [facility] Last Admin: 01/20/19 09:47 Dose: 1 drop Vitamin B Complex/Vit C/Folic Acid (Nephro-Etelvina) 1 tab PO DAILY [facility] Last Admin: 01/20/19 09:45 Dose: 1 tab - Labs Labs: 01/20/19 06:12 01/20/19 06:09 PT 13.1 SECONDS (9.7-12.2) H 01/17/19 05:06 INR 1.2 01/17/19 05:06 APTT 77.0 SECONDS (21-34) H D 01/20/19 06:12 - Head Exam Head Exam: ATRAUMATIC, NORMAL INSPECTION - Eye Exam Eye Exam: EOMI - ENT Exam ENT Exam: Mucous Membranes Moist - Respiratory Exam Respiratory Exam: Clear to Ausculation Bilateral, NORMAL BREATHING PATTERN - Cardiovascular Exam Cardiovascular Exam: +S1, +S2 - GI/Abdominal Exam GI & Abdominal Exam: Soft, Normal Bowel Sounds. absent: Tenderness - Neurological Exam Neurological Exam: Alert, Awake - Skin Skin Exam: Normal Color, Warm Assessment and Plan - Assessment and Plan (Free Text) Assessment: 79 y/o female with hx of ESRD on HD (T//Mon), CAD (NSTEMI in Sep), HTN, DM, Atrial Fibrillation on Eliquis with pacemaker, Basal cell carcinoma brought to hospital on 01/17 for worsening dyspnea, noted to have significant pulmonary edema on chest xray 2/2 to poor renal function, s/p multiple HD -NSTEMI/A-fib: rate controlled, continue as per cardiology -PUlmonary edema resolved: s/p HD currerntly on nasal canula -ESRD: continue HD as per renal -PVD: continue antiplatelets an statin -nail avulsion: f/u podiatry -chest wound:will request derm eval as outpatient -continue dvt./pud ppx -Patient remains hemodynamically stable
--- NOTE | 2019-01-20 11:37 | CP.PCM.PN ---
Subjective - Date & Time of Evaluation Date of Evaluation: 01/20/19 Time of Evaluation: 11:34 - Subjective Subjective: Podiatry progress note - Dr. Godfrey 79F seen and evaluated at bedside. Resting comfortably. Reports mild pain to right foot second and first digit nail beds. Denies pain to LE and calf. Denies acute events overnight and n/v/f/c/sob. Has no other acute complaints. Objective - Vital Signs/Intake and Output Vital Signs (last 24 hours): Temp Pulse Resp BP Pulse Ox 98.3 F 73 12 104/52 L 100 01/20/19 07:30 01/20/19 11:10 01/20/19 11:10 01/20/19 11:07 01/20/19 11:10 Intake and Output: 01/20/19 01/20/19 06:59 18:59 Intake Total 398 402.5 Output Total 0 Balance 398 402.5 - Medications Medications: Current Medications Amlodipine Besylate (Norvasc) 10 mg PO DAILY [facility] Last Admin: 01/20/19 09:46 Dose: 10 mg Artificial Tears (Artificial Tears) 0 ml OU Q4 PRN PRN Reason: Dry eyes Aspirin (Ecotrin) 81 mg PO DAILY [facility] Last Admin: 01/19/19 09:32 Dose: 81 mg Clopidogrel Bisulfate (Plavix) 75 mg PO DAILY [facility] Last Admin: 01/20/19 09:45 Dose: 75 mg Docusate Sodium (Colace) 100 mg PO BID [facility] Last Admin: 01/20/19 09:45 Dose: 100 mg Heparin Sodium/Sodium Chloride (Heparin 13681 Units/250ml 1/2 Normal Saline) 25,000 units in 250 mls @ 8.556 mls/hr IV .Q24H [facility]; Protocol Last Admin: 01/19/19 22:14 Dose: 12 units/kg/hr, 8.556 mls/hr Insulin Detemir (Levemir) 10 unit SC HS [facility] Last Admin: 01/19/19 21:54 Dose: 10 units Insulin Human Regular (Novolin R) 0 unit SC ACHS [facility]; Protocol Last Admin: 01/20/19 11:15 Dose: 4 unit Isosorbide Mononitrate (Imdur Er) 30 mg PO DAILY [facility] Last Admin: 01/20/19 09:45 Dose: 30 mg Lactobacillus Acidophilus (Lactobacillus) 1 cap PO BID [facility] Last Admin: 01/20/19 09:45 Dose: 1 cap Levothyroxine Sodium (Synthroid) 75 mcg PO 0630 [facility] Last Admin: 01/20/19 06:42 Dose: 75 mcg Losartan Potassium (Cozaar) 25 mg PO QPM [facility] Last Admin: 01/19/19 17:17 Dose: 25 mg Metoprolol Succinate (Toprol Xl) 50 mg PO DAILY [facility] Last Admin: 01/20/19 09:45 Dose: 50 mg Mupirocin (Bactroban Ointment) 1 gm TOP BID [facility] Last Admin: 01/20/19 09:46 Dose: 1 applic Pregabalin (Lyrica) 50 mg PO HS [facility] Last Admin: 01/19/19 21:54 Dose: 50 mg Rosuvastatin Calcium (Crestor) [address] [facility] Last Admin: 01/19/19 21:55 Dose: 10 mg Sevelamer Carbonate (Renvela) 800 mg PO TID [facility] Last Admin: 01/20/19 09:45 Dose: 800 mg Tobramycin/Dexamethasone (Tobradex 0.3%-0.1% Opht Oint) 1 appl OU TID [facility] Last Admin: 01/20/19 09:47 Dose: 1 drop Vitamin B Complex/Vit C/Folic Acid (Nephro-Etelvina) 1 tab PO DAILY [facility] Last Admin: 01/20/19 09:45 Dose: 1 tab - Labs Labs: 01/20/19 06:12 01/20/19 06:09 PT 13.1 SECONDS (9.7-12.2) H 01/17/19 05:06 INR 1.2 01/17/19 05:06 APTT 77.0 SECONDS (21-34) H D 01/20/19 06:12 - Constitutional Appears: Non-toxic - Head Exam Head Exam: ATRAUMATIC - Extremities Exam Additional comments: RLE focused VASC: DP and PT pulses palpable; cap refill <3 seconds to digits; mild edema noted to second digit; temp gradient warm to warm DERM: right second digit nail avulsed, mild erythema to the digit, no darkening or necrosis appreciated, no evidence of gangrene to the digit; hallux toenail lysis appreciated, no drainage or pus noted, mild bleeding at base appreciated ORTHO: no pain on palpation of digit NEURO: gross and protective sensation mildly diminished - Neurological Exam Neurological Exam: Alert, Awake, Oriented x3 - Psychiatric Exam Psychiatric exam: Normal Affect Assessment and Plan - Assessment and Plan (Free Text) Assessment: 79F with right second digit traumatic wound Plan: Patient seen and evaluated Discussed with Dr. Bekah LAZCANO, WBC 8.8 Wound cleansed with sterile saline and dressed with bactroban and dry sterile dressing applied Right hallux nail to be cut tomorrow Nursing communication for dressing application - bactroban and dry sterile dressing BID to right second digit No plan for intervention Will continue to follow
--- NOTE | 2019-01-20 12:16 | CP.PCM.PN ---
Subjective - Date & Time of Evaluation Date of Evaluation: 01/20/19 Time of Evaluation: 12:13 - Subjective Subjective: Sitting in chair, out of bed. I am OK. Objective - Vital Signs/Intake and Output Vital Signs (last 24 hours): Temp Pulse Resp BP Pulse Ox 97.3 F L 73 12 104/52 L 100 01/20/19 11:44 01/20/19 11:10 01/20/19 11:10 01/20/19 11:07 01/20/19 11:10 Intake and Output: 01/20/19 01/20/19 06:59 18:59 Intake Total 398 402.5 Output Total 0 Balance 398 402.5 - Medications Medications: Current Medications Amlodipine Besylate (Norvasc) 10 mg PO DAILY [facility] Last Admin: 01/20/19 09:46 Dose: 10 mg Artificial Tears (Artificial Tears) 0 ml OU Q4 PRN PRN Reason: Dry eyes Aspirin (Ecotrin) 81 mg PO DAILY [facility] Last Admin: 01/19/19 09:32 Dose: 81 mg Clopidogrel Bisulfate (Plavix) 75 mg PO DAILY [facility] Last Admin: 01/20/19 09:45 Dose: 75 mg Docusate Sodium (Colace) 100 mg PO BID [facility] Last Admin: 01/20/19 09:45 Dose: 100 mg Heparin Sodium/Sodium Chloride (Heparin 22347 Units/250ml 1/2 Normal Saline) 25,000 units in 250 mls @ 8.556 mls/hr IV .Q24H [facility]; Protocol Last Admin: 01/19/19 22:14 Dose: 12 units/kg/hr, 8.556 mls/hr Insulin Detemir (Levemir) 10 unit SC HS [facility] Last Admin: 01/19/19 21:54 Dose: 10 units Insulin Human Regular (Novolin R) 0 unit SC ACHS [facility]; Protocol Last Admin: 01/20/19 11:15 Dose: 4 unit Isosorbide Mononitrate (Imdur Er) 30 mg PO DAILY [facility] Last Admin: 01/20/19 09:45 Dose: 30 mg Lactobacillus Acidophilus (Lactobacillus) 1 cap PO BID [facility] Last Admin: 01/20/19 09:45 Dose: 1 cap Levothyroxine Sodium (Synthroid) 75 mcg PO 0630 [facility] Last Admin: 01/20/19 06:42 Dose: 75 mcg Losartan Potassium (Cozaar) 25 mg PO QPM [facility] Last Admin: 01/19/19 17:17 Dose: 25 mg Metoprolol Succinate (Toprol Xl) 50 mg PO DAILY [facility] Last Admin: 01/20/19 09:45 Dose: 50 mg Mupirocin (Bactroban Ointment) 1 gm TOP BID [facility] Last Admin: 01/20/19 09:46 Dose: 1 applic Pregabalin (Lyrica) 50 mg PO [facility] Last Admin: 01/19/19 21:54 Dose: 50 mg Rosuvastatin Calcium (Crestor) 10 mg PO HS [facility] Last Admin: 01/19/19 21:55 Dose: 10 mg Sevelamer Carbonate (Renvela) 800 mg PO TID [facility] Last Admin: 01/20/19 09:45 Dose: 800 mg Tobramycin/Dexamethasone (Tobradex 0.3%-0.1% Opht Oint) 1 appl OU TID [facility] Last Admin: 01/20/19 09:47 Dose: 1 drop Vitamin B Complex/Vit C/Folic Acid (Nephro-Etelvina) 1 tab PO DAILY [facility] Last Admin: 01/20/19 09:45 Dose: 1 tab - Labs Labs: 01/20/19 06:12 01/20/19 06:09 PT 13.1 SECONDS (9.7-12.2) H 01/17/19 05:06 INR 1.2 01/17/19 05:06 APTT 77.0 SECONDS (21-34) H D 01/20/19 06:12 - Head Exam Head Exam: NORMOCEPHALIC - Neck Exam Neck Exam: Normal Inspection - Respiratory Exam Respiratory Exam: NORMAL BREATHING PATTERN - Cardiovascular Exam Cardiovascular Exam: Irregular Rhythm, Murmur Assessment and Plan (1) CHF (congestive heart failure) Assessment & Plan: Improving, Continue Dialysis. Fluid restriction to 1.5 L/Day. Status: Chronic (2) Elevated troponin Assessment & Plan: ASC, DAPT , Hold cath for now. WBC elevated.. Etiology? Status: Acute
[2019-01-20] MEDS: Heparin25000 units/250ml 1/2NS 25,000 UNITS/250 ML BAG IV SCH (16:19)
--- NOTE | 2019-01-20 17:24 | CP.PCM.PN ---
Subjective - Date & Time of Evaluation Date of Evaluation: 01/20/19 Time of Evaluation: 17:23 - Subjective Subjective: Nephrology Consultation Note: Assessment: critical HTN emergency and pulm edema, fluid overload elevated troponin Diabetic chronic Kidney Disease (E11.22) Hypertensive Chronic Kidney Disease (I12.0) End stage renal disease (N18.6) dependence on hemodialysis (Z99.2) (TTS) via AVF Anemia (D64.9), Hyperphosphatemia (E83.39), Secondary Hyperparathyroidism (E21.1), HTN (I12.0) hx of CVA basal cell ca Plan: HD TTS schedule as ordered. Continue with Nephrovite 1 tab/day. PRBC as needed for anemia. not on MISA with dialysis as last Hb >10 Continue with phos binders, monitor phos levels BP control with meds as ordered. Further work up/management as per primary team Dose meds/antibiotics (if needed) for ESRD status. Physical Examination: General Appearance: better appearing co-operative . Vitals reviewed and noted as below Head; Atraumatic, normocephalic ENT: no ulcers no thrush. Tongue is midline. Oropharynx: no rash or ulcers. EYES: Pupils are equal, round and reactive to light accommodation. Eye muscles and extraocular movement intact. Sclera is anicteric. Neck; supple no lymphadenopathy, no thyromegaly or bruit Lungs: improved respiratory rate/effort. Breath sounds bilateral reduced at bases and with crackle Heart: Normal rate. s1s2 normal. No rub or gallop. dressing over basal cell CA excision over chest Extremities: no edema. No varicose veins Neurological: Patient is alert, awake and has chronic residual weakness due to stroke in past. has some aphasia as well Skin: Warm and dry. Normal turgor. No rash Abdomen: Abdomen is soft. Bowel sounds +. Objective - Vital Signs/Intake and Output Vital Signs (last 24 hours): Temp Pulse Resp BP Pulse Ox 98.1 F 70 11 L 120/48 L 96 01/20/19 16:00 01/20/19 17:00 01/20/19 17:00 01/20/19 15:25 01/20/19 15:25 Intake and Output: 01/20/19 01/20/19 06:59 18:59 Intake Total 398 402.5 Output Total 0 Balance 398 402.5 - Medications Medications: Current Medications Amlodipine Besylate (Norvasc) 10 mg PO DAILY [facility] Last Admin: 01/20/19 09:46 Dose: 10 mg Artificial Tears (Artificial Tears) 0 ml OU Q4 PRN PRN Reason: Dry eyes Aspirin (Ecotrin) 81 mg PO DAILY [facility] Last Admin: 01/20/19 13:20 Dose: 81 mg Bacitracin (Bacitracin) 0 gm TOP BID [facility] Stop: 01/27/19 10:01 Clopidogrel Bisulfate (Plavix) 75 mg PO DAILY [facility] Last Admin: 01/20/19 09:45 Dose: 75 mg Docusate Sodium (Colace) 100 mg PO BID [facility] Last Admin: 01/20/19 17:15 Dose: 100 mg Heparin Sodium/Sodium Chloride (Heparin 98094 Units/250ml 1/2 Normal Saline) 25,000 units in 250 mls @ 8.556 mls/hr IV .Q24H [facility]; Protocol Last Admin: 01/20/19 16:19 Dose: Not Given Insulin Detemir (Levemir) [address] [facility] Last Admin: 01/19/19 21:54 Dose: 10 units Insulin Human Regular (Novolin R) 0 unit SC ACHS [facility]; Protocol Last Admin: 01/20/19 17:15 Dose: 1 unit Isosorbide Mononitrate (Imdur Er) 30 mg PO DAILY [facility] Last Admin: 01/20/19 09:45 Dose: 30 mg Lactobacillus Acidophilus (Lactobacillus) 1 cap PO BID [facility] Last Admin: 01/20/19 17:15 Dose: 1 cap Levothyroxine Sodium (Synthroid) 75 mcg PO 0630 [facility] Last Admin: 01/20/19 06:42 Dose: 75 mcg Losartan Potassium (Cozaar) 25 mg PO QPM [facility] Last Admin: 01/20/19 17:15 Dose: 25 mg Metoprolol Succinate (Toprol Xl) 50 mg PO DAILY [facility] Last Admin: 01/20/19 09:45 Dose: 50 mg Mupirocin (Bactroban Ointment) 1 gm TOP BID [facility] Last Admin: 01/20/19 17:22 Dose: 1 applic Pregabalin (Lyrica) [address] [facility] Last Admin: 01/19/19 21:54 Dose: 50 mg Rosuvastatin Calcium (Crestor) [address] [facility] Last Admin: 01/19/19 21:55 Dose: 10 mg Sevelamer Carbonate (Renvela) 800 mg PO TID [facility] Last Admin: 01/20/19 17:16 Dose: 800 mg Tobramycin/Dexamethasone (Tobradex 0.3%-0.1% Opht Oint) 1 appl OU TID [facility] Last Admin: 01/20/19 17:14 Dose: 1 drop Vitamin B Complex/Vit C/Folic Acid (Nephro-Etelvina) 1 tab PO DAILY [facility] Last Admin: 01/20/19 09:45 Dose: 1 tab - Labs Labs: 01/20/19 06:12 01/20/19 06:09 PT 13.1 SECONDS (9.7-12.2) H 01/17/19 05:06 INR 1.2 01/17/19 05:06 APTT 77.0 SECONDS (21-34) H D 01/20/19 06:12
[2019-01-20] MEDS: Insulin Detemir 100 units/ml Vial (Levemir) SC SCH (21:12)
--- NOTE | 2019-01-21 01:30 | PN ---
DATE: 01/20/2019 SUBJECTIVE: The patient is an 79-year-old male. The patient is seen in the ICU. Looking comfortable. Having breakfast. No fever. No chills. No hematuria or hematochezia. No headache or dizziness. No chest pain or palpitations. The patient is a very poor historian. PHYSICAL EXAMINATION: VITAL SIGNS: Temperature 98.1, pulse 70, respiratory rate 11, blood pressure 120/48, pulse oximetry 96%. HEENT: Head: Normocephalic, atraumatic. Eyes: PERRLA. Extraocular muscles intact. Conjunctivae clear. Nose patent. Mucosal membranes moist. NECK: Supple. No carotid bruit. No JVD or thyromegaly. CHEST: Bilaterally symmetrical. HEART: S1 and S2 positive. LUNGS: Clear to auscultation. ABDOMEN: Soft. Bowel sounds present. No organomegaly. EXTREMITIES: No edema. No cyanosis. NEUROLOGICAL: The patient is awake and alert. Moving all four extremities. No focal deficits. MEDICATIONS: Amlodipine, Artificial Tears, aspirin, bacitracin, Plavix, Colace, insulin, lactobacillus, losartan, metoprolol, and Lyrica. LABORATORY DATA: White blood cells 8.8, hemoglobin 11.1, hematocrit 33.2, platelets 220. Sodium 135, potassium 4.6, BUN 39, creatinine 3.9, glucose 184. ASSESSMENT AND PLAN: Mrs Elisa Hernández is an 79-year-old lady with anemia, hypochloremia, renal insufficiency, hyperglycemia, hypertensive emergency and pulmonary edema, fluid overload, elevated troponin, diabetic chronic kidney disease, dialysis dependence, hyperphosphatemia, secondary hyperparathyroidism, cerebrovascular accident, and basal cell cancer. Continue present treatment. Senior Water/Wastewater Engineer is on the case. Gastrointestinal and deep venous thrombosis prophylaxis. Seen by Dr. Mary Ellen Talavera, label stamper. Congestive heart failure, improving with dialysis. Fluid restriction 1.5 L per day. Repeat labs. We will follow up. Shantell Lane MD
--- NOTE | 2019-01-21 03:24 | PN ---
DATE: 01/19/2019 SUBJECTIVE: The patient is an 79-year-old female. The patient was seen and examined at bedside on 01/19/2019, looking comfortable. The patient was seen in the ICU. No fever. No chills. No headache or dizziness. No chest pain or palpitation. The patient is a very poor historian. PHYSICAL EXAMINATION: VITAL SIGNS: Temperature 97.8, pulse 81, respiratory rate 20, blood pressure 146/59, pulse oximetry 98. HEENT: Head is normocephalic and atraumatic. Eyes, PERRLA. Extraocular muscles intact. Conjunctivae clear. Nose patent. Mucous membranes moist. NECK: Supple. No carotid bruits. No JVD. No thyromegaly. CHEST: Bilaterally symmetrical. HEART: S1 and S2 positive. LUNGS: Clear to auscultation. ABDOMEN: Soft. Bowel sounds present. No organomegaly. EXTREMITIES: No edema. No cyanosis. NEUROLOGIC: The patient is awake, alert, moving all four extremities. No focal deficit. MEDICATIONS: Amlodipine, aspirin, Colace, insulin, metoprolol, Crestor. LABORATORY DATA: White blood cells 6.3, hemoglobin 10.2, hematocrit 30.9, platelets 170. Sodium 115, potassium 3.6, BUN 41, creatinine 3, glucose 121. ASSESSMENT AND PLAN: Ms. Elisa Hernández is an 79-year-old lady with hyponatremia; hypochloremia; renal insufficiency, getting dialysis; hyperglycemia; anemia; has non-ST elevation myocardial infarction; pulmonary edema; atrial fibrillation, on Eliquis with pacemaker; basal cell carcinoma; came with dyspnea, mainly due to pulmonary edema, getting dialysis. Has acute elevation of troponin 4.33 with EKG notable for anterior/inferior wall infarct, age undetermined according to Cardiology. Continue heparin and dual-antiplatelet therapy as per Cardiology. Pulmonary edema got better after dialysis. She is on nasal cannula. Peripheral vascular disease, continuous antiplatelet therapy. Podiatry is on the case for nail avulsion. Continue deep venous thrombosis and gastrointestinal prophylaxis. We will follow up. Shantell Lane MD
[2019-01-21] MEDS: Levothyroxine 75 MCG TAB PO SCH (06:03)
[2019-01-21] MEDS: (Novolin R) Insulin Human Regular 100 units/ml vial SC SCH ×4 (08:28→21:49)
[2019-01-21] MEDS: Heparin25000 units/250ml 1/2NS 25,000 UNITS/250 ML BAG IV SCH (08:29)
[2019-01-21] MEDS: Multivitamin Vitamin B Complex (Nephro-Vite) Tab PO SCH (09:52)
[2019-01-21] MEDS: Metoprolol Succinate 50 mg XL Tab PO SCH (09:52)
[2019-01-21] MEDS: Bacitracin Ointment 30 GM TUBE TOP SCH ×3 (09:53→19:42)
[2019-01-21] MEDS: Tobramycin/Dexamethasone OPHT OINT OU SCH ×3 (09:53→17:39)
[2019-01-21] MEDS: Lactobacillus Acidophilus 500 MU Cap PO SCH ×2 (09:59→17:42)
--- NOTE | 2019-01-21 11:34 | CP.PCM.PN ---
Subjective - Date & Time of Evaluation Date of Evaluation: 01/21/19 Time of Evaluation: 11:34 - Subjective Subjective: Podiatry progress note - Dr. Godfrey 79F seen and evaluated this AM. NAD. Patient offers no new complaints to right lower extremity. RLE dressing clean/dry/intact. Denies n/v/f/d/c/sob/ibarra/cp. Objective - Vital Signs/Intake and Output Vital Signs (last 24 hours): Temp Pulse Resp BP Pulse Ox 97.4 F L 61 18 145/64 100 01/21/19 08:00 01/21/19 10:00 01/21/19 08:00 01/21/19 10:00 01/21/19 08:00 Intake and Output: 01/21/19 01/21/19 06:59 18:59 Intake Total 636 250 Balance 636 250 - Medications Medications: Current Medications Amlodipine Besylate (Norvasc) 10 mg PO DAILY [facility] Last Admin: 01/21/19 09:52 Dose: 10 mg Artificial Tears (Artificial Tears) 0 ml OU Q4 PRN PRN Reason: Dry eyes Aspirin (Ecotrin) 81 mg PO DAILY [facility] Last Admin: 01/21/19 09:59 Dose: 81 mg Bacitracin (Bacitracin) 0 gm TOP BID [facility] Stop: 01/27/19 10:01 Clopidogrel Bisulfate (Plavix) 75 mg PO DAILY [facility] Last Admin: 01/21/19 09:52 Dose: 75 mg Docusate Sodium (Colace) 100 mg PO BID [facility] Last Admin: 01/21/19 09:52 Dose: 100 mg Heparin Sodium/Sodium Chloride (Heparin 83433 Units/250ml 1/2 Normal Saline) 25,000 units in 250 mls @ 8.556 mls/hr IV .Q24H [facility]; Protocol Last Admin: 01/21/19 08:29 Dose: 12 units/kg/hr, 8.556 mls/hr Insulin Detemir (Levemir) 10 unit SC HS [facility] Last Admin: 01/20/19 21:12 Dose: 10 units Insulin Human Regular (Novolin R) 0 unit SC ACHS [facility]; Protocol Last Admin: 01/21/19 08:28 Dose: 1 unit Isosorbide Mononitrate (Imdur Er) 30 mg PO DAILY [facility] Last Admin: 01/21/19 09:52 Dose: 30 mg Lactobacillus Acidophilus (Lactobacillus) 1 cap PO BID [facility] Last Admin: 01/21/19 09:59 Dose: 1 cap Levothyroxine Sodium (Synthroid) 75 mcg PO 0630 [facility] Last Admin: 01/21/19 06:03 Dose: 75 mcg Losartan Potassium (Cozaar) 25 mg PO QPM [facility] Last Admin: 01/20/19 17:15 Dose: 25 mg Metoprolol Succinate (Toprol Xl) 50 mg PO DAILY [facility] Last Admin: 01/21/19 09:52 Dose: 50 mg Mupirocin (Bactroban Ointment) 1 gm TOP BID [facility] Last Admin: 01/21/19 09:53 Dose: 1 applic Pregabalin (Lyrica) [address] [facility] Last Admin: 01/20/19 21:12 Dose: 50 mg Rosuvastatin Calcium (Crestor) 10 mg PO HS [facility] Last Admin: 01/20/19 21:12 Dose: 10 mg Sevelamer Carbonate (Renvela) 800 mg PO TID [facility] Last Admin: 01/21/19 09:52 Dose: 800 mg Tobramycin/Dexamethasone (Tobradex 0.3%-0.1% Opht Oint) 1 appl OU TID [facility] Last Admin: 01/21/19 09:53 Dose: 1 drop Vitamin B Complex/Vit C/Folic Acid (Nephro-Etelvina) 1 tab PO DAILY [facility] Last Admin: 01/21/19 09:52 Dose: 1 tab - Labs Labs: 01/20/19 06:12 01/20/19 06:09 PT 13.1 SECONDS (9.7-12.2) H 01/17/19 05:06 INR 1.2 01/17/19 05:06 APTT 75.0 SECONDS (21-34) H 01/21/19 05:47 - Constitutional Appears: Non-toxic, No Acute Distress - Extremities Exam Additional comments: RLE focused VASC: DP and PT pulses palpable; cap refill <3 seconds to digits; mild edema noted to second digit, resolving; temp gradient warm to warm DERM: right second digit nail avulsed with sanguinous drainage present, mild er ythema to the digit - resolving, no darkening or necrosis appreciated, no evidence of gangrene to the digit; hallux toenail lysis appreciated, sanguinous drainage present, ORTHO: no pain on palpation of digit NEURO: gross and protective sensation mildly diminished - Neurological Exam Neurological Exam: Alert, Awake, Oriented x3 - Psychiatric Exam Psychiatric exam: Normal Affect, Normal Mood Assessment and Plan - Assessment and Plan (Free Text) Assessment: 79F with right second digit traumatic wound s/p traumatic avulsion and right hallux traumatic partial nail avulsion Plan: Patient seen and evaluated alongside attending, Dr. Bekah LAZCANO Continue local wound care: saline cleanse, bactroban, dry sterile dressing BID No plan for surgical intervention; no clinical sign for infection Podiatry will continue to follow
--- NOTE | 2019-01-21 12:14 | CP.PCM.PN ---
Subjective - Date & Time of Evaluation Date of Evaluation: 01/21/19 Time of Evaluation: 12:13 - Subjective Subjective: Nephrology Consultation Note: Assessment: stable HTN emergency and pulm edema, fluid overload: IMPROVED elevated troponin Diabetic chronic Kidney Disease (E11.22) Hypertensive Chronic Kidney Disease (I12.0) End stage renal disease (N18.6) dependence on hemodialysis (Z99.2) (TTS) via AVF Anemia (D64.9), Hyperphosphatemia (E83.39), Secondary Hyperparathyroidism (E21.1), HTN (I12.0) hx of CVA basal cell ca Plan: Will plan for HD TTS schedule as ordered. Continue with Nephrovite 1 tab/day. PRBC as needed for anemia. not on MISA with dialysis as last Hb >10 Continue with phos binders, last phos level -3.7 BP control with meds as ordered. Patient on RAAS katie as low dose losartan Glycemic control, Dialysis consistent diet Further work up/management as per primary team Dose meds/antibiotics (if needed) for ESRD status. Avoid fleets enema/magnesium based laxatives. cardiology following pulmonary following Thanks for allowing me to participate in care of your patient. Will follow patient with you. Please call if any Qs. had d/w team Dr Franki Warren Office: [phone] Chief Complaint;SOB HPI: Pt is a 79 F with hx of ESRD on hemodialysis (TTS) via AVF, last dialysis tue, chronic anemia, hyperphosphatemia, secondary hyperparathyroidism, Diabetes Mellitus, hypertension, hx of CVA, NSTEMI basal cell ca presented with complaints of SOB with HTN urgency and pulm edema. required BiPAP support in ER Renal consult requested for ESRD management. pt not able to communicate much due to her hx of CVA. ROS: Cardiovascular: No chest pain. Pulmonary:improved shortness of breath denies cough pt not able to communicate much due to her hx of CVA. but rest all other negative as obtained as much possible Physical Examination: General Appearance: better appearing co-operative . Vitals reviewed and noted as below Head; Atraumatic, normocephalic ENT: no ulcers no thrush. Tongue is midline. Oropharynx: no rash or ulcers. EYES: Pupils are equal, round and reactive to light accommodation. Eye muscles and extraocular movement intact. Sclera is anicteric. Neck; supple no lymphadenopathy, no thyromegaly or bruit Lungs: normal respiratory rate/effort. Breath sounds bilateral rimproved Heart: Normal rate. s1s2 normal. No rub or gallop. dressing over basal cell CA excision over chest Extremities: no edema. No varicose veins Neurological: Patient is alert, awake and has chronic residual weakness due to stroke in past. has some aphasia as well Skin: Warm and dry. Normal turgor. No rash. Palpitation: Normal elasticity for age Abdomen: Abdomen is soft. Bowel sounds +. There is no abdominal tenderness, no guarding/rigidity or organomegaly Psych: limited insight and normal affect/mood MSK: no joint tenderness or swelling. Digits and nails normal, no deformity : kidney or bladder not palpable Access: AVF. Labs/imaging reviewed. Past medical history, past surgical history, family history, social history, allergy reviewed and noted as below Family Hx: no hx of CKD. Non contributory Objective - Vital Signs/Intake and Output Vital Signs (last 24 hours): Temp Pulse Resp BP Pulse Ox 97.4 F L 61 18 145/64 100 01/21/19 08:00 01/21/19 10:00 01/21/19 08:00 01/21/19 10:00 01/21/19 08:00 Intake and Output: 01/21/19 01/21/19 06:59 18:59 Intake Total 636 250 Balance 636 250 - Medications Medications: Current Medications Amlodipine Besylate (Norvasc) 10 mg PO DAILY [facility] Last Admin: 01/21/19 09:52 Dose: 10 mg Artificial Tears (Artificial Tears) 0 ml OU Q4 PRN PRN Reason: Dry eyes Aspirin (Ecotrin) 81 mg PO DAILY [facility] Last Admin: 01/21/19 09:59 Dose: 81 mg Bacitracin (Bacitracin) 0 gm TOP BID [facility] Stop: 01/27/19 10:01 Clopidogrel Bisulfate (Plavix) 75 mg PO DAILY [facility] Last Admin: 01/21/19 09:52 Dose: 75 mg Docusate Sodium (Colace) 100 mg PO BID [facility] Last Admin: 01/21/19 09:52 Dose: 100 mg Heparin Sodium/Sodium Chloride (Heparin 32498 Units/250ml 1/2 Normal Saline) 25,000 units in 250 mls @ 8.556 mls/hr IV .Q24H [facility]; Protocol Last Admin: 01/21/19 08:29 Dose: 12 units/kg/hr, 8.556 mls/hr Insulin Detemir (Levemir) 10 unit SC HS [facility] Last Admin: 01/20/19 21:12 Dose: 10 units Insulin Human Regular (Novolin R) 0 unit SC [facility]; Protocol Last Admin: 01/21/19 08:28 Dose: 1 unit Isosorbide Mononitrate (Imdur Er) 30 mg PO DAILY [facility] Last Admin: 01/21/19 09:52 Dose: 30 mg Lactobacillus Acidophilus (Lactobacillus) 1 cap PO BID [facility] Last Admin: 01/21/19 09:59 Dose: 1 cap Levothyroxine Sodium (Synthroid) 75 mcg PO 0630 [facility] Last Admin: 01/21/19 06:03 Dose: 75 mcg Losartan Potassium (Cozaar) 25 mg PO QPM [facility] Last Admin: 01/20/19 17:15 Dose: 25 mg Metoprolol Succinate (Toprol Xl) 50 mg PO DAILY [facility] Last Admin: 01/21/19 09:52 Dose: 50 mg Mupirocin (Bactroban Ointment) 1 gm TOP BID [facility] Last Admin: 01/21/19 09:53 Dose: 1 applic Pregabalin (Lyrica) 50 mg PO [facility] Last Admin: 01/20/19 21:12 Dose: 50 mg Rosuvastatin Calcium (Crestor) 10 mg PO [facility] Last Admin: 01/20/19 21:12 Dose: 10 mg Sevelamer Carbonate (Renvela) 800 mg PO TID [facility] Last Admin: 01/21/19 09:52 Dose: 800 mg Tobramycin/Dexamethasone (Tobradex 0.3%-0.1% Opht Oint) 1 appl OU TID [facility] Last Admin: 01/21/19 09:53 Dose: 1 drop Vitamin B Complex/Vit C/Folic Acid (Nephro-Etelvina) 1 tab PO DAILY [facility] Last Admin: 01/21/19 09:52 Dose: 1 tab - Labs Labs: 01/20/19 06:12 01/20/19 06:09 PT 13.1 SECONDS (9.7-12.2) H 01/17/19 05:06 INR 1.2 01/17/19 05:06 APTT 75.0 SECONDS (21-34) H 01/21/19 05:47
--- NOTE | 2019-01-21 17:40 | CP.PCM.PN ---
Subjective - Date & Time of Evaluation Date of Evaluation: 01/21/19 Time of Evaluation: 10:20 - Subjective Subjective: patient seen and examined Lying comfortably in no distress Denies any chest pain Denies cough Objective - Vital Signs/Intake and Output Vital Signs (last 24 hours): Temp Pulse Resp BP Pulse Ox 97.9 F 61 18 107/64 98 01/21/19 16:00 01/21/19 16:00 01/21/19 16:00 01/21/19 16:00 01/21/19 16:00 Intake and Output: 01/21/19 01/21/19 06:59 18:59 Intake Total 636 250 Output Total 100 Balance 636 150 - Medications Medications: Current Medications Amlodipine Besylate (Norvasc) 10 mg PO DAILY [facility] Last Admin: 01/21/19 09:52 Dose: 10 mg Artificial Tears (Artificial Tears) 0 ml OU Q4 PRN PRN Reason: Dry eyes Aspirin (Ecotrin) 81 mg PO DAILY [facility] Last Admin: 01/21/19 09:59 Dose: 81 mg Bacitracin (Bacitracin) 0 gm TOP BID [facility] Stop: 01/27/19 10:01 Last Admin: 01/21/19 09:53 Dose: 1 applic Clopidogrel Bisulfate (Plavix) 75 mg PO DAILY [facility] Last Admin: 01/21/19 09:52 Dose: 75 mg Docusate Sodium (Colace) 100 mg PO BID [facility] Last Admin: 01/21/19 09:52 Dose: 100 mg Insulin Detemir (Levemir) 10 unit SC HS [facility] Last Admin: 01/20/19 21:12 Dose: 10 units Insulin Human Regular (Novolin R) 0 unit SC ACHS [facility]; Protocol Last Admin: 01/21/19 12:29 Dose: 3 unit Isosorbide Mononitrate (Imdur Er) 30 mg PO DAILY [facility] Last Admin: 01/21/19 09:52 Dose: 30 mg Lactobacillus Acidophilus (Lactobacillus) 1 cap PO BID [facility] Last Admin: 01/21/19 09:59 Dose: 1 cap Levothyroxine Sodium (Synthroid) 75 mcg PO 0630 [facility] Last Admin: 01/21/19 06:03 Dose: 75 mcg Losartan Potassium (Cozaar) 25 mg PO QPM [facility] Last Admin: 01/20/19 17:15 Dose: 25 mg Metoprolol Succinate (Toprol Xl) 50 mg PO DAILY [facility] Last Admin: 01/21/19 09:52 Dose: 50 mg Mupirocin (Bactroban Ointment) 1 gm TOP BID [facility] Last Admin: 01/21/19 09:53 Dose: 1 applic Pregabalin (Lyrica) 50 mg PO HS [facility] Last Admin: 01/20/19 21:12 Dose: 50 mg Rosuvastatin Calcium (Crestor) 10 mg PO HS [facility] Last Admin: 01/20/19 21:12 Dose: 10 mg Sevelamer Carbonate (Renvela) 800 mg PO TID [facility] Last Admin: 01/21/19 13:02 Dose: 800 mg Tobramycin/Dexamethasone (Tobradex 0.3%-0.1% Opht Oint) 1 appl OU TID [facility] Last Admin: 01/21/19 13:03 Dose: 1 drop Vitamin B Complex/Vit C/Folic Acid (Nephro-Etelvina) 1 tab PO DAILY [facility] Last Admin: 01/21/19 09:52 Dose: 1 tab - Labs Labs: 01/20/19 06:12 01/20/19 06:09 PT 13.1 SECONDS (9.7-12.2) H 01/17/19 05:06 INR 1.2 01/17/19 05:06 APTT 75.0 SECONDS (21-34) H 01/21/19 05:47 - Head Exam Head Exam: ATRAUMATIC, NORMOCEPHALIC - ENT Exam ENT Exam: Mucous Membranes Moist - Neck Exam Neck Exam: Normal Inspection - Respiratory Exam Respiratory Exam: Rales - Cardiovascular Exam Cardiovascular Exam: REGULAR RHYTHM Assessment and Plan (1) CKD (chronic kidney disease) stage V requiring chronic dialysis Status: Acute (2) Elevated troponin Status: Acute
--- NOTE | 2019-01-21 20:22 | PN ---
DATE: 01/21/2019 SUBJECTIVE: The patient is an 79-year-old female. The patient was seen and examined at the bedside on 01/21/2019. Looking comfortable. No fever. No chill. No hematuria or hematochezia. No headache or dizziness. No chest pain. No palpitation. PHYSICAL EXAMINATION VITAL SIGNS: Temperature 97.4, pulse 61, respiratory rate 18, blood pressure 145/64, and pulse oxymetry 100%. HEENT: Head; normocephalic and atraumatic. Eyes; PERRLA. Extraocular muscles intact. Conjunctivae clear. Nose patent. Mucous membranes moist. NECK: Supple. No carotid bruit. No JVD or thyromegaly. CHEST: Bilaterally symmetrical. HEART: S1 and S2 positive. LUNGS: Clear to auscultation. ABDOMEN: Soft. Bowel sounds present. No organomegaly. EXTREMITIES: No edema. No cyanosis. NEUROLOGICAL: The patient is awake and alert. Moving all four extremities. No focal deficits. MEDICATIONS: Amlodipine, artificial tears, aspirin, bacitracin, Plavix, Colace, insulin, lactobacillus, and levothyroxine. LABORATORY DATA: White blood cells 8.8, hemoglobin 11.1, hematocrit 33.2, platelets 220. Sodium 135, potassium 4.6, BUN 39, creatinine 3.9, glucose 184. ASSESSMENT AND PLAN: Ms. Elisa Hernández is an 79-year-old lady with hypochloremia, renal insufficiency, uncontrolled diabetes mellitus, anemia, history of congestive heart failure, hypertensive chronic kidney disease, hyperphosphatemia, secondary hyperparathyroidism, and basal cell cancer. PLAN: Continue present treatment. Repeat labs. Continue phosphorus binders, glycemic control, renal diet. Gastrointestinal and deep venous thrombosis prophylaxes. Shantell Lane MD
[2019-01-21] MEDS: Insulin Detemir 100 units/ml Vial (Levemir) SC SCH (21:48)
[2019-01-22] MEDS: Levothyroxine 75 MCG TAB PO SCH (07:01)
--- NOTE | 2019-01-22 07:19 | CARD ---
APPROVED REPORT Date of service: 01/21/2019 EXAM: LIMITED Two-dimensional and echocardiogram with Doppler and color Doppler. Other Information Quality : GoodRhythm : INDICATION LV Function:Systolic Congestive Heart Failure 2D DIMENSIONS IVSd1.9 (0.7-1.1cm)LVDd3.4 (3.9-5.9cm) PWd1.3 (0.7-1.1cm)LA Laawjj10 (18-58mL) LVDs1.9 (2.5-4.0cm)FS (%) 46.1 % LVEF (%)78.6 (>50%)LVEF (Hughes's)58.62 % IVC0.00 cm Aortic Valve AI P 1/2 [id number] Mitral Valve MV E Sgmywggx90.9cm/sMV A Cxdoclum524.1cm/sE/A ratio0.7 WYWM472.02 cm/s TDI Lateral E' Peak V5.64cm/sMedial E' Peak V3.58cm/sE/Lateral E'16.5 E/Medial E'25.9 Tricuspid Valve TR Peak Nqtrpwbu462ug/sTR Peak Gr.[id number] LEFT VENTRICLE The left ventricle is normal size. There is moderate concentric left ventricular hypertrophy. Left ventricle systolic function is normal. The Ejection Fraction is 60-65%. There is normal LV segmental wall motion. Transmitral Doppler flow pattern is Grade I-abnormal relaxation pattern. There is no ventricular septal defect visualized. RIGHT VENTRICLE The right ventricle is normal size. The right ventricular systolic function is normal. ATRIA The left atrium is mildly dilated. The right atrium size is normal. AORTIC VALVE The aortic valve is mildly sclerotic. The aortic valve is tri-cuspid. There is mild aortic regurgitation. There is no aortic valvular stenosis. MITRAL VALVE The mitral valve is normal in structure. There is no evidence of mitral valve prolapse. Mitral regurgitation is mild. TRICUSPID VALVE The tricuspid valve is normal in structure. There is trace tricuspid regurgitation. There is no pulmonary hypertension. PULMONIC VALVE The pulmonic valve is not well visualized. There is no pulmonic valvular regurgitation. GREAT VESSELS The aortic root is normal in size. The ascending aorta is normal in size. The IVC is normal in size and collapses >50% with inspiration. PERICARDIAL EFFUSION There is no pericardial effusion. <Conclusion> There is moderate concentric left ventricular hypertrophy. Left ventricle systolic function is normal. The Ejection Fraction is 60-65%. Transmitral Doppler flow pattern is Grade I-abnormal relaxation pattern. There is mild aortic regurgitation. Mitral regurgitation is mild.
[2019-01-22 08:19] LABS: BASO # 0.1 K/uL (0.0-0.2); BASO % 1.3 % (0.0-2.0); EOS # 0.2 K/uL (0.0-0.7); EOS % 3.2 % (0.0-4.0); HEMOGLOBIN 10.1 g/dL (11.0-16.0); LYMPH # 1.3 K/uL (1.0-4.3); LYMPH % 18.1 % (20.0-40.0); MEAN CELL VOLUME 96.8 fL (81.0-99.0); MEAN CORPUSCULAR HGB CONC 34.1 g/dL (33.0-37.0); MEAN PLATELET VOLUME 10.3 fL (7.2-11.7); MONO # 0.7 K/uL (0.0-0.8); MONO % 9.5 % (0.0-10.0); NEUT % 67.9 % (50.0-75.0); NRBC % 0.1 % (0.0-2.0); RBC 3.05 Mil/uL (3.80-5.20); RED CELL DISTRIBUTION WIDTH 14.2 % (11.5-14.5); WHITE BLOOD COUNT 7.4 K/uL (4.8-10.8)
[2019-01-22 08:38] LABS: ALB/GLOB RATIO 1.2 (1.0-2.1); ALBUMIN 3.9 g/dL (3.5-5.0); CALCIUM 9.3 mg/dl (8.6-10.4)
[2019-01-22] MEDS: Bacitracin Ointment 30 GM TUBE TOP SCH ×2 (10:05→18:08)
[2019-01-22] MEDS: Multivitamin Vitamin B Complex (Nephro-Vite) Tab PO SCH (10:06)
[2019-01-22] MEDS: (Novolin R) Insulin Human Regular 100 units/ml vial SC SCH ×4 (10:06→22:02)
[2019-01-22] MEDS: Lactobacillus Acidophilus 500 MU Cap PO SCH ×2 (10:06→17:35)
[2019-01-22] MEDS: Metoprolol Succinate 50 mg XL Tab PO SCH (10:08)
[2019-01-22] MEDS: Tobramycin/Dexamethasone OPHT OINT OU SCH ×3 (10:08→17:35)
--- NOTE | 2019-01-22 10:19 | CP.PCM.PN ---
Subjective - Date & Time of Evaluation Date of Evaluation: 01/22/19 Time of Evaluation: 10:19 - Subjective Subjective: Having dialysis.No new complaints. Objective - Vital Signs/Intake and Output Vital Signs (last 24 hours): Temp Pulse Resp BP Pulse Ox 97.4 F L 60 20 158/69 H 100 01/22/19 08:23 01/22/19 08:26 01/22/19 08:23 01/22/19 08:23 01/22/19 08:23 Intake and Output: 01/22/19 01/22/19 06:59 18:59 Output Total 150 Balance -150 - Medications Medications: Current Medications Amlodipine Besylate (Norvasc) 10 mg PO DAILY [facility] Last Admin: 01/22/19 10:06 Dose: Not Given Artificial Tears (Artificial Tears) 0 ml OU Q4 PRN PRN Reason: Dry eyes Last Admin: 01/21/19 17:39 Dose: 1 drop Aspirin (Ecotrin) 81 mg PO DAILY [facility] Last Admin: 01/22/19 10:06 Dose: Not Given Bacitracin (Bacitracin) 0 gm TOP BID [facility] Stop: 01/27/19 10:01 Last Admin: 01/22/19 10:05 Dose: Not Given Clopidogrel Bisulfate (Plavix) 75 mg PO DAILY [facility] Last Admin: 01/22/19 10:07 Dose: Not Given Docusate Sodium (Colace) 100 mg PO BID [facility] Last Admin: 01/22/19 10:06 Dose: Not Given Epoetin Bartolo (Procrit) 4,000 unit IV TTS [facility] Insulin Detemir (Levemir) 10 unit SC HS [facility] Last Admin: 01/21/19 21:48 Dose: 10 units Insulin Human Regular (Novolin R) 0 unit SC ACHS [facility]; Protocol Last Admin: 01/22/19 10:06 Dose: Not Given Isosorbide Mononitrate (Imdur Er) 30 mg PO DAILY [facility] Last Admin: 01/22/19 10:06 Dose: Not Given Lactobacillus Acidophilus (Lactobacillus) 1 cap PO BID [facility] Last Admin: 01/22/19 10:06 Dose: Not Given Levothyroxine Sodium (Synthroid) 75 mcg PO 0630 [facility] Last Admin: 01/22/19 07:01 Dose: 75 mcg Losartan Potassium (Cozaar) 25 mg PO QPM [facility] Last Admin: 01/21/19 17:42 Dose: 25 mg Metoprolol Succinate (Toprol Xl) 50 mg PO DAILY [facility] Last Admin: 01/22/19 10:08 Dose: Not Given Mupirocin (Bactroban Ointment) 1 gm TOP BID [facility] Last Admin: 01/22/19 10:05 Dose: Not Given Pregabalin (Lyrica) 50 mg PO [facility] Last Admin: 01/21/19 21:48 Dose: 50 mg Rosuvastatin Calcium (Crestor) 10 mg PO HS [facility] Last Admin: 01/21/19 21:48 Dose: 10 mg Sevelamer Carbonate (Renvela) 800 mg PO TID [facility] Last Admin: 01/22/19 10:07 Dose: Not Given Tobramycin/Dexamethasone (Tobradex 0.3%-0.1% Opht Oint) 1 appl OU TID [facility] Last Admin: 01/22/19 10:08 Dose: Not Given Vitamin B Complex/Vit C/Folic Acid (Nephro-Etelvina) 1 tab PO DAILY [facility] Last Admin: 01/22/19 10:06 Dose: Not Given - Labs Labs: 01/22/19 08:09 01/22/19 08:09 PT 13.1 SECONDS (9.7-12.2) H 01/17/19 05:06 INR 1.2 01/17/19 05:06 APTT 67.0 SECONDS (21-34) H D 01/22/19 08:09 - Head Exam Head Exam: NORMOCEPHALIC - Neck Exam Neck Exam: Normal Inspection - Respiratory Exam Respiratory Exam: NORMAL BREATHING PATTERN - Cardiovascular Exam Cardiovascular Exam: Irregular Rhythm - Neurological Exam Neurological Exam: Alert Assessment and Plan (1) CHF (congestive heart failure) Assessment & Plan: Fluid restriction and dialysis. Status: Chronic (2) Elevated troponin Assessment & Plan: NSTEMI, DAPT and maximize medical management. Status: Acute
[2019-01-22] MEDS ORDERED: Epoetin Alfa Dialysis 40000 UNIT/ml Inj IV SCH (10:30)
--- NOTE | 2019-01-22 10:58 | CP.PCM.PN ---
Subjective - Date & Time of Evaluation Date of Evaluation: 01/22/19 Time of Evaluation: 10:58 - Subjective Subjective: Podiatry progress note - Dr. Godfrey 79F seen and evaluated this AM. NAD. In HD at time of visit. Patient offers no new complaints to right lower extremity - pain persists along traumatically avulsed nail. RLE dressing clean/dry/intact. Denies n/v/f/d/c/sob/ibarra/cp. Objective - Vital Signs/Intake and Output Vital Signs (last 24 hours): Temp Pulse Resp BP Pulse Ox 97.4 F L 60 20 158/69 H 100 01/22/19 08:23 01/22/19 08:26 01/22/19 08:23 01/22/19 08:23 01/22/19 08:23 Intake and Output: 01/22/19 01/22/19 06:59 18:59 Output Total 150 Balance -150 - Medications Medications: Current Medications Amlodipine Besylate (Norvasc) 10 mg PO DAILY [facility] Last Admin: 01/22/19 10:06 Dose: Not Given Artificial Tears (Artificial Tears) 0 ml OU Q4 PRN PRN Reason: Dry eyes Last Admin: 01/21/19 17:39 Dose: 1 drop Aspirin (Ecotrin) 81 mg PO DAILY [facility] Last Admin: 01/22/19 10:06 Dose: Not Given Bacitracin (Bacitracin) 0 gm TOP BID [facility] Stop: 01/27/19 10:01 Last Admin: 01/22/19 10:05 Dose: Not Given Clopidogrel Bisulfate (Plavix) 75 mg PO DAILY [facility] Last Admin: 01/22/19 10:07 Dose: Not Given Docusate Sodium (Colace) 100 mg PO BID [facility] Last Admin: 01/22/19 10:06 Dose: Not Given Epoetin Bartolo (Procrit) 4,000 unit IV TTS [facility] Insulin Detemir (Levemir) 10 unit SC HS [facility] Last Admin: 01/21/19 21:48 Dose: 10 units Insulin Human Regular (Novolin R) 0 unit SC ACHS [facility]; Protocol Last Admin: 01/22/19 10:06 Dose: Not Given Isosorbide Mononitrate (Imdur Er) 30 mg PO DAILY [facility] Last Admin: 01/22/19 10:06 Dose: Not Given Lactobacillus Acidophilus (Lactobacillus) 1 cap PO BID [facility] Last Admin: 01/22/19 10:06 Dose: Not Given Levothyroxine Sodium (Synthroid) 75 mcg PO 0630 [facility] Last Admin: 01/22/19 07:01 Dose: 75 mcg Losartan Potassium (Cozaar) 25 mg PO QPM [facility] Last Admin: 01/21/19 17:42 Dose: 25 mg Metoprolol Succinate (Toprol Xl) 50 mg PO DAILY [facility] Last Admin: 01/22/19 10:08 Dose: Not Given Mupirocin (Bactroban Ointment) 1 gm TOP BID [facility] Last Admin: 01/22/19 10:05 Dose: Not Given Pregabalin (Lyrica) 50 mg PO HS [facility] Last Admin: 01/21/19 21:48 Dose: 50 mg Rosuvastatin Calcium (Crestor) 10 mg PO HS [facility] Last Admin: 01/21/19 21:48 Dose: 10 mg Sevelamer Carbonate (Renvela) 800 mg PO TID [facility] Last Admin: 01/22/19 10:07 Dose: Not Given Tobramycin/Dexamethasone (Tobradex 0.3%-0.1% Opht Oint) 1 appl OU TID [facility] Last Admin: 01/22/19 10:08 Dose: Not Given Vitamin B Complex/Vit C/Folic Acid (Nephro-Etelvina) 1 tab PO DAILY [facility] Last Admin: 01/22/19 10:06 Dose: Not Given - Labs Labs: 01/22/19 08:09 01/22/19 08:09 PT 13.1 SECONDS (9.7-12.2) H 01/17/19 05:06 INR 1.2 01/17/19 05:06 APTT 67.0 SECONDS (21-34) H D 01/22/19 08:09 - Constitutional Appears: Non-toxic, No Acute Distress - Extremities Exam Additional comments: RLE focused VASC: DP and PT pulses palpable; cap refill <3 seconds to digits; mild edema n oted to second digit, resolving; temp gradient warm to warm DERM: right second digit nail avulsed with sanguinous drainage present, mild erythema to the digit - resolving, no darkening or necrosis appreciated, no evidence of gangrene to the digit; hallux toenail lysis appreciated, sanguinous drainage present, ORTHO: no pain on palpation of digit NEURO: gross and protective sensation mildly diminished - Neurological Exam Neurological Exam: Alert, Awake, Oriented x3 - Psychiatric Exam Psychiatric exam: Normal Affect, Normal Mood Assessment and Plan - Assessment and Plan (Free Text) Assessment: 79F with right second digit traumatic wound s/p traumatic avulsion and right hallux traumatic partial nail avulsion Plan: Patient seen and evaluated alongside attending, Dr. Bekah LAZCANO, WBC 7.4 Continue local wound care: saline cleanse, bactroban, dry sterile dressing BID Hallux nail removed w/o incident, patient tolerated well No plan for surgical intervention; no clinical sign for infection Podiatry will continue to follow
--- NOTE | 2019-01-22 12:12 | CP.PCM.PN ---
Subjective - Date & Time of Evaluation Date of Evaluation: 01/22/19 Time of Evaluation: 12:11 - Subjective Subjective: Nephrology Consultation Note: Assessment: stable HTN emergency and pulm edema, fluid overload: IMPROVED elevated troponin Diabetic chronic Kidney Disease (E11.22) Hypertensive Chronic Kidney Disease (I12.0) End stage renal disease (N18.6) dependence on hemodialysis (Z99.2) (TTS) via AVF Anemia (D64.9), Hyperphosphatemia (E83.39), Secondary Hyperparathyroidism (E21.1), HTN (I12.0) hx of CVA basal cell ca Plan: Will plan for HD TTS schedule as ordered. Continue with Nephrovite 1 tab/day. PRBC as needed for anemia. added MISA with dialysis as last Hb 10.1 Continue with phos binders, last phos level -3.7 BP control with meds as ordered. Patient on RAAS katie as low dose losartan Glycemic control, Dialysis consistent diet Further work up/management as per primary team Dose meds/antibiotics (if needed) for ESRD status. Avoid fleets enema/magnesium based laxatives. cardiology following pulmonary following Thanks for allowing me to participate in care of your patient. Will follow patient with you. Please call if any Qs. had d/w team Dr Franki Warren Office: [phone] Chief Complaint;SOB HPI: Pt is a 79 F with hx of ESRD on hemodialysis (TTS) via AVF, last dialysis tue, chronic anemia, hyperphosphatemia, secondary hyperparathyroidism, Diabetes Mellitus, hypertension, hx of CVA, NSTEMI basal cell ca presented with complaints of SOB with HTN urgency and pulm edema. required BiPAP support in ER Renal consult requested for ESRD management. pt not able to communicate much due to her hx of CVA. ROS: Cardiovascular: No chest pain. Pulmonary:improved shortness of breath denies cough pt not able to communicate much due to her hx of CVA. but rest all other negative as obtained as much possible Physical Examination: seen on HD General Appearance: better appearing co-operative . Vitals reviewed and noted as below Head; Atraumatic, normocephalic ENT: no ulcers no thrush. Tongue is midline. Oropharynx: no rash or ulcers. EYES: Pupils are equal, round and reactive to light accommodation. Eye muscles and extraocular movement intact. Sclera is anicteric. Neck; supple no lymphadenopathy, no thyromegaly or bruit Lungs: normal respiratory rate/effort. Breath sounds bilateral rimproved Heart: Normal rate. s1s2 normal. No rub or gallop. dressing over basal cell CA excision over chest Extremities: no edema. No varicose veins Neurological: Patient is alert, awake and has chronic residual weakness due to stroke in past. has some aphasia as well Skin: Warm and dry. Normal turgor. No rash. Palpitation: Normal elasticity for age Abdomen: Abdomen is soft. Bowel sounds +. There is no abdominal tenderness, no guarding/rigidity or organomegaly Psych: limited insight and normal affect/mood MSK: no joint tenderness or swelling. Digits and nails normal, no deformity : kidney or bladder not palpable Access: AVF. Labs/imaging reviewed. Past medical history, past surgical history, family history, social history, allergy reviewed and noted as below Family Hx: no hx of CKD. Non contributory Objective - Vital Signs/Intake and Output Vital Signs (last 24 hours): Temp Pulse Resp BP Pulse Ox 98 F 61 18 154/82 H 100 01/22/19 09:55 01/22/19 09:55 01/22/19 09:55 01/22/19 11:30 01/22/19 08:23 Intake and Output: 01/22/19 01/22/19 06:59 18:59 Output Total 150 Balance -150 - Medications Medications: Current Medications Amlodipine Besylate (Norvasc) 10 mg PO DAILY [facility] Last Admin: 01/22/19 10:06 Dose: Not Given Artificial Tears (Artificial Tears) 0 ml OU Q4 PRN PRN Reason: Dry eyes Last Admin: 01/21/19 17:39 Dose: 1 drop Aspirin (Ecotrin) 81 mg PO DAILY [facility] Last Admin: 01/22/19 10:06 Dose: Not Given Bacitracin (Bacitracin) 0 gm TOP BID [facility] Stop: 01/27/19 10:01 Last Admin: 01/22/19 10:05 Dose: Not Given Clopidogrel Bisulfate (Plavix) 75 mg PO DAILY [facility] Last Admin: 01/22/19 10:07 Dose: Not Given Docusate Sodium (Colace) 100 mg PO BID [facility] Last Admin: 01/22/19 10:06 Dose: Not Given Epoetin Bartolo (Procrit) 4,000 unit IV TTS [facility] Insulin Detemir (Levemir) 10 unit SC HS [facility] Last Admin: 01/21/19 21:48 Dose: 10 units Insulin Human Regular (Novolin R) 0 unit SC ACHS [facility]; Protocol Last Admin: 01/22/19 10:06 Dose: Not Given Isosorbide Mononitrate (Imdur Er) 30 mg PO DAILY [facility] Last Admin: 01/22/19 10:06 Dose: Not Given Lactobacillus Acidophilus (Lactobacillus) 1 cap PO BID [facility] Last Admin: 01/22/19 10:06 Dose: Not Given Levothyroxine Sodium (Synthroid) 75 mcg PO 0630 [facility] Last Admin: 01/22/19 07:01 Dose: 75 mcg Losartan Potassium (Cozaar) 25 mg PO QPM [facility] Last Admin: 01/21/19 17:42 Dose: 25 mg Metoprolol Succinate (Toprol Xl) 50 mg PO DAILY [facility] Last Admin: 01/22/19 10:08 Dose: Not Given Mupirocin (Bactroban Ointment) 1 gm TOP BID [facility] Last Admin: 01/22/19 10:05 Dose: Not Given Pregabalin (Lyrica) 50 mg PO [facility] Last Admin: 01/21/19 21:48 Dose: 50 mg Rosuvastatin Calcium (Crestor) 10 mg PO HS [facility] Last Admin: 01/21/19 21:48 Dose: 10 mg Sevelamer Carbonate (Renvela) 800 mg PO TID [facility] Last Admin: 01/22/19 10:07 Dose: Not Given Tobramycin/Dexamethasone (Tobradex 0.3%-0.1% Opht Oint) 1 appl OU TID [facility] Last Admin: 01/22/19 10:08 Dose: Not Given Vitamin B Complex/Vit C/Folic Acid (Nephro-Etelvina) 1 tab PO DAILY [facility] Last Admin: 01/22/19 10:06 Dose: Not Given - Labs Labs: 01/22/19 08:09 01/22/19 08:09 PT 13.1 SECONDS (9.7-12.2) H 01/17/19 05:06 INR 1.2 01/17/19 05:06 APTT 67.0 SECONDS (21-34) H D 01/22/19 08:09
[2019-01-22] MEDS: EPOETIN ALFA 4,000 UNIT/ML ML Dialysis IV SCH (12:46)
--- NOTE | 2019-01-22 16:20 | CP.PCM.PN ---
Subjective - Date & Time of Evaluation Date of Evaluation: 01/22/19 Time of Evaluation: 11:00 - Subjective Subjective: Patient seen and examined Lying comfortably in no distress Patient is off BiPAP Awake and responsive Bleeding noted from right toe Discontinue heparin drip Continue present treatment Podiatry evaluation Case discussed with cardiology Objective - Vital Signs/Intake and Output Vital Signs (last 24 hours): Temp Pulse Resp BP Pulse Ox 97.8 F 65 20 131/63 100 01/22/19 15:42 01/22/19 15:42 01/22/19 15:42 01/22/19 15:42 01/22/19 15:42 Intake and Output: 01/22/19 01/22/19 06:59 18:59 Output Total 150 Balance -150 - Medications Medications: Current Medications Amlodipine Besylate (Norvasc) 10 mg PO DAILY [facility] Last Admin: 01/22/19 10:06 Dose: Not Given Artificial Tears (Artificial Tears) 0 ml OU Q4 PRN PRN Reason: Dry eyes Last Admin: 01/21/19 17:39 Dose: 1 drop Aspirin (Ecotrin) 81 mg PO DAILY [facility] Last Admin: 01/22/19 10:06 Dose: Not Given Bacitracin (Bacitracin) 0 gm TOP BID [facility] Stop: 01/27/19 10:01 Last Admin: 01/22/19 10:05 Dose: Not Given Clopidogrel Bisulfate (Plavix) 75 mg PO DAILY [facility] Last Admin: 01/22/19 10:07 Dose: Not Given Docusate Sodium (Colace) 100 mg PO BID [facility] Last Admin: 01/22/19 10:06 Dose: Not Given Epoetin Bartolo (Procrit) 4,000 unit IV TTS [facility] Last Admin: 01/22/19 12:46 Dose: 4,000 unit Insulin Detemir (Levemir) 10 unit SC HS [facility] Last Admin: 01/21/19 21:48 Dose: 10 units Insulin Human Regular (Novolin R) 0 unit SC ACHS [facility]; Protocol Last Admin: 01/22/19 14:08 Dose: Not Given Isosorbide Mononitrate (Imdur Er) 30 mg PO DAILY [facility] Last Admin: 01/22/19 10:06 Dose: Not Given Lactobacillus Acidophilus (Lactobacillus) 1 cap PO BID [facility] Last Admin: 01/22/19 10:06 Dose: Not Given Levothyroxine Sodium (Synthroid) 75 mcg PO 0630 [facility] Last Admin: 01/22/19 07:01 Dose: 75 mcg Losartan Potassium (Cozaar) 25 mg PO QPM [facility] Last Admin: 01/21/19 17:42 Dose: 25 mg Metoprolol Succinate (Toprol Xl) 50 mg PO DAILY [facility] Last Admin: 01/22/19 10:08 Dose: Not Given Mupirocin (Bactroban Ointment) 1 gm TOP BID [facility] Last Admin: 01/22/19 10:05 Dose: Not Given Mupirocin (Bactroban Ointment) 1 gm TOP DAILY [facility] Pregabalin (Lyrica) 50 mg PO HS [facility] Last Admin: 01/21/19 21:48 Dose: 50 mg Rosuvastatin Calcium (Crestor) 10 mg PO HS [facility] Last Admin: 01/21/19 21:48 Dose: 10 mg Sevelamer Carbonate (Renvela) 800 mg PO TID [facility] Last Admin: 01/22/19 14:29 Dose: 800 mg Tobramycin/Dexamethasone (Tobradex 0.3%-0.1% Opht Oint) 1 appl OU TID [facility] Last Admin: 01/22/19 14:27 Dose: 1 applic Vitamin B Complex/Vit C/Folic Acid (Nephro-Etelvina) 1 tab PO DAILY [facility] Last Admin: 01/22/19 10:06 Dose: Not Given - Labs Labs: 01/22/19 08:09 01/22/19 08:09 PT 13.1 SECONDS (9.7-12.2) H 01/17/19 05:06 INR 1.2 01/17/19 05:06 APTT 67.0 SECONDS (21-34) H D 01/22/19 08:09 Assessment and Plan (1) CKD (chronic kidney disease) stage V requiring chronic dialysis Status: Acute (2) Elevated troponin Status: Acute
[2019-01-22] MEDS: Insulin Detemir 100 units/ml Vial (Levemir) SC SCH (22:09)
[2019-01-23] MEDS: Levothyroxine 75 MCG TAB PO SCH (06:40)
[2019-01-23] MEDS: (Novolin R) Insulin Human Regular 100 units/ml vial SC SCH ×4 (08:29→21:40)
--- NOTE | 2019-01-23 09:37 | CP.PCM.PN ---
Subjective - Date & Time of Evaluation Date of Evaluation: 01/23/19 Time of Evaluation: 09:37 - Subjective Subjective: Podiatry progress note - Dr. Godfrey 79F seen and evaluated this AM. NAD. Patient reports mild pain in right great toe s/p nail removal yesterday. No complaints to 2nd digit wound. No other lower extremity complaints. Objective - Vital Signs/Intake and Output Vital Signs (last 24 hours): Temp Pulse Resp BP Pulse Ox 98.1 F 60 20 102/49 L 100 01/22/19 23:10 01/23/19 07:40 01/22/19 23:10 01/22/19 23:10 01/22/19 23:10 - Medications Medications: Current Medications Amlodipine Besylate (Norvasc) 10 mg PO DAILY [facility] Last Admin: 01/22/19 10:06 Dose: Not Given Artificial Tears (Artificial Tears) 0 ml OU Q4 PRN PRN Reason: Dry eyes Last Admin: 01/21/19 17:39 Dose: 1 drop Aspirin (Ecotrin) 81 mg PO DAILY [facility] Last Admin: 01/22/19 10:06 Dose: Not Given Bacitracin (Bacitracin) 0 gm TOP BID [facility] Stop: 01/27/19 10:01 Last Admin: 01/22/19 18:08 Dose: 1 applic Clopidogrel Bisulfate (Plavix) 75 mg PO DAILY [facility] Last Admin: 01/22/19 10:07 Dose: Not Given Docusate Sodium (Colace) 100 mg PO BID [facility] Last Admin: 01/22/19 17:35 Dose: 100 mg Epoetin Bartolo (Procrit) 4,000 unit IV TTS [facility] Last Admin: 01/22/19 12:46 Dose: 4,000 unit Insulin Detemir (Levemir) 10 unit SC HS [facility] Last Admin: 01/22/19 22:09 Dose: 10 units Insulin Human Regular (Novolin R) 0 unit SC ACHS [facility]; Protocol Last Admin: 01/23/19 08:29 Dose: 2 unit Isosorbide Mononitrate (Imdur Er) 30 mg PO DAILY [facility] Last Admin: 01/22/19 10:06 Dose: Not Given Lactobacillus Acidophilus (Lactobacillus) 1 cap PO BID [facility] Last Admin: 01/22/19 17:35 Dose: 1 cap Levothyroxine Sodium (Synthroid) 75 mcg PO 30 [facility] Last Admin: 01/23/19 06:40 Dose: 75 mcg Losartan Potassium (Cozaar) 25 mg PO QPM [facility] Last Admin: 01/22/19 17:35 Dose: 25 mg Metoprolol Succinate (Toprol Xl) 50 mg PO DAILY [facility] Last Admin: 01/22/19 10:08 Dose: Not Given Mupirocin (Bactroban Ointment) 1 gm TOP BID [facility] Last Admin: 01/22/19 17:36 Dose: 1 applic Mupirocin (Bactroban Ointment) 1 gm TOP DAILY [facility] Last Admin: 01/22/19 17:36 Dose: 1 applic Pregabalin (Lyrica) 50 mg PO HS [facility] Last Admin: 01/22/19 22:09 Dose: 50 mg Rosuvastatin Calcium (Crestor) 10 mg PO HS [facility] Last Admin: 01/22/19 22:09 Dose: 10 mg Sevelamer Carbonate (Renvela) 800 mg PO TID [facility] Last Admin: 01/22/19 17:35 Dose: 800 mg Tobramycin/Dexamethasone (Tobradex 0.3%-0.1% Opht Oint) 1 appl OU TID [facility] Last Admin: 01/22/19 17:35 Dose: 1 applic Vitamin B Complex/Vit C/Folic Acid (Nephro-Etelvina) 1 tab PO DAILY [facility] Last Admin: 01/22/19 10:06 Dose: Not Given - Labs Labs: 01/22/19 08:09 01/22/19 08:09 PT 13.1 SECONDS (9.7-12.2) H 01/17/19 05:06 INR 1.2 01/17/19 05:06 APTT 67.0 SECONDS (21-34) H D 01/22/19 08:09 - Constitutional Appears: Non-toxic, No Acute Distress - Extremities Exam Additional comments: RLE focused VASC: DP and PT pulses palpable; cap refill <3 seconds to digits; mild edema noted to second digit, resolving; temp gradient warm to warm DERM: right second digit nail avulsed with sanguinous drainage present, mild erythema to the digit - resolving, no darkening or necrosis appreciated, no evidence of gangrene to the digit; right hallux s/p nail avulsion with intact nail bed and sanguinous drainage present, minimal periwound erythema ORTHO: Pain on palpation noted to right hallux, no pain on palpation 2nd digit NEURO: gross and protective sensation mildly diminished - Neurological Exam Neurological Exam: Alert, Awake, Oriented x3 - Psychiatric Exam Psychiatric exam: Normal Affect, Normal Mood Assessment and Plan - Assessment and Plan (Free Text) Assessment: 79F with right second digit traumatic wound s/p traumatic avulsion and right hallux nail avulsion Plan: Patient seen and evaluated Discussed with attending, Dr. Godfrey VSS Continue local wound care: saline cleanse, bactroban, dry sterile dressing BID -On ASA and plavix, reinforce dressing as needed Hallux nail removed w/o incident, will continue to monitor Podiatry will continue to follow
[2019-01-23] MEDS: Multivitamin Vitamin B Complex (Nephro-Vite) Tab PO SCH (10:09)
[2019-01-23] MEDS: Metoprolol Succinate 50 mg XL Tab PO SCH (10:09)
[2019-01-23] MEDS: Lactobacillus Acidophilus 500 MU Cap PO SCH ×2 (10:09→18:04)
[2019-01-23] MEDS: Tobramycin/Dexamethasone OPHT OINT OU SCH ×3 (10:15→18:15)
[2019-01-23] MEDS: Bacitracin Ointment 30 GM TUBE TOP SCH ×2 (10:30→18:14)
--- NOTE | 2019-01-23 11:00 | CP.PCM.PN ---
Subjective - Date & Time of Evaluation Date of Evaluation: 01/23/19 Time of Evaluation: 10:57 - Subjective Subjective: No new complaints. Resting in bed without any new complaints. Objective - Vital Signs/Intake and Output Vital Signs (last 24 hours): Temp Pulse Resp BP Pulse Ox 98.1 F 71 20 126/81 100 01/22/19 23:10 01/23/19 10:16 01/22/19 23:10 01/23/19 10:16 01/22/19 23:10 - Medications Medications: Current Medications Amlodipine Besylate (Norvasc) 10 mg PO DAILY [facility] Last Admin: 01/23/19 10:09 Dose: 10 mg Artificial Tears (Artificial Tears) 0 ml OU Q4 PRN PRN Reason: Dry eyes Last Admin: 01/21/19 17:39 Dose: 1 drop Aspirin (Ecotrin) 81 mg PO DAILY [facility] Last Admin: 01/23/19 10:09 Dose: 81 mg Bacitracin (Bacitracin) 0 gm TOP BID [facility] Stop: 01/27/19 10:01 Last Admin: 01/23/19 10:30 Dose: 1 applic Clopidogrel Bisulfate (Plavix) 75 mg PO DAILY [facility] Last Admin: 01/23/19 10:09 Dose: 75 mg Docusate Sodium (Colace) 100 mg PO BID [facility] Last Admin: 01/23/19 10:09 Dose: 100 mg Epoetin Bartolo (Procrit) 4,000 unit IV TTS [facility] Last Admin: 01/22/19 12:46 Dose: 4,000 unit Insulin Detemir (Levemir) 10 unit SC HS [facility] Last Admin: 01/22/19 22:09 Dose: 10 units Insulin Human Regular (Novolin R) 0 unit SC ACHS [facility]; Protocol Last Admin: 01/23/19 08:29 Dose: 2 unit Isosorbide Mononitrate (Imdur Er) 30 mg PO DAILY [facility] Last Admin: 01/23/19 10:09 Dose: 30 mg Lactobacillus Acidophilus (Lactobacillus) 1 cap PO BID [facility] Last Admin: 01/23/19 10:09 Dose: 1 cap Levothyroxine Sodium (Synthroid) 75 mcg PO 0630 [facility] Last Admin: 01/23/19 06:40 Dose: 75 mcg Losartan Potassium (Cozaar) 25 mg PO QPM [facility] Last Admin: 01/22/19 17:35 Dose: 25 mg Metoprolol Succinate (Toprol Xl) 50 mg PO DAILY [facility] Last Admin: 01/23/19 10:09 Dose: 50 mg Mupirocin (Bactroban Ointment) 1 gm TOP BID [facility] Last Admin: 01/23/19 10:16 Dose: Not Given Mupirocin (Bactroban Ointment) 1 gm TOP DAILY [facility] Last Admin: 01/23/19 10:10 Dose: 1 applic Pregabalin (Lyrica) [address] [facility] Last Admin: 01/22/19 22:09 Dose: 50 mg Rosuvastatin Calcium (Crestor) 10 mg PO HS [facility] Last Admin: 01/22/19 22:09 Dose: 10 mg Sevelamer Carbonate (Renvela) 800 mg PO TID [facility] Last Admin: 01/23/19 10:09 Dose: 800 mg Tobramycin/Dexamethasone (Tobradex 0.3%-0.1% Opht Oint) 1 appl OU TID [facility] Last Admin: 01/23/19 10:15 Dose: 1 applic Vitamin B Complex/Vit C/Folic Acid (Nephro-Etelvina) 1 tab PO DAILY [facility] Last Admin: 01/23/19 10:09 Dose: 1 tab - Labs Labs: 01/22/19 08:09 01/22/19 08:09 PT 13.1 SECONDS (9.7-12.2) H 01/17/19 05:06 INR 1.2 01/17/19 05:06 APTT 67.0 SECONDS (21-34) H D 01/22/19 08:09 - Neck Exam Neck Exam: Normal Inspection - Respiratory Exam Respiratory Exam: NORMAL BREATHING PATTERN - Cardiovascular Exam Cardiovascular Exam: Irregular Rhythm - Neurological Exam Neurological Exam: Alert Assessment and Plan (1) CHF (congestive heart failure) Assessment & Plan: Improved, lying flat. Continue current management. Status: Chronic (2) Elevated troponin Assessment & Plan: Continue DAPT. Discussed with yo. Needs to contact family for management optins and current medical condition. In the mean time. Continue current care. Discussed with team. Status: Acute
--- NOTE | 2019-01-23 15:41 | CP.PCM.PN ---
Subjective - Date & Time of Evaluation Date of Evaluation: 01/23/19 Time of Evaluation: 09:00 - Subjective Subjective: Nephrology Consultation Note: Assessment: stable HTN emergency and pulm edema, fluid overload: IMPROVED elevated troponin Diabetic chronic Kidney Disease (E11.22) Hypertensive Chronic Kidney Disease (I12.0) End stage renal disease (N18.6) dependence on hemodialysis (Z99.2) (TTS) via AVF Anemia (D64.9), Hyperphosphatemia (E83.39), Secondary Hyperparathyroidism (E21.1), HTN (I12.0) hx of CVA basal cell ca Plan: Will plan for HD TTS schedule as ordered. Continue with Nephrovite 1 tab/day. PRBC as needed for anemia. added MISA with dialysis as last Hb 10.1 Continue with phos binders, last phos level -3.7 BP control with meds as ordered. Patient on RAAS katie as low dose losartan Glycemic control, Dialysis consistent diet Further work up/management as per primary team Dose meds/antibiotics (if needed) for ESRD status. Avoid fleets enema/magnesium based laxatives. cardiology following pulmonary following Thanks for allowing me to participate in care of your patient. Will follow patient with you. Please call if any Qs. had d/w team Dr Franki Warren Office: [phone] Chief Complaint;SOB HPI: Pt is a 79 F with hx of ESRD on hemodialysis (TTS) via AVF, last dialysis tue, chronic anemia, hyperphosphatemia, secondary hyperparathyroidism, Diabetes Mellitus, hypertension, hx of CVA, NSTEMI basal cell ca presented with complaints of SOB with HTN urgency and pulm edema. required BiPAP support in ER Renal consult requested for ESRD management. pt not able to communicate much due to her hx of CVA. ROS: Cardiovascular: No chest pain. Pulmonary:improved shortness of breath denies cough pt not able to communicate much due to her hx of CVA. but rest all other negative as obtained as much possible Physical Examination: General Appearance: better appearing co-operative . Vitals reviewed and noted as below Head; Atraumatic, normocephalic ENT: no ulcers no thrush. Tongue is midline. Oropharynx: no rash or ulcers. EYES: Pupils are equal, round and reactive to light accommodation. Eye muscles and extraocular movement intact. Sclera is anicteric. Neck; supple no lymphadenopathy, no thyromegaly or bruit Lungs: normal respiratory rate/effort. Breath sounds bilateral rimproved Heart: Normal rate. s1s2 normal. No rub or gallop. dressing over basal cell CA excision over chest Extremities: no edema. No varicose veins Neurological: Patient is alert, awake and has chronic residual weakness due to stroke in past. has some aphasia as well Skin: Warm and dry. Normal turgor. No rash. Palpitation: Normal elasticity for age Abdomen: Abdomen is soft. Bowel sounds +. There is no abdominal tenderness, no guarding/rigidity or organomegaly Psych: limited insight and normal affect/mood MSK: no joint tenderness or swelling. Digits and nails normal, no deformity : kidney or bladder not palpable Access: AVF. Labs/imaging reviewed. Past medical history, past surgical history, family history, social history, allergy reviewed and noted as below Family Hx: no hx of CKD. Non contributory Objective - Vital Signs/Intake and Output Vital Signs (last 24 hours): Temp Pulse Resp BP Pulse Ox 98.1 F 63 20 126/81 100 01/22/19 23:10 01/23/19 12:00 01/22/19 23:10 01/23/19 10:16 01/22/19 23:10 Intake and Output: 01/23/19 01/23/19 06:59 18:59 Output Total 200 Balance -200 - Medications Medications: Current Medications Amlodipine Besylate (Norvasc) 10 mg PO DAILY [facility] Last Admin: 01/23/19 10:09 Dose: 10 mg Artificial Tears (Artificial Tears) 0 ml OU Q4 PRN PRN Reason: Dry eyes Last Admin: 01/21/19 17:39 Dose: 1 drop Aspirin (Ecotrin) 81 mg PO DAILY [facility] Last Admin: 01/23/19 10:09 Dose: 81 mg Bacitracin (Bacitracin) 0 gm TOP BID [facility] Stop: 01/27/19 10:01 Last Admin: 01/23/19 10:30 Dose: 1 applic Clopidogrel Bisulfate (Plavix) 75 mg PO DAILY [facility] Last Admin: 01/23/19 10:09 Dose: 75 mg Docusate Sodium (Colace) 100 mg PO BID [facility] Last Admin: 01/23/19 10:09 Dose: 100 mg Epoetin Bartolo (Procrit) 4,000 unit IV TTS [facility] Last Admin: 01/22/19 12:46 Dose: 4,000 unit Insulin Detemir (Levemir) 10 unit SC [facility] Last Admin: 01/22/19 22:09 Dose: 10 units Insulin Human Regular (Novolin R) 0 unit SC [facility]; Protocol Last Admin: 01/23/19 12:24 Dose: 4 unit Isosorbide Mononitrate (Imdur Er) 30 mg PO DAILY [facility] Last Admin: 01/23/19 10:09 Dose: 30 mg Lactobacillus Acidophilus (Lactobacillus) 1 cap PO BID [facility] Last Admin: 01/23/19 10:09 Dose: 1 cap Levothyroxine Sodium (Synthroid) 75 mcg PO 0630 [facility] Last Admin: 01/23/19 06:40 Dose: 75 mcg Losartan Potassium (Cozaar) 25 mg PO QPM [facility] Last Admin: 01/22/19 17:35 Dose: 25 mg Metoprolol Succinate (Toprol Xl) 50 mg PO DAILY [facility] Last Admin: 01/23/19 10:09 Dose: 50 mg Mupirocin (Bactroban Ointment) 1 gm TOP BID [facility] Last Admin: 01/23/19 10:16 Dose: Not Given Mupirocin (Bactroban Ointment) 1 gm TOP DAILY [facility] Last Admin: 01/23/19 10:10 Dose: 1 applic Pregabalin (Lyrica) 50 mg PO [facility] Last Admin: 01/22/19 22:09 Dose: 50 mg Rosuvastatin Calcium (Crestor) 10 mg PO [facility] Last Admin: 01/22/19 22:09 Dose: 10 mg Sevelamer Carbonate (Renvela) 800 mg PO TID [facility] Last Admin: 01/23/19 13:02 Dose: 800 mg Tobramycin/Dexamethasone (Tobradex 0.3%-0.1% Opht Oint) 1 appl OU TID [facility] Last Admin: 01/23/19 13:04 Dose: 1 applic Vitamin B Complex/Vit C/Folic Acid (Nephro-Etelvina) 1 tab PO DAILY [facility] Last Admin: 01/23/19 10:09 Dose: 1 tab - Labs Labs: 01/22/19 08:09 01/22/19 08:09 PT 13.1 SECONDS (9.7-12.2) H 01/17/19 05:06 INR 1.2 01/17/19 05:06 APTT 67.0 SECONDS (21-34) H D 01/22/19 08:09
--- NOTE | 2019-01-23 17:32 | CP.PCM.PN ---
Subjective - Date & Time of Evaluation Date of Evaluation: 01/23/19 Time of Evaluation: 11:00 - Subjective Subjective: Patient seen and examined Resting comfortably in no distress Off BiPAP Awake responsive Objective - Vital Signs/Intake and Output Vital Signs (last 24 hours): Temp Pulse Resp BP Pulse Ox 98.0 F 68 20 130/60 100 01/23/19 15:00 01/23/19 15:00 01/23/19 15:00 01/23/19 15:00 01/23/19 15:00 Intake and Output: 01/23/19 01/23/19 06:59 18:59 Output Total 200 Balance -200 - Medications Medications: Current Medications Amlodipine Besylate (Norvasc) 10 mg PO DAILY [facility] Last Admin: 01/23/19 10:09 Dose: 10 mg Artificial Tears (Artificial Tears) 0 ml OU Q4 PRN PRN Reason: Dry eyes Last Admin: 01/21/19 17:39 Dose: 1 drop Aspirin (Ecotrin) 81 mg PO DAILY [facility] Last Admin: 01/23/19 10:09 Dose: 81 mg Bacitracin (Bacitracin) 0 gm TOP BID [facility] Stop: 01/27/19 10:01 Last Admin: 01/23/19 10:30 Dose: 1 applic Clopidogrel Bisulfate (Plavix) 75 mg PO DAILY [facility] Last Admin: 01/23/19 10:09 Dose: 75 mg Docusate Sodium (Colace) 100 mg PO BID [facility] Last Admin: 01/23/19 10:09 Dose: 100 mg Epoetin Bartolo (Procrit) 4,000 unit IV TTS [facility] Last Admin: 01/22/19 12:46 Dose: 4,000 unit Insulin Detemir (Levemir) 10 unit SC HS [facility] Last Admin: 01/22/19 22:09 Dose: 10 units Insulin Human Regular (Novolin R) 0 unit SC ACHS [facility]; Protocol Last Admin: 01/23/19 12:24 Dose: 4 unit Isosorbide Mononitrate (Imdur Er) 30 mg PO DAILY [facility] Last Admin: 01/23/19 10:09 Dose: 30 mg Lactobacillus Acidophilus (Lactobacillus) 1 cap PO BID [facility] Last Admin: 01/23/19 10:09 Dose: 1 cap Levothyroxine Sodium (Synthroid) 75 mcg PO 0630 [facility] Last Admin: 01/23/19 06:40 Dose: 75 mcg Losartan Potassium (Cozaar) 25 mg PO QPM [facility] Last Admin: 01/22/19 17:35 Dose: 25 mg Metoprolol Succinate (Toprol Xl) 50 mg PO DAILY [facility] Last Admin: 01/23/19 10:09 Dose: 50 mg Mupirocin (Bactroban Ointment) 1 gm TOP BID [facility] Last Admin: 01/23/19 10:16 Dose: Not Given Mupirocin (Bactroban Ointment) 1 gm TOP DAILY [facility] Last Admin: 01/23/19 10:10 Dose: 1 applic Pregabalin (Lyrica) 50 mg PO HS [facility] Last Admin: 01/22/19 22:09 Dose: 50 mg Rosuvastatin Calcium (Crestor) 10 mg PO HS [facility] Last Admin: 01/22/19 22:09 Dose: 10 mg Sevelamer Carbonate (Renvela) 800 mg PO TID [facility] Last Admin: 01/23/19 13:02 Dose: 800 mg Tobramycin/Dexamethasone (Tobradex 0.3%-0.1% Opht Oint) 1 appl OU TID [facility] Last Admin: 01/23/19 13:04 Dose: 1 applic Vitamin B Complex/Vit C/Folic Acid (Nephro-Etelvina) 1 tab PO DAILY [facility] Last Admin: 01/23/19 10:09 Dose: 1 tab - Labs Labs: 01/22/19 08:09 01/22/19 08:09 PT 13.1 SECONDS (9.7-12.2) H 01/17/19 05:06 INR 1.2 01/17/19 05:06 APTT 67.0 SECONDS (21-34) H D 01/22/19 08:09 - Head Exam Head Exam: ATRAUMATIC, NORMOCEPHALIC - ENT Exam ENT Exam: Mucous Membranes Moist - Neck Exam Neck Exam: Normal Inspection - Respiratory Exam Respiratory Exam: Decreased Breath Sounds - Cardiovascular Exam Cardiovascular Exam: REGULAR RHYTHM - GI/Abdominal Exam GI & Abdominal Exam: Soft Assessment and Plan (1) CKD (chronic kidney disease) stage V requiring chronic dialysis Status: Acute (2) Elevated troponin Status: Acute (3) CHF (congestive heart failure) Status: Chronic
[2019-01-23] MEDS: Insulin Detemir 100 units/ml Vial (Levemir) SC SCH (21:39)
[2019-01-24] MEDS: Levothyroxine 75 MCG TAB PO SCH (06:22)
[2019-01-24] MEDS: (Novolin R) Insulin Human Regular 100 units/ml vial SC SCH ×4 (08:29→21:52)
[2019-01-24] MEDS: Multivitamin Vitamin B Complex (Nephro-Vite) Tab PO SCH (09:52)
[2019-01-24] MEDS: Lactobacillus Acidophilus 500 MU Cap PO SCH ×2 (09:52→18:19)
[2019-01-24] MEDS: Tobramycin/Dexamethasone OPHT OINT OU SCH ×3 (10:56→18:19)
[2019-01-24] MEDS: Bacitracin Ointment 30 GM TUBE TOP SCH ×2 (10:56→18:19)
[2019-01-24] MEDS: Metoprolol Succinate 50 mg XL Tab PO SCH (10:56)
--- NOTE | 2019-01-24 13:19 | PN ---
DATE: 01/24/2019 SUBJECTIVE: The patient was seen and examined at the bedside on 01/24/2019. This progress note is for 01/24/2019. The patient is looking comfortable. No change in the status, awake and responsive, but getting confused sometimes. No fever. No chills. No hematuria or hematochezia. No headache or dizziness. No chest pain or palpitation. PHYSICAL EXAMINATION: VITAL SIGNS: Temperature 98, pulse 58, respiratory rate 20, blood pressure 130/50, pulse oximetry 100%. HEENT: Head: Normocephalic and atraumatic. Eyes: PERRLA. Extraocular muscles intact. Conjunctivae clear. Nose patent. NECK: Supple. No carotid bruit. No thyromegaly. CHEST: Bilaterally symmetrical. HEART: S1 and S2 positive. LUNGS: Clear to auscultation. ABDOMEN: Soft. Bowel sounds present. No organomegaly. EXTREMITIES: No edema. No cyanosis. NEUROLOGICAL: The patient is awake and alert. Follows simple commands. MEDICATIONS: Amlodipine, artificial tears, aspirin, bacitracin, Plavix, Colace, Percocet, Levemir, lactobacillus, Cozaar, and Toprol. LABORATORY DATA: White blood cells 7.4, hemoglobin 10.1, hematocrit 29.5, and platelets 208. Sodium 131, potassium 5.8, BUN 8, creatinine 6.3, and glucose 148. ASSESSMENT AND PLAN: Mrs. Edgar Pérez is an 79-year-old lady with anemia, hyponatremia, hyperkalemia, hypochloremia, renal insufficiency on dialysis 3 times a week, uncontrolled diabetes mellitus, elevated troponin, and congestive heart failure. [employer] Sales Representative is on the case, seen by the neurologist and cat operator also. According to Dr. Talavera, he will contact the family for management options. In the meantime, continue present treatment. Podiatry is on the case. Gastrointestinal and deep venous thrombosis prophylaxis. Hyperphosphatemia, hyperparathyroidism, and history of cerebrovascular accident. Continue Nephro-Etelvina. Tracking glycemic control, blood pressure control. Repeat labs. We will follow up. Shantell Lane MD
[2019-01-24 13:34] LABS: BASO # 0.1 K/uL (0.0-0.2); BASO % 1.3 % (0.0-2.0); EOS # 0.1 K/uL (0.0-0.7); EOS % 1.9 % (0.0-4.0); HEMOGLOBIN 8.9 g/dL (11.0-16.0); LYMPH % 17.3 % (20.0-40.0); MEAN CELL VOLUME 96.4 fL (81.0-99.0); MEAN CORPUSCULAR HEMOGLOBIN 33.1 pg (27.0-31.0); MEAN CORPUSCULAR HGB CONC 34.3 g/dL (33.0-37.0); MEAN PLATELET VOLUME 9.5 fL (7.2-11.7); MONO # 0.4 K/uL (0.0-0.8); MONO % 6.3 % (0.0-10.0); NEUT # 4.3 K/uL (1.8-7.0); NEUT % 73.2 % (50.0-75.0); RBC 2.7 Mil/uL (3.80-5.20); RED CELL DISTRIBUTION WIDTH 13.9 % (11.5-14.5); WHITE BLOOD COUNT 5.9 K/uL (4.8-10.8)
[2019-01-24 13:53] LABS: ALB/GLOB RATIO 1.3 (1.0-2.1); ALBUMIN 3.5 g/dL (3.5-5.0); CALCIUM 8.6 mg/dl (8.6-10.4)
--- NOTE | 2019-01-24 14:50 | CP.PCM.PN ---
Subjective - Date & Time of Evaluation Date of Evaluation: 01/24/19 Time of Evaluation: 14:49 - Subjective Subjective: Nephrology Consultation Note: Assessment: stable HTN emergency and pulm edema, fluid overload: IMPROVED elevated troponin Diabetic chronic Kidney Disease (E11.22) Hypertensive Chronic Kidney Disease (I12.0) End stage renal disease (N18.6) dependence on hemodialysis (Z99.2) (TTS) via AVF Anemia (D64.9), Hyperphosphatemia (E83.39), Secondary Hyperparathyroidism (E21.1), HTN (I12.0) hx of CVA basal cell ca Plan: Will plan for HD TTS schedule as ordered. Continue with Nephrovite 1 tab/day. PRBC as needed for anemia. added MISA with dialysis as last Hb 10.1 Continue with phos binders, last phos level -3.7 BP control with meds as ordered. Patient on RAAS katie as low dose losartan Glycemic control, Dialysis consistent diet Further work up/management as per primary team Dose meds/antibiotics (if needed) for ESRD status. Avoid fleets enema/magnesium based laxatives. cardiology following pulmonary following Thanks for allowing me to participate in care of your patient. Will follow patient with you. Please call if any Qs. had d/w team Dr Franki Warren Office: [phone] Chief Complaint;SOB HPI: Pt is a 79 F with hx of ESRD on hemodialysis (TTS) via AVF, last dialysis tue, chronic anemia, hyperphosphatemia, secondary hyperparathyroidism, Diabetes Mellitus, hypertension, hx of CVA, NSTEMI basal cell ca presented with complaints of SOB with HTN urgency and pulm edema. required BiPAP support in ER Renal consult requested for ESRD management. pt not able to communicate much due to her hx of CVA. ROS: Cardiovascular: No chest pain. Pulmonary:improved shortness of breath denies cough pt not able to communicate much due to her hx of CVA. but rest all other negative as obtained as much possible Physical Examination: General Appearance: better appearing co-operative . Vitals reviewed and noted as below Head; Atraumatic, normocephalic ENT: no ulcers no thrush. Tongue is midline. Oropharynx: no rash or ulcers. EYES: Pupils are equal, round and reactive to light accommodation. Eye muscles and extraocular movement intact. Sclera is anicteric. Neck; supple no lymphadenopathy, no thyromegaly or bruit Lungs: normal respiratory rate/effort. Breath sounds bilateral reduced at bases Heart: Normal rate. s1s2 normal. No rub or gallop. dressing over basal cell CA excision over chest Extremities: no edema. No varicose veins Neurological: Patient is alert, awake and has chronic residual weakness due to stroke in past. has some aphasia as well Skin: Warm and dry. Normal turgor. No rash. Palpitation: Normal elasticity for age Abdomen: Abdomen is soft. Bowel sounds +. There is no abdominal tenderness, no guarding/rigidity or organomegaly Psych: limited insight and normal affect/mood MSK: no joint tenderness or swelling. Digits and nails normal, no deformity : kidney or bladder not palpable Access: AVF. Labs/imaging reviewed. Past medical history, past surgical history, family history, social history, allergy reviewed and noted as below Family Hx: no hx of CKD. Non contributory Objective - Vital Signs/Intake and Output Vital Signs (last 24 hours): Temp Pulse Resp BP Pulse Ox 97.7 F 70 20 117/60 100 01/24/19 13:40 01/24/19 13:40 01/24/19 13:40 01/24/19 14:40 01/24/19 13:40 - Medications Medications: Current Medications Amlodipine Besylate (Norvasc) 10 mg PO DAILY [facility] Last Admin: 01/24/19 10:54 Dose: Not Given Artificial Tears (Artificial Tears) 0 ml OU Q4 PRN PRN Reason: Dry eyes Last Admin: 01/21/19 17:39 Dose: 1 drop Aspirin (Ecotrin) 81 mg PO DAILY [facility] Last Admin: 01/24/19 09:52 Dose: 81 mg Bacitracin (Bacitracin) 0 gm TOP BID [facility] Stop: 01/27/19 10:01 Last Admin: 01/24/19 10:56 Dose: 1 applic Clopidogrel Bisulfate (Plavix) 75 mg PO DAILY [facility] Last Admin: 01/24/19 09:52 Dose: 75 mg Docusate Sodium (Colace) 100 mg PO BID [facility] Last Admin: 01/24/19 09:52 Dose: 100 mg Epoetin Bartolo (Procrit) 4,000 unit IV TTS [facility] Last Admin: 04/30/19 12:46 Dose: 4,000 unit Insulin Detemir (Levemir) 10 unit SC [facility] Last Admin: 01/23/19 21:39 Dose: 10 units Insulin Human Regular (Novolin R) 0 unit SC [facility]; Protocol Last Admin: 01/24/19 12:24 Dose: 3 unit Isosorbide Mononitrate (Imdur Er) 30 mg PO DAILY [facility] Last Admin: 01/24/19 10:55 Dose: Not Given Lactobacillus Acidophilus (Lactobacillus) 1 cap PO BID [facility] Last Admin: 01/24/19 09:52 Dose: 1 cap Levothyroxine Sodium (Synthroid) 75 mcg PO 0630 [facility] Last Admin: 01/24/19 06:22 Dose: 75 mcg Losartan Potassium (Cozaar) 25 mg PO QPM [facility] Last Admin: 01/23/19 18:04 Dose: 25 mg Metoprolol Succinate (Toprol Xl) 50 mg PO DAILY [facility] Last Admin: 01/24/19 10:56 Dose: Not Given Mupirocin (Bactroban Ointment) 1 gm TOP DAILY [facility] Pregabalin (Lyrica) 50 mg PO [facility] Last Admin: 01/23/19 21:39 Dose: 50 mg Rosuvastatin Calcium (Crestor) 10 mg PO [facility] Last Admin: 01/23/19 21:39 Dose: 10 mg Sevelamer Carbonate (Renvela) 800 mg PO TID [facility] Last Admin: 01/24/19 09:52 Dose: 800 mg Tobramycin/Dexamethasone (Tobradex 0.3%-0.1% Opht Oint) 1 appl OU TID [facility] Last Admin: 01/24/19 10:56 Dose: Not Given Vitamin B Complex/Vit C/Folic Acid (Nephro-Etelvina) 1 tab PO DAILY [facility] Last Admin: 01/24/19 09:52 Dose: 1 tab - Labs Labs: 01/24/19 13:29 01/24/19 13:29 PT 13.1 SECONDS (9.7-12.2) H 01/17/19 05:06 INR 1.2 01/17/19 05:06 APTT 67.0 SECONDS (21-34) H D 01/22/19 08:09
--- NOTE | 2019-01-24 15:17 | CP.PCM.PN ---
Subjective - Date & Time of Evaluation Date of Evaluation: 01/24/19 Time of Evaluation: 15:15 - Subjective Subjective: Having dialysis. No new complaints. Objective - Vital Signs/Intake and Output Vital Signs (last 24 hours): Temp Pulse Resp BP Pulse Ox 97.7 F 70 20 117/60 100 01/24/19 13:40 01/24/19 13:40 01/24/19 13:40 01/24/19 14:40 01/24/19 13:40 - Medications Medications: Current Medications Amlodipine Besylate (Norvasc) 10 mg PO DAILY [facility] Last Admin: 01/24/19 10:54 Dose: Not Given Artificial Tears (Artificial Tears) 0 ml OU Q4 PRN PRN Reason: Dry eyes Last Admin: 01/21/19 17:39 Dose: 1 drop Aspirin (Ecotrin) 81 mg PO DAILY [facility] Last Admin: 01/24/19 09:52 Dose: 81 mg Bacitracin (Bacitracin) 0 gm TOP BID [facility] Stop: 01/27/19 10:01 Last Admin: 01/24/19 10:56 Dose: 1 applic Clopidogrel Bisulfate (Plavix) 75 mg PO DAILY [facility] Last Admin: 01/24/19 09:52 Dose: 75 mg Docusate Sodium (Colace) 100 mg PO BID [facility] Last Admin: 01/24/19 09:52 Dose: 100 mg Epoetin Bartolo (Procrit) 4,000 unit IV TTS [facility] Last Admin: 01/22/19 12:46 Dose: 4,000 unit Insulin Detemir (Levemir) 10 unit SC HS [facility] Last Admin: 01/23/19 21:39 Dose: 10 units Insulin Human Regular (Novolin R) 0 unit SC ACHS [facility]; Protocol Last Admin: 01/24/19 12:24 Dose: 3 unit Isosorbide Mononitrate (Imdur Er) 30 mg PO DAILY [facility] Last Admin: 01/24/19 10:55 Dose: Not Given Lactobacillus Acidophilus (Lactobacillus) 1 cap PO BID [facility] Last Admin: 01/24/19 09:52 Dose: 1 cap Levothyroxine Sodium (Synthroid) 75 mcg PO 0630 [facility] Last Admin: 01/24/19 06:22 Dose: 75 mcg Losartan Potassium (Cozaar) 25 mg PO QPM [facility] Last Admin: 01/23/19 18:04 Dose: 25 mg Metoprolol Succinate (Toprol Xl) 50 mg PO DAILY [facility] Last Admin: 01/24/19 10:56 Dose: Not Given Mupirocin (Bactroban Ointment) 1 gm TOP DAILY [facility] Pregabalin (Lyrica) 50 mg PO HS [facility] Last Admin: 01/23/19 21:39 Dose: 50 mg Rosuvastatin Calcium (Crestor) 10 mg PO HS [facility] Last Admin: 01/23/19 21:39 Dose: 10 mg Sevelamer Carbonate (Renvela) 800 mg PO TID [facility] Last Admin: 01/24/19 09:52 Dose: 800 mg Tobramycin/Dexamethasone (Tobradex 0.3%-0.1% Opht Oint) 1 appl OU TID [facility] Last Admin: 01/24/19 10:56 Dose: Not Given Vitamin B Complex/Vit C/Folic Acid (Nephro-Etelvina) 1 tab PO DAILY [facility] Last Admin: 01/24/19 09:52 Dose: 1 tab - Labs Labs: 01/24/19 13:29 01/24/19 13:29 PT 13.1 SECONDS (9.7-12.2) H 01/17/19 05:06 INR 1.2 01/17/19 05:06 APTT 67.0 SECONDS (21-34) H D 01/22/19 08:09 - Eye Exam Pupil Exam: NORMAL ACCOMODATION - Neck Exam Neck Exam: Normal Inspection - Cardiovascular Exam Cardiovascular Exam: Irregular Rhythm - Extremities Exam Extremities Exam: Normal Inspection - Neurological Exam Neurological Exam: Alert Assessment and Plan (1) CHF (congestive heart failure) Assessment & Plan: Improved, Dialysis with fluid restriction. Status: Chronic (2) Elevated troponin Assessment & Plan: Discussed with family, no intervention. Medical management,. Status: Acute
[2019-01-24] MEDS: EPOETIN ALFA 4,000 UNIT/ML ML Dialysis IV SCH (15:35)
[2019-01-24] MEDS: Insulin Detemir 100 units/ml Vial (Levemir) SC SCH (21:52)
[2019-01-25] MEDS: Levothyroxine 75 MCG TAB PO SCH (05:29)
--- NOTE | 2019-01-25 07:46 | PN ---
DATE: 01/24/2019 SUBJECTIVE: The patient is an 79-year-old female. The patient seen and examined at the bedside on 01/24/2019. Looking comfortable. No fever. No chills. No hematuria or hematochezia. No headache or dizziness. No chest pain or palpitations. The patient is a very poor historian. PHYSICAL EXAMINATION: VITAL SIGNS: Temperature 97.7, pulse 70, respiratory rate 20, blood pressure 117/60, pulse oximetry 100%. HEENT: Head: Normocephalic and atraumatic. Eyes: PERRLA. Extraocular muscles intact. Conjunctivae clear. Nose patent. Mucous membranes moist. NECK: Supple. No carotid bruit. No JVD or thyromegaly. CHEST: Bilaterally symmetrical. HEART: S1 and S2 positive. LUNGS: Clear to auscultation. ABDOMEN: Soft. Bowel sounds present. No organomegaly. EXTREMITIES: No edema. No cyanosis. NEUROLOGICAL: The patient is awake and alert. Moving all four extremities. No focal deficit. MEDICATIONS: Norvasc, artificial tears, aspirin, Bactroban, insulin, lactulose, Crestor. LABORATORY DATA: White blood cell 5.9, hemoglobin 8.9, hematocrit 26, platelets 194. Sodium 129, potassium 5.4, BUN 72, creatinine 4.9, glucose of 247. ASSESSMENT AND PLAN: The patient is an 79-year-old female with anemia, hypernatremia, hyperkalemia, hypochloremia, renal insufficiency, hyperglycemia, came with hypertensive emergency and pulmonary edema. Fluid overload improved after multiple dialysis. Elevated troponin, diabetic, hypertensive chronic kidney disease, hyperphosphatemia, secondary hyperparathyroidism, history of cerebrovascular accident, basal cell carcinoma. We will continue present treatment. Waiting for segmental wall installer's input. Gastrointestinal and deep venous thrombosis prophylaxis. Repeat labs. Out of bed, physical therapy. Shantell Lane MD
[2019-01-25] MEDS: (Novolin R) Insulin Human Regular 100 units/ml vial SC SCH ×4 (08:18→21:39)
--- NOTE | 2019-01-25 10:27 | CP.PCM.PN ---
Subjective - Date & Time of Evaluation Date of Evaluation: 01/25/19 Time of Evaluation: 10:27 - Subjective Subjective: Podiatry progress note - Dr. Godfrey 79F seen and evaluated this AM. NAD. No acute events overnight. Family present at bedside. Pain in right great toe and right 2nd digit improving. Offers no other lower extremity complaints. Objective - Vital Signs/Intake and Output Vital Signs (last 24 hours): Temp Pulse Resp BP Pulse Ox 98.0 F 66 18 154/70 H 100 01/25/19 07:00 01/25/19 07:00 01/25/19 07:00 01/25/19 07:00 01/25/19 07:00 Intake and Output: 01/25/19 01/25/19 06:59 18:59 Intake Total 400 Balance 400 - Medications Medications: Current Medications Amlodipine Besylate (Norvasc) 10 mg PO DAILY [facility] Last Admin: 01/24/19 10:54 Dose: Not Given Artificial Tears (Artificial Tears) 0 ml OU Q4 PRN PRN Reason: Dry eyes Last Admin: 01/21/19 17:39 Dose: 1 drop Aspirin (Ecotrin) 81 mg PO DAILY [facility] Last Admin: 01/24/19 09:52 Dose: 81 mg Bacitracin (Bacitracin) 0 gm TOP BID [facility] Stop: 01/27/19 10:01 Last Admin: 01/24/19 18:19 Dose: 1 applic Clopidogrel Bisulfate (Plavix) 75 mg PO DAILY [facility] Last Admin: 01/24/19 09:52 Dose: 75 mg Docusate Sodium (Colace) 100 mg PO BID [facility] Last Admin: 01/24/19 18:25 Dose: 100 mg Epoetin Bartolo (Procrit) 4,000 unit IV TTS [facility] Last Admin: 01/24/19 15:35 Dose: 4,000 unit Insulin Detemir (Levemir) 10 unit SC HS [facility] Last Admin: 01/24/19 21:52 Dose: 10 units Insulin Human Regular (Novolin R) 0 unit SC ACHS [facility]; Protocol Last Admin: 01/25/19 08:18 Dose: Not Given Isosorbide Mononitrate (Imdur Er) 30 mg PO DAILY [facility] Last Admin: 01/24/19 10:55 Dose: Not Given Lactobacillus Acidophilus (Lactobacillus) 1 cap PO BID [facility] Last Admin: 01/24/19 18:19 Dose: 1 cap Levothyroxine Sodium (Synthroid) 75 mcg PO 0630 [facility] Last Admin: 01/25/19 05:29 Dose: 75 mcg Losartan Potassium (Cozaar) 25 mg PO QPM [facility] Last Admin: 01/24/19 18:18 Dose: 25 mg Metoprolol Succinate (Toprol Xl) 50 mg PO DAILY [facility] Last Admin: 01/24/19 10:56 Dose: Not Given Mupirocin (Bactroban Ointment) 1 gm TOP DAILY [facility] Pregabalin (Lyrica) 50 mg PO HS [facility] Last Admin: 01/24/19 21:51 Dose: 50 mg Rosuvastatin Calcium (Crestor) 10 mg PO HS [facility] Last Admin: 01/24/19 21:51 Dose: 10 mg Sevelamer Carbonate (Renvela) 800 mg PO TID [facility] Last Admin: 01/24/19 18:17 Dose: 800 mg Tobramycin/Dexamethasone (Tobradex 0.3%-0.1% Opht Oint) 1 appl OU TID [facility] Last Admin: 01/24/19 18:19 Dose: 1 applic Vitamin B Complex/Vit C/Folic Acid (Nephro-Etlevina) 1 tab PO DAILY [facility] Last Admin: 01/24/19 09:52 Dose: 1 tab - Labs Labs: 01/24/19 13:29 01/24/19 13:29 PT 13.1 SECONDS (9.7-12.2) H 01/17/19 05:06 INR 1.2 01/17/19 05:06 APTT 67.0 SECONDS (21-34) H D 01/22/19 08:09 - Constitutional Appears: Non-toxic, No Acute Distress - Extremities Exam Additional comments: RLE focused VASC: DP and PT pulses palpable; cap refill <3 seconds to digits; mild edema noted to second digit, resolving; temp gradient warm to warm DERM: right second digit nail avulsed with sanguinous drainage present, mild erythema to the digit - resolving, no darkening or necrosis appreciated, no evidence of gangrene to the digit; right hallux s/p nail avulsion with intact nail bed and sanguinous drainage present, minimal periwound erythema ORTHO: Pain on palpation noted to right hallux, no pain on palpation 2nd digit NEURO: gross and protective sensation mildly diminished - Neurological Exam Neurological Exam: Alert, Awake Assessment and Plan - Assessment and Plan (Free Text) Assessment: 79F with right second digit traumatic wound s/p traumatic avulsion and right hallux nail avulsion, stable Plan: Patient seen and evaluated Discussed with attending, Dr. Bekah LAZCANO Continue local wound care: saline cleanse, bactroban, dry sterile dressing BID Podiatry will continue to follow
[2019-01-25] MEDS: Tobramycin/Dexamethasone OPHT OINT OU SCH ×3 (10:54→17:24)
[2019-01-25] MEDS: Bacitracin Ointment 30 GM TUBE TOP SCH ×2 (10:54→17:24)
[2019-01-25] MEDS: Multivitamin Vitamin B Complex (Nephro-Vite) Tab PO SCH (10:55)
[2019-01-25] MEDS: Lactobacillus Acidophilus 500 MU Cap PO SCH ×2 (10:55→17:23)
[2019-01-25] MEDS: Metoprolol Succinate 50 mg XL Tab PO SCH (10:55)
--- NOTE | 2019-01-25 13:06 | CP.PCM.PN ---
Subjective - Date & Time of Evaluation Date of Evaluation: 01/25/19 Time of Evaluation: 13:06 - Subjective Subjective: PATIENT SEEN AND EXAMINED AT THE BEDSIDE Objective - Vital Signs/Intake and Output Vital Signs (last 24 hours): Temp Pulse Resp BP Pulse Ox 98.0 F 66 18 154/70 H 100 01/25/19 07:00 01/25/19 07:00 01/25/19 07:00 01/25/19 07:00 01/25/19 07:00 Intake and Output: 01/25/19 01/25/19 06:59 18:59 Intake Total 400 Balance 400 - Medications Medications: Current Medications Amlodipine Besylate (Norvasc) 10 mg PO DAILY [facility] Last Admin: 01/25/19 10:55 Dose: 10 mg Artificial Tears (Artificial Tears) 0 ml OU Q4 PRN PRN Reason: Dry eyes Last Admin: 01/21/19 17:39 Dose: 1 drop Aspirin (Ecotrin) 81 mg PO DAILY [facility] Last Admin: 01/25/19 10:55 Dose: 81 mg Bacitracin (Bacitracin) 0 gm TOP BID [facility] Stop: 01/27/19 10:01 Last Admin: 01/25/19 10:54 Dose: 1 applic Clopidogrel Bisulfate (Plavix) 75 mg PO DAILY [facility] Last Admin: 01/25/19 10:55 Dose: 75 mg Docusate Sodium (Colace) 100 mg PO BID [facility] Last Admin: 01/25/19 10:55 Dose: 100 mg Epoetin Bartolo (Procrit) 4,000 unit IV TTS [facility] Last Admin: 01/24/19 15:35 Dose: 4,000 unit Insulin Detemir (Levemir) 10 unit SC HS [facility] Last Admin: 01/24/19 21:52 Dose: 10 units Insulin Human Regular (Novolin R) 0 unit SC ACHS [facility]; Protocol Last Admin: 01/25/19 12:57 Dose: 2 unit Isosorbide Mononitrate (Imdur Er) 30 mg PO DAILY [facility] Last Admin: 01/25/19 10:54 Dose: 30 mg Lactobacillus Acidophilus (Lactobacillus) 1 cap PO BID [facility] Last Admin: 01/25/19 10:55 Dose: 1 cap Levothyroxine Sodium (Synthroid) 75 mcg PO 0630 [facility] Last Admin: 01/25/19 05:29 Dose: 75 mcg Losartan Potassium (Cozaar) 25 mg PO QPM [facility] Last Admin: 01/24/19 18:18 Dose: 25 mg Metoprolol Succinate (Toprol Xl) 50 mg PO DAILY [facility] Last Admin: 01/25/19 10:55 Dose: 50 mg Mupirocin (Bactroban Ointment) 1 gm TOP DAILY [facility] Last Admin: 01/25/19 10:56 Dose: Not Given Pregabalin (Lyrica) 50 mg PO HS [facility] Last Admin: 01/24/19 21:51 Dose: 50 mg Rosuvastatin Calcium (Crestor) 10 mg PO HS [facility] Last Admin: 01/24/19 21:51 Dose: 10 mg Sevelamer Carbonate (Renvela) 800 mg PO TID [facility] Last Admin: 01/25/19 10:54 Dose: 800 mg Tobramycin/Dexamethasone (Tobradex 0.3%-0.1% Opht Oint) 1 appl OU TID [facility] Last Admin: 01/25/19 10:54 Dose: 1 applic Vitamin B Complex/Vit C/Folic Acid (Nephro-Etelvina) 1 tab PO DAILY [facility] Last Admin: 01/25/19 10:55 Dose: 1 tab - Labs Labs: 01/24/19 13:29 01/24/19 13:29 PT 13.1 SECONDS (9.7-12.2) H 01/17/19 05:06 INR 1.2 01/17/19 05:06 APTT 67.0 SECONDS (21-34) H D 01/22/19 08:09 Assessment and Plan - Assessment and Plan (Free Text) Assessment: FOLLOW UP WITH DR MARCUM IN HER OFFICE FOLLOW UP WITH DR CEDILLO FOLLOW UP WITH DR GILLIS IN HIS OFFICE ADDRESS YOUR CARDIAC CATH ON MON[place] AT [facility] [place] PER [place] CEDILLO CONTINUE HOME MEDICATION NEW PRESCRIPTION GIVEN BACITRACIN MEDICATION MANAGEMENT PER DR REED FOR NOW AND F/U WITH PATIENT TECHNICAL DELIVERY MANAGER OUT PATIENT [employer]IV[facility] [employer]ER[employer] FOOT [employer] bactroban and dry sterile dressing BID to right second digit CALL DR MARCUM OR DR CEDILLO OR GO TO THE EMERGENCY ROOM IF SYMPTOM RETURN OR WORSENING
--- NOTE | 2019-01-25 13:40 | CP.PCM.PN ---
Subjective - Date & Time of Evaluation Date of Evaluation: 01/25/19 Time of Evaluation: 13:40 - Subjective Subjective: Nephrology Consultation Note: Assessment: stable HTN emergency and pulm edema, fluid overload: IMPROVED elevated troponin Diabetic chronic Kidney Disease (E11.22) Hypertensive Chronic Kidney Disease (I12.0) End stage renal disease (N18.6) dependence on hemodialysis (Z99.2) (TTS) via AVF Anemia (D64.9), Hyperphosphatemia (E83.39), Secondary Hyperparathyroidism (E21.1), HTN (I12.0) hx of CVA basal cell ca Plan: Will plan for HD TTS schedule as ordered. Continue with Nephrovite 1 tab/day. PRBC as needed for anemia. added MISA with dialysis as last Hb 8.9 Continue with phos binders, last phos level 3.7 BP control with meds as ordered. Patient on RAAS katie as low dose losartan Glycemic control, Dialysis consistent diet Further work up/management as per primary team Dose meds/antibiotics (if needed) for ESRD status. Avoid fleets enema/magnesium based laxatives. cardiology following pulmonary following Thanks for allowing me to participate in care of your patient. Will follow patient with you. Please call if any Qs. had d/w team and daughter Franki Warren Office: [phone] Chief Complaint;SOB HPI: Pt is a 79 F with hx of ESRD on hemodialysis (TTS) via AVF, last dialysis tue, chronic anemia, hyperphosphatemia, secondary hyperparathyroidism, Diabetes Mellitus, hypertension, hx of CVA, NSTEMI basal cell ca presented with complaints of SOB with HTN urgency and pulm edema. required BiPAP support in ER Renal consult requested for ESRD management. pt not able to communicate much due to her hx of CVA. ROS: Cardiovascular: No chest pain. Pulmonary:improved shortness of breath denies cough pt not able to communicate much due to her hx of CVA. but rest all other negative as obtained as much possible Physical Examination: General Appearance: better appearing co-operative . Vitals reviewed and noted as below Head; Atraumatic, normocephalic ENT: no ulcers no thrush. Tongue is midline. Oropharynx: no rash or ulcers. EYES: Pupils are equal, round and reactive to light accommodation. Eye muscles and extraocular movement intact. Sclera is anicteric. Neck; supple no lymphadenopathy, no thyromegaly or bruit Lungs: normal respiratory rate/effort. Breath sounds bilateral reduced at bases with few crackles Heart: Normal rate. s1s2 normal. No rub or gallop. dressing over basal cell CA excision over chest Extremities: no edema. No varicose veins Neurological: Patient is alert, awake and has chronic residual weakness due to stroke in past. has some aphasia as well Skin: Warm and dry. Normal turgor. No rash. Palpitation: Normal elasticity for age Abdomen: Abdomen is soft. Bowel sounds +. There is no abdominal tenderness, no guarding/rigidity or organomegaly Psych: limited insight and normal affect/mood MSK: no joint tenderness or swelling. Digits and nails normal, no deformity : kidney or bladder not palpable Access: AVF. Labs/imaging reviewed. Past medical history, past surgical history, family history, social history, allergy reviewed and noted as below Family Hx: no hx of CKD. Non contributory Objective - Vital Signs/Intake and Output Vital Signs (last 24 hours): Temp Pulse Resp BP Pulse Ox 98.0 F 66 18 154/70 H 100 01/25/19 07:00 01/25/19 07:00 01/25/19 07:00 01/25/19 07:00 01/25/19 07:00 Intake and Output: 01/25/19 01/25/19 06:59 18:59 Intake Total 400 Balance 400 - Medications Medications: Current Medications Amlodipine Besylate (Norvasc) 10 mg PO DAILY [facility] Last Admin: 01/25/19 10:55 Dose: 10 mg Artificial Tears (Artificial Tears) 0 ml OU Q4 PRN PRN Reason: Dry eyes Last Admin: 01/21/19 17:39 Dose: 1 drop Aspirin (Ecotrin) 81 mg PO DAILY [facility] Last Admin: 01/25/19 10:55 Dose: 81 mg Bacitracin (Bacitracin) 0 gm TOP BID [facility] Stop: 01/27/19 10:01 Last Admin: 01/25/19 10:54 Dose: 1 applic Clopidogrel Bisulfate (Plavix) 75 mg PO DAILY [facility] Last Admin: 01/25/19 10:55 Dose: 75 mg Docusate Sodium (Colace) 100 mg PO BID [facility] Last Admin: 01/25/19 10:55 Dose: 100 mg Epoetin Bartolo (Procrit) 4,000 unit IV TTS [facility] Last Admin: 01/24/19 15:35 Dose: 4,000 unit Insulin Detemir (Levemir) 10 unit SC HS [facility] Last Admin: 01/24/19 21:52 Dose: 10 units Insulin Human Regular (Novolin R) 0 unit SC ACHS [facility]; Protocol Last Admin: 01/25/19 12:57 Dose: 2 unit Isosorbide Mononitrate (Imdur Er) 30 mg PO DAILY [facility] Last Admin: 01/25/19 10:54 Dose: 30 mg Lactobacillus Acidophilus (Lactobacillus) 1 cap PO BID [facility] Last Admin: 01/25/19 10:55 Dose: 1 cap Levothyroxine Sodium (Synthroid) 75 mcg PO 0630 [facility] Last Admin: 01/25/19 05:29 Dose: 75 mcg Losartan Potassium (Cozaar) 25 mg PO QPM [facility] Last Admin: 01/24/19 18:18 Dose: 25 mg Metoprolol Succinate (Toprol Xl) 50 mg PO DAILY [facility] Last Admin: 01/25/19 10:55 Dose: 50 mg Mupirocin (Bactroban Ointment) 1 gm TOP DAILY [facility] Last Admin: 01/25/19 10:56 Dose: Not Given Pregabalin (Lyrica) 50 mg PO [facility] Last Admin: 01/24/19 21:51 Dose: 50 mg Rosuvastatin Calcium (Crestor) 10 mg PO HS [facility] Last Admin: 01/24/19 21:51 Dose: 10 mg Sevelamer Carbonate (Renvela) 800 mg PO TID [facility] Last Admin: 01/25/19 10:54 Dose: 800 mg Tobramycin/Dexamethasone (Tobradex 0.3%-0.1% Opht Oint) 1 appl OU TID [facility] Last Admin: 01/25/19 10:54 Dose: 1 applic Vitamin B Complex/Vit C/Folic Acid (Nephro-Etelvina) 1 tab PO DAILY [facility] Last Admin: 01/25/19 10:55 Dose: 1 tab - Labs Labs: 01/24/19 13:29 01/24/19 13:29 PT 13.1 SECONDS (9.7-12.2) H 01/17/19 05:06 INR 1.2 01/17/19 05:06 APTT 67.0 SECONDS (21-34) H D 01/22/19 08:09
--- NOTE | 2019-01-25 18:24 | CP.PCM.PN ---
Subjective - Date & Time of Evaluation Date of Evaluation: 01/25/19 Time of Evaluation: 18:23 - Subjective Subjective: Resting comfortably and waiting for transfer. Objective - Vital Signs/Intake and Output Vital Signs (last 24 hours): Temp Pulse Resp BP Pulse Ox 97.9 F 70 18 124/69 100 01/25/19 15:00 01/25/19 15:00 01/25/19 15:00 01/25/19 15:00 01/25/19 15:00 Intake and Output: 01/25/19 01/25/19 06:59 18:59 Intake Total 400 Balance 400 - Medications Medications: Current Medications Amlodipine Besylate (Norvasc) 10 mg PO DAILY [facility] Last Admin: 01/25/19 10:55 Dose: 10 mg Artificial Tears (Artificial Tears) 0 ml OU Q4 PRN PRN Reason: Dry eyes Last Admin: 01/21/19 17:39 Dose: 1 drop Aspirin (Ecotrin) 81 mg PO DAILY [facility] Last Admin: 01/25/19 10:55 Dose: 81 mg Bacitracin (Bacitracin) 0 gm TOP BID [facility] Stop: 01/27/19 10:01 Last Admin: 01/25/19 17:24 Dose: 1 applic Clopidogrel Bisulfate (Plavix) 75 mg PO DAILY [facility] Last Admin: 01/25/19 10:55 Dose: 75 mg Docusate Sodium (Colace) 100 mg PO BID [facility] Last Admin: 01/25/19 17:23 Dose: 100 mg Epoetin Bartolo (Procrit) 4,000 unit IV TTS [facility] Last Admin: 01/24/19 15:35 Dose: 4,000 unit Insulin Detemir (Levemir) 10 unit SC HS [facility] Last Admin: 01/24/19 21:52 Dose: 10 units Insulin Human Regular (Novolin R) 0 unit SC ACHS [facility]; Protocol Last Admin: 01/25/19 17:23 Dose: 5 unit Isosorbide Mononitrate (Imdur Er) 30 mg PO DAILY [facility] Last Admin: 01/25/19 10:54 Dose: 30 mg Lactobacillus Acidophilus (Lactobacillus) 1 cap PO BID [facility] Last Admin: 01/25/19 17:23 Dose: 1 cap Levothyroxine Sodium (Synthroid) 75 mcg PO 0630 [facility] Last Admin: 01/25/19 05:29 Dose: 75 mcg Losartan Potassium (Cozaar) 25 mg PO QPM [facility] Last Admin: 01/25/19 17:23 Dose: 25 mg Metoprolol Succinate (Toprol Xl) 50 mg PO DAILY [facility] Last Admin: 01/25/19 10:55 Dose: 50 mg Mupirocin (Bactroban Ointment) 1 gm TOP DAILY [facility] Last Admin: 01/25/19 10:56 Dose: Not Given Pregabalin (Lyrica) 50 mg PO HS [facility] Last Admin: 01/24/19 21:51 Dose: 50 mg Rosuvastatin Calcium (Crestor) 10 mg PO HS [facility] Last Admin: 01/24/19 21:51 Dose: 10 mg Sevelamer Carbonate (Renvela) 800 mg PO TID [facility] Last Admin: 01/25/19 17:23 Dose: 800 mg Tobramycin/Dexamethasone (Tobradex 0.3%-0.1% Opht Oint) 1 appl OU TID [facility] Last Admin: 01/25/19 17:24 Dose: 1 applic Vitamin B Complex/Vit C/Folic Acid (Nephro-Etelvina) 1 tab PO DAILY [facility] Last Admin: 01/25/19 10:55 Dose: 1 tab - Labs Labs: 01/24/19 13:29 01/24/19 13:29 PT 13.1 SECONDS (9.7-12.2) H 01/17/19 05:06 INR 1.2 01/17/19 05:06 APTT 67.0 SECONDS (21-34) H D 01/22/19 08:09 - Head Exam Head Exam: NORMOCEPHALIC - Neck Exam Neck Exam: Normal Inspection - Respiratory Exam Respiratory Exam: NORMAL BREATHING PATTERN - Cardiovascular Exam Cardiovascular Exam: Irregular Rhythm - Neurological Exam Neurological Exam: Alert Assessment and Plan (1) CHF (congestive heart failure) Assessment & Plan: Fluid restriction. Maintain electrolyte balance. Status: Chronic (2) Elevated troponin Assessment & Plan: Medical management. D/C Plavix and continue ASA and Eliquis. Discussed with team. Status: Acute
[2019-01-25] MEDS: Insulin Detemir 100 units/ml Vial (Levemir) SC SCH (21:39)
[2019-01-26] MEDS: Levothyroxine 75 MCG TAB PO SCH (06:22)
--- NOTE | 2019-01-26 07:04 | CP.PCM.PN ---
<Asa Godfrey - Last Filed: 01/26/19 07:03> Subjective - Date & Time of Evaluation Date of Evaluation: 01/26/19 Time of Evaluation: 07:04 Objective - Vital Signs/Intake and Output Vital Signs (last 24 hours): Temp Pulse Resp BP Pulse Ox 97.9 F 61 20 113/61 100 01/26/19 00:07 01/26/19 00:07 01/26/19 00:07 01/26/19 00:07 01/26/19 00:07 Intake and Output: 01/26/19 01/26/19 06:59 18:59 Intake Total 500 Balance 500 - Medications Medications: Current Medications Amlodipine Besylate (Norvasc) 10 mg PO DAILY [facility] Last Admin: 01/25/19 10:55 Dose: 10 mg Artificial Tears (Artificial Tears) 0 ml OU Q4 PRN PRN Reason: Dry eyes Last Admin: 01/21/19 17:39 Dose: 1 drop Aspirin (Ecotrin) 81 mg PO DAILY [facility] Last Admin: 01/25/19 10:55 Dose: 81 mg Bacitracin (Bacitracin) 0 gm TOP BID [facility] Stop: 01/27/19 10:01 Last Admin: 01/25/19 17:24 Dose: 1 applic Clopidogrel Bisulfate (Plavix) 75 mg PO DAILY [facility] Last Admin: 01/25/19 10:55 Dose: 75 mg Docusate Sodium (Colace) 100 mg PO BID [facility] Last Admin: 01/25/19 17:23 Dose: 100 mg Epoetin Bartolo (Procrit) 4,000 unit IV TTS [facility] Last Admin: 01/24/19 15:35 Dose: 4,000 unit Insulin Detemir (Levemir) 10 unit SC HS [facility] Last Admin: 01/25/19 21:39 Dose: 10 units Insulin Human Regular (Novolin R) 0 unit SC ACHS [facility]; Protocol Last Admin: 01/25/19 21:39 Dose: Not Given Isosorbide Mononitrate (Imdur Er) 30 mg PO DAILY [facility] Last Admin: 01/25/19 10:54 Dose: 30 mg Lactobacillus Acidophilus (Lactobacillus) 1 cap PO BID [facility] Last Admin: 01/25/19 17:23 Dose: 1 cap Levothyroxine Sodium (Synthroid) 75 mcg PO 0630 [facility] Last Admin: 01/26/19 06:22 Dose: 75 mcg Losartan Potassium (Cozaar) 25 mg PO QPM [facility] Last Admin: 01/25/19 17:23 Dose: 25 mg Metoprolol Succinate (Toprol Xl) 50 mg PO DAILY [facility] Last Admin: 01/25/19 10:55 Dose: 50 mg Mupirocin (Bactroban Ointment) 1 gm TOP DAILY [facility] Last Admin: 01/25/19 10:56 Dose: Not Given Pregabalin (Lyrica) 50 mg PO [facility] Last Admin: 01/25/19 21:38 Dose: 50 mg Rosuvastatin Calcium (Crestor) 10 mg PO HS [facility] Last Admin: 01/25/19 21:38 Dose: 10 mg Sevelamer Carbonate (Renvela) 800 mg PO TID [facility] Last Admin: 01/25/19 17:23 Dose: 800 mg Tobramycin/Dexamethasone (Tobradex 0.3%-0.1% Opht Oint) 1 appl OU TID [facility] Last Admin: 01/25/19 17:24 Dose: 1 applic Vitamin B Complex/Vit C/Folic Acid (Nephro-Etelvina) 1 tab PO DAILY [facility] Last Admin: 01/25/19 10:55 Dose: 1 tab - Labs Labs: 01/24/19 13:29 01/24/19 13:29 PT 13.1 SECONDS (9.7-12.2) H 01/17/19 05:06 INR 1.2 01/17/19 05:06 APTT 67.0 SECONDS (21-34) H D 01/22/19 08:09 <Krzysztof Pabon - Last Filed: 01/26/19 09:50> Subjective - Subjective Subjective: Podiatry progress note - Dr. Godfrey 79F seen and evaluated this AM with Dr. Godfrey. Resting comfortably. Pain in right great toe and right 2nd digit improving. Offers no other lower extremity complaints. Objective - Vital Signs/Intake and Output Vital Signs (last 24 hours): Temp Pulse Resp BP Pulse Ox 97.8 F 67 18 161/76 H 100 01/26/19 09:30 01/26/19 09:30 01/26/19 09:30 01/26/19 09:30 01/26/19 09:30 Intake and Output: 01/26/19 01/26/19 06:59 18:59 Intake Total 500 Balance 500 - Medications Medications: Current Medications Amlodipine Besylate (Norvasc) 10 mg PO DAILY [facility] Last Admin: 01/26/19 09:14 Dose: Not Given Artificial Tears (Artificial Tears) 0 ml OU Q4 PRN PRN Reason: Dry eyes Last Admin: 01/21/19 17:39 Dose: 1 drop Aspirin (Ecotrin) 81 mg PO DAILY [facility] Last Admin: 01/26/19 09:14 Dose: Not Given Bacitracin (Bacitracin) 0 gm TOP BID [facility] Stop: 01/27/19 10:01 Last Admin: 01/26/19 09:13 Dose: Not Given Clopidogrel Bisulfate (Plavix) 75 mg PO DAILY [facility] Last Admin: 01/26/19 09:14 Dose: Not Given Docusate Sodium (Colace) 100 mg PO BID [facility] Last Admin: 01/26/19 09:13 Dose: Not Given Epoetin Bartolo (Procrit) 4,000 unit IV TTS [facility] Last Admin: 01/24/19 15:35 Dose: 4,000 unit Insulin Detemir (Levemir) 10 unit SC [facility] Last Admin: 01/25/19 21:39 Dose: 10 units Insulin Human Regular (Novolin R) 0 unit SC [facility]; Protocol Last Admin: 01/26/19 07:44 Dose: Not Given Isosorbide Mononitrate (Imdur Er) 30 mg PO DAILY [facility] Last Admin: 01/26/19 09:14 Dose: Not Given Lactobacillus Acidophilus (Lactobacillus) 1 cap PO BID [facility] Last Admin: 01/26/19 09:14 Dose: Not Given Levothyroxine Sodium (Synthroid) 75 mcg PO 0630 [facility] Last Admin: 01/26/19 06:22 Dose: 75 mcg Losartan Potassium (Cozaar) 25 mg PO QPM [facility] Last Admin: 01/25/19 17:23 Dose: 25 mg Metoprolol Succinate (Toprol Xl) 50 mg PO DAILY [facility] Last Admin: 01/26/19 09:15 Dose: Not Given Mupirocin (Bactroban Ointment) 1 gm TOP DAILY [facility] Last Admin: 01/26/19 09:13 Dose: Not Given Pregabalin (Lyrica) 50 mg PO [facility] Last Admin: 01/25/19 21:38 Dose: 50 mg Rosuvastatin Calcium (Crestor) 10 mg PO [facility] Last Admin: 01/25/19 21:38 Dose: 10 mg Sevelamer Carbonate (Renvela) 800 mg PO TID [facility] Last Admin: 01/26/19 09:15 Dose: Not Given Tobramycin/Dexamethasone (Tobradex 0.3%-0.1% Opht Oint) 1 appl OU TID [facility] Last Admin: 01/26/19 09:15 Dose: Not Given Vitamin B Complex/Vit C/Folic Acid (Nephro-Etelvina) 1 tab PO DAILY [facility] Last Admin: 01/26/19 09:14 Dose: Not Given - Labs Labs: 01/24/19 13:29 01/24/19 13:29 PT 13.1 SECONDS (9.7-12.2) H 01/17/19 05:06 INR 1.2 01/17/19 05:06 APTT 67.0 SECONDS (21-34) H D 01/22/19 08:09 - Constitutional Appears: Non-toxic - Head Exam Head Exam: ATRAUMATIC - Extremities Exam Additional comments: RLE focused VASC: DP and PT pulses palpable; cap refill <3 seconds to digits; mild edema noted to second digit, resolving; temp gradient warm to warm DERM: right second digit nail avulsed with sanguinous drainage present, mild erythema to the digit - resolving, no darkening or necrosis appreciated, no evidence of gangrene to the digit; right hallux s/p nail avulsion with intact nail bed and sanguinous drainage present, minimal periwound erythema ORTHO: Pain on palpation noted to right hallux, no pain on palpation 2nd digit NEURO: gross and protective sensation mildly diminished - Neurological Exam Neurological Exam: Alert, Awake - Psychiatric Exam Psychiatric exam: Normal Affect Assessment and Plan - Assessment and Plan (Free Text) Assessment: 79F with right second digit traumatic wound s/p traumatic avulsion and right hallux nail avulsion, stable Plan: Patient seen and evaluated with Dr. Bekah LAZCANO Continue local wound care: saline cleanse, bactroban, dry sterile dressing BID Podiatry will continue to follow
--- NOTE | 2019-01-26 07:12 | DS ---
The patient was seen and examined at the bedside on 01/25/2019. CHIEF COMPLAINT: Shortness of breath. HISTORY OF PRESENT ILLNESS: Mrs. Elisa Hernández is an 79-year-old female who came to the emergency room with respiratory distress. The patient has history of end-stage renal disease, on hemodialysis three times a week. No fever. No chills. Readmitted the patient, did chest x-rays, echocardiography done. Seen by Dr. Franki Warren, carburizer; Dr. Hollins, ID; Dr. Talavera, bookkeeper; Dr. Deepak Robison, container finishing inspector. The patient is cleared by Cardiology, Podiatry. Discharged. Follow up as outpatient. PAST MEDICAL HISTORY: Anemia, arthritis, atrial fibrillation, coronary artery disease, congestive heart failure, valvular heart disease, hypertension, hypercholesterolemia, hyperthyroidism, kidney stones, pneumonia, end-stage renal disease. SURGICAL HISTORY: CABG, cholecystectomy, coronary artery disease, pacemaker. FAMILY HISTORY: Father and mother noncontributory. HABITS: No smoking, no drugs, no ethanol. REVIEW OF SYSTEMS: The patient was seen and examined at the bedside, looking comfortable. No fever. No chills. No hematuria or hematochezia. No headache. No dizziness. No chest pain. No palpitation. PHYSICAL EXAMINATION: VITAL SIGNS: Temperature 98, pulse 66, respiratory rate 18, blood pressure 157/70, pulse oximetry 100. HEENT: Head: Normocephalic and atraumatic. Eyes: PERRLA. Extraocular muscles are intact. Conjunctivae are clear. Nose is patent. Mucous membranes are moist. NECK: Supple. No carotid bruits. No JVD or thyromegaly. CHEST: Bilaterally symmetrical. HEART: S1 and S2 positive. LUNGS: Clear to auscultation. ABDOMEN: Soft. Bowel sounds present. No organomegaly. EXTREMITIES: No edema, no cyanosis except that feet has dressing. NEUROLOGIC: The patient is awake, alert. Follows simple commands. MEDICATIONS: Norvasc, Artificial Tears, Ecotrin, Bacitracin, Plavix, Colace, Percocet, insulin, lactobacillus, levothyroxine. LABORATORY DATA: White blood cell 5.9, hemoglobin 8.9, hematocrit 26.2, platelets 194. Sodium 129, potassium 5.4, BUN 72, creatinine 4.9, glucose 247. ASSESSMENT AND PLAN: Mrs. Elisa Hernández is an 79-year-old lady with hyponatremia, hyperkalemia, hypochloremia, renal insufficiency, getting dialysis three times a day, uncontrolled diabetes mellitus, anemia, has ulcers on the feet, seen by Dr. Godfrey, history of dialysis, came with pulmonary edema, fluid overload improved after dialysis, diabetic chronic kidney disease, hypertensive chronic kidney disease, hyperphosphatemia, secondary hyperparathyroidism, history of cerebrovascular accident. Seen by Cardiology, Infectious Disease, Pulmonary, Nephrology. Congestive heart failure improved. The patient had elevated troponin. Got antibiotics. History of basal cell cancer, history of arthritis, atrial fibrillation, coronary artery disease, valvular disease, hypercholesterolemia, pneumonia, history of coronary artery bypass graft, cholecystectomy, coronary artery stents, pacemaker. The patient was cleared by bookkeeper, container finishing inspector, Infectious Disease. Discharged by nurse practitioner, Miki. The patient needs to follow up in primary care physician's office, Dr. José Miguel Weiss, address your cardiac cath on Monday at this [facility] center as per Dr. Valdez. Continue home medication. Dr. Valdez will take care of that cath. New medications given by the nurse practitioner. Activity as tolerated. Need foot care, Bactroban. Advised dressing b.i.d. to right second toe. Repeat labs as outpatient. We will follow up. Shantell Lane MD
[2019-01-26] MEDS: (Novolin R) Insulin Human Regular 100 units/ml vial SC SCH ×4 (07:44→21:13)
[2019-01-26] MEDS: Bacitracin Ointment 30 GM TUBE TOP SCH ×2 (09:13→18:03)
[2019-01-26] MEDS: Multivitamin Vitamin B Complex (Nephro-Vite) Tab PO SCH (09:14)
[2019-01-26] MEDS: Lactobacillus Acidophilus 500 MU Cap PO SCH ×2 (09:14→17:27)
[2019-01-26] MEDS: Metoprolol Succinate 50 mg XL Tab PO SCH (09:15)
[2019-01-26] MEDS: Tobramycin/Dexamethasone OPHT OINT OU SCH ×3 (09:15→18:03)
[2019-01-26] MEDS: EPOETIN ALFA 4,000 UNIT/ML ML Dialysis IV SCH (10:23)
--- NOTE | 2019-01-26 13:58 | CP.PCM.PN ---
Subjective - Date & Time of Evaluation Date of Evaluation: 01/26/19 Time of Evaluation: 10:30 - Subjective Subjective: Nephrology Consultation Note: Assessment: stable HTN emergency and pulm edema, fluid overload: IMPROVED elevated troponin Diabetic chronic Kidney Disease (E11.22) Hypertensive Chronic Kidney Disease (I12.0) End stage renal disease (N18.6) dependence on hemodialysis (Z99.2) (TTS) via AVF Anemia (D64.9), Hyperphosphatemia (E83.39), Secondary Hyperparathyroidism (E21.1), HTN (I12.0) hx of CVA basal cell ca Plan: HD TTS- SEEN on hd Continue with Nephrovite 1 tab/day. continue epo on phos binder s: seen on HD Physical Examination: General Appearance: better appearing co-operative . Vitals reviewed and noted as below Head; Atraumatic, normocephalic ENT: no ulcers no thrush. Tongue is midline. Oropharynx: no rash or ulcers. EYES: Pupils are equal, round and reactive to light accommodation. Eye muscles and extraocular movement intact. Sclera is anicteric. Neck; supple no lymphadenopathy, no thyromegaly or bruit Lungs: normal respiratory rate/effort. Breath sounds bilateral reduced at bases with few crackles Heart: Normal rate. s1s2 normal. No rub or gallop. dressing over basal cell CA excision over chest Extremities: no edema. No varicose veins Neurological: Patient is alert, awake and has chronic residual weakness due to stroke in past. has some aphasia as well Skin: Warm and dry. Normal turgor. No rash. Palpitation: Normal elasticity for age Abdomen: Abdomen is soft. Bowel sounds +. There is no abdominal tenderness, no guarding/rigidity or organomegaly Psych: limited insight and normal affect/mood MSK: no joint tenderness or swelling. Digits and nails normal, no deformity : kidney or bladder not palpable Access: AVF. Labs/imaging reviewed. Past medical history, past surgical history, family history, social history, allergy reviewed and noted as below Family Hx: no hx of CKD. Non contributory Objective - Vital Signs/Intake and Output Vital Signs (last 24 hours): Temp Pulse Resp BP Pulse Ox 97.6 F 72 16 118/53 L 100 01/26/19 13:00 01/26/19 13:00 01/26/19 13:00 01/26/19 13:00 01/26/19 13:00 Intake and Output: 01/26/19 01/26/19 06:59 18:59 Intake Total 500 Balance 500 - Medications Medications: Current Medications Amlodipine Besylate (Norvasc) 10 mg PO DAILY [facility] Last Admin: 01/26/19 09:14 Dose: Not Given Artificial Tears (Artificial Tears) 0 ml OU Q4 PRN PRN Reason: Dry eyes Last Admin: 01/21/19 17:39 Dose: 1 drop Aspirin (Ecotrin) 81 mg PO DAILY [facility] Last Admin: 01/26/19 09:14 Dose: Not Given Bacitracin (Bacitracin) 0 gm TOP BID [facility] Stop: 01/27/19 10:01 Last Admin: 01/26/19 09:13 Dose: Not Given Clopidogrel Bisulfate (Plavix) 75 mg PO DAILY [facility] Last Admin: 01/26/19 09:14 Dose: Not Given Docusate Sodium (Colace) 100 mg PO BID [facility] Last Admin: 01/26/19 09:13 Dose: Not Given Epoetin Bartolo (Procrit) 4,000 unit IV TTS [facility] Last Admin: 01/26/19 10:23 Dose: 4,000 unit Insulin Detemir (Levemir) 10 unit SC HS [facility] Last Admin: 01/25/19 21:39 Dose: 10 units Insulin Human Regular (Novolin R) 0 unit SC [facility]; Protocol Last Admin: 01/26/19 07:44 Dose: Not Given Isosorbide Mononitrate (Imdur Er) 30 mg PO DAILY [facility] Last Admin: 01/26/19 09:14 Dose: Not Given Lactobacillus Acidophilus (Lactobacillus) 1 cap PO BID [facility] Last Admin: 01/26/19 09:14 Dose: Not Given Levothyroxine Sodium (Synthroid) 75 mcg PO 0630 [facility] Last Admin: 01/26/19 06:22 Dose: 75 mcg Losartan Potassium (Cozaar) 25 mg PO QPM [facility] Last Admin: 01/25/19 17:23 Dose: 25 mg Metoprolol Succinate (Toprol Xl) 50 mg PO DAILY [facility] Last Admin: 01/26/19 09:15 Dose: Not Given Mupirocin (Bactroban Ointment) 1 gm TOP DAILY [facility] Last Admin: 01/26/19 09:13 Dose: Not Given Pregabalin (Lyrica) 50 mg PO HS [facility] Last Admin: 01/25/19 21:38 Dose: 50 mg Rosuvastatin Calcium (Crestor) 10 mg PO HS [facility] Last Admin: 01/25/19 21:38 Dose: 10 mg Sevelamer Carbonate (Renvela) 800 mg PO TID [facility] Last Admin: 01/26/19 09:15 Dose: Not Given Tobramycin/Dexamethasone (Tobradex 0.3%-0.1% Opht Oint) 1 appl OU TID [facility] Last Admin: 01/26/19 09:15 Dose: Not Given Vitamin B Complex/Vit C/Folic Acid (Nephro-Etelvina) 1 tab PO DAILY [facility] Last Admin: 01/26/19 09:14 Dose: Not Given - Labs Labs: 01/24/19 13:29 01/24/19 13:29 PT 13.1 SECONDS (9.7-12.2) H 01/17/19 05:06 INR 1.2 01/17/19 05:06 APTT 67.0 SECONDS (21-34) H D 01/22/19 08:09
[2019-01-26 15:34] VITALS: RESP 18; TEMP 98.4; O2SAT 100
[2019-01-26 17:29] VITALS: BP 145/67; PULSE 84
[2019-01-26] MEDS: Insulin Detemir 100 units/ml Vial (Levemir) SC SCH (21:31)
== END 2019-01-26 23:30 | disposition home or self-care (01) | DRG 280 ==
LOC: C.ER 04:39 → C.9E 06:09 → C.5S 06:34 → C.9I 01-18 10:25 → OBSVTOIN 01-18 10:28 → C.9I 01-18 13:49 → C.5S 01-21 05:37
PROVIDERS: ADMIT Internal Medicine; ATTEND Internal Medicine
PROC: 5A09357 Assistance with Respiratory Ventilation, Less than 24 Consecutive Hours, Continuous Positive Airway Pressure (ICD-10-PCS; 2019-01-18)
PROC: 5A1D70Z Performance of Urinary Filtration, Intermittent, Less than 6 Hours Per Day (ICD-10-PCS; principal; 2019-01-19)
DX: I21.A1 Myocardial infarction type 2 (principal); N18.6 End stage renal disease; I13.2 Hypertensive heart and chronic kidney disease with heart failure and with stage 5 chronic kidney disease, or end stage renal disease; I16.1 Hypertensive emergency; N25.81 Secondary hyperparathyroidism of renal origin; E87.0 Hyperosmolality and hypernatremia; E87.1 Hypo-osmolality and hyponatremia; I25.10 Atherosclerotic heart disease of native coronary artery without angina pectoris; I48.91 Unspecified atrial fibrillation; I50.9 Heart failure, unspecified; S91.201A Unspecified open wound of right great toe with damage to nail, initial encounter; W22.8XXA Striking against or struck by other objects, initial encounter; Z79.01 Long term (current) use of anticoagulants; Z85.828 Personal history of other malignant neoplasm of skin; Z86.73 Personal history of transient ischemic attack (TIA), and cerebral infarction without residual deficits; C44.91 Basal cell carcinoma of skin, unspecified; E03.9 Hypothyroidism, unspecified; E11.22 Type 2 diabetes mellitus with diabetic chronic kidney disease; E11.51 Type 2 diabetes mellitus with diabetic peripheral angiopathy without gangrene; E11.649 Type 2 diabetes mellitus with hypoglycemia without coma; E11.65 Type 2 diabetes mellitus with hyperglycemia; E78.00 Pure hypercholesterolemia, unspecified; E78.5 Hyperlipidemia, unspecified; E87.5 Hyperkalemia; Z95.1 Presence of aortocoronary bypass graft; Z95.5 Presence of coronary angioplasty implant and graft; Z99.2 Dependence on renal dialysis

== ENCOUNTER 2019-02-01 05:25 | Inpatient (IN) | payer MEDICARE, OTHER | END 2019-02-13 15:15 | disposition home or self-care (01) | DRG 302 | LOC: C.5S 02-06 13:34 → C.ER 05:25 → C.5S 02-06 20:35 → C.9E 07:27 → C.5S 09:44 | PROC: 5A1D70Z Performance of Urinary Filtration, Intermittent, Less than 6 Hours Per Day (ICD-10-PCS; principal; 2019-02-05) | PROC: 5A1D70Z Performance of Urinary Filtration, Intermittent, Less than 6 Hours Per Day (ICD-10-PCS; 2019-02-07) | PROC: 5A1D70Z Performance of Urinary Filtration, Intermittent, Less than 6 Hours Per Day (ICD-10-PCS; 2019-02-09) | PROC: 5A1D70Z Performance of Urinary Filtration, Intermittent, Less than 6 Hours Per Day (ICD-10-PCS; 2019-02-12) | DX: I25.110 Atherosclerotic heart disease of native coronary artery with unstable angina pectoris (principal); N18.6 End stage renal disease; I13.2 Hypertensive heart and chronic kidney disease with heart failure and with stage 5 chronic kidney disease, or end stage renal disease; E87.1 Hypo-osmolality and hyponatremia; I50.30 Unspecified diastolic (congestive) heart failure; N25.81 Secondary hyperparathyroidism of renal origin; E78.5 Hyperlipidemia, unspecified; I25.2 Old myocardial infarction; I48.91 Unspecified atrial fibrillation; L97.519 Non-pressure chronic ulcer of other part of right foot with unspecified severity; Z79.01 Long term (current) use of anticoagulants; Z85.828 Personal history of other malignant neoplasm of skin; Z86.73 Personal history of transient ischemic attack (TIA), and cerebral infarction without residual deficits; Z95.0 Presence of cardiac pacemaker; Z99.2 Dependence on renal dialysis; Z87.01 Personal history of pneumonia (recurrent); E66.9 Obesity, unspecified; E11.65 Type 2 diabetes mellitus with hyperglycemia; E11.22 Type 2 diabetes mellitus with diabetic chronic kidney disease; E11.621 Type 2 diabetes mellitus with foot ulcer; B18.2 Chronic viral hepatitis C; D64.9 Anemia, unspecified ==